=== PATIENT | female | born 1955 | race Caucasian/White ===

== ENCOUNTER 2018-12-06 10:45 | Emergency (ER) | payer SELFPAY ==
[~2018-12-06] VITALS: Ht 162.6 cm; Wt 65.8 kg
--- OUTSIDE RECORDS SUMMARY | 2018-12-06 10:49 | XMS REPORT | Clinical Summary ---
Author Author [facility] Organization [facility] Address Unknown Phone Unavailable Care Team Providers Care Mathematics Academic Chair Name Role Phone Asked, No Pcp PCP Unavailable Allergies Comments Active Allergy Reactions Severity Noted Date Doxycycline Rash Low 05/18/2018 Promethazine Rash Low 05/18/2018 Medications End Date Status Medication Sig Dispensed Refills Start Date Active furosemide (LASIX) 40 mg Take 40 mg by 0 tablet mouth 2 (two) times a day. Active carvedilol (COREG) 25 MG Take 25 mg by 0 tablet mouth 2 (two) times a day with meals. Active omeprazole (PriLOSEC) 20 Take 20 mg by 0 MG capsule mouth daily. Active aspirin (ECOTRIN) 81 MG Take 81 mg by 0 enteric coated tablet mouth daily. Active atorvastatin (LIPITOR) 40 Take 40 mg by 0 MG tablet mouth daily. Active ferrous sulfate 325 (65 Take 325 mg 0 FE) MG tablet by mouth daily with breakfast. Active NIFEdipine XL (PROCARDIA Take 30 mg by 0 XL) 30 MG 24 hr tablet mouth daily. 05/23/2018 Discontinued insulin ASPART (NovoLOG) Inject 8 0 100 unit/mL injection Units under the skin 3 (three) times a day before meals. 05/23/2018 Discontinued insulin detemir (LEVEMIR Inject 30 0 FLEXPEN SUBQ) Units under the skin nightly. 05/23/2018 Discontinued patiromer calcium Take 8.4 g by 0 sorbitex (VELTASSA) 8.4 mouth daily. gram powder in packet 08/05/2018 Discontinued rOPINIRole (REQUIP) 5 MG Take 5 mg by 0 tablet mouth nightly. 07/31/2018 Discontinued buPROPion SR (WELLBUTRIN Take 100 mg 0 SR) 100 MG 12 hr tablet by mouth 2 (two) times a day. 05/23/2018 Discontinued gabapentin (NEURONTIN) Take 100 mg 0 100 mg capsule by mouth 3 (three) times a day. 05/23/2018 Discontinued clopidogrel (PLAVIX) 75 Take 75 mg by 0 mg tablet mouth daily. 06/05/2018 traMADol (ULTRAM) 50 mg Take 1 tablet 30 tablet 0 tablet (50 mg total) 8 by mouth every 6 (six) hours as needed for moderate pain for up to 14 days. 06/22/2018 acetaminophen (TYLENOL) Take 1 tablet 1 Bottle 0 325 MG tablet (325 mg 8 total) by mouth every 4 (four) hours as needed for mild pain for up to 30 days. 06/22/2018 patiromer calcium Take 8.4 g by 15 packet 0 sorbitex (VELTASSA) 8.4 mouth every 8 gram powder in packet other day for 30 days. 06/22/2018 insulin lispro (HumaLOG) Inject 0-7 10 mL 12 100 unit/mL injection Units under 8 the skin 3 (three) times a day with meals for 30 days. 06/22/2018 insulin ASPART (NovoLOG) Inject 4 3.6 mL 0 100 unit/mL injection Units under 8 the skin 3 (three) times a day before meals for 30 days. 06/24/2018 clopidogrel (PLAVIX) 75 Take 1 tablet 30 tablet 0 mg tablet (75 mg total) 8 by mouth daily for 30 days. 08/05/2018 Discontinued vancomycin/0.9 % sod Infuse 750 mg 0 chloride (VANCOMYCIN IN into a venous 0.9 % SODIUM CHL) 750 catheter 3 mg/250 mL solution (three) times a week. MWF after dialysis, last received on Wednesday07/29/18 09/26/2018 Discontinued HYDROcodone-acetaminophen Take 1 tablet 0 (NORCO) 10-325 mg per by mouth tablet every 4 (four) hours as needed for moderate pain. 08/05/2018 Discontinued clopidogrel bisulfate Take by 0 (PLAVIX ORAL) mouth. 09/26/2018 Discontinued cefTRIAXone (ROCEPHIN) 2 Infuse 2 g 0 gram/50 mL IVPB into a venous catheter daily. 09/04/2018 acetaminophen (TYLENOL) Take 1 tablet 0 500 MG tablet (500 mg 9 total) by mouth every 4 (four) hours as needed for mild pain for up to 30 days. 09/04/2018 calcium carbonate (TUMS) Chew 1 tablet 0 200 mg calcium (500 mg) (500 mg 9 chewable tablet total) 3 (three) times a day as needed for indigestion or heartburn for up to 30 days. 09/04/2018 valsartan (DIOVAN) 80 MG Take 1 tablet 60 tablet 0 tablet (80 mg total) 9 by mouth 2 (two) times a day for 30 days. Hold if SBP less than 125 09/04/2018 rOPINIRole (REQUIP) 0.5 Take 1 tablet 30 tablet 0 MG tablet (0.5 mg 9 total) by mouth nightly for 30 days. 09/14/2018 cefTRIAXone (ROCEPHIN) 2 Infuse 2 g 0 g in 50 ML Mini-Bag Plus into a venous 9 catheter daily for 40 days. 09/04/2018 traMADol (ULTRAM) 50 mg Take 1 tablet 0 tablet (50 mg total) 9 by mouth 3 (three) times a day as needed for moderate pain for up to 30 days. 09/06/2018 clopidogrel (PLAVIX) 75 Take 1 tablet 0 201 mg tablet (75 mg total) 9 by mouth daily for 30 days. 09/04/2018 gabapentin (NEURONTIN) Take 1 60 capsule 0 100 mg capsule capsule (100 9 mg total) by mouth 2 (two) times a day for 30 days. 09/04/2018 insulin GLARGINE (LANTUS) Inject 10 3 mL 0 100 unit/mL injection Units under 9 (vial) the skin daily before breakfast for 30 days. 09/04/2018 insulin lispro (HumaLOG) Inject 3 10 mL 12 100 unit/mL injection Units under 9 the skin 3 (three) times a day with meals for 30 days. 09/04/2018 insulin lispro (HumaLOG) Inject 0-7 10 mL 12 100 unit/mL injection Units under 9 the skin 3 (three) times a day with meals for 30 days. 10/26/2018 acetaminophen (TYLENOL) Take 1 tablet 0 500 MG tablet (500 mg 9 total) by mouth every 4 (four) hours as needed for mild pain for up to 30 days. 10/26/2018 sennosides-docusate Take 1 tablet 60 tablet 0 sodium (SENOKOT-S) 8.6-50 by mouth 2 9 mg per tablet (two) times a day for 30 days. 10/11/2018 Discontinued traMADol (ULTRAM) 50 mg Take 0.5 0 tablet tablets (25 9 mg total) by mouth every 4 (four) hours as needed for moderate pain for up to 14 days. Give with Tylenol 500mg 10/11/2018 Discontinued amoxicillin (AMOXIL) 500 Take 1 0 MG capsule capsule (500 9 mg total) by mouth every evening for 8 days. 11/10/2018 calcium carbonate (TUMS) Chew 1 tablet 0 200 mg calcium (500 mg) (500 mg 9 chewable tablet total) 3 (three) times a day as needed for indigestion for up to 30 days. 11/10/2018 gabapentin (NEURONTIN) Take 1 90 capsule 0 100 mg capsule capsule (100 9 mg total) by mouth 3 (three) times a day for 30 days. 11/10/2018 cefTRIAXone (ROCEPHIN) Infuse 2 g 0 IVPB in 50 mL into a venous 9 catheter daily for 30 days. 11/11/2018 epoetin nanette-epbx Infuse 2.08 25 mL 0 (RETACRIT) 3,000 unit/mL mL (6,240 9 solution injection Units total) into a venous catheter 3 (three) times a week for 30 days. 11/10/2018 acetaminophen-codeine Take 1 tablet 0 (TYLENOL WITH CODEINE #3) by mouth 9 300-30 mg per tablet every 6 (six) hours as needed for moderate pain for up to 30 days. 10/25/2018 traMADol (ULTRAM) 50 mg Take 0.5 0 05/14/201 tablet tablets (25 9 mg total) by mouth every 4 (four) hours as needed for moderate pain for up to 14 days. Active Problems Problem Noted Date History of implantation of joint prosthesis of elbow, right 10/05/2018 Pacemaker 09/18/2018 Complication of internal fixation device 09/17/2018 Septic arthritis of elbow, right 07/31/2018 Closed fracture of supracondylar humerus, right, with nonunion, subsequent 05/18/2018 encounter Other intraarticular fracture of lower end of right radius, sequela 05/18/2018 Carpal tunnel syndrome on right 05/18/2018 Lesion of right ulnar nerve 05/18/2018 Right supracondylar humerus fracture, sequela 05/18/2018 End-stage renal disease on hemodialysis 05/18/2018 Type 2 diabetes mellitus 05/18/2018 Encounters Care Team Description Date Type Specialty Keyona Fisher MD 10/05/2018 Anesthesia Orthopedic Surgery Event Lani Thompson MD RIGHT ELBOW ANTIBIOTIC SPACER REMOVAL WITH REIMPLANTATION 10/05/2018 Surgery Orthopedic Surgery Lani Thompson MD Infection of prosthetic shoulder joint, subsequent encounter 10/05/2018 Hospital Orthopedic Surgery - Encounter 10/11/2018 Julio César Barragan MD 09/18/2018 Documentation Orthopedic Surgery Wallace Huddleston MD 09/17/2018 [facility] Cardiology - Encounter 09/26/2018 N/A 09/17/2018 Intake Access Mina Jones RN 08/12/2018 Documentation Orthopedic Surgery Lani Thompson MD INCISION AND DRAINAGE OF RIGHT ELBOW WITH REMOVAL OF PROSTHESIS, ANTIBIOTIC SCAR REMOVAL, SCAR REVISION 08/03/2018 Surgery Orthopedic Surgery Chata Martinez, JANIYA 08/03/2018 Anesthesia Orthopedic Surgery Event Sebastian Key MD Infection of prosthetic knee joint, initial encounter (HCC); Keloid of skin 07/31/2018 Hospital Orthopedic Surgery - Encounter 08/05/2018 N/A 07/30/2018 Intake Access Devon Alberto MD 05/18/2018 Anesthesia Orthopedic Surgery Event Lani Thompson MD RIGHT ELBOW ABBEY ARTHROPLASTY 05/18/2018 Surgery Orthopedic Surgery Lani Thompson MD Closed fracture of supracondylar humerus, right, with nonunion, subsequent encounter (Primary Dx); Other intraarticular fracture of lower end of right radius, sequela; Carpal tunnel syndrome on right; Lesion of right ulnar nerve; Right supracondylar humerus fracture, sequela; End-stage renal disease on hemodialysis (HCC); Type 2 diabetes mellitus with chronic kidney disease on chronic dialysis, with long-term current use of insulin ([facility]) 05/18/2018 [facility] Orthopedic Surgery - Encounter 05/23/2018 after 12/05/2017 Immunizations Name Dates Previously Given Next Due Pneumococcal 08/05/2018 Polysaccharide Social History Date Tobacco Use Types Packs/Day Years Used Never Smoker Smokeless Tobacco: Never Used Alcohol Use Drinks/Week oz/Week Comments No Alcohol Habits Answer Date Recorded How often do you have a drink containing alcohol? Never 05/18/2018 How many drinks containing alcohol do you have on Not asked a typical day when you are drinking? How often do you have six or more drinks on one Not asked occasion? Sex Assigned at Date Recorded Not on file Industry Job Start Date Occupation Not on file Not on file Not on file Travel End Travel History Travel Start No recent travel history available. Last Filed Vital Signs Time Taken Vital Sign Reading 10/11/2018 12:41 PM CDT Blood Pressure 140/68 10/11/2018 12:41 PM CDT Pulse 88 10/11/2018 12:21 PM CDT Temperature 36.1 C (96.9 F) 10/11/2018 12:21 PM CDT Respiratory Rate 17 10/11/2018 12:21 PM CDT Oxygen Saturation 97% - Inhaled Oxygen - Concentration 10/05/2018 8:36 PM CDT Weight 70.3 kg (155 lb) 10/05/2018 8:36 PM CDT Height 165.1 cm (5' 5") 10/05/2018 8:36 PM CDT Body Mass Index 25.79 Plan of Treatment Health Maintenance Due Date Last Done Comments DIABETIC RETINAL EYE EXAM 1956 DIABETIC FOOT EXAM 1966 URINE MICROALBUMIN 1966 BREAST CANCER SCREENING 2006 COLONOSCOPY SCREENING 2006 SHINGLES VACCINES (#1) 2006 INFLUENZA VACCINE 12/29/2018 02/28/2018, 02/10/2017 Implants Device Identifier Shelf Expiration Date Model / Serial / Lot Implanted Type Area Manufactur er 08/11/2022 [id number] / [id number] / 0 Suture Passer Accessorie N/A: N/A Implanted: Qty: 1 on 05/18/2018 by Lani Gomez MD 10/29/2019 [id number] / / [id number] Cement Bone 40gr Smartset Mv Bone Screw Right: N/A DEPUY Endurance - [id number] ORTHO-KNEE Implanted: Qty: 1 on 05/18/2018 by Lani Gomez MD 10/14/2020 [id number] / [id number] / 0 77mm Latitude Elbow Humeral Stem Ortho - N/A: N/A ADAMS Medium Right (Formerly Tornier) Other MEDICAL Implanted: Qty: 1 on 05/18/2018 by [employer] Lani Sexton MD s , INC. 01/20/2023 [id number] / [id number] / 0 Latitude Spool Medium Right Center Ortho - N/A: N/A ADAMS Offset (Formerly Tornier) Other MEDICAL Implanted: Qty: 1 on 05/18/2018 by HopscotchLani Patterson MD s , INC. 08/26/2022 [id number] / / [id number] Aequalis Flex Revive Ortho Right: Elbow Implanted: Qty: 1 on 08/03/2018 by Lani Jimenez MD 09/27/2020 [id number] / / [id number] Cement Bone Full Dose Simplex P Surgical N/A: N/A ESTEBAN Radiopaque - [id number] Bone ORTHOPEDIC Implanted: Qty: 1 on 08/03/2018 by Lani Her MD HIPS-KNEES 11/27/2020 [id number] [id number] / / [id number] Cement Bone Full Dose Simplex P Surgical Right: Elbow ESTEBAN Radiopaque - [id number] Bone ORTHOPEDIC Implanted: 10/05/2018 (Quantity not Cement S on file) HIPS-KNEES 11/27/2020 [id number] 010 / / [id number] Cement Bone Full Dose Simplex P Surgical Right: Elbow ESTEBAN Radiopaque - [id number] Bone ORTHOPEDIC Implanted: 10/05/2018 (Quantity not Cement S on file) HIPS-KNEES [id number] / / Catheter Cv Powerline Dlmn Al 6fr - Surgical N/A: N/A BARD [id number] Implants; ACCESS Implanted: 08/04/2018 (Quantity not Expanders; SYSTEMS on file) Extenders; Surgical Wires [id number] / / Catheter Cv Powerline Dlmn Al 6fr - Surgical N/A: N/A BARD [id number] Implants; ACCESS Implanted: 10/06/2018 (Quantity not Expanders; SYSTEMS on file) Extenders; Surgical Wires Procedures Comments Procedure Name Priority Date/Time Associated Diagnosis POC GLUCOSE Routine 10/11/2018 12:29 PM CDT HEMODIALYSIS Routine 10/11/2018 9:46 AM CDT POC GLUCOSE Routine 10/10/2018 9:21 PM CDT POC GLUCOSE Routine 10/10/2018 6:15 PM CDT POC GLUCOSE Routine 10/10/2018 1:10 PM CDT POC GLUCOSE Routine 10/10/2018 7:36 AM CDT ESTIMATED GFR Routine 10/10/2018 5:15 AM CDT HC COMPLETE BLD COUNT Routine 10/10/2018 W/AUTO DIFF 5:15 AM CDT BASIC METABOLIC PANEL Routine 10/10/2018 5:15 AM CDT POC GLUCOSE Routine 10/09/2018 9:06 PM CDT POC GLUCOSE Routine 10/09/2018 5:14 PM CDT POC GLUCOSE Routine 10/09/2018 12:35 PM CDT POC GLUCOSE Routine 10/09/2018 7:50 AM CDT POC GLUCOSE Routine 10/08/2018 10:06 PM CDT POC GLUCOSE Routine 10/08/2018 5:27 PM CDT POC GLUCOSE Routine 10/08/2018 1:39 PM CDT HEMODIALYSIS Routine 10/08/2018 9:08 AM CDT POC GLUCOSE Routine 10/08/2018 8:15 AM CDT ESTIMATED GFR Routine 10/08/2018 5:00 AM CDT BASIC METABOLIC PANEL Routine 10/08/2018 5:00 AM CDT HC COMPLETE BLD COUNT Routine 10/08/2018 W/AUTO DIFF 5:00 AM CDT POC GLUCOSE Routine 10/07/2018 9:07 PM CDT POC GLUCOSE Routine 10/07/2018 6:21 PM CDT POC GLUCOSE Routine 10/07/2018 12:39 PM CDT XR CHEST 1 VW PORTABLE Routine 10/07/2018 8:45 AM CDT SMEAR REVIEW Routine 10/07/2018 6:09 AM CDT HC COMPLETE BLD COUNT Routine 10/07/2018 W/AUTO DIFF 6:09 AM CDT ESTIMATED GFR Routine 10/07/2018 4:00 AM CDT BASIC METABOLIC PANEL Routine 10/07/2018 4:00 AM CDT POC GLUCOSE Routine 10/07/2018 1:14 AM CDT POC GLUCOSE Routine 10/06/2018 10:24 PM CDT IR TUNNELED CENTRAL LINE Routine 10/06/2018 PLACEMENT 5:16 PM CDT POC GLUCOSE Routine 10/06/2018 3:07 PM CDT POC GLUCOSE Routine 10/06/2018 11:54 AM CDT HEMODIALYSIS Routine 10/06/2018 10:49 AM CDT POC GLUCOSE Routine 10/06/2018 7:14 AM CDT POC GLUCOSE Routine 10/05/2018 6:56 PM CDT POC GLUCOSE Routine 10/05/2018 3:55 PM CDT OR FL > 1 HOUR Routine 10/05/2018 3:20 PM CDT FUNGUS SMEAR Timed 10/05/2018 2:16 PM CDT AFB STAIN Timed 10/05/2018 2:16 PM CDT GRAM STAIN Timed 10/05/2018 2:16 PM CDT AFB CULTURE Timed 10/05/2018 Infection of prosthetic 2:16 PM CDT shoulder joint, subsequent encounter AEROBIC CULTURE Timed 10/05/2018 Infection of prosthetic 2:16 PM CDT shoulder joint, subsequent encounter FUNGUS CULTURE Timed 10/05/2018 Infection of prosthetic 2:16 PM CDT shoulder joint, subsequent encounter ANAEROBIC CULTURE Timed 10/05/2018 Infection of prosthetic 2:16 PM CDT shoulder joint, subsequent encounter AFB STAIN Timed 10/05/2018 2:15 PM CDT GRAM STAIN Timed 10/05/2018 2:15 PM CDT FUNGUS SMEAR Timed 10/05/2018 2:15 PM CDT AFB CULTURE Timed 10/05/2018 Infection of prosthetic 2:15 PM CDT shoulder joint, subsequent encounter AEROBIC CULTURE Timed 10/05/2018 Infection of prosthetic 2:15 PM CDT shoulder joint, subsequent encounter FUNGUS CULTURE Timed 10/05/2018 Infection of prosthetic 2:15 PM CDT shoulder joint, subsequent encounter ANAEROBIC CULTURE Timed 10/05/2018 Infection of prosthetic 2:15 PM CDT shoulder joint, subsequent encounter ARTERIAL LINE Routine 10/05/2018 1:43 PM CDT Procedure Note - Leslye Hilton CRNA - 10/05/2018 1:43 PM CDT Arterial line Performed by: Keyona Fisher MD Authorized by: Keyona Fisher MD Patient Location: OR Start Time: 10/05/2018 1:39 PM End Time: 10/05/2018 1:41 PM Pre-proced ure: patient identified , IV checked, site and side verified, risks and benefits discussed, procedure verified, surgical consent complete, patient position confirmed, monitors and equipment checked and pre-op evaluation complete MSBT: antiseptic used and hand hygiene performed Indicatio ns: Indication s: multiple ABGs and hemodynami c monitoring Anesthesia : Anesthesia : General Procedure Details: Arterial Line placement: Placed post induction Line placement site: Radial Line placement side: Left Arterial line gauge: 20 G Number of attempts: 1 Ultrasound guidance used: Yes Post-proc edure: Post-proce dure: Sterile dressing applied Post procedure circulatio n, sensation, movement: Unchanged Patient tolerance: Patient tolerated the procedure well with no immediate complicati ons ARTHROPLASTY, ELBOW, 10/05/2018 Infection of prosthetic TOTAL 1:00 PM CDT shoulder joint, subsequent encounter Special Needs REQ 1300 START, BRACHIAL PLESUX, EST 60 MINS, BONE CEMENT, VANC POWDER, TOBRA POWDER, BACTISURE PREPARE RBC Routine 10/05/2018 11:10 AM CDT TYPE AND SCREEN Routine 10/05/2018 11:10 AM CDT POC PANEL 4 Routine 10/05/2018 10:37 AM CDT POC GLUCOSE Routine 10/05/2018 9:44 AM CDT HEMODIALYSIS Routine 09/26/2018 1:32 PM CDT ESTIMATED GFR Routine 09/26/2018 1:10 PM CDT BASIC METABOLIC PANEL Routine 09/26/2018 1:10 PM CDT CBC HEMOGRAM Routine 09/26/2018 1:10 PM CDT POC GLUCOSE Routine 09/25/2018 4:54 PM CDT POC GLUCOSE Routine 09/25/2018 11:38 AM CDT POC GLUCOSE Routine 09/25/2018 7:33 AM CDT POC GLUCOSE Routine 09/24/2018 9:20 PM CDT POC GLUCOSE Routine 09/24/2018 6:17 PM CDT POC GLUCOSE Routine 09/24/2018 11:36 AM CDT POC GLUCOSE Routine 09/24/2018 7:31 AM CDT POC GLUCOSE Routine 09/23/2018 8:35 PM CDT POC GLUCOSE Routine 09/23/2018 5:14 PM CDT POC GLUCOSE Routine 09/23/2018 12:27 PM CDT ESTIMATED GFR Routine 09/23/2018 7:52 AM CDT BASIC METABOLIC PANEL Routine 09/23/2018 7:52 AM CDT HC COMPLETE BLD COUNT Routine 09/23/2018 W/AUTO DIFF 7:52 AM CDT HEMODIALYSIS Routine 09/23/2018 7:23 AM CDT POC GLUCOSE Routine 09/22/2018 9:50 PM CDT POC GLUCOSE Routine 09/22/2018 4:28 PM CDT POC GLUCOSE Routine 09/22/2018 11:47 AM CDT POC GLUCOSE Routine 09/22/2018 7:19 AM CDT POC GLUCOSE Routine 09/22/2018 12:10 AM CDT HC COMPLETE BLD COUNT Routine 09/21/2018 W/AUTO DIFF 6:00 PM CDT POC GLUCOSE Routine 09/21/2018 5:39 PM CDT HEMODIALYSIS Routine 09/21/2018 1:28 PM CDT POC GLUCOSE Routine 09/21/2018 12:11 PM CDT POC GLUCOSE Routine 09/21/2018 7:53 AM CDT ESTIMATED GFR Routine 09/21/2018 4:00 AM CDT BASIC METABOLIC PANEL Routine 09/21/2018 4:00 AM CDT POC GLUCOSE Routine 09/20/2018 10:[address] HEAD WO CONTRAST Routine 09/20/2018 7:38 PM CDT POC GLUCOSE Routine 09/20/2018 6:21 PM CDT POC GLUCOSE Routine 09/20/2018 12:45 PM CDT POC GLUCOSE Routine 09/20/2018 8:00 AM CDT POC GLUCOSE Routine 09/19/2018 9:37 PM CDT POC GLUCOSE Routine 09/19/2018 6:30 PM CDT HC COMPLETE BLD COUNT Routine 09/19/2018 W/AUTO DIFF 5:50 PM CDT TRANSFUSE RED BLOOD CELLS Routine 09/19/2018 4:20 PM CDT PREPARE RBC Routine 09/19/2018 1:50 PM CDT HEPATITIS B SURFACE Routine 09/19/2018 ANTIGEN 1:50 PM CDT ESTIMATED GFR Routine 09/19/2018 1:50 PM CDT COMPREHENSIVE METABOLIC Routine 09/19/2018 PANEL 1:50 PM CDT TYPE AND SCREEN Routine 09/19/2018 1:50 PM CDT POC GLUCOSE Routine 09/19/2018 12:50 PM CDT HEMODIALYSIS Routine 09/19/2018 8:34 AM CDT POC GLUCOSE Routine 09/19/2018 7:38 AM CDT POC GLUCOSE Routine 09/18/2018 10:21 PM CDT POC GLUCOSE Routine 09/18/2018 5:04 PM CDT XR CHEST 2 VW Routine 09/18/2018 2:58 PM CDT XR ELBOW 3+ VW RIGHT Routine 09/18/2018 2:58 PM CDT POC GLUCOSE Routine 09/18/2018 11:39 AM CDT POC GLUCOSE Routine 09/18/2018 7:53 AM CDT SMEAR REVIEW Routine 09/18/2018 12:23 AM CDT RETICULOCYTE COUNT Routine 09/18/2018 12:23 AM CDT PARTIAL THROMBOPLASTIN Routine 09/18/2018 TIME (PTT) 12:23 AM CDT PROTHROMBIN TIME WITH INR Routine 09/18/2018 12:23 AM CDT HC COMPLETE BLD COUNT Routine 09/18/2018 W/AUTO DIFF 12:23 AM CDT VITAMIN B12 LEVEL Routine 09/17/2018 11:01 PM CDT FOLATE LEVEL Routine 09/17/2018 11:00 PM CDT TOTAL IRON BINDING Routine 09/17/2018 CAPACITY 10:58 PM CDT ESTIMATED GFR Routine 09/17/2018 10:58 PM CDT THYROID STIMULATING Routine 09/17/2018 HORMONE 10:58 PM CDT PHOSPHORUS LEVEL Routine 09/17/2018 10:58 PM CDT MAGNESIUM LEVEL Routine 09/17/2018 10:58 PM CDT COMPREHENSIVE METABOLIC Routine 09/17/2018 PANEL 10:58 PM CDT POC GLUCOSE Routine 08/05/2018 5:23 PM GANG WORKER POC GLUCOSE Routine 08/05/2018 12:26 PM GANG WORKER HEMODIALYSIS Routine 08/05/2018 11:14 AM GANG WORKER POC GLUCOSE Routine 08/05/2018 9:33 AM GANG WORKER HC COMPLETE BLD COUNT Routine 08/05/2018 W/AUTO DIFF 5:00 AM GANG WORKER ESTIMATED GFR Routine 08/05/2018 4:40 AM GANG WORKER BASIC METABOLIC PANEL Routine 08/05/2018 4:40 AM GANG WORKER POC GLUCOSE Routine 08/05/2018 1:12 AM GANG WORKER POC GLUCOSE Routine 08/04/2018 10:45 PM GANG WORKER POC GLUCOSE Routine 08/04/2018 6:11 PM GANG WORKER POC GLUCOSE Routine 08/04/2018 12:50 PM GANG WORKER IR TUNNELED CENTRAL LINE Routine 08/04/2018 PLACEMENT 9:57 AM GANG WORKER POC GLUCOSE Routine 08/04/2018 8:24 AM GANG WORKER HC COMPLETE BLD COUNT Routine 08/04/2018 W/AUTO DIFF 4:44 AM GANG WORKER ESTIMATED GFR Routine 08/04/2018 4:00 AM GANG WORKER BASIC METABOLIC PANEL Routine 08/04/2018 4:00 AM GANG WORKER POC GLUCOSE Routine 08/03/2018 9:53 PM GANG WORKER POC GLUCOSE Routine 08/03/2018 6:49 PM GANG WORKER HEMODIALYSIS Routine 08/03/2018 2:46 PM GANG WORKER POC GLUCOSE Routine 08/03/2018 12:47 PM GANG WORKER POC GLUCOSE Routine 08/03/2018 11:15 AM GANG WORKER OR FL > 1 HOUR Routine 08/03/2018 10:43 AM GANG WORKER SURGICAL PATHOLOGY Routine 08/03/2018 REQUEST 9:08 AM GANG WORKER GRAM STAIN Timed 08/03/2018 8:56 AM GANG WORKER AFB STAIN Timed 08/03/2018 8:56 AM GANG WORKER FUNGUS SMEAR Timed 08/03/2018 8:56 AM GANG WORKER FUNGUS SMEAR Timed 08/03/2018 8:54 AM GANG WORKER AFB STAIN Timed 08/03/2018 8:54 AM GANG WORKER GRAM STAIN Timed 08/03/2018 8:54 AM GANG WORKER TISSUE CULTURE Timed 08/03/2018 Infection of prosthetic 8:54 AM GANG WORKER knee joint, initial encounter (HCC) Keloid of skin SC AN ELECTIVE Routine 08/03/2018 ENDOTRACHEAL AIRWAY 8:33 AM GANG WORKER Procedure Note - Hope Mcintosh CRNA - 08/03/2018 8:33 AM GANG WORKER Airway Performed by: Hope Mcintosh CRNA Authorized by: Keyona Fisher MD Location: OR Urgency: Elective Difficult Airway: No Preoxygena veronica with 100% O2: Yes C-spine Precaution s Maintained Throughout : Yes Mask Ventilatio n: Not attempted Final Airway Type: Endotrache al airway Final Endotrache al Airway: ETT Technique Used: Video laryngosco py Devices/Me thods Used in Placement: Intubatin g stylet Insertion Site: Oral Blade type: glidescope #3. Laryngosco pe Blade/Vide olaryngosc ope Blade Size: 3 ETT Size (mm): 7.0 Measured from: Lips ETT to Lips (cm): 22 Placement Verified by: CO2 detection, direct visualizat ion and equal breath sounds Laryngosco pic view: Grade I - full view of glottis Rapid Sequence Induction (RSI): Yes Modified RSI: Yes Number of Attempts at Approach: 1 Cricoid applied preinducti on through confirmati on of ETT placement, preoxygena veronica x 3 minutes, ETT placed easily and atraumatic ally, facial and oral structures unchanged post ETT placement ARTERIAL LINE Routine 08/03/2018 8:16 AM GANG WORKER Procedure Note - Hope Mcintosh CRNA - 08/03/2018 8:16 AM GANG WORKER Arterial line Performed by: Keyona Fisher MD Authorized by: Keyona Fisher MD Patient Location: OR Start Time: 08/03/2018 8:13 AM End Time: 08/03/2018 8:15 AM Pre-proced ure: patient identified , IV checked, site and side verified, risks and benefits discussed, procedure verified, surgical consent complete, patient position confirmed, monitors and equipment checked and pre-op evaluation complete MSBT: antiseptic used and hand hygiene performed TIme Out Performed: 08/03/2018 8:04 AM Indication s: Indication s: hemodynami c monitoring Anesthesia : Anesthesia : General Procedure Details: Arterial Line placement: Placed post induction Line placement site: Radial Line placement side: Left Arterial line gauge: 20 G Number of attempts: 2 Ultrasound guidance used: Yes (no image saved) Post-proce dure: Post-proce dure: Sterile dressing applied Post procedure circulatio n, sensation, movement: Unchanged Patient tolerance: Patient tolerated the procedure well with no immediate complicati ons INCISION AND DRAINAGE, 08/03/2018 Infection of prosthetic ELBOW 8:00 AM GANG WORKER knee joint, initial encounter (HCC) Keloid of skin Special Needs SAG SAW, BONE CEMENT, VANC POWDER, LONG CURETTES, PULSE LAVAGE, SUPINE WITH BUMP UNDER SHOULDER ARM ACROSS CHEST JOINT FLUID CULTURE Timed 08/03/2018 7:56 AM GANG WORKER AFB CULTURE Timed 08/03/2018 Infection of prosthetic 7:56 AM GANG WORKER knee joint, initial encounter (HCC) Keloid of skin FUNGUS CULTURE Timed 08/03/2018 Infection of prosthetic 7:56 AM GANG WORKER knee joint, initial encounter (HCC) Keloid of skin ANAEROBIC CULTURE Timed 08/03/2018 Infection of prosthetic 7:56 AM GANG WORKER knee joint, initial encounter (HCC) Keloid of skin FUNGUS CULTURE Timed 08/03/2018 7:54 AM GANG WORKER ANAEROBIC CULTURE Timed 08/03/2018 7:54 AM GANG WORKER AFB CULTURE Timed 08/03/2018 Infection of prosthetic 7:54 AM GANG WORKER knee joint, initial encounter (HCC) Keloid of skin POC GLUCOSE Routine 08/03/2018 7:19 AM GANG WORKER CBC WITH PLATELET AND Routine 08/03/2018 DIFFERENTIAL 4:05 AM GANG WORKER ESTIMATED GFR Routine 08/03/2018 4:00 AM GANG WORKER BASIC METABOLIC PANEL Routine 08/03/2018 4:00 AM GANG WORKER POC GLUCOSE Routine 08/03/2018 12:35 AM GANG WORKER POC GLUCOSE Routine 08/02/2018 11:12 PM GANG WORKER ECG 12-LEAD Routine 08/02/2018 7:19 PM GANG WORKER POC GLUCOSE Routine 08/02/2018 6:55 PM GANG WORKER POC GLUCOSE Routine 08/02/2018 6:53 PM GANG WORKER ECHOCARDIOGRAM 2D Routine 08/02/2018 COMPLETE W MMODE SPECTRAL 4:00 PM GANG WORKER COLOR DOPPLER ([id number]) PREPARE RBC Routine 08/02/2018 2:25 PM GANG WORKER POC GLUCOSE Routine 08/02/2018 2:25 PM GANG WORKER TYPE AND SCREEN Routine 08/02/2018 2:25 PM GANG WORKER POC GLUCOSE Routine 08/02/2018 7:46 AM GANG WORKER ESTIMATED GFR Routine 08/02/2018 4:00 AM GANG WORKER PHOSPHORUS LEVEL Routine 08/02/2018 4:00 AM GANG WORKER BASIC METABOLIC PANEL Routine 08/02/2018 4:00 AM GANG WORKER CBC WITH PLATELET AND Routine 08/02/2018 DIFFERENTIAL 3:50 AM GANG WORKER POC GLUCOSE Routine 08/01/2018 9:23 PM GANG WORKER POC GLUCOSE Routine 08/01/2018 5:18 PM GANG WORKER POC GLUCOSE Routine 08/01/2018 1:54 PM GANG WORKER XR ABDOMEN 1 VW PORTABLE Routine 08/01/2018 12:31 PM GANG WORKER HEPATITIS B SURFACE STAT 08/01/2018 ANTIGEN 12:12 PM GANG WORKER POC GLUCOSE Routine 08/01/2018 12:05 PM GANG WORKER ESTIMATED GFR Routine 08/01/2018 9:55 AM GANG WORKER BASIC METABOLIC PANEL Routine 08/01/2018 9:55 AM GANG WORKER BLOOD CULTURE, AEROBIC & Routine 08/01/2018 ANAEROBIC 9:55 AM GANG WORKER HEMODIALYSIS Routine 08/01/2018 8:57 AM GANG WORKER POC GLUCOSE Routine 08/01/2018 7:31 AM GANG WORKER PROTHROMBIN TIME WITH INR Routine 08/01/2018 4:20 AM GANG WORKER HC COMPLETE BLD COUNT Routine 08/01/2018 W/AUTO DIFF 4:20 AM GANG WORKER ESTIMATED GFR Routine 08/01/2018 4:00 AM GANG WORKER HEPATIC FUNCTION PANEL Routine 08/01/2018 4:00 AM GANG WORKER BASIC METABOLIC PANEL Routine 08/01/2018 4:00 AM GANG WORKER BLOOD CULTURE, AEROBIC & Routine 08/01/2018 ANAEROBIC 4:00 AM GANG WORKER XR ELBOW 2 VW RIGHT Routine 07/31/2018 9:21 PM GANG WORKER POC GLUCOSE Routine 07/31/2018 8:31 PM GANG WORKER POC GLUCOSE Routine 07/31/2018 4:47 PM GANG WORKER POC GLUCOSE Routine 07/31/2018 11:[address] HEAD WO CONTRAST STAT 05/23/2018 3:45 PM GANG WORKER POC GLUCOSE Routine 05/23/2018 2:17 PM GANG WORKER POC GLUCOSE Routine 05/23/2018 10:37 AM GANG WORKER POC GLUCOSE Routine 05/23/2018 8:03 AM GANG WORKER POC GLUCOSE Routine 05/23/2018 6:02 AM GANG WORKER HEMOGLOBIN & HEMATOCRIT Routine 05/23/2018 5:50 AM GANG WORKER POC GLUCOSE Routine 05/23/2018 2:03 AM GANG WORKER POC GLUCOSE Routine 05/22/2018 9:59 PM GANG WORKER POC GLUCOSE Routine 05/22/2018 6:14 PM GANG WORKER POC GLUCOSE Routine 05/22/2018 3:35 PM GANG WORKER HEMODIALYSIS Routine 05/22/2018 3:27 PM GANG WORKER POC GLUCOSE Routine 05/22/2018 12:53 PM GANG WORKER POC GLUCOSE Routine 05/22/2018 10:59 AM GANG WORKER POC GLUCOSE Routine 05/22/2018 7:48 AM GANG WORKER POC GLUCOSE Routine 05/22/2018 6:05 AM GANG WORKER ESTIMATED GFR Routine 05/22/2018 5:50 AM GANG WORKER BASIC METABOLIC PANEL Routine 05/22/2018 5:50 AM GANG WORKER HC COMPLETE BLD COUNT Routine 05/22/2018 W/AUTO DIFF 5:50 AM GANG WORKER POC GLUCOSE Routine 05/22/2018 1:35 AM GANG WORKER POC GLUCOSE Routine 05/21/2018 9:23 PM GANG WORKER POC GLUCOSE Routine 05/21/2018 5:00 PM GANG WORKER POC GLUCOSE Routine 05/21/2018 12:42 PM GANG WORKER TRANSFUSE RED BLOOD CELLS Routine 05/21/2018 11:47 AM GANG WORKER TRANSFUSE RED BLOOD CELLS Routine 05/21/2018 11:13 AM GANG WORKER ULTRAFILTRATION Routine 05/21/2018 10:43 AM GANG WORKER TRANSFUSE RED BLOOD CELLS Routine 05/21/2018 10:23 AM GANG WORKER SMEAR REVIEW Routine 05/21/2018 9:38 AM GANG WORKER HC COMPLETE BLD COUNT Routine 05/21/2018 W/AUTO DIFF 9:38 AM GANG WORKER POC GLUCOSE Routine 05/21/2018 9:17 AM GANG WORKER POC GLUCOSE Routine 05/21/2018 6:16 AM GANG WORKER SMEAR REVIEW Routine 05/21/2018 5:05 AM GANG WORKER ESTIMATED GFR Routine 05/21/2018 5:05 AM GANG WORKER MAGNESIUM LEVEL Routine 05/21/2018 5:05 AM GANG WORKER BASIC METABOLIC PANEL Routine 05/21/2018 5:05 AM GANG WORKER HC COMPLETE BLD COUNT Routine 05/21/2018 W/AUTO DIFF 5:05 AM GANG WORKER POC GLUCOSE Routine 05/21/2018 4:58 AM GANG WORKER POC GLUCOSE Routine 05/21/2018 2:23 AM GANG WORKER POC GLUCOSE Routine 05/20/2018 11:36 PM GANG WORKER POC GLUCOSE Routine 05/20/2018 8:29 PM GANG WORKER POC GLUCOSE Routine 05/20/2018 4:58 PM GANG WORKER SC INSERT NON-TUNNEL CV Routine 05/20/2018 Closed fracture of CATH 4:47 PM GANG WORKER supracondylar humerus, right, with nonunion, subsequent encounter Other intraarticular fracture of lower end of right radius, sequela Carpal tunnel syndrome on right Lesion of right ulnar nerve Right supracondylar humerus fracture, sequela End-stage renal disease on hemodialysis (HCC) POC GLUCOSE Routine 05/20/2018 1:24 PM GANG WORKER POC GLUCOSE Routine 05/20/2018 12:25 PM GANG WORKER PREPARE RBC Timed 05/20/2018 10:58 AM GANG WORKER PREPARE RBC Timed 05/20/2018 10:58 AM GANG WORKER PREPARE RBC Timed 05/20/2018 10:58 AM GANG WORKER TYPE AND SCREEN Timed 05/20/2018 10:58 AM GANG WORKER POC GLUCOSE Routine 05/20/2018 9:12 AM GANG WORKER SMEAR REVIEW Routine 05/20/2018 8:45 AM GANG WORKER HC COMPLETE BLD COUNT Routine 05/20/2018 W/AUTO DIFF 8:45 AM GANG WORKER HEPATITIS B SURFACE STAT 05/20/2018 ANTIGEN 8:17 AM GANG WORKER POC GLUCOSE Routine 05/20/2018 7:36 AM GANG WORKER ESTIMATED GFR Routine 05/20/2018 4:00 AM GANG WORKER BASIC METABOLIC PANEL Routine 05/20/2018 4:00 AM GANG WORKER POC GLUCOSE Routine 05/20/2018 3:17 AM GANG WORKER HEMODIALYSIS Routine 05/20/2018 12:06 AM GANG WORKER POC GLUCOSE Routine 05/19/2018 9:45 PM GANG WORKER POC GLUCOSE Routine 05/19/2018 5:00 PM GANG WORKER POC GLUCOSE Routine 05/19/2018 12:08 PM GANG WORKER POC GLUCOSE Routine 05/19/2018 7:50 AM GANG WORKER POC GLUCOSE Routine 05/18/2018 10:59 PM GANG WORKER POC GLUCOSE Routine 05/18/2018 9:18 PM GANG WORKER OR [place] > 1 HOUR Routine 05/18/2018 9:15 PM GANG WORKER SC AN ELECTIVE Routine 05/18/2018 ENDOTRACHEAL AIRWAY 6:34 PM GANG WORKER Procedure Note - Reece Graham CRNA - 05/18/2018 6:34 PM GANG WORKER Airway Date/Time: 05/18/2018 5:52 PM Performed by: Reece Graham CRNA Authorized by: Keyona Fisher MD Location: OR Urgency: Elective Difficult Airway: No Preoxygena veronica with 100% O2: Yes C-spine Precaution s Maintained Throughout : Yes Final Airway Type: Endotrache al airway Final Endotrache al Airway: ETT Cuffed: Yes Technique Used: Video laryngosco py Insertion Site: Oral ETT Size (mm): 7.0 Cuff at minimum occlusion pressure: Yes Measured from: Lips ETT to Lips (cm): 21 Placement Verified by: CO2 detection, direct visualizat ion and equal breath sounds Laryngosco pic view: Grade I - full view of glottis Rapid Sequence Induction (RSI): No Modified RSI: No Number of Attempts at Approach: 1 Eyes taped closed at LOC and prior to airway manipulati on. Easy mask ventilatio n. Atraumatic intubation att x 1 by [employer] with Glidescope #3. Cuff to seal. +EtCO2, +BBS. Dentition unchanged. No complicati ons. ARTERIAL LINE Routine 05/18/2018 5:56 PM GANG WORKER Procedure Note - Reece Graham CRNA - 05/18/2018 5:56 PM GANG WORKER Arterial line Performed by: Reece Graham CRNA Authorized by: Keyona Fisher MD Patient Location: OR Start Time: 05/18/2018 5:51 PM End Time: 05/18/2018 5:55 PM Staff: Anesthesio logist: Keyona Fisher MD Performed by: Anesthesio logist Pre-proced ure: patient identified , IV checked, site and side verified, risks and benefits discussed, procedure verified, surgical consent complete, patient position confirmed, monitors and equipment checked and pre-op evaluation complete MSBT: antiseptic used and hand hygiene performed TIme Out Performed: 8 3:44 PM Indication s: Indication s: hemodynami c monitoring Anesthesia : Anesthesia : General Procedure Details: Arterial Line placement: Placed post induction Line placement site: Radial Line placement side: Left Arterial line gauge: 20 G Number of attempts: 2 Ultrasound guidance used: Yes Post-proc edure: Post-proce dure: Sterile dressing applied Post procedure circulatio n, sensation, movement: Unchanged Patient tolerance: Patient tolerated the procedure well with no immediate complicati ons ARTHROPLASTY, RADIAL 05/18/2018 Closed displaced simple HEAD, WITH IMPLANT 5:30 PM GANG WORKER supracondylar fracture of right humerus without intercondylar fracture Special Needs Tf, REQ 1200 START EXTENDED STAY LARGE C-ARM TORNIER TOTAL ELBOW SET POC PANEL 4 Routine 05/18/2018 4:40 PM GANG WORKER after 12/05/2017 Results * POC glucose (10/11/2018 12:29 PM CDT) Only the most recent of 115 results within the time period is included. [facility] POC glucose 113 (H) 65 - 99 mg/dL [place] Comment: EPISCOPAL [facility] Notified RN HOSPITAL Meter ID: [id number] Glove Maker: Tobias Paul Specimen Performing Organization Address City/State/Zipcode Phone Number [facility] DEPARTMENT OF [address] [place] [address] PATHOLOGY AND GENOMIC MEDICINE [address] * Estimated GFR (10/10/2018 5:15 AM CDT) Only the most recent of 17 results within the time period is included. [facility] Estimated GFR 9 (A) mL/min/1.73 m2 [place] Comment: [facility] [place], operated by [facility] rpretation G1 >=90 Normal or high G2 60-89Mildly decreased [id number] Mildly to moderately decreased [id number] Moderately to severely decreased G4 15-29Severely decreased G5 <15Kidney failure The eGFR was calculated using the Chronic Kidney Disease Epidemiology Collaboration (CKD-EPI) equation. Interpretation is based on recommendations of the National Kidney Foundation-Kidney Disease Outcomes Quality Initiative (NKF-KDOQI) published in 2014. Specimen Plasma specimen Performing Organization Address City/[facility]/Zipcode Phone Number [facility] [place] [address] PATHOLOGY AND [facility] MEDICINE [address] * CBC with platelet and differential (10/10/2018 5:15 AM CDT) Only the most recent of 16 results within the time period is included. [facility] WBC 9.26 4.50 - 11.00 k/uL [facility] RBC 2.92 (L) 4.20 - 5.50 m/uL [facility] HGB 8.1 (L) 12.0 - 16.0 g/dL [facility] HCT 26.2 (L) 37.0 - 47.0 % [facility] MCV 89.7 82.0 - 100.0 fL [facility] MCH 27.7 27.0 - 34.0 pg [facility] MCHC 30.9 (L) 31.0 - 37.0 g/dL [facility] RDW - SD 56.5 (H) 37.0 - 55.0 fL [facility] MPV 10.1 8.8 - 13.2 fL [facility] Platelet count 247 150 - 400 k/uL [facility] Nucleated RBC 0.00 /100 WBC [facility] Neutrophils 65.3 39.0 - 69.0 % [facility] Lymphocytes 21.1 (L) 25.0 - 45.0 % [facility] Monocytes 10.2 (H) 0.0 - 10.0 % [facility] Eosinophils 2.8 0.0 - 5.0 % [facility] Basophils 0.1 0.0 - 1.0 % [facility] Immature 0.5Comment: "Immature 0.0 - 1.0 % [place] granulocytes granulocytes" (promyelocytes, EPISCOPAL myelocytes, metamyelocytes) [facility] Specimen Blood Performing Organization Address City[facility] Phone Number [facility] [place] [address] PATHOLOGY AND GENOMIC MEDICINE [address] * Basic metabolic panel (10/10/2018 5:15 AM CDT) Only the most recent of 15 results within the time period is included. Sodium 133 (L) 135 - 148 mEq/L [facility] Potassium 3.8 3.5 - 5.0 mEq/L [facility] Chloride 94 (L) 98 - 112 mEq/L [facility] CO2 27 24 - 31 mEq/L [facility] Anion gap 12@ANIO 7 - 15 mEq/L [facility] BUN 30 (H) 8 - 23 mg/dL [facility] Creatinine 4.67 (H) 0.50 - 0.90 mg/dL [facility] Glucose 151 (H) 65 - 99 mg/dL [facility] Calcium 8.4 (L) 8.8 - 10.2 mg/dL [facility] Specimen Plasma specimen Performing Organization Address City/[facility] Phone Number [facility] [place] [address] PATHOLOGY AND GENOMIC MEDICINE [address] * XR Chest 1 Vw Portable (10/07/2018 8:45 AM CDT) Specimen Narrative Performed At EXAMINATION:XR CHEST 1 VW PORTABLE [facility] CLINICAL HISTORY:s p left tunneled central venous catheter placement COMPARISON:09/18/2018 IMPRESSION: Left-sided central line tip is at the proximal right atrium. Right-sided dual-lead pacing device noted. No pneumothorax. Stable heart and mediastinum. Increased perihilar reticular alveolar opacities since prior study. [facility]-[id number] Procedure Note Hm Interface, Radiology Results Incoming - 10/07/2018 8:50 AM CDT EXAMINATION: XR CHEST 1 VW PORTABLE CLINICAL HISTORY: s p left tunneled central venous catheter placement COMPARISON: 09/18/2018 IMPRESSION: Left-sided central line tip is at the proximal right atrium. Right-sided dual- lead pacing device noted. No pneumothorax. Stable heart and mediastinum. Increased perihilar reticular alveolar opacities since prior study. [facility]-[id number] Performing Organization Address City/[facility] [address] * Smear review (10/07/2018 6:09 AM CDT) Only the most recent of 5 results within the time period is included. Platelet slide [facility] adequate [facility] Anisocytosis Moderate [facility] Polychromasia Moderate [facility] Target cells Moderate (A) [facility] Ovalocytes Moderate [facility] Enlarged Moderate (A) [facility] Specimen Performing Organization Address [facility] Phone Number [facility] DEPARTMENT OF [address] [place] [address] PATHOLOGY AND GENOMIC MEDICINE [address] * IR Tunneled Central Line Placement (10/06/2018 5:16 PM CDT) Only the most recent of 2 results within the time period is included. Specimen Narrative Performed At Examination:IR TUNNELED CENTRAL LINE PLACEMENT [facility] Clinical history:"Osteomyelitisknownelbowfollow up" Comparison:08/04/2018 Anesthesia:Lidocaine solution was injected into the involved tissues. Conscious sedation:After the risks and benefits of conscious sedation were discussed, midazolam and fentanyl were administered intravenously.Throughout the conscious sedation duration, the patient was continuously monitored by a registered nurse. The physician intraservice [id number] time with the patient was 33 minutes. Fluoroscopy was used; the reference air kerma for the procedure was 2 mGy. Technique:The patient was prepared using sterile technique after signed, informed consent was obtained. Maximal sterile barrier technique was implemented. The left internal jugular vein was imaged sonographically and was found to be patent and appropriate for percutaneous access.Under real-time sonographic guidance, the vessel was accessed using a 21-gauge needle with real-time visualization of needle entry into the vessel.A sonographic image of the accessed vessel was obtained as permanent documentation.Seldinger technique was used to advance a standard guidewire into the inferior vena cava.A small incision was made caudal and lateral to the venotomy, establishing the catheter exit site.The distal end of the cuffed catheter was tunneled from the catheter exit site to the venotomy.The catheter was severed to an appropriate length.A peel-away sheath was placed over the wire.The distal end of the catheter was fed through the sheath and positioned using real-time fluoroscopic guidance with the catheter tip within the right atrium.The catheter was tested and found to function appropriately.The external portion of the catheter was sutured to the adjacent skin.The small incision overlying the venotomy was closed with absorbable suture.A final fluoroscopic image of the entire chest was obtained but, for technical reasons, could not be archived.A chest radiograph will be obtained subsequently for image documentation. Estimated blood loss:Less than 2 cc. Complications:None. Specimens removed:Not applicable. Assistants:None. IMPRESSION:A power-injectable, 6 Mauritanian, tunneled central venous catheter was placed via the left internal jugular vein as described above.The catheter is ready for routine use. Thank you for allowing us to participate in the care of your patient. [facility]-[id number] Procedure Note Hm Interface, Radiology Results Incoming - 10/06/2018 5:57 PM CDT Examination: IR TUNNELED CENTRAL LINE PLACEMENT Clinical history: "Osteomyelitis known elbow follow up" Comparison: 08/04/2018 Anesthesia: Lidocaine solution was injected into the involved tissues. Conscious sedation: After the risks and benefits of conscious sedation were discussed, midazolam and fentanyl were administered intravenously. Throughout the conscious sedation duration, the patient was continuously monitored by a registered nurse. The physician intraservice [id number] time with the patient was 33 minutes. Fluoroscopy was used; the reference air kerma for the procedure was 2 mGy. Technique: The patient was prepared using sterile technique after signed, informed consent was obtained. Maximal sterile barrier technique was implemented. The left internal jugular vein was imaged sonographically and was found to be patent and appropriate for percutaneous access. Under real-time sonographic guidance, the vessel was accessed using a 21-gauge needle with real-time visualization of needle entry into the vessel. A sonographic image of the accessed vessel was obtained as permanent documentation. Seldinger technique was used to advance a standard guidewire into the inferior vena cava. A small incision was made caudal and lateral to the venotomy, establishing the catheter exit site. The distal end of the cuffed catheter was tunneled from the catheter exit site to the venotomy. The catheter was severed to an appropriate length. A peel-away sheath was placed over the wire. The distal end of the catheter was fed through the sheath and positioned using real-time fluoroscopic guidance with the catheter tip within the right atrium. The catheter was tested and found to function appropriately. The external portion of the catheter was sutured to the adjacent skin. The small incision overlying the venotomy was closed with absorbable suture. A final fluoroscopic image of the entire chest was obtained but, for technical reasons, could not be archived. A chest radiograph will be obtained subsequently for image documentation. Estimated blood loss: Less than 2 cc. Complications: None. Specimens removed: Not applicable. Assistants: None. IMPRESSION: A power-injectable, 6 Mauritanian, tunneled central venous catheter was placed via the left internal jugular vein as described above. The catheter is ready for routine use. Thank you for allowing us to participate in the care of your patient. [facility]-[id number] [facility] Organization Address City/State/Zipcode Phone Number [facility] [address] [place] [address] * [place] > I Hour (10/05/2018 3:20 PM CDT) Only the most recent of 3 results within the time period is included. Specimen Narrative Performed At EXAMINATION:OR [place] >1 HOUR HM [facility] C-arm fluoroscopy was requested in OR. [id number] OR:15 PROCEDURE: RIGHT ELBOW ANTIBIOTIC SPACER REMOVAL WITH REIMPLANTATION START TIME:1320 END TIME:1520 FLUORO TIME:2 SECS DOSE:0.12 mGy TECH(S): AC IMPRESSION: Separate operative report will be issued by the physician performing the procedure. [id number] Procedure Note Hm Interface, Radiology Results Incoming - 10/05/2018 9:55 PM CDT EXAMINATION: OR [place] > 1 HOUR C-arm fluoroscopy was requested in OR. [id number] OR: 15 PROCEDURE: RIGHT ELBOW ANTIBIOTIC SPACER REMOVAL WITH REIMPLANTATION START TIME: 1320 END TIME: 1520 FLUORO TIME: 2 SECS DOSE: 0.12 mGy TECH(S): AC IMPRESSION: Separate operative report will be issued by the physician performing the procedure. [id number] Performing Organization Address City/[facility] Phone Number [facility] [address] [place] [address] * Fungus smear (10/05/2018 2:16 PM CDT) Only the most recent of 4 results within the time period is included. Fungus smear No fungi observed. [place] Comment: EPISCOPAL Specimen Information HOSPITAL Specimen Source: Tissue Specimen Site: Elbow Specimen Tissue - Elbow Performing Organization Address City/[facility] Phone Number [facility] [place] [address] PATHOLOGY AND [place] [address] HOSPITAL * AFB culture (10/05/2018 2:16 PM CDT) Only the most recent of 4 results within the time period is included. AFB culture No growth after 6 weeks of [place] isolate incubation. EPISCOPAL Comment: HOSPITAL Specimen Information Specimen Source: Tissue Specimen Site: Elbow Specimen Tissue - Elbow Performing Organization Address [facility]/Zipcode Phone Number [facility] [place] [address] PATHOLOGY AND [facility] MEDICINE [address] * Aerobic culture (10/05/2018 2:16 PM CDT) Only the most recent of 2 results within the time period is included. Aerobic culture No growth after 3 days. [facility] isolate Comment: EPISCOPAL Specimen Information HOSPITAL Specimen Source: Tissue Specimen Site: Elbow Specimen Tissue - Elbow Performing Organization Address City/[facility] Phone Number [facility] DEPARTMENT OF [address] [place] [address] PATHOLOGY AND [facility] MEDICINE [place] EPISCOPAL [address] [place] [address] HOSPITAL * Gram stain (10/05/2018 2:16 PM CDT) Only the most recent of 4 results within the time period is included. Gram stain Occasional WBC's [place] isolate No organisms seen EPISCOPAL Comment: HOSPITAL Specimen Information Specimen Source: Tissue Specimen Site: Elbow Specimen Tissue - Elbow Performing Organization Address [facility] Phone Number [facility] DEPARTMENT OF [address] [place] [address] PATHOLOGY AND GENOMIC MEDICINE [place] EPISCOPAL [address] [place] [address] HOSPITAL * AFB stain (10/05/2018 2:16 PM CDT) Only the most recent of 4 results within the time period is included. AFB stain No acid fast bacilli (AFB) [place] seen. EPISCOPAL Comment: HOSPITAL Specimen Information Specimen Source: Tissue Specimen Site: Elbow Specimen Tissue - Elbow Performing Organization Address [facility] Phone Number [facility] DEPARTMENT OF [address] [place], [place] [address] PATHOLOGY AND [facility] [place] EPISCOPAL [address] [place] [address] HOSPITAL * Fungus culture (10/05/2018 2:16 PM CDT) Only the most recent of 4 results within the time period is included. Fungus culture No growth after 4 weeks of [place] isolate incubation. EPISCOPAL Comment: HOSPITAL Specimen Information Specimen Source: Tissue Specimen Site: Elbow Specimen Tissue - Elbow Performing Organization Address City/[facility]/Zipcode Phone Number [facility] DEPARTMENT OF [address] [place] [address] PATHOLOGY AND [facility] [place] EPISCOPAL [address] [place] [address] HOSPITAL * Anaerobic culture (10/05/2018 2:16 PM CDT) Only the most recent of 4 results within the time period is included. Anaerobic No anaerobic organisms [place] culture isolate isolated. EPISCOPAL Comment: HOSPITAL Specimen Information Specimen Source: Tissue Specimen Site: Elbow Specimen Tissue - Elbow Performing Organization Address [facility] Phone Number [facility] [place] [place] [address] PATHOLOGY AND GENOMIC MEDICINE [address] * Prepare RBC, 2 Units (10/05/2018 11:10 AM CDT) Only the most recent of 5 results within the time period is included. Product name Red Blood Cells -1, Leukored [facility] Unit number [id number] [facility] Product code [id number] [facility] Dispense status Transfused [facility] Blood [id number] [place] expiration date [facility] Blood type code [address] [place] [address] Blood type A NEGATIVE [facility] Product name Red Blood Cells -1, Leukored [facility] Unit number [id number] [facility] Product code [id number] [facility] Dispense status Transfused [facility] Blood [id number] [place] expiration date [facility] Blood type code 0600 [facility] Blood type A NEGATIVE [facility] Specimen Blood Performing Organization Address [facility] Phone Number [facility] [place] [address] PATHOLOGY AND GENOMIC MEDICINE [address] * Type and screen (10/05/2018 11:10 AM CDT) Only the most recent of 4 results within the time period is included. ABO grouping A [facility] Rh type NEG [facility] Antibody screen NEG [place] (gel) [facility] Specimen Performing Organization Address City/[facility]/Zipcode Phone Number [facility] [place] [address] PATHOLOGY AND GENOMIC MEDICINE [address] * POC panel 4 (10/05/2018 10:37 AM CDT) Only the most recent of 2 results within the time period is included. POC sodium 131 (L) 135 - 148 mmol/L [facility] POC potassium 4.4 3.5 - 5.0 mmol/L [facility] POC hematocrit 36 (L) 37 - 47 % [place] Comment: EPISCOPAL Meter ID: [id number] [facility] Glove Maker: Etta Caballero POC glucose 197 (H) 65 - 99 mg/dL [facility] Specimen Performing Organization Address City/[facility]/Zipcode Phone Number [facility] DEPARTMENT OF [address] [place] [address] PATHOLOGY AND GENOMIC MEDICINE [address] * CBC hemogram (09/26/2018 1:10 PM CDT) WBC 6.02 4.50 - 11.00 k/uL [facility] RBC 2.94 (L) 4.20 - 5.50 m/uL [facility] HGB 8.0 (L) 12.0 - 16.0 g/dL [facility] HCT 25.8 (L) 37.0 - 47.0 % [facility] MCV 87.8 82.0 - 100.0 fL [facility] MCH 27.2 27.0 - 34.0 pg [facility] MCHC 31.0 31.0 - 37.0 g/dL [facility] RDW - SD 53.7 37.0 - 55.0 fL [facility] MPV 9.4 8.8 - 13.2 fL [facility] Platelet count 173 150 - 400 k/uL [facility] Nucleated RBC 0.00 /100 WBC [facility] Specimen Blood Performing Organization Address City/[facility] Phone Number [facility] DEPARTMENT OF [address] [place] [address] PATHOLOGY AND GENOMIC MEDICINE [address] * CT Head Wo Contrast (09/20/2018 7:38 PM CDT) Only the most recent of 2 results within the time period is included. Specimen Narrative Performed At EXAMINATION:CT HEAD WO CONTRAST [facility] CLINICAL HISTORY:Confusion COMPARISON:CT head 05/23/2018. TECHNIQUE: Noncontrast head CT performed using radiation dose reduction techniques.Technical factors are evaluated and adjusted to ensure appropriate moderation of exposure.Automated dose management technology is applied to adjust radiation exposure while achieving a diagnostic quality image. FINDINGS: No significant interval change appearing since the prior CT from 05/23/2018. No acute intra or extra-axial hemorrhage identified. The ryder-white matter differentiation is preserved. Probable prominent perivascular spaces are noted within the tail of the right putamen, unchanged. The thalami, midbrain, ravin and cervicomedullary junction are unremarkable. No mass, mass effect, or midline shift is seen. Ventricles and sulci are normal in appearance for patient's age.Basal cisterns are patent. Punctate vascular calcifications are noted along the supraclinoid internal carotid arteries bilaterally. Calvarium is intact. Prior cataract lens extractions are noted bilaterally. The visualized paranasal sinuses are unremarkable. The mastoid air cells and middle ear cavities are clear. Scalp soft tissues are unremarkable. IMPRESSION: No acute intracranial abnormality identified. [facility]-[id number] Procedure Note Hm Interface, Radiology Results Incoming - 09/20/2018 7:47 PM CDT EXAMINATION: CT HEAD WO CONTRAST CLINICAL HISTORY: Confusion COMPARISON: CT head 05/23/2018. TECHNIQUE: Noncontrast head CT performed using radiation dose reduction techniques. Technical factors are evaluated and adjusted to ensure appropriate moderation of exposure. Automated dose management technology is applied to adjust radiation exposure while achieving a diagnostic quality image. FINDINGS: No significant interval change appearing since the prior CT from 05/23/2018. No acute intra or extra-axial hemorrhage identified. The ryder-white matter differentiation is preserved. Probable prominent perivascular spaces are noted within the tail of the right putamen, unchanged. The thalami, midbrain, ravin and cervicomedullary junction are unremarkable. No mass, mass effect, or midline shift is seen. Ventricles and sulci are normal in appearance for patient's age. Basal cisterns are patent. Punctate vascular calcifications are noted along the supraclinoid internal carotid arteries bilaterally. Calvarium is intact. Prior cataract lens extractions are noted bilaterally. The visualized paranasal sinuses are unremarkable. The mastoid air cells and middle ear cavities are clear. Scalp soft tissues are unremarkable. IMPRESSION: No acute intracranial abnormality identified. [facility]-[id number] Performing Organization Address City/State/[facility] Hospitalcone Phone Number [facility] [address] [place] [address] * Transfuse RBC (09/19/2018 4:20 PM CDT) Only the most recent of 7 results within the time period is included. * Hepatitis B surface antigen (09/19/2018 1:50 PM CDT) Only the most recent of 3 results within the time period is included. Hepatitis B Non-reactive Non-reactive [place] surface Ag [facility] Specimen Blood Performing Organization Address City/State/Zipcode Phone Number [facility] DEPARTMENT OF [address] [place] [address] PATHOLOGY AND GENOMIC MEDICINE [address] * Comprehensive metabolic panel (09/19/2018 1:50 PM CDT) Only the most recent of 2 results within the time period is included. Sodium 135 135 - 148 mEq/L [facility] Potassium 5.3 (H) 3.5 - 5.0 mEq/L [facility] Chloride 94 (L) 98 - 112 mEq/L [facility] CO2 28 24 - 31 mEq/L [facility] Anion gap 13@ANIO 7 - 15 mEq/L [facility] BUN 51 (H) 8 - 23 mg/dL [facility] Creatinine 10.33 (H) 0.50 - 0.90 mg/dL [facility] Glucose 153 (H) 65 - 99 mg/dL [facility] Calcium 8.0 (L) 8.8 - 10.2 mg/dL [facility] Protein 5.5 (L) 6.3 - 8.3 g/dL [place] Comment: [facility] 4.6-7.0 g/dL 1 week 4.4-7.6 g/dL 7 months-1year 5.1-7.3 g/dL 1-2 years5.6-7 .5 g/dL >3 years6.0-8 .0 g/dL 18-150 6.3-8.3 g/dL Albumin 2.4 (L) 3.5 - 5.0 g/dL [facility] A/G ratio 0.8 0.7 - 3.8 [facility] Alkaline 101 35 - 104 U/L [place] phosphatase [facility] AST 23 10 - 35 U/L [facility] ALT 7 5 - 50 U/L [facility] Total bilirubin <0.2 0.0 - 1.2 mg/dL [facility] Specimen Plasma specimen Performing Organization Address City/State/Zipcode Phone Number [facility] DEPARTMENT OF [address] [place] [address] PATHOLOGY AND GENOMIC MEDICINE [address] * XR Chest 2 Vw (09/18/2018 2:58 PM CDT) Specimen Narrative Performed At EXAMINATION:XR CHEST 2 VW [facility] CLINICAL HISTORY:63 years Female preop eval for ortho surgery [facility] COMPARISON:None IMPRESSION: 1.Heart size is mildly enlarged. Slight fullness in the AP window can be seen in pulmonary hypertension. Clinical correlation. 2.Lungs are well-inflated. There is no acute consolidation or effusion. There is a questionable 8 mm nodular opacity over the left apex. alternatively could be a bone island in the left first rib. Follow-up CT is recommended for further evaluation given absence of priors for comparison. 3.Likely moderate hiatal hernia. Can be further characterized at the time of CT. 4.Degenerative changes in the spine. Multiple old left rib fractures. [facility]-[id number] Procedure Note Interface, Radiology Results Incoming - 09/18/2018 3:05 PM CDT EXAMINATION: XR CHEST 2 VW CLINICAL HISTORY:63 years Female preop eval for ortho surgery [facility] COMPARISON: None IMPRESSION: 1. Heart size is mildly enlarged. Slight fullness in the AP window can be seen in pulmonary hypertension. Clinical correlation. 2. Lungs are well-inflated. There is no acute consolidation or effusion. There is a questionable 8 mm nodular opacity over the left apex. alternatively could be a bone island in the left first rib. Follow-up CT is recommended for further evaluation given absence of priors for comparison. 3. Likely moderate hiatal hernia. Can be further characterized at the time of CT. 4. Degenerative changes in the spine. Multiple old left rib fractures. [facility]-[id number] Performing Organization Address City/State/Zipcode Phone Number [facility] [address] [place] [address] * XR Elbow 3+ Vw Right (09/18/2018 2:58 PM CDT) Specimen Narrative Performed At EXAMINATION:XR ELBOW 3VW RIGHT [facility] CLINICAL HISTORY:Dislocationelbow COMPARISON:07/31/2018 IMPRESSION: Interval removal of distal humeral prosthesis with spacer in place. The elbow remains dislocated with marked joint effusion and periarticular swelling. Bones are osteopenic. No acute fracture deformity. There is some heterotopic ossification around the humerus. [facility]-[id number] Procedure Note Interface, Radiology Results Incoming - 09/18/2018 3:08 PM CDT EXAMINATION: XR ELBOW 3 VW RIGHT CLINICAL HISTORY: Dislocation elbow COMPARISON: 07/31/2018 IMPRESSION: Interval removal of distal humeral prosthesis with spacer in place. The elbow remains dislocated with marked joint effusion and periarticular swelling. Bones are osteopenic. No acute fracture deformity. There is some heterotopic ossification around the humerus. [facility]-[id number] Performing Organization Address [facility]/[place] [address] * Partial thromboplastin time, activated (09/18/2018 12:23 AM CDT) Pathologist [facility] PTT 37.1 (H) 23.0 - 36.0 sec [place] Comment: [facility] PTT therapeutic range for HOSPITAL unfractionated heparin is 61.0-112.0 seconds which corresponds to Anti-Xa 0.3-0.7 U/ml. Specimen Blood Performing Organization Address [facility] Phone Number [facility] [place] [address] PATHOLOGY AND [facility] [address] * Prothrombin time with INR (09/18/2018 12:23 AM CDT) Only the most recent of 2 results within the time period is included. Pathologist [facility] Prothrombin 14.9 (H) 11.5 - 14.5 sec [facility] INR 1.2 [place] Comment: EPISCOPAL The International Normalized HOSPITAL Ratio (INR) is a therapeutic monitoring tool for patients who are stable on oral anticoagulant therapy. An INR of 2.0-3.0 is suggested for deep vein thrombosis/pulmonary embolism. Specimen Blood Performing Organization Address [facility] Phone Number [facility] DEPARTMENT OF [address] [place] [address] PATHOLOGY AND [facility]ICINE [address] * Reticulocyte count (09/18/2018 12:23 AM CDT) Pathologist [facility] Retic %, auto 0.7 0.5 - 2.1 % [facility] Retic absolute, 0.0170 (L) 0.0210 - 0.1155 m/uL [facility] Specimen Blood Performing Organization Address [facility]/Zipcode Phone Number [facility] [place] [place] [address] PATHOLOGY AND GENOMIC MEDICINE [address] * Vitamin B12 level (09/17/2018 11:01 PM CDT) Vitamin B12 434 211 - 946 pg/mL [place] Comment: EPISCOPAL Significant overlap exists HOSPITAL between normal and deficiency states. However, most patients with deficiencies will have Serum B12 <200 pg/mL. Specimen Serum Performing Organization Address City/[facility]/Zipcode Phone Number [facility] [place] [address] PATHOLOGY AND [facility] [address] * Folate level (09/17/2018 11:00 PM CDT) Folate 11.9 4.8 - 24.2 ng/mL [facility] Specimen Serum Performing Organization Address [facility] Phone Number [facility] [place] [address] PATHOLOGY AND [facility] [address] * Total iron binding capacity (09/17/2018 10:58 PM CDT) Pathologist [facility] Iron level 44 37 - 145 ug/dL [facility] Iron binding 117 (L) 200 - 400 ug/dL [facility] % Saturation 37.6 15.0 - 38.0 % [facility] Specimen Plasma specimen Performing Organization Address [facility] Phone Number [facility] [place] [address] PATHOLOGY AND [facility]IC[facility] [address] * Thyroid stimulating hormone (09/17/2018 10:58 PM CDT) TSH 11.30 (H) 0.27 - 4.20 uIU/mL [facility] Specimen Plasma specimen Performing Organization Address City/[facility] Phone Number [facility] [place] [address] PATHOLOGY AND [facility] [address] * Phosphorus level (09/17/2018 10:58 PM CDT) Only the most recent of 2 results within the time period is included. Phosphorus 4.9 (H) 2.4 - 4.5 mg/dL [facility] Specimen Plasma specimen Performing Organization Address City/[facility] Phone Number [facility] DEPARTMENT OF [address] [place] [address] PATHOLOGY AND GENOMIC MEDICINE [address] * Magnesium level (09/17/2018 10:58 PM CDT) Only the most recent of 2 results within the time period is included. Magnesium 2.0 1.6 - 2.4 mg/dL [facility] Specimen Plasma specimen Performing Organization Address City/[facility] Phone Number [facility] [place] [address] PATHOLOGY AND GENOMIC MEDICINE [address] * Surgical pathology request (08/03/2018 9:08 AM GANG WORKER) Pathologist [facility] DEPARTMENT OF PATHOLOGY AND GENOMIC MEDICINE Surgical See link below for PDF Lab [facility] DEPARTMENT pathology Report OF PATHOLOGY report AND GENOMIC MEDICINE Result status This is Final Report for [facility] DEPARTMENT [id number] OF PATHOLOGY AND GENOMIC MEDICINE Specimen Performing Organization Address City/[facility] Phone Number [facility] [place] [address] PATHOLOGY AND GENOMIC MEDICINE * Tissue culture (08/03/2018 8:54 AM GANG WORKER) [facility] Tissue culture No growth after 3 days. [place] isolate Comment: EPISCOPAL Specimen Information [facility] Specimen Source: Tissue Specimen Site: Elbow Specimen Tissue - Elbow Performing Organization Address City/[facility] Phone Number [facility] [place] [address] PATHOLOGY AND GENOMIC MEDICINE [address] * Joint fluid culture (08/03/2018 7:56 AM GANG WORKER) Pathologist [facility] Joint fluid No growth after 4 days. [place] culture isolate Comment: EPISCOPAL Specimen Information [facility] Specimen Source: Joint Fluid Specimen Site: Elbow right Specimen Joint fluid Performing Organization Address City/[facility]/Zipcode Phone Number [facility] [place] [address] PATHOLOGY AND GENOMIC MEDICINE [address] * ECG 12 lead (08/02/2018 7:19 PM GANG WORKER) Ventricular 64 H MUSE rate Atrial rate 64 [facility] MUSE SC interval 152 [facility] MUSE QRSD interval 106 [facility] MUSE QT interval 440 [facility] MUSE QTC interval 453 [facility] MUSE P axis 1 59 [facility] MUSE QRS axis 1 -42 [facility] MUSE T wave axis 90 [facility] MUSE EKG impression Normal sinus rhythm-Left axis [facility] MUSE deviation-Anterior infarct , age undetermined-T wave abnormality, consider lateral ischemia-Abnormal ECG-No previous ECGs available- Specimen Narrative Performed At Performing Organization Address City/State/Zipcode Phone Number [facility] MUSE [address] [place] [address] * Echocardiogram complete w contrast and 3D if needed (08/02/2018 4:00 PM GANG WORKER) Specimen Narrative Performed At [facility] Echocardiography Report [address] [place] [address] Pat.Name:PRISCA DAVILA Pat.ID:[id number] St.Date: 08/02/2018Refer.MD:SEBASTIAN KEY MD Exam Time: 3:03:00 PMStudy Type:Routine Echo Height:65inWeight:168lb BSA: 1.84 m2 DOBAge:1955,63Y Sex: FEMALEBP:197/81 HR:67 bpmSonogrphr: IWONA Luque Pat. Stat.:Inpatient Room:[facility] Study Status:Final Echo Event ID:[id number] Order ID:[id number] Reason for Study:Murmur or Click - Initial eval when there is a reasonable suspicion of valvular or structural heart disease Procedures:2D Echo, Colorflow Doppler, 3D Echo Race:C SUMMARY: LV size is normal. LV EF by 3D is 64% Diastolic dysfunction Grade III (Severe): Impaired relaxation with restrictive LV filling pressures. Estimated PA systolic pressure is 51 mmHg, assuming a mean RAP of 10 mmHg. FINDINGS: LV: LV size is normal. There is moderate concentric LV hypertrophy.LV EF is normal. Overall wall motion is normal.LV EF by 3D=64%. RV: RV size is moderately enlarged. RV systolic function is normal. LA: LA volume is severely enlarged. RA: RA volume is severely enlarged. AO: Aortic root diameter is upper limits of normal in size. Calcificationsin ascending aorta. DONAVAN: No pericardial effusion. AV: Focal calcification of AV leaflets. Mild aortic regurgitation. MV: Mild mitral annular calcification. Mild mitral regurgitation. PV: No structural PV abnormalities noted. A trace of pulmonic regurgitation. TV: Dilated tricuspid annulus. Mild to moderate tricuspid regurgitation Marsh: Diastolic dysfunction Grade III (Severe): Impaired relaxationwith restrictive LV filling pressures. Other:Estimated PA systolic pressure is 51 mmHg, assuming a mean RAPof 10 mmHg. MEASUREMENTS: 2D Parasternal Long Abbot LVOT 2 cmLA Ds3.9 cm LVIDd5.1 cmIndex2.8 cm/m Ao An2.2 cm LVIDs3.1 cmAo Rtd 3.4 cm Index1.8 cm/m LV%fs 39.2 % LV Pnsv953.8 g(87-129) IVSd 1 cmLVM Phscl166.1 g/m2 LVPWd1.1 cmRWT0.4 Right Ventricle RVIDd4.5 cm (2.6-4.3) LA Sng Plane LA Area 25.8 cm2(8.8-23.4) LA Vol91.3 ml Index49.6 ml/m LA LngAx 6.4 cm RA Sng Plane RA Area 24.2 cm2(8.3-19.5) RA Vol95.1 ml Index51.7 ml/m RA LngAx 5.4 cm Signed 08/02/2018 04:16 PM Odin Cheney M.D. Procedure Note Interface, Radiology Results In - 08/02/2018 4:17 PM GANG WORKER Echocardiography Report [address] [place] [address] Pat.Name: PRISCA DAVILA.ID: [id number] .Date: 08/02/2018 Refer.MD: SEBASTIAN KEY MD Exam Time: 3:03:00 PM Study Type:Routine Echo Height: 65in Weight: 168lb BSA: 1.84 m2 Age: 11 1955,63Y Sex: FEMALE BP: 197/81 HR: 67 bpm Sonogrphr: IWONA Luque Pat. Stat.:Inpatient Room: 23 Study Status:Final Echo Event ID:[id number] Order ID: [id number] Reason for Study:Murmur or Click - Initial eval when there is a reasonable suspicion of valvular or structural heart disease Procedures:2D Echo, Colorflow Doppler, 3D Echo Race: C SUMMARY: LV size is normal. LV EF by 3D is 64% Diastolic dysfunction Grade III (Severe): Impaired relaxation with restrictive LV filling pressures. Estimated PA systolic pressure is 51 mmHg, assuming a mean RAP of 10 mmHg. FINDINGS: LV: LV size is normal. There is moderate concentric LV hypertrophy. LV EF is normal. Overall wall motion is normal. LV EF by 3D=64%. RV: RV size is moderately enlarged. RV systolic function is normal. LA: LA volume is severely enlarged. RA: RA volume is severely enlarged. AO: Aortic root diameter is upper limits of normal in size. Calcifications in ascending aorta. DONAVAN: No pericardial effusion. AV: Focal calcification of AV leaflets. Mild aortic regurgitation. MV: Mild mitral annular calcification. Mild mitral regurgitation. PV: No structural PV abnormalities noted. A trace of pulmonic regurgitation. TV: Dilated tricuspid annulus. Mild to moderate tricuspid regurgitation Marsh: Diastolic dysfunction Grade III (Severe): Impaired relaxation with restrictive LV filling pressures. Other: Estimated PA systolic pressure is 51 mmHg, assuming a mean RAP of 10 mmHg. MEASUREMENTS: 2D Parasternal Long Abbot LVOT 2 cm LA Ds 3.9 cm LVIDd 5.1 cm Index 2.8 cm/m Ao An 2.2 cm LVIDs 3.1 cm Ao Rtd 3.4 cm Index 1.8 cm/m LV%fs 39.2 % LV Mass 200.8 g (87-129) IVSd 1 cm LVM Index 109.1 g/m2 LVPWd 1.1 cm RWT 0.4 Right Ventricle RVIDd 4.5 cm (2.6-4.3) LA Sng Plane LA Area 25.8 cm2 (8.8-23.4) LA Vol 91.3 ml Index 49.6 ml/m LA LngAx 6.4 cm RA Sng Plane RA Area 24.2 cm2 (8.3-19.5) RA Vol 95.1 ml Index 51.7 ml/m RA LngAx 5.4 cm Signed 08/02/2018 04:16 PM Odin Cheney M.D. Performing Organization Address City/State/Zipcode Phone Number [facility] [address] [place] [address] * XR Abdomen 1 Vw Portable (08/01/2018 12:31 PM GANG WORKER) Specimen Narrative Performed At EXAMINATION:XR ABDOMEN 1 VW PORTABLE [facility] CLINICAL HISTORY:Nauseavomiting COMPARISON:None. IMPRESSION: 1.The bowel gas pattern is nonspecific without evidence of obstruction or free intraperitoneal air. 2.Tiny radiopacity in the right abdomen likely related to represent some retained barium. Calcifications are noted in the pelvis consistent with phleboliths. 3.Postoperative changes related to ORIF of a right hip fracture with three Steinmann pins are noted. 4.A right ventricular pacemaker is partially visualized. 5.There is a healed right posterolateral ninth rib fracture. [facility]-[id number] Procedure Note Interface, Radiology Results Incoming - 08/01/2018 2:22 PM GANG WORKER EXAMINATION: XR ABDOMEN 1 VW PORTABLE CLINICAL HISTORY: Nausea vomiting COMPARISON: None. IMPRESSION: 1. The bowel gas pattern is nonspecific without evidence of obstruction or free intraperitoneal air. 2. Tiny radiopacity in the right abdomen likely related to represent some retained barium. Calcifications are noted in the pelvis consistent with phleboliths. 3. Postoperative changes related to ORIF of a right hip fracture with three Steinmann pins are noted. 4. A right ventricular pacemaker is partially visualized. 5. There is a healed right posterolateral ninth rib fracture. [facility]-[id number] Performing Organization Address City/[facility]/[place] [address] * Blood culture, aerobic & anaerobic (08/01/2018 9:55 AM GANG WORKER) Only the most recent of 2 results within the time period is included. [facility] Blood culture No growth after 5 days of [place] isolate incubation. EPISCOPAL Comment: HOSPITAL Specimen Information Specimen Source: Blood Specimen Site: Unspecified Specimen Blood Performing Organization Address City/[facility]/Zipcode Phone Number [facility] DEPARTMENT OF [address] [place] [address] PATHOLOGY AND GENOMIC MEDICINE [address] * Hepatic function panel (08/01/2018 4:00 AM GANG WORKER) [facility] Albumin 2.0 (L) 3.5 - 5.0 g/dL [facility] Total bilirubin 0.4 0.0 - 1.2 mg/dL [facility] Bilirubin SEE COMMENTComment: 0.0 - 0.3 mg/dL [place] direct Footnote--------- [facility] Alkaline 100 35 - 104 U/L [place] phosphatase [facility] Protein 5.7 (L) 6.3 - 8.3 g/dL [place] Comment: [facility] 4.6-7.0 g/dL 1 week 4.4-7.6 g/dL 7 months-1year 5.1-7.3 g/dL 1-2 years5.6-7 .5 g/dL >3 years6.0-8 .0 g/dL 18-150 6.3-8.3 g/dL ALT SEE COMMENTComment: 5 - 50 U/L [place] Footnote--------- [facility] AST SEE COMMENTComment: 10 - 35 U/L [place] Footnote--------- [facility] Specimen Plasma specimen Performing Organization Address City/[facility] Phone Number [facility] DEPARTMENT OF [address] [place] [address] PATHOLOGY AND GENOMIC MEDICINE [address] * XR Elbow 2 Vw Right (07/31/2018 9:21 PM GANG WORKER) Specimen Narrative Performed At Procedure:XR ELBOW 2 VW RIGHT [facility] REFERRING PHYSICIAN: LANI THOMPSON HISTORY:Dislocationelbow, Elbow paininitial exam COMPARISON: None FINDINGS: 2 views of the right elbow shows an underlying splint causing obscuration of the osseous detail. Postsurgical change of humeral prosthesis is seen. There appears to be dislocation of the olecranon and humeral head relative to the humeral prosthesis. Findings compatible with history of right elbow. No evidence of acute fracture. XR ELBOW 2 VW RIGHTacquired. IMPRESSION: Findings compatible with dislocation of the right elbow. [id number] Procedure Note Interface, Radiology Results Incoming - 07/31/2018 9:54 PM GANG WORKER Procedure:XR ELBOW 2 VW RIGHT REFERRING PHYSICIAN: LANI THOMPSON HISTORY: Dislocation elbow, Elbow pain initial exam COMPARISON: None FINDINGS: 2 views of the right elbow shows an underlying splint causing obscuration of the osseous detail. Postsurgical change of humeral prosthesis is seen. There appears to be dislocation of the olecranon and humeral head relative to the humeral prosthesis. Findings compatible with history of right elbow. No evidence of acute fracture. XR ELBOW 2 VW RIGHT acquired. IMPRESSION: Findings compatible with dislocation of the right elbow. [id number] Performing Organization Address City/[facility]/Zipcode Phone Number [facility] [address] [place] [address] * Hemoglobin & hematocrit (05/23/2018 5:50 AM GANG WORKER) HGB 9.4 (L) 12.0 - 16.0 g/dL [facility] HCT 29.0 (L) 37.0 - 47.0 % [facility] Specimen Blood Performing Organization Address City/State/Zipcode Phone Number [facility] DEPARTMENT OF [address] [place] [address] PATHOLOGY AND GENOMIC MEDICINE [facility] [address] [place], [place] [id number] [place] [address] * Central Line Insertion (05/20/2018 4:47 PM GANG WORKER) Narrative Performed At Yazan Gay MD 05/20/20184:51 PM Central Line Insertion Performed by: Yazan Gay MD Authorized by: Lani Thompson MD Consent: Consent obtained:Written Consent given by:Spouse Risks discussed:Arterial puncture, incorrect placement, infection, nerve damage and bleeding Alternatives discussed:No treatment Pearson protocol: Procedure explained and questions answered to patient or proxy's satisfaction: yes Relevant documents present and verified: yes Test results available and properly labeled: yes Imaging studies available: yes Required blood products, implants, devices, and special equipment available: no Site/side marked: yes Immediately prior to procedure, a time out was called: yes Patient identity confirmed:Arm band, provided demographic data and hospital-assigned identification number Pre-procedure details: Hand hygiene: Hand hygiene performed prior to insertion Sterile barrier technique: All elements of maximal sterile technique followed Skin preparation:ChloraPrep Skin preparation agent: Skin preparation agent completely dried prior to procedure Anesthesia (see MAR for exact dosages): Anesthesia method:Local infiltration Local anesthetic:Lidocaine 1% WITH epi Procedure details: Catheter type:Triple lumen Catheter size:7 Fr Catheter length (cm):20 Catheter site: femoral vein Catheter Site Laterality:Left Patient position:Flat Landmarks identified: yes Ultrasound guidance: yes Sterile ultrasound techniques: Sterile gel and sterile probe covers were used Number of attempts:2 Successful placement: no Comments: Procedure suspended because deemed unsafe after 12/05/2017 Insurance Type Payer Benefit Subscriber ID Effective Phone Address Plan / Dates Group Medicare MEDICARE MEDICARE xxxxxxxxxxx 2016- [place] A AND Present [place] [employer] xxxxxxxxxx 2017-P [place] [employer] [place] [id number] Advance Directives Patient has advance care planning documents, and code status on file. For more i nformation, please contact: Francois Bartholomew [address] [place] [address] Date Inactivated Comments Code Status Date Activated 09/26/2018 11:58 PM Full Code 09/17/2018 11:03 PM Code Status decision reached by: Patient
--- OUTSIDE RECORDS SUMMARY | 2018-12-06 10:53 | XMS REPORT | Continuity of Care Document ---
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 S/P coronary artery stent placement Active 07/26/2017 09/15/2018 [facility] Coronary artery disease involving [place] coronary artery of [place] heart without angina pectoris Active 07/26/2017 09/15/2018 [facility] Status cardiac pacemaker Active 07/26/2017 09/15/2018 [facility] Dysphonia Active 01/20/2017 09/15/2018 [facility] Hoarseness Active 01/11/2017 09/15/2018 [facility] LPRD Active 01/11/2017 09/15/2018 [facility] Paralysis of left vocal fold Active 01/11/2017 09/15/2018 [facility] Fracture of distal end of right radius Active 09/17/2016 09/15/2018 [facility] Closed nondisplaced fracture of shaft of fifth metacarpal bone of left hand Active 09/17/2016 09/15/2018 [facility] Hand pain, left Active 09/17/2016 09/15/2018 [facility] Impaired activities of daily living Active 09/17/2016 09/15/2018 [facility] Impaired instrumental activities of daily living Active 09/17/2016 09/15/2018 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 Inadequately controlled diabetes mellitus Active 12/10/2015 09/15/2018 [facility] Type 2 diabetes mellitus, controlled Active 10/15/2015 09/15/2018 [facility] Dialysis patient, 3 times a week Active 10/15/2015 09/15/2018 [facility] Neuropathy Active 10/15/2015 09/15/2018 [facility] Gastroesophageal reflux disease without esophagitis Active 10/15/2015 09/15/2018 [facility] Depression Active 10/15/2015 09/15/2018 [facility] Moderate episode of recurrent major depressive disorder Active 09/15/2018 [facility] Dialysis patient Active 09/15/2018 [facility] Controlled type 2 diabetes mellitus with chronic kidney disease, unspecified CKD stage, unspecified whether senior care insulin use Active 09/15/2018 [facility] Post-nasal drip Active 09/15/2018 [facility] Allergic rhinitis with postnasal drip Active 09/15/2018 [facility] Cough Active 09/15/2018 [facility] Uncontrolled type 2 diabetes mellitus with chronic kidney disease on chronic dialysis, with long-term current use of insulin Active 09/15/2018 [facility] Hyponatremia Active 09/15/2018 [facility] Vocal cord paralysis Active 09/15/2018 [facility] Screen for colon cancer Active 09/15/2018 [facility] Controlled type 2 diabetes mellitus without complication, with long-term current use of insulin Active 09/15/2018 [facility] Dietary counseling Active 09/15/2018 [facility] Exercise counseling Active 09/15/2018 [facility] Essential hypertension Active 09/15/2018 [facility] Enlarged lymph node in neck Active 09/15/2018 [facility] Feels depressed Active 09/15/2018 [facility] Allergic conjunctivitis and rhinitis, unspecified laterality Active 09/15/2018 [facility] Screening for breast cancer Active 09/15/2018 [facility] Medications Medication Details Route Status Patient Instructions Ordering Provider Order Date Source mirtazapine (REMERON) 15 mg tablet TAKE ONE TABLET BY MOUTH EVERY NIGHT AT BEDTIME Active 08/16/2018 [facility] cetirizine (ZYRTEC) 10 mg tablet TAKE ONE TABLET BY MOUTH EVERY NIGHT AT BEDTIME Active 07/12/2018 [facility] cetirizine (ZYRTEC) 10 mg tablet TAKE ONE TABLET BY MOUTH EVERY NIGHT AT BEDTIME No Longer Active 07/06/2018 [facility] cetirizine (ZYRTEC) 10 mg tablet TAKE ONE TABLET BY MOUTH EVERY NIGHT AT BEDTIME No Longer Active 05/17/2018 [facility] ofloxacin (FLOXIN) 0.3 % otic solution Instill 5 Drops in left ear 2 times daily for [address]. [address] 2018 [facility] prednisoLONE acetate (PRED FORTE) 1 % ophthalmic suspension Instill 5 drops into left ear twice a day.. Inactive 2018 [facility] insulin detemir U-100 (LEVEMIR FLEXTOUCH U-100 INSULN) 100 unit/mL (3 mL) Pen Inject 40 Units under the skin every evening. Subcutaneous Active 04/15/2018 [facility] insulin aspart U-100 (NOVOLOG FLEXPEN) 100 unit/mL pen Inject 12 Units under the skin 3 times daily with meals. Subcutaneous Active 04/15/2018 [facility] mirtazapine (REMERON) 15 mg tablet Take 1 tablet by mouth at bedtime nightly. Oral No Longer Active 04/07/2018 [facility] benzonatate (TESSALON PERLES) 100 mg capsule Take 2 capsules by mouth 3 times daily as needed for up to 7 days for Cough. Oral No Longer Active 04/07/2018 [facility] polyethylene glycol (GOLYTELY) 236-22.74-6.74 -5.86 gram oral solution Add lukewarm drinking water to the fill kennedy (4 liters) and shake. Drink as directed by your doctor.. Inactive 04/01/2018 [facility] benzonatate (TESSALON PERLES) 100 mg capsule Take 2 capsules by mouth 3 times daily as needed for up to 7 days for Cough. Oral Inactive 04/01/2018 [facility] cetirizine (ZYRTEC) 10 mg tablet Take 1 tablet by mouth at bedtime nightly. Oral Inactive 04/01/2018 [facility] insulin detemir U-100 (LEVEMIR FLEXTOUCH U-100 INSULN) 100 unit/mL (3 mL) Pen Inject 35 Units under the skin every evening. Subcutaneous Inactive 04/01/2018 [facility] insulin aspart U-100 (NOVOLOG FLEXPEN) 100 unit/mL pen Inject 10 Units under the skin 3 times daily with meals. Subcutaneous Inactive 04/01/2018 [facility] NIFEdipine (NIFEDICAL XL) 30 mg extended release tablet Take 30 mg by mouth daily. Oral No Longer Active 01/14/2018 [facility] insulin detemir U-100 (LEVEMIR FLEXTOUCH U-100 INSULN) 100 unit/mL (3 mL) Pen Inject 30 Units under the skin every evening. Subcutaneous No Longer Active 01/14/2018 [facility] carvedilol (COREG) 25 mg tablet Take 1 tablet by mouth 2 times daily (with meals). Oral Active 01/14/2018 [facility] sevelamer carbonate (RENVELA) 800 mg tablet Take 2 tablets by mouth 3 times daily with meals. Oral Active 01/14/2018 [facility] patiromer calcium sorbitex (VELTASSA) 8.4 gram PwPk Take by mouth daily. Oral Active 01/14/2018 [facility] sodium bicarbonate 650 mg tablet Take 1 tablet by mouth daily. Oral Active 01/14/2018 [facility] azelastine (OPTIVAR) 0.05 % ophthalmic solution Instill 1 Drop in each eye 2 times daily. Active 01/14/2018 [facility] LEVEMIR FLEXTOUCH U-100 INSULN 100 unit/mL (3 mL) Pen INJECT 22 UNITS UNDER THE SKIN EVERY EVENING No Longer Active 09/27/2017 [facility] carvedilol (COREG) 6.25 mg tablet Take 6.25 mg by mouth 2 times daily. Oral No Longer Active 07/13/2017 [facility] rOPINIRole (REQUIP) 0.5 mg tablet Take 0.5 mg by mouth at bedtime nightly. Oral Active 07/13/2017 [facility] atorvastatin (LIPITOR) 40 mg tablet Take 40 mg by mouth at bedtime nightly. Oral Active 06/28/2017 [facility] clopidogrel (PLAVIX) 75 mg tablet Take 75 mg by mouth daily. Oral Active 06/28/2017 [facility] NOVOFINE 30 30 gauge x 1/3" needles USE TO INJECT INSULIN 3 TIMES DAILY . DISCARD PEN NEEDLE AFTER EACH USE Active 06/04/2017 [facility] DIALYVITE 800-ULTRA D 0.8-2,000 mg-unit Tab Active 05/21/2017 [facility] LEVEMIR FLEXTOUCH 100 unit/mL (3 mL) Pen INJECT 22 UNITS UNDER THE SKIN EVERY EVENING No Longer Active 02/12/2017 [facility] traMADol (ULTRAM) 50 mg tablet Take 1 tablet by mouth every 6 hours as needed for Pain. Oral No Longer Active 02/04/2017 [facility] LINZESS 145 mcg cap TAKE 1 BY MOUTH DAILY Active 12/16/2016 [facility] ciclesonide (ZETONNA) 37 mcg/actuation nasal HFA inhaler Use 1 [place] in each nostril daily. Active 12/14/2016 [facility] traMADol (ULTRAM) 50 mg tablet Take 1 tablet by mouth every 6 hours as needed for Pain. Oral No Longer Active 09/17/2016 [facility] traMADol (ULTRAM) 50 mg tablet Take 1 tablet by mouth every 6 hours as needed for Pain. Oral No Longer Active 09/07/2016 [facility] cetirizine (ZYRTEC) 10 mg tablet Take 1 tablet by mouth daily. Oral No Longer Active 09/04/2016 [facility] omeprazole (PRILOSEC) 20 mg delayed release capsule Take 2 capsules by mouth daily. Oral Active 07/01/2016 [facility] insulin aspart (NOVOLOG FLEXPEN) 100 unit/mL pen Inject 8 Units under the skin 3 times daily with meals. Subcutaneous No Longer Active 06/23/2016 [facility] pen needle, diabetic (NOVOFINE) 30 gauge x 1/3" needles Use to inject insulin 3 times daily, use new needle each time.. Active 06/23/2016 [facility] pen needle, diabetic (NOVOFINE) 30 gauge x 1/3" needles Inject under the skin daily Use as directed. Subcutaneous No Longer Active 10/15/2015 [facility] pen needle, diabetic (NOVOFINE 30) 30 gauge x 1/3" needles Inject under skin daily 4 times a day.. No Longer Active 10/15/2015 [facility] buPROPion (WELLBUTRIN SR) 100 mg sustained release tablet Take 100 mg by mouth. Oral Active [facility] gabapentin (NEURONTIN) 300 mg capsule Take 300 mg by mouth 3 times daily. Oral Active [facility] furosemide (LASIX) 40 mg tablet Take 40 mg by mouth [address] [facility] ASPIRIN EC 81 mg delayed release tablet Take 81 mg by mouth daily. Oral Active [facility] calcium acetate (PHOSLO) 667 mg cap Take 667 mcg by mouth 3 times daily with meals. Oral Active [facility] Allergies, Adverse Reactions, Alerts Substance Category Reaction Severity Reaction type Status Date Reported Comments Source Doxycycline Rash Propensity to adverse reactions to drug Active 10/15/2015 [facility] Promethazine Other Propensity to adverse reactions to drug Active 10/15/2015 [facility] Immunizations Immunization Date Given Site Status Last Updated Comments Source Influenza <Unspecified> 02/28/[address] [facility] Influenza Vaccine, Seasonal, Injectable 07/26/2017 Not Given Deferred: Vaccine Unavailable [facility] Tdap (Tetanus Toxoid, Reduced Diphtheria Toxoid And Acellular Pertussis, Absorbed) 12/14/2016 [facility] PPV 23 Pneumococcal Polysaccaride 12/14/2016 [facility] Results Order Name Results Value Reference Range Date Interpretation Comments Source VIT D, 25-HYDROXY Vit D, 25-Hydroxy 35.5 30 - 100 06/20/2018 Vitamin D deficiency has been defined by the [place] [employer] and
Endocrine Society guideline as a level of serum 25-OH Vitamin D less than 20
ng/mL. The Endocrine Society further defines Vitamin D insufficiency as a
level between 21 and 29 ng/mL and sufficiency as a level between 30 and 100
ng/mL.

[facility] HEP B COR AB TOT Hep B Cor Ab Tot Negative NEG 06/19/2018 [facility] HEPATITIS B SURFACE AB HBsAb Positive NEG 06/19/2018 [facility] HEPATITIS B SURFACE AB HBsAb Concentration 282.50 Negative: or=8.00 mIU/mL to or=12.00 mIU/mL 06/19/2018 [facility] HEPATITIS B SURFACE AB Lab Interpretation Abnormal 06/19/2018 [facility] HEPATITIS PANEL HCV IgG Negative NEG 06/19/2018 [facility] HEPATITIS PANEL HBsAg Negative NEG 06/19/2018 [facility] HEPATITIS PANEL HAV, IgM Negative NEG 06/19/2018 [facility] HEPATITIS PANEL HBcAb, IgM Negative NEG 06/19/2018 [facility] INTACT PTH Intact PTH 357.00 8.7 - 77.1 06/18/2018 [facility] INTACT PTH Lab Interpretation Abnormal 06/18/2018 [facility] BASIC METABOLIC PANEL CO2 26 21 - 31 06/18/2018 [facility] BASIC METABOLIC PANEL Chloride 98 98 - 107 06/18/2018 [facility] BASIC METABOLIC PANEL Potassium 4.4 3.5 - 5.1 06/18/2018 [facility] BASIC METABOLIC PANEL Sodium 138 136 - 145 06/18/2018 [facility] BASIC METABOLIC PANEL Glucose 226 70 - 110 06/18/2018 [facility] BASIC METABOLIC PANEL Urea Nitrogen 40 7 - 25 06/18/2018 [facility] BASIC METABOLIC PANEL Creatinine 6.40 0.6 - 1.2 06/18/2018 [facility] BASIC METABOLIC PANEL Anion Gap 14 06/18/2018 [facility] BASIC METABOLIC PANEL Calcium 8.1 8.6 - 10.3 06/18/2018 [facility] BASIC METABOLIC PANEL GFR, Estimated 7 mL/min/1.73 m2 06/18/2018 [facility] BASIC METABOLIC PANEL GFR, Estim, Afr-Am 8 mL/min/1.73 m2 06/18/2018 [facility] BASIC METABOLIC PANEL Lab Interpretation Abnormal 06/18/2018 [facility] PHOSPHORUS Phosphorus 5.1 2.5 - 5 06/18/2018 [facility] PHOSPHORUS Lab Interpretation Abnormal 06/18/2018 [facility] GLUCOSE POC Glucose POC 139 74 - 106 06/18/2018 [facility] GLUCOSE POC Lab Interpretation Abnormal 06/18/2018 [facility] POC CO2 POC 28 21 - 32 06/17/2018 [facility] POC Chloride POC 96 98 - 107 06/17/2018 [facility] POC Potassium POC 3.5 3.5 - 5.1 06/17/2018 [facility] POC Sodium POC 138 136 - 145 06/17/2018 [facility] POC Glucose POC 171 74 - 106 06/17/2018 [facility] POC Urea Nitrogen POC 29 7 - 18 06/17/2018 [facility] POC Creatinine POC 5.7 0.6 - 1.3 06/17/2018 [facility] POC Calcium Ionized POC 1.09 1.15 - 1.29 06/17/2018 [facility] POC Hemoglobin POC 8.5 12 - 16 06/17/2018 [facility] POC Hematocrit POC 25.0 37 - 47 06/17/2018 [facility] POC GFR, Estimated 8 mL/min/1.73 m2 06/17/2018 [facility] POC GFR, Estim, Afr-Am 9 mL/min/1.73 m2 06/17/2018 [facility] POC Lab Interpretation Abnormal 06/17/2018 [facility] 12 LEAD EKG 12 LEAD EKG FOR [facility] Test Date:2018-06-09 Pat Name: PRISCA TURNER Department: 6213 : Gender:Operation Specialist: MCKENZIE :1955 Requested By: TALYA SHEN Order Number: [id number] MD: Robert Carey Measurements IntervalsAxis Rate: 79 P:55 CA: 155QRS:-24 QRSD: 113T:87 QT: 414 QTc:475 Interpretive Statements SINUS RHYTHM MODERATE INTRAVENTRICULAR CONDUCTION DELAY QTC PROLONGATION NONSPECIFIC ST/T CHANGE POOR R WAVE PROGRESSION [facility] Electronically Signed On 06-10-2018 12:02:37 DOWEL INSERTING MACHINE OPERATOR by Robert Carey 06/10/2018 [facility] LIVER PROFILE T Protein 6.7 6 - 8.3 06/09/2018 [facility] LIVER PROFILE Albumin 3.5 3.7 - 5.3 06/09/2018 [facility] LIVER [facility] T Bilirubin 0.8 0.2 - 1.2 06/09/2018 [facility] LIVER PROFILE Alk Phos 157 34 - 104 06/09/2018 [facility] LIVER PROFILE AST 15 13 - 39 06/09/2018 [facility] LIVER PROFILE ALT 8 7 - 52 06/09/2018 [facility] LIVER PROFILE D Bilirubin 0.3 0 - 0.2 06/09/2018 [facility] LIVER PROFILE Lab Interpretation Abnormal 06/09/2018 [facility] PT/INR PT 14.3 11.8 - 15.0 06/09/2018 [facility] PT/INR INR 1.1 SUGGESTED THERAPEUTIC RANGES: INR 2.0-3.0 for MODERATE INTENSITY ANTICOAGULATION INR 2.5-3.5 for HIGH INTENSITY ANTICOAGULATION 06/09/2018 [facility] CBC/DIFF WBC 7.4 4.5 - 11 06/09/2018 [facility] CBC/DIFF RBC 3.07 4.20 - 5.40 06/09/2018 [facility] CBC/DIFF Hemoglobin 8.5 12 - 16 06/09/2018 [facility] CBC/DIFF Hematocrit 26.5 37 - 47 06/09/2018 [facility] CBC/DIFF MCV 86 82 - 92 06/09/2018 [facility] CBC/DIFF MCH 27.7 27 - 32 06/09/2018 [facility] CBC/DIFF MCHC 32.1 32 - 36 06/09/2018 [facility] CBC/DIFF RDW 47.1 36.4 - 46.3 06/09/2018 [facility] CBC/DIFF Platelet 210 150 - 400 06/09/2018 [facility] CBC/DIFF Mean Platelet Volume 9.9 9.4 - 12.4 06/09/2018 [facility] CBC/DIFF Percent NRBC 0.0 06/09/2018 [facility] CBC/DIFF Absolute NRBC 0.00 06/09/2018 [facility] CBC/DIFF Neutrophil 62.4 34 - 70 06/09/2018 [facility] CBC/DIFF Lymphocyte 25.4 20 - 50 06/09/2018 [facility] CBC/DIFF Monocyte 8.4 5 - 12 06/09/2018 [facility] CBC/DIFF Eosinophil 2.2 0.7 - 5 06/09/2018 [facility] CBC/DIFF Basophil 1.1 0.1 - 1.2 06/09/2018 [facility] CBC/DIFF Pct Immat Gran 0.5 0.0 - 0.5 06/09/2018 [facility] CBC/DIFF Neutrophil, Abs 4.62 1.56 - 6.13 06/09/2018 [facility] CBC/DIFF Lymphocyte, Abs 1.88 1.18 - 3.74 06/09/2018 [facility] CBC/DIFF Monocyte, Abs 0.62 0.24 - 0.36 06/09/2018 [facility] CBC/DIFF Eosinophil, Abs 0.16 0.04 - 0.36 06/09/2018 [facility] CBC/DIFF Basophil, Abs 0.08 0.01 - 0.08 06/09/2018 [facility] CBC/DIFF Absol Immat Gran 0.04 0 - 0.03 06/09/2018 [facility] CBC/DIFF Lab Interpretation Abnormal 06/09/2018 [facility] LIPID PROFILE Cholesterol 127 <200 04/10/2018 REFERENCE RANGE:
Desirable: <200 mg/dL
Borderline: 200-240 mg/dL
High Risk: >240 mg/dL

[facility] LIPID PROFILE Triglyceride 87 <150 04/10/2018 REFERENCE RANGE:
Normal: <150 mg/dL
Borderline High: 150-199 mg/dL
High: 200-499 mg/dL
Very High: >nr=152 mg/dL

[facility] LIPID PROFILE HDL 51 40 - 60 04/10/2018 Increased CHD risk: <40 mg/dL
Decreased CHD risk: >60 mg/dL

[facility] LIPID PROFILE LDL 59 04/10/2018 REFERENCE RANGE:
Optimal: <100 mg/dL
Near Optimal: 100-129 mg/dL
Borderline High: 130-159 mg/dL
High: 160-189 mg/dL
Very High: >vv=825 mg/dL

[facility] HEMOGLOBIN A1C Hemoglobin A1c 12.1 4.3 - 6.1 04/08/2018 [facility] HEMOGLOBIN A1C Est Average Gluc 300.6 04/08/2018 [facility] HEMOGLOBIN A1C Lab Interpretation Abnormal 04/08/2018 [facility] TSH TSH 2.13 0.57 - 3.74 04/08/2018 [facility] CYTOLOGY HX FINAL DIAGNOSIS Vaginal (Liquid-based preparation): Satisfactory for evaluation No presence of endocervical/transformation zone Negative for intraepithelial lesion or malignancy 04/05/2018 [facility] CYTOLOGY <p>Name PRISCA TURNER</p><p>Date of 1955</p><p>Hospital Number [id number]</p><p>Location [facility] ([facility]p><p> </p><p>CYTOPATHOLOGY</p><p> </p><p> Collected:04/01/2018 00:00 Received: </p><p>04/04/2018 11:42</p><p> </p><p> </p><p> </p><p> </p><p>FINAL DIAGNOSIS</p><p> Vaginal (Liquid-based preparation):</p><p> Satisfactory for evaluation</p><p>No presence of endocervical/transformation zone</p><p>Negative for intraepithelial lesion or malignancy</p><p> </p><p> </p><p> </p><p>Electronically Signed Out By Mindi Galvez</p><p> </p><p>Clinical History</p><p>Date of Last Menstrual Period: Not given</p><p>Menstrual History:</p><p>Pregnancies: A0</p><p>Post-menopausal: 2001</p><p>Contraceptive History:</p><p>Contraceptive& lt;/p><p>Specimen Received:</p><p>One ThinPrep Vial</p><p> </p><p>Educational Note:</p><p>The pap smear/test is a screening test for cervical cancer.As with</p><p>screening procedures, both false negative and false positive results may</p><p>occur.Hence, the results should be interpreted in the context of patient's</p><p>history and current clinical information. </p><p> </p><p>The slide has been analyzed by the automated ThinPrep Imaging System,</p><p>[employer], [place], [place].</p><p> </p><p></p><p> </p><p> </p><p> </p> Name PRISCA TURNER of 1955Hospital Number [id number] ([facility] CYTOPATHOLOGY Collected:04/01/2018 00:00 Received: 04/04/2018 11:42 FINAL DIAGNOSIS Vaginal (Liquid-based preparation): Satisfactory for evaluationNo presence of endocervical/transformation zoneNegative for intraepithelial lesion or malignancy Electronically Signed Out By Mindi Galvez Clinical HistoryDate of Last Menstrual Period: Not givenMenstrual History:Pregnancies: [id number]: 2002Contraceptive History:ContraceptiveSpecimen Received:One ThinPrep Vial Educational Note:The pap smear/test is a screening test for cervical cancer.As withscreening procedures, both false negative and false positive results mayoccur.Hence, the results should be interpreted in the context of patient'shistory and current clinical information. The slide has been analyzed by the automated ThinPrep Imaging System,[employer], [place], [place]. 04/05/2018 [facility] DIABETIC FOOT EXAM <p>Melissa Hardy NP 04/01/20185:15 PM</p><p>Diabetic Foot Exam was performed at 04/01/2018 5:12 PM.Right foot </p><p>sensation is reduced, right foot pulses are normal, right foot appearance </p><p>is normal.Left foot sensation is reduced,left foot pulses are normal,</p><p>left foot appearance is normal. </p><p> </p><p> </p> Melissa Hardy NP 04/01/20185:15 PMDiabetic Foot Exam was performed at 04/01/2018 5:12 PM.Right foot sensation is reduced, right foot pulses are normal, right foot appearance is normal.Left foot sensation is reduced,left foot pulses are normal,left foot appearance is normal. 04/01/2018 [facility] OCCULT BLOOD ICT Occult Blood ICT Negative NEG 02/02/2018 [facility] OPHTHALMOLOGY RETINAL SCAN RETINAL SCAN-FINAL RESULT ALERT 09/21/2017 [facility] OPHTHALMOLOGY RETINAL SCAN Right Diabetic Retinopathy Mild 09/21/2017 [facility] OPHTHALMOLOGY RETINAL SCAN Right Macular Edema None 09/21/2017 [facility] OPHTHALMOLOGY RETINAL SCAN Right Other Suspected Conditions None 09/21/2017 [facility] OPHTHALMOLOGY RETINAL SCAN Right Image Quality Gradeable Image 09/21/2017 [facility] OPHTHALMOLOGY RETINAL SCAN Left Diabetic Retinopathy Mild 09/21/2017 [facility] OPHTHALMOLOGY RETINAL SCAN Left Macular Edema None 09/21/2017 [facility] OPHTHALMOLOGY RETINAL SCAN Left Other Suspected Conditions None 09/21/2017 [facility] OPHTHALMOLOGY RETINAL SCAN Left Image Quality Gradeable Image 09/21/2017 [facility] OPHTHALMOLOGY RETINAL SCAN <p>Retinal Study Result for PRISCA TURNER</p><p> </p><p>JOHNNY PRISCAnayla 62 y/o, F (: 1955, )</p><p>presented to [facility] [place] on 09-21-2017 for a retinal imaging study of the left and right eyes.</p><p> </p><p>Based on the findings of the study, the following is recommended for PRISCA TURNER</p><p>Mild Pathology Found: Please advise the patient to return for another scan in 1 year.</p><p> </p><p>Interpreting Provider's Comments:No comments provided</p><p> </p><p>Right Eye Findings:</p><p>Diabetic Retinopathy: Mild</p><p> </p><p>Left Eye Findings:</p><p>Diabetic Retinopathy: Mild</p><p> </p><p> </p><p>This result was electronically signed by Shanika Galvan MD, , Taxonomy: [id number] on 09-21-2017 05:12:29 [facility] time.</p><p> </p><p>NOTE:Any pathology noted on this diabetic retinal evaluation should be confirmed by an appropriate ophthalmic examination.</p> Retinal Study Result for PRISCA TURNER ANNETTA, a 62 y/o, F (: 1955, )presented to [facility] [place] on 09-21-2017 for a retinal imaging study of the left and right eyes. Based on the findings of the study, the following is recommended for Bill TURNER Pathology Found: Please advise the patient to return for another scan in 1 year. Interpreting Provider's Comments:No comments provided Right Eye Findings:Diabetic Retinopathy: Mild Left Eye Findings:Diabetic Retinopathy: Mild This result was electronically signed by Shanika Galvan MD, , Taxonomy: [id number] on 09-21-2017 05:12:29 [facility] time. NOTE:Any pathology noted on this diabetic retinal evaluation should be confirmed by an appropriate ophthalmic examination. 09/21/2017 [facility] OPHTHALMOLOGY RETINAL SCAN Lab Interpretation Abnormal 09/21/2017 [facility] MAMMOGRAM BILAT SCREEN DIGITAL <p>IMPRESSION: BENIGN</p><p>There is no mammographic evidence of malignancy. A 1 year </p><p>screening mammogram is recommended.</p><p>This document has been electronically signed.</p><p> </p><p>Gris Fraga M.D.</p><p>to/:09/21/2017 11:44:03</p><p> </p><p>Line Painting Machine Operator: Andre Davenport Sr. Claim Rep, </p><p>[facility]</p><p>letter sent: Benign Exam</p><p>Mammogram BI-RADS: 2 Benign G0202 Z12.31</p> IMPRESSION: BENIGNThere is no mammographic evidence of malignancy. A 1 year screening mammogram is recommended.This document has been electronically signed. Gris Fraga M.D.to/:09/21/2017 11:44:03 Line Painting Machine Operator: Andre Davenport Sr. Claim Rep, [facility] Benign ExamMammogram BI-RADS: 2 Benign G0202 Z12.31 09/21/2017 [facility] MAMMOGRAM BILAT SCREEN DIGITAL <p> </p><p>#[id number] - MAMMOGRAM BILAT SCREEN DIGITAL</p><p>BILATERAL DIGITAL SCREENING MAMMOGRAM WITH CAD: 09/21/2017</p><p>CLINICAL: Screening for malignancy.</p><p> </p><p>Comparison is made to exam dated:09/24/2016 [facility] </p><p>Center.</p><p>The tissue of both breasts is extremely dense, which lowers the </p><p>sensitivity of mammography.</p><p>Current study was also evaluated with a Computer Aided Detection </p><p>(CAD) system.</p><p>No new significant masses, calcif ications, or other findings are </p><p>seen in either breast.There are benign calcifications in both </p><p>breasts.A cardiac pacing device now projects over the right </p><p>pectoralis muscle. </p><p> </p> #[id number] - MAMMOGRAM BILAT SCREEN DIGITALBILATERAL DIGITAL SCREENING MAMMOGRAM WITH CAD: 09/21/2017CLINICAL: Screening for malignancy. Comparison is made to exam dated:09/24/2016 [facility].The tissue of both breasts is extremely dense, which lowers the sensitivity of mammography.Current study was also evaluated with a Computer Aided Detection (CAD) system.No new significant masses, calcifications, or other findings are seen in either breast.There are benign calcifications in both breasts.A cardiac pacing device now projects over the right pectoralis muscle. 09/21/2017 [facility] MAMMOGRAM BILAT SCREEN DIGITAL <p styleCode="header">Interface, Rad/Mammog In - 09/21/2017 12:58 PM CDT</p><p>
<span>#[id number] - MAMMOGRAM BILAT SCREEN DIGITAL</span>
<span>BILATERAL DIGITAL SCREENING MAMMOGRAM WITH CAD: 09/21/2017</span>
<span>CLINICAL: Screening for malignancy. </span>

<span>Comparison is made to exam dated: 09/24/2016 [facility] </span>
<span>Center. </span>
<span>The tissue of both breasts is extremely dense, which lowers the </span>
<span>sensitivity of mammography. </span>
<span>Current study was also evaluated with a Computer Aided Detection </span>
<span>(CAD) system. </span>
<span>No new significant masses, calcifications, or other findings are </span>
<span>seen in either breast. There are benign calcifications in both </span>
<span>breasts. A cardiac pacing device now projects over the right </span>
<span>pectoralis muscle. </span>

<span>IMPRESSION</span>
<span>IMPRESSION: BENIGN</span>
<span>There is no mammographic evidence of malignancy. A 1 year </span>
<span>screening mammogram is recommended. </span>
<span>This document has been electronically signed.</span>&a mp;lt;br/>
<span>Gris Fraga M.D. </span>
<span>to/:09/21/2017 11:44:03 </span>

<span>Line Painting Machine Operator: Andre Davenport Sr. Claim Rep, </span>
<span>[facility]</sp an>
<span>letter sent: Benign Exam </span>
<span>Mammogram BI-RADS: 2 Benign G0202 Z12.31</span></p> Interface, Rad/Mammog In - 09/21/2017 12:58 PM CDT #[id number] - MAMMOGRAM BILAT SCREEN DIGITAL BILATERAL DIGITAL SCREENING MAMMOGRAM WITH CAD: 09/21/2017 CLINICAL: Screening for malignancy. Comparison is made to exam dated: 09/24/2016 [facility]. The tissue of both breasts is extremely dense, which lowers the sensitivity of mammography. Current study was also evaluated with a Computer Aided Detection (CAD) system. No new significant masses, calcifications, or other findings are seen in either breast. There are benign calcifications in both breasts. A cardiac pacing device now projects over the right pectoralis muscle. IMPRESSION IMPRESSION: BENIGN There is no mammographic evidence of malignancy. A 1 year screening mammogram is recommended. This document has been electronically signed. Gris Fraga M.D. to/:09/21/2017 11:44:03 Line Painting Machine Operator: Andre Davenport Sr. Claim Rep, [facility] letter sent: Benign Exam Mammogram BI-RADS: 2 Benign G0202 Z12.31 09/21/2017 [facility] Pathology Reports No Data Provided for This Section Diagnostic Reports Report Value Date Source U/S THYROID/NECK IMPRESSION:1.Thyroid nodules do not meet criteria for follow-up or fine-needleaspiration. REFERENCE:Tawny FN, Parth WD, Davy EG, et al. ACR Thyroid Imaging,Reporting and Data System (TI-RADS): White Paper of the ACR TI-RADSCommittee. J Am Kevin Radiol. 2017; 14(5): 587?595. Signed By: Walt Carlisle MD, 02/15/2018 5:56 PM EXAM: US THYROID DATE: 02/15/2018 at 1629 hours INDICATION: enlarged lymph node to left side of neck. Enlarged lymphnode in neck ADDITIONAL INFORMATION: None. COMPARISON: None. TECHNIQUE: Multiplanar grayscale and color Doppler ultrasound of theneck were obtained in the area of the thyroid. FINDINGS: Thyroid parenchyma: Normal. Size:Right thyroid: 5.2 x 1.7 x 1.3 cmLeft thyroid: 4.6 x 1.4 x 0.9 cmIsthmus thickness: 0.2 cm Thyroid nodules: Nodule 1:Location: Right superiorSize: 0.6 x 0.6 x 0.4 cmComposition: Solid or almost completely solid (2 points).Echogenicity: Hypoechoic (2 points).Shape: Wider than tall (0 points).Margins: Smooth (0 points).Echogenic foci: Absent (0 points).Other: None.ACR TI-RADS Score: TR4 - Moderately suspicious (total 4-6 points).-- ACR recommendation:=1.5 cm FNA;=1 cm f/u in 1, 2, 3, and 5 years;<1 cm no f/u or FNA.Recommendations: None. Nodule 2:Location: Left superiorSize: 0.4 x 0.3 x 0.2 cmComposition: Solid or almost completely solid (2 points).Echogenicity: Hypoechoic (2 points).Shape: Wider than tall (0 points).Margins: Smooth (0 points).Echogenic foci: Absent (0 points).Other: None.ACR TI-RADS Score: TR4 - Moderately suspicious (total 4-6 points).-- ACR recommendation:=1.5 cm FNA;=1 cm f/u in 1, 2, 3, and 5 years;<1 cm no f/u or FNA.Recommendations: None. Other smaller, or less suspicious nodules also present. Cervical lymph nodes: Normal. Other: None. Interface, Rad/Mammog In - 02/15/2018 6:01 PM CDTEXAM: US THYROID DATE: 02/15/2018 at 1629 hours INDICATION: enlarged lymph node to left side of neck. Enlarged lymph node in neck ADDITIONAL INFORMATION: None. COMPARISON: None. TECHNIQUE: Multiplanar grayscale and color Doppler ultrasound of the neck were obtained in the area of the thyroid. FINDINGS: Thyroid parenchyma: Normal. Size: Right thyroid: 5.2 x 1.7 x 1.3 cm Left thyroid: 4.6 x 1.4 x 0.9 cm Isthmus thickness: 0.2 cm Thyroid nodules: Nodule 1: Location: Right superior Size: 0.6 x 0.6 x 0.4 cm Composition: Solid or almost completely solid (2 points). Echogenicity: Hypoechoic (2 points). Shape: Wider than tall (0 points). Margins: Smooth (0 points). Echogenic foci: Absent (0 points). Other: None. ACR TI-RADS Score: TR4 - Moderately suspicious (total 4-6 points). -- ACR recommendation:=1.5 cm FNA;=1 cm f/u in 1, 2, 3, and 5 years; <1 cm no f/u or FNA. Recommendations: None. Nodule 2: Location: Left superior Size: 0.4 x 0.3 x 0.2 cm Composition: Solid or almost completely solid (2 points). Echogenicity: Hypoechoic (2 points). Shape: Wider than tall (0 points). Margins: Smooth (0 points). Echogenic foci: Absent (0 points). Other: None. ACR TI-RADS Score: TR4 - Moderately suspicious (total 4-6 points). -- ACR recommendation:=1.5 cm FNA;=1 cm f/u in 1, 2, 3, and 5 years; <1 cm no f/u or FNA. Recommendations: None. Other smaller, or less suspicious nodules also present. Cervical lymph nodes: Normal. Other: None. IMPRESSION IMPRESSION: 1. Thyroid nodules do not meet criteria for follow-up or fine-needle aspiration. REFERENCE: Tawny FN, Parth WD, Davy EG, et al. ACR Thyroid Imaging, Reporting and Data System (TI-RADS): White Paper of the ACR TI-RADS Committee. J Am Kevin Radiol. 2017; 14(5): 587?595. Signed By: Walt Carlisle MD, 02/15/2018 5:56 PM 02/15/2018 [facility] Consultation Notes No Data Provided for This Section Discharge Summaries No Data Provided for This Section History and Physicals No Data Provided for This Section Vital Signs Vital Sign Value Date Comments Source Systolic (mm Hg) 143 07/13/2018 [facility] Diastolic (mm Hg) 56 07/13/2018 [facility] Heart Rate 75 07/13/2018 [facility] Temperature Oral (F) 36.67 Teresita 07/13/2018 [facility] Respitory Rate 16 07/13/2018 [facility] Height 165.1 cm 07/13/2018 [facility] Weight 79.742 07/13/2018 [facility] Encounters Location Location Details Encounter Type Encounter Number Reason For Visit Attending Provider ADM Date DC Date Status Source [facility] [place] Refill [id number] Brant Hagan MD 09/21/2017 [facility] Nursing [place] Nurse Only [id number] Ondina Winn RN 09/21/2017 [facility] Ophthalmology/Optometry [place] Ancillary Procedure [id number] Juan Nowak MD 09/21/2017 09/21/2017 [facility] Mammography [place] Ancillary Procedure [id number] Juan Nowak MD 09/21/2017 09/21/2017 [facility] Office Visit [id number] Ozzie Wen MD 12/02/2017 12/02/2017 [facility] [place] Office Visit [id number] Melissa Hardy MANUFACTURING SUPERVISOR 01/14/2018 01/14/2018 [facility] Ultrasound [facility] Encounter [id number] Melissa Hardy MANUFACTURING SUPERVISOR 02/15/2018 02/16/2018 [facility] [place] Office Visit [id number] Melissa Hardy MANUFACTURING SUPERVISOR 04/01/2018 04/01/2018 [facility] [place] Orders Only [id number] Melissa Hardy MANUFACTURING SUPERVISOR 04/07/2018 [facility] Psychiatry [place] Office Visit [id number] Stan Ty ResidentMD 04/07/2018 04/07/2018 [facility] [place] Telephone [id number] Melissa Hardy MANUFACTURING SUPERVISOR 04/15/2018 [facility] Office Visit [id number] Ruth Wolfe MD 2018 2018 [facility] [place] Refill [id number] Brant Hagan MD 05/10/2018 [facility] Travel [id number] 06/09/2018 [facility] Anesthesia PreOP (6210) [facility] Encounter [id number] Yani Salas MANUFACTURING SUPERVISOR 06/09/2018 06/10/2018 [facility] Travel [id number] 06/17/2018 [facility] Encounter [id number] Ruth Wolef MD 06/17/2018 06/18/2018 [facility] Post Anesthesia Care (PACU) [facility] Surgery [id number] Ruth Wolfe MD 06/17/2018 [facility] Post Anesthesia Care (PACU) [facility] Anesthesia Event [id number] Talya Shen MANUFACTURING SUPERVISOR 06/17/2018 06/17/2018 [facility] Cooker Meal [place] Clinical Case Mgt [id number] Kristen Alexis 06/21/2018 [facility] [place] Refill [id number] Brant Hagan MD 07/02/2018 [facility] GI Lab Services BT Telephone [id number] Pebbles Gomez 07/02/2018 [facility] [place] Refill [id number] Brant Hagan MD 07/09/2018 [facility] Travel [id number] 07/13/2018 [facility] Office Visit [id number] Ruth Wolfe MD 07/13/2018 07/13/2018 [facility] Psychiatry [place] Refill [id number] Buddy Johnson MD 07/14/2018 [facility] Procedures Procedure Code Date Perfomer Comments Source BASIC METABOLIC PANEL 90122 06/18/2018 [facility] HEP B COR AB TOT 78873 06/18/2018 [facility] [place] [address] 06/18/2018 [facility] HEPATITIS PANEL 06756 06/18/2018 [facility] INTACT PTH 21469 06/18/2018 [facility] PHOSPHORUS 79981 06/18/2018 [facility] VIT D, 25-HYDROXY 38604 06/18/2018 [facility] GLUCOSE POC 06141 06/18/2018 [facility] GLUCOSE POC 86280 06/18/2018 [facility] INTUBATION [id number] 06/18/2018 [facility] BMP POC 12322 06/18/2018 [facility] GLUCOSE POC 22850 06/17/2018 [facility] GLUCOSE POC 54678 06/17/2018 [facility] ENT - THYROPLASTY 06/17/2018 [facility] BMP POC 36805 06/10/2018 [facility] LIVER PROFILE 01913 06/10/2018 [facility] CBC/DIFF 74913 06/10/2018 [facility] PT/INR 78501 06/10/2018 [facility] 12 LEAD EKG 76842 06/10/2018 [facility] BASIC METABOLIC PANEL 32219 04/07/2018 [facility] CBC/DIFF 63298 04/07/2018 [facility] HEMOGLOBIN A1C 34460 04/07/2018 [facility] LIVER PROFILE 90847 04/07/2018 [facility] LIPID PROFILE 78874 04/07/2018 [facility] TSH 17890 04/07/2018 [facility] DIABETIC FOOT EXAM 04/02/2018 [facility] CYTOLOGY 92727 04/01/2018 [facility] U/S THYROID/NECK 94570 02/16/2018 [facility] OCCULT BLOOD ICT 93479 02/02/2018 [facility] DIABETIC FOOT EXAM 01/14/2018 [facility] OPHTHALMOLOGY RETINAL SCAN [id number] 09/21/2017 [facility] MAMMOGRAM BILAT SCREEN DIGITAL G0202 09/21/2017 [facility] Assessment and Plan No Data Provided for This Section Plan of Care Plan of Care Date Source DM Microalbumin Urine Scrn (Yearly) 07/13/2019 [facility] CORONARY ARTERY DISEASE AGE 18 AND UP 04/07/2019 [facility] DM Foot Exam (Yearly) 04/01/2019 [facility] Colorectal Cancer Scrn Annual (FIT/FOBT) Age 50 to 75 02/02/2019 [facility] Breast Cancer Scrn (Yearly) 09/21/2018 [facility] Upcoming EncountersDateTypeSpecialtyCare TeamDescription 10/19/2018 Office Visit Ent-Otolaryngology Health MaintenanceDue DateLast DoneComments Cervical Cancer Scrn (3 Yrs) 06/03/2018 06/03/2015 (Previously completed - External) Breast Cancer Scrn (Yearly) 09/21/2018 09/21/2017, 09/24/2016, 07/04/2015 (Previously completed - External) DM Retinal Exam (Yearly) 09/21/2018 09/21/2017, 01/27/2016 (Previously completed - External) Colorectal Cancer Scrn Annual (FIT/FOBT) Age 50 to 75 02/02/2019 02/02/2018, 09/18/2016, 10/21/2015 DM Foot Exam (Yearly) 04/01/2019 04/01/2018, 01/14/2018, 07/26/2017 CORONARY ARTERY DISEASE AGE 18 AND UP 04/07/2019 04/07/2018, 01/14/2018 (Previously completed - External), 10/16/2015 DM HGBA1C (Yearly) 04/07/2019 04/07/2018, 01/14/2018 (Previously completed - External), 10/16/2015 DM Microalbumin Urine Scrn (Yearly) 07/13/2019 07/13/2018, 07/13/2018, 2018, Additional history exists 09/15/2018 [facility] Cervical Cancer Scrn (3 Yrs) 06/03/2018 [facility] Social History Social History Date Source Tobacco UseTypesPacks/DayYears UsedDate Never Smoker Smokeless Tobacco: Never Used Tobacco Cessation: Counseling Given: No Alcohol UseDrinks/Weekoz/WeekComments No 0 Standard drinks or equivalent 0.0 Sex Assigned at BirthDate Recorded Not on file Job Start DateOccupationIndustry Not on file Not on file Not on file Travel HistoryTravel StartTravel End No recent travel history available. 07/13/2018 [facility] Family History Value Date Source Medical HistoryRelationNameComments Hypertension Brother Hypertension Brother Hypertension Father Cancer Paternal Aunt colon cancer Cancer Paternal Grandmother Colon cancer Heart Sister Psychiatry Sister Bipolar Stroke Sister RelationNameStatusComments Brother Alive Brother Alive Brother Brother Father Maternal Grandfather Maternal Grandmother Mother Paternal Aunt Paternal Grandfather Paternal Grandmother Sister Alive Sister Sister Sister Son Alive 09/15/2018 [facility] Advance Directives Order Name Results Value Date Source Advance Directives Advance Directives For more information, please contact:[place] [address] [address] [facility], [place] [address]Clcakr Code Status on FileCode StatusDate ActivatedDate InactivatedComments Full Code 06/17/2018 3:12 PM 06/18/2018 4:22 PM 09/15/2018 [facility] Functional Status No Data Provided for This Section
--- OUTSIDE RECORDS SUMMARY | 2018-12-06 10:54 | XMS REPORT | Clinical Summary ---
Author Author [facility] Organization [facility] Address Unknown Phone Unavailable Care Team Providers Care Night Time Nanny Name Role Phone Melissa Hardy CHIEF PASSENGER [employer] STEWARD/STEWARDESS PCP Allergies Comments Active Allergy Reactions Severity Noted Date Doxycycline Rash 10/15/2015 Restlessness Promethazine Other 10/15/2015 Medications End Date Status Medication Sig Dispensed Refills Start Date Active buPROPion (WELLBUTRIN SR) Take 100 mg 0 100 mg sustained release by mouth. tablet Active gabapentin (NEURONTIN) Take 300 mg 0 300 mg capsule by mouth 3 times daily. Active furosemide (LASIX) 40 mg Take 40 mg by 0 tablet mouth 2 times daily. Active ASPIRIN EC 81 mg delayed Take 81 mg by 0 release tablet mouth daily. Active calcium acetate (PHOSLO) Take 667 mcg 0 667 mg cap by mouth 3 times daily with meals. Active pen needle, diabetic Use to inject 1 Box 5 (NOVOFINE) 30 gauge x insulin 3 7 1/3" needlesIndications: times daily, Type 2 diabetes, diet use new controlled needle each time.. Active omeprazole (PRILOSEC) 20 Take 2 180 capsule 0 mg delayed release capsules by 7 capsuleIndications: mouth daily. Gastroesophageal reflux disease without esophagitis Active ciclesonide (ZETONNA) 37 Use 1 Braggs 6.1 g 3 mcg/actuation nasal HFA in each 7 inhalerIndications: Acute nostril sinusitis, unspecified daily. Active LINZESS 145 mcg TAKE 1 BY 30 Each 1 capIndications: Irritable MOUTH DAILY 7 bowel syndrome with constipation Active NOVOFINE 30 30 gauge x USE TO INJECT 100 Each 4 1/3" needlesIndications: INSULIN 3 8 Uncontrolled type 2 TIMES DAILY . diabetes mellitus without DISCARD PEN complication, with NEEDLE AFTER long-term current use of EACH USE insulin Active atorvastatin (LIPITOR) 40 Take 40 mg by 0 mg tablet mouth at 8 bedtime nightly. Active clopidogrel (PLAVIX) 75 Take 75 mg by 0 mg tablet mouth daily. 8 Active DIALYVITE 800-ULTRA D 0 0.8-2,000 mg-unit Tab 7 Active rOPINIRole (REQUIP) 0.5 Take 0.5 mg 0 mg tablet by mouth at 8 bedtime nightly. Active carvedilol (COREG) 25 mg Take 1 tablet 60 tablet 3 tabletIndications: by mouth 2 8 Essential hypertension times daily (with meals). Active sevelamer carbonate Take 2 60 tablet 3 (RENVELA) 800 mg tablets by 8 tabletIndications: mouth 3 times Dialysis patient daily with meals. Active patiromer calcium Take by mouth 0 sorbitex (VELTASSA) 8.4 daily. 8 gram PwPkIndications: Dialysis patient Active sodium bicarbonate 650 mg Take 1 tablet 0 tabletIndications: by mouth 8 Dialysis patient daily. Active azelastine (OPTIVAR) 0.05 Instill 1 6 mL 1 % ophthalmic Drop in each 8 solutionIndications: eye 2 times Allergic conjunctivitis daily. and rhinitis, unspecified laterality Active polyethylene glycol Add lukewarm 4000 mL 0 (GOLYTELY) 236-22.74-6.74 drinking 8 -5.86 gram oral water to the solutionIndications: fill kennedy (4 Screen for colon cancer liters) and shake. Drink as directed by your doctor.. Active insulin detemir U-100 Inject 40 15 Pen 1 (LEVEMIR FLEXTOUCH U-100 Units under 8 INSULN) 100 unit/mL (3 the skin mL) PenIndications: every Uncontrolled type 2 evening. diabetes mellitus with chronic kidney disease on chronic dialysis, with long-term current use of insulin Active insulin aspart U-100 Inject 12 5 Pen 1 (NOVOLOG FLEXPEN) 100 Units under 8 unit/mL penIndications: the skin 3 Uncontrolled type 2 times daily diabetes mellitus with with meals. chronic kidney disease on chronic dialysis, with long-term current use of insulin Active cetirizine (ZYRTEC) 10 mg TAKE ONE 30 tablet 0 tabletIndications: TABLET BY 9 Allergic rhinitis with MOUTH EVERY postnasal drip, Cough NIGHT AT BEDTIME Active mirtazapine (REMERON) 15 TAKE ONE 30 tablet 1 mg tabletIndications: TABLET BY 9 Moderate episode of MOUTH EVERY recurrent major NIGHT AT depressive disorder BEDTIME 01/14/2018 Discontinued pen needle, diabetic Inject under 1 Box 2 (NOVOFINE) 30 gauge x the skin 6 1/3" needlesIndications: daily Use as Type 2 diabetes mellitus, directed. controlled 01/14/2018 Discontinued pen needle, diabetic Use as 1 Box 2 (NOVOFINE) 30 gauge x directed. 6 1/3" needlesIndications: Type 2 diabetes mellitus, controlled 01/14/2018 Discontinued pen needle, diabetic Inject under 1 Box 2 (NOVOFINE 30) 30 gauge x skin daily 4 6 1/3" needlesIndications: times a day.. Type 2 diabetes mellitus, controlled 01/14/2018 Discontinued NIFEdipine (NIFEDICAL XL) Take 30 mg by 0 30 mg extended release mouth daily. tablet 04/01/2018 Discontinued insulin aspart (NOVOLOG Inject 8 5 Pen 0 FLEXPEN) 100 unit/mL Units under 7 penIndications: Type 2 the skin 3 diabetes, diet controlled times daily with meals. 04/01/2018 Discontinued cetirizine (ZYRTEC) 10 mg Take 1 tablet 0 tabletIndications: by mouth 7 Persistent dry cough, daily. Seasonal allergic rhinitis due to pollen, Postnasal drip 01/14/2018 Discontinued traMADol (ULTRAM) 50 mg Take 1 tablet 30 tablet 0 tabletIndications: Right by mouth 7 wrist pain every 6 hours as needed for Pain. 01/14/2018 Discontinued traMADol (ULTRAM) 50 mg Take 1 tablet 30 tablet 0 tabletIndications: by mouth 7 Fracture of distal end of every 6 hours right radius, unspecified as needed for fracture morphology, Pain. initial encounter, Closed nondisplaced fracture of shaft of fifth metacarpal bone of left hand, initial encounter 01/14/2018 Discontinued traMADol (ULTRAM) 50 mg Take 1 tablet 50 tablet 0 tablet by mouth 7 every 6 hours as needed for Pain. 09/21/2017 Discontinued LEVEMIR FLEXTOUCH 100 INJECT 22 5 Pen 2 unit/mL (3 mL) UNITS UNDER 7 PenIndications: THE SKIN Controlled type 2 EVERY EVENING diabetes mellitus without complication, with long-term current use of insulin 01/14/2018 Discontinued carvedilol (COREG) 6.25 Take 6.25 mg 0 mg tablet by mouth 2 8 times daily. 01/14/2018 Discontinued LEVEMIR FLEXTOUCH U-100 INJECT 22 15 Pen 1 INSULN 100 unit/mL (3 mL) UNITS UNDER 8 PenIndications: THE SKIN Controlled type 2 EVERY EVENING diabetes mellitus without complication, with long-term current use of insulin 04/01/2018 Discontinued insulin detemir U-100 Inject 30 15 Pen 1 (LEVEMIR FLEXTOUCH U-100 Units under 8 INSULN) 100 unit/mL (3 the skin mL) PenIndications: every Controlled type 2 evening. diabetes mellitus without complication, with long-term current use of insulin 04/01/2018 Discontinued polyethylene glycol Add lukewarm 4000 mL 0 (GOLYTELY) 236-22.74-6.74 drinking 8 -5.86 gram oral water to the solutionIndications: fill kennedy (4 Screen for colon cancer liters) and shake. Drink as directed by your doctor.. 04/01/2018 Discontinued benzonatate (TESSALON Take 2 20 capsule 0 PERLES) 100 mg capsules by 8 capsuleIndications: mouth 3 times Allergic rhinitis with daily as postnasal drip, Cough needed for up to 7 days for Cough. 04/01/2018 Discontinued cetirizine (ZYRTEC) 10 mg Take 1 tablet 30 tablet 0 tabletIndications: by mouth at 8 Allergic rhinitis with bedtime postnasal drip, Cough nightly. 04/01/2018 Discontinued insulin detemir U-100 Inject 35 15 Pen 1 (LEVEMIR FLEXTOUCH U-100 Units under 8 INSULN) 100 unit/mL (3 the skin mL) PenIndications: every Uncontrolled type 2 evening. diabetes mellitus with chronic kidney disease on chronic dialysis, with long-term current use of insulin 04/01/2018 Discontinued insulin aspart U-100 Inject 10 5 Pen 0 (NOVOLOG FLEXPEN) 100 Units under 8 unit/mL penIndications: the skin 3 Uncontrolled type 2 times daily diabetes mellitus with with meals. chronic kidney disease on chronic dialysis, with long-term current use of insulin 04/07/2018 Discontinued benzonatate (TESSALON Take 2 20 capsule 0 PERLES) 100 mg capsules by 8 capsuleIndications: mouth 3 times Allergic rhinitis with daily as postnasal drip, Cough needed for up to 7 days for Cough. 05/10/2018 Discontinued cetirizine (ZYRTEC) 10 mg Take 1 tablet 30 tablet 0 tabletIndications: by mouth at 8 Allergic rhinitis with bedtime postnasal drip, Cough nightly. 04/15/2018 Discontinued insulin detemir U-100 Inject 35 15 Pen 1 (LEVEMIR FLEXTOUCH U-100 Units under 8 INSULN) 100 unit/mL (3 the skin mL) PenIndications: every Uncontrolled type 2 evening. diabetes mellitus with chronic kidney disease on chronic dialysis, with long-term current use of insulin 04/15/2018 Discontinued insulin aspart U-100 Inject 10 5 Pen 1 (NOVOLOG FLEXPEN) 100 Units under 8 unit/mL penIndications: the skin 3 Uncontrolled type 2 times daily diabetes mellitus with with meals. chronic kidney disease on chronic dialysis, with long-term current use of insulin 07/14/2018 Discontinued mirtazapine (REMERON) 15 Take 1 tablet 30 tablet 2 mg tabletIndications: by mouth at 8 Moderate episode of bedtime recurrent major nightly. depressive disorder 04/14/2018 benzonatate (TESSALON Take 2 40 capsule 0 PERLES) 100 mg capsules by 8 capsuleIndications: mouth 3 times Allergic rhinitis with daily as postnasal drip, Cough needed for up to 7 days for Cough. 2018 Discontinued ofloxacin (FLOXIN) 0.3 % Instill 5 5 mL 0 otic solution Drops in left 8 ear 2 times daily for 10 days. 2018 Discontinued prednisoLONE acetate Instill 5 5 mL 0 (PRED FORTE) 1 % drops into 8 ophthalmic suspension left ear twice a day.. 07/02/2018 Discontinued cetirizine (ZYRTEC) 10 mg TAKE ONE 30 tablet 0 tabletIndications: TABLET BY 8 Allergic rhinitis with MOUTH EVERY postnasal drip, Cough NIGHT AT BEDTIME 07/09/2018 Discontinued cetirizine (ZYRTEC) 10 mg TAKE ONE 30 tablet 0 tabletIndications: TABLET BY 9 Allergic rhinitis with MOUTH EVERY postnasal drip, Cough NIGHT AT BEDTIME Active Problems Problem Noted Date Elbow pain, chronic, right 11/23/2017 S/P coronary artery stent placement 07/26/2017 Coronary artery disease involving [place] coronary artery of [place] heart 07/26/2017 without angina pectoris Status cardiac pacemaker 07/26/2017 Dysphonia 01/20/2017 Overview: Added automatically from request for surgery [id number] Hoarseness 01/11/2017 LPRD (laryngopharyngeal reflux disease) 01/11/2017 Paralysis of left vocal fold 01/11/2017 Fracture of distal end of right radius 09/17/2016 Closed nondisplaced fracture of shaft of fifth metacarpal bone of left hand 09/17/2016 Hand pain, left 09/17/2016 Impaired activities of daily living 09/17/2016 Impaired instrumental activities of daily living (IADL) 09/17/2016 Controlled type 1 diabetes mellitus with chronic kidney disease on chronic 01/14/2016 dialysis, with long-term current use of insulin Inadequately controlled diabetes mellitus 12/10/2015 Type 2 diabetes mellitus, controlled 10/15/2015 Dialysis patient, 3 times a week 10/15/2015 Neuropathy 10/15/2015 Gastroesophageal reflux disease without esophagitis 10/15/2015 Depression 10/15/2015 Encounters Care Team Description Date Type Specialty Buddy Johnson MD Moderate episode of recurrent major depressive disorder 07/14/2018 Refill Psychiatry Ruth Wolfe MD Paralysis of left vocal fold (Primary Dx); Dysphonia; S/P coronary artery stent placement; Dialysis patient, 3 times a week; Controlled type 2 diabetes mellitus with chronic kidney disease, unspecified CKD stage, unspecified whether ring facer insulin use; Gastroesophageal reflux disease without esophagitis; Coronary artery disease involving [place] coronary artery of [place] heart without angina pectoris; Post-nasal drip 07/13/2018 Office Visit Ent-Otolaryngology 07/13/2018 Brant Welch III, MD Allergic rhinitis with postnasal drip; Cough 07/09/2018 Refill [facility] Brant Hagan III, MD Allergic rhinitis with postnasal drip; Cough 07/02/2018 Refill [facility] Pebbles Gomez Consult (outside GI provider); Abnormal Cancer Screening (fmhx Colon CA) 07/02/2018 Telephone Gastroenterology Kristen Espinoza 06/21/2018 Clinical Case Social Work Mgt Talya Shen NP 06/17/2018 Anesthesia Event Ruth Wolfe MD MicroLaryngoscopy with Vocal fold Injection 06/17/2018 Surgery Ruth Wolfe MD Controlled type 2 diabetes mellitus with chronic kidney disease, unspecified CKD stage, unspecified whether ring facer insulin use (Primary Dx); Dialysis patient, 3 times a week 06/17/2018 Hospital - Encounter 06/18/2018 06/17/2018 Yani Fritz NP Rivera, Tammy, NP 06/09/2018 Hospital Anesthesiology Encounter 06/09/2018 Brant Welch III, MD Allergic rhinitis with postnasal drip; Cough 05/10/2018 Refill [facility] Ruth Wolfe MD Paralysis of left vocal fold (Primary Dx); Dysphonia; Coronary artery disease involving [place] coronary artery of [place] heart without angina pectoris; LPRD (laryngopharyngeal reflux disease); Dialysis patient, 3 times a week; S/P coronary artery stent placement; Status cardiac pacemaker 2018 Office Visit Ent-Otolaryngology Melissa Hardy NP Abnormal Labs 04/15/2018 Telephone [facility] Stan Ty ResidentIA Moderate episode of recurrent major depressive disorder (Primary Dx) 04/07/2018 Office Visit Psychiatry Melissa Hardy NP Allergic rhinitis with postnasal drip; Cough 04/07/2018 Orders Only Family Practice Melissa Hardy NP Well woman exam with routine gynecological exam (Primary Dx); Coronary artery disease involving [place] coronary artery of [place] heart without angina pectoris; Vocal cord paralysis; LPRD (laryngopharyngeal reflux disease); Screen for colon cancer; Allergic rhinitis with postnasal drip; Cough; Uncontrolled type 2 diabetes mellitus with chronic kidney disease on chronic dialysis, with long-term current use of insulin 04/01/2018 Office Visit Family Practice Melissa Hardy NP 02/15/2018 Hospital Radiology Encounter Melissa Hardy NP Controlled type 2 diabetes mellitus without complication, with long-term current use of insulin (Primary Dx); Dietary counseling for Above / Below Normal BMI; Exercise counseling for Above Normal BMI Only!; S/P coronary artery stent placement; Status cardiac pacemaker; Elbow pain, chronic, right; Dialysis patient, 3 times a week; Essential hypertension; Enlarged lymph node in neck; Feels depressed; Screen for colon cancer; Allergic conjunctivitis and rhinitis, unspecified laterality 01/14/2018 Office Visit [facility] Ozzie Wen MD Alexander, Ronda E, MD Dysphonia (Primary Dx); Vocal cord paralysis; LPRD (laryngopharyngeal reflux disease) 12/02/2017 Office Visit Ent-Otolaryngology Juan Nowak MD Screening for breast cancer 09/21/2017 Ancillary Radiology Procedure Juan Nowak MD 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, with long-term current use of insulin 09/21/2017 Ancillary Ophthalmology Procedure Brant Hagan III, MD Controlled type 2 diabetes mellitus without complication, with long-term current use of insulin 09/21/2017 Refill [facility] Ondina Winn RN 09/21/2017 Nurse Only after 09/14/2017 Immunizations Name Dates Previously Given Next Due Influenza <Unspecified> 02/28/2018 Influenza Vaccine, 07/26/2017 (Deferred: Vaccine Unavailable) Seasonal, Injectable PPV 23 Pneumococcal 12/14/2016 Polysaccaride Tdap (Tetanus Toxoid, 12/14/2016 Reduced Diphtheria Toxoid And Acellular Pertussis, Absorbed) Family History Medical History Relation Name Comments Hypertension Brother Hypertension Brother Hypertension Father Cancer Paternal Aunt colon cancer Cancer Paternal Colon cancer Grandmother Heart Sister Psychiatry Sister Bipolar Stroke Sister Relation Name Status Comments Brother Alive Brother Alive Brother Brother Father Maternal Grandfather Maternal Grandmother Mother Paternal Aunt Paternal Grandfather Paternal Grandmother Sister Alive Sister Sister Sister Son Alive Social History Date Tobacco Use Types Packs/Day Years Used Never Smoker Smokeless Tobacco: Never Used Tobacco Cessation: Counseling Given: No Alcohol Use Drinks/Week oz/Week Comments No 0 Standard 0.0 drinks or equivalent Sex Assigned at Date Recorded Not on file Industry Job Start Date Occupation Not on file Not on file Not on file Travel End Travel History Travel Start No recent travel history available. Last Filed Vital Signs Time Taken Vital Sign Reading 07/13/2018 8:05 AM SALES REPRESENTATIVE Blood Pressure 143/56 07/13/2018 8:05 AM SALES REPRESENTATIVE Pulse 75 07/13/2018 8:05 AM SALES REPRESENTATIVE Temperature 36.7 C (98 F) 07/13/2018 8:05 AM SALES REPRESENTATIVE Respiratory Rate 16 06/18/2018 2:11 PM SALES REPRESENTATIVE Oxygen Saturation 100% - Inhaled Oxygen - Concentration 07/13/2018 8:05 AM SALES REPRESENTATIVE Weight 79.7 kg (175 lb 12.8 oz) 07/13/2018 8:05 AM SALES REPRESENTATIVE Height 165.1 cm (5' 5") 07/13/2018 8:05 AM SALES REPRESENTATIVE Body Mass Index 29.25 Plan of Treatment Care Team Description Date Type Specialty 10/19/2018 Office Visit Ent-Otolaryngology Health Maintenance Due Date Last Done Comments Cervical Cancer Scrn (3 06/03/2018 06/03/2015 (Previously completed - Yrs) External) Breast Cancer Scrn 09/21/2018 09/21/2017, 09/24/2016, 07/04/2015 (Yearly) (Previously completed - External) DM Retinal Exam (Yearly) 09/21/2018 09/21/2017, 01/27/2016 (Previously completed - External) Colorectal Cancer Scrn 02/02/2019 02/02/2018, 09/18/2016, 10/21/2015 Annual (FIT/FOBT) Age 50 to 75 DM Foot Exam (Yearly) 04/01/2019 04/01/2018, 01/14/2018, 07/26/2017 CORONARY ARTERY DISEASE 04/07/2019 04/07/2018, 01/14/2018 (Previously AGE 18 AND UP completed - External), 10/16/2015 DM HGBA1C (Yearly) 04/07/2019 04/07/2018, 01/14/2018 (Previously completed - External), 10/16/2015 DM Microalbumin Urine 07/13/2019 07/13/2018, 07/13/2018, 2018, Scrn (Yearly) Additional history exists Implants Device Identifier Shelf Expiration Date Model / Serial / Lot Implanted Type Area Manufactur er 12/21/2019 [id number] / / [id number] Plus Left: Vocal Fabi Implanted: Qty: 1 on 06/17/2018 by [employer] Ruth Wolfe MD Procedures Comments Procedure Name Priority Date/Time Associated Diagnosis VIT D, 25-HYDROXY Routine 06/18/2018 4:00 AM SALES REPRESENTATIVE PHOSPHORUS Routine 06/18/2018 4:00 AM SALES REPRESENTATIVE INTACT PTH Routine 06/18/2018 4:00 AM SALES REPRESENTATIVE HEPATITIS PANEL Routine 06/18/2018 4:00 AM SALES REPRESENTATIVE HEPATITIS B SURFACE AB Routine 06/18/2018 4:00 AM SALES REPRESENTATIVE HEP B COR AB TOT Routine 06/18/2018 4:00 AM SALES REPRESENTATIVE BASIC METABOLIC PANEL Routine 06/18/2018 4:00 AM SALES REPRESENTATIVE GLUCOSE POC Routine 06/17/2018 8:29 PM SALES REPRESENTATIVE GLUCOSE POC Routine 06/17/2018 2:07 PM SALES REPRESENTATIVE INTUBATION Routine 06/17/2018 1:01 PM SALES REPRESENTATIVE Procedure Note - Nova Muniz CRNA - 06/17/2018 1:01 PM SALES REPRESENTATIVE Intubation Date/Time: 06/17/2018 12:27 PM Urgency: elective Airway not difficult General Informatio n and Staff Patient location during procedure: OR Anesthesio logist: Israel Mcallister IV, MD Resident/C RNA: Nova Muniz CRNA Performed: anesthesio logist Indicatio ns and Patient Condition Indication s for airway management : anesthesia Spontaneou s Ventilatio n: absent Preoxygena veronica: yes Patient position: sniffing Mask difficulty assessment : 2 - vent by mask + OA or adjuvant +/- NMBA Final Airway Details Final airway type: supraglott ic airway Successful airway: air-Q Size 4.5 Number of attempts at approach: 2 Ventilatio n between attempts: BVM BMP POC Routine 06/17/2018 12:02 PM SALES REPRESENTATIVE GLUCOSE POC Routine 06/17/2018 11:16 AM SALES REPRESENTATIVE GLUCOSE POC Routine 06/17/2018 10:22 AM SALES REPRESENTATIVE ENT - THYROPLASTY 06/17/2018 Paralysis of left vocal 9:30 AM SALES REPRESENTATIVE fold BMP POC Routine 06/09/2018 2:14 PM SALES REPRESENTATIVE PT/INR STAT 06/09/2018 2:06 PM SALES REPRESENTATIVE CBC/DIFF STAT 06/09/2018 2:06 PM SALES REPRESENTATIVE LIVER PROFILE STAT 06/09/2018 2:06 PM SALES REPRESENTATIVE 12 LEAD EKG STAT 06/09/2018 2:00 PM SALES REPRESENTATIVE TSH Routine 04/07/2018 Uncontrolled type 2 10:43 AM SALES REPRESENTATIVE diabetes mellitus with chronic kidney disease on chronic dialysis, with long-term current use of insulin LIPID PROFILE Routine 04/07/2018 Uncontrolled type 2 10:43 AM SALES REPRESENTATIVE diabetes mellitus with chronic kidney disease on chronic dialysis, with long-term current use of insulin LIVER PROFILE Routine 04/07/2018 Uncontrolled type 2 10:43 AM SALES REPRESENTATIVE diabetes mellitus with chronic kidney disease on chronic dialysis, with long-term current use of insulin HEMOGLOBIN A1C Routine 04/07/2018 Uncontrolled type 2 10:43 AM SALES REPRESENTATIVE diabetes mellitus with chronic kidney disease on chronic dialysis, with long-term current use of insulin CBC/DIFF Routine 04/07/2018 Uncontrolled type 2 10:43 AM SALES REPRESENTATIVE diabetes mellitus with chronic kidney disease on chronic dialysis, with long-term current use of insulin BASIC METABOLIC PANEL Routine 04/07/2018 10:43 AM SALES REPRESENTATIVE DIABETIC FOOT EXAM Routine 04/01/2018 Uncontrolled type 2 2:16 PM CDT diabetes mellitus with chronic kidney disease on chronic dialysis, with long-term current use of insulin BTGH CYTOLOGY Routine 04/01/2018 12:00 AM CDT U/S THYROID/NECK Routine 02/15/2018 Enlarged lymph node in 5:07 PM CDT neck OCCULT BLOOD ICT Routine 02/02/2018 Screen for colon cancer 9:29 AM CDT DIABETIC FOOT EXAM Routine 01/14/2018 Controlled type 2 8:25 AM CDT diabetes mellitus without complication, with long-term current use of insulin OPHTHALMOLOGY RETINAL Routine 09/21/2017 Controlled type 1 SCAN 12:12 PM CDT diabetes mellitus with chronic kidney disease on chronic dialysis, with long-term current use of insulin MAMMOGRAM BILAT SCREEN Routine 09/21/2017 Screening for breast DIGITAL 11:37 AM CDT cancer after 09/14/2017 Results * HEPATITIS B SURFACE AB (06/18/2018 4:00 AM SALES REPRESENTATIVE) HBsAb Positive (A) NEG BT MAIN-STATION 4 HBsAb 282.50 BT MAIN-STATION Concentration Negative: <8.00 mIU/mL 4 Grayzone: > or=8.00 mIU/mL to <12.00 mIU/mL Positive: > or=12.00 mIU/mL Performing Organization Address [facility] Phone Number [employer] BT MAIN-STATION 4 * VIT D, 25-HYDROXY (06/18/2018 4:00 AM SALES REPRESENTATIVE) Vit D, 35.5 30 - 100 ng/mL BT DIAGNOSTIC 25-Hydroxy Comment: IMMUNOLOGY Vitamin D deficiency has been defined by the [place] [employer] and Endocrine Society guideline as a level of serum 25-OH Vitamin D less than 20 ng/mL. The Endocrine Society further defines Vitamin D insufficiency as a level between 21 and 29 ng/mL and sufficiency as a level between 30 and 100 ng/mL. Performing Organization Address [facility] Phone Number [employer] BT DIAGNOSTIC IMMUNOLOGY * HEP B COR AB TOT (06/18/2018 4:00 AM SALES REPRESENTATIVE) Hep B Cor Ab Negative NEG BT MAIN-STATION Tot 4 Performing Organization Address [facility] Phone Number [employer] BT MAIN-STATION 4 * INTACT PTH (06/18/2018 4:00 AM SALES REPRESENTATIVE) Intact PTH 357.00 (H) 8.7 - 77.1 pg/mL [facility] Performing Organization Address [facility] Phone Number [facility] * PHOSPHORUS (06/18/2018 4:00 AM SALES REPRESENTATIVE) Phosphorus 5.1 (H) 2.5 - 5.0 mg/dL [facility] MAIN-STATION 1 Performing Organization Address [facility] Phone Number [employer] MAIN-STATION 1 * HEPATITIS PANEL (06/18/2018 4:00 AM SALES REPRESENTATIVE) HCV IgG Negative NEG BT MAIN-STATION 4 HBsAg Negative NEG BT MAIN-STATION 4 HAV, IgM Negative NEG BT MAIN-STATION 4 HBcAb, IgM Negative NEG BT MAIN-STATION 4 Performing Organization Address [facility] Phone Number [employer] MAIN-STATION 4 * BASIC METABOLIC PANEL (06/18/2018 4:00 AM SALES REPRESENTATIVE) Only the most recent of 2 results within the time period is included. CO2 26 21 - 31 mmol/L [facility] MAIN-STATION 1 Chloride 98 98 - 107 mmol/L [facility] [facility] 1 Potassium 4.4 3.5 - 5.1 mmol/L [facility] MAIN-ST[facility] 1 Sodium 138 136 - 145 mmol/L [facility] 1 Glucose 226 (H) 70 - 110 mg/dL [facility] MAIN-[facility] 1 Urea Nitrogen 40 (H) 7 - 25 mg/dL [facility] MAIN-[facility] 1 Creatinine 6.40 (H) 0.6 - 1.2 mg/dL [facility] MAIN-[facility] 1 Anion Gap 14 [facility]IN[facility] 1 Calcium 8.1 (L) 8.6 - 10.3 mg/dL [facility] MA[facility] 1 GFR, Estimated 7 mL/min/1.73 m2 [facility] MAIN-ST[facility] 1 GFR, Estim, 8 mL/min/1.73 m2 [facility] Afr-Am MAIN-STATION 1 Specimen Blood Performing Organization Address [facility] Phone Number KRISTY [facility] MAIN-STATION 1 * GLUCOSE POC (06/17/2018 8:29 PM SALES REPRESENTATIVE) Only the most recent of 4 results within the time period is included. Glucose POC 139 (H) 74 - 106 mg/dL [facility] MAIN-STATION 1 Performing Organization Address [facility] Phone Number KRISTY [facility] MAIN-ST[facility] 1 * BMP POC (06/17/2018 12:02 PM SALES REPRESENTATIVE) Only the most recent of 2 results within the time period is included. Pathologist [facility] CO2 POC 28 21 - 32 mmol/L [facility] MAIN-STATION 1 Chloride POC 96 (L) 98 - 107 mmol/L [facility] MA[facility] 1 Potassium POC 3.5 3.50 - 5.10 mmol/L [facility] MA[facility] 1 Sodium POC 138 136 - 145 mmol/L [facility] 1 Glucose POC 171 (H) 74 - 106 mg/dL [facility] MAIN[facility] 1 Urea Nitrogen 29 (H) 7 - 18 mg/dL [facility] MAIN-STATION 1 Creatinine POC 5.7 (H) 0.6 - 1.3 mg/dL [facility] MA[facility] 1 Calcium Ionized 1.09 (L) 1.15 - 1.29 mmol/L [facility] MAIN-STATION 1 Hemoglobin POC 8.5 (L) 12.0 - 16.0 g/dL [facility] 1 Hematocrit POC 25.0 (L) 37.0 - 47.0 % [facility] 1 GFR, Estimated 8 mL/min/1.73 m2 [facility] 1 GFR, Estim, 9 mL/min/1.73 m2 [facility] Afr-Am MAIN[facility]ATION 1 Performing Organization Address [facility] Phone Number MISYS [facility] MAIN[facility] 1 * PT/INR (06/09/2018 2:06 PM SALES REPRESENTATIVE) [facility] PT 14.3 11.8 - 15.0 Seconds [facility] MAIN-STATION 1 INR 1.1 [facility] SUGGESTED THERAPEUTIC RANGES: MAIN-STATION 1 INR 2.0-3.0 for MODERATE INTENSITY ANTICOAGULATION INR 2.5-3.5 for HIGH INTENSITY ANTICOAGULATION Specimen Blood Performing Organization Address [facility] Phone Number MISYS [facility] MAIN-STATION 1 * LIVER PROFILE (06/09/2018 2:06 PM SALES REPRESENTATIVE) Only the most recent of 2 results within the time period is included. Pathologist [facility] T Protein 6.7 6.0 - 8.3 g/dL [facility] MAIN-STATION 1 Albumin 3.5 (L) 3.7 - 5.3 g/dL [facility] MAIN-STATION 1 T Bilirubin 0.8 0.2 - 1.2 mg/dL [facility] MAIN-STATION 1 Alk Phos 157 (H) 34 - 104 U/L [facility]STATION 1 AST 15 13 - 39 U/L [facility] 1 ALT 8 7 - 52 U/L [facility] 1 D Bilirubin 0.3 (H) 0.0 - 0.2 mg/dL [facility]IN-STATION 1 Specimen Blood Performing Organization Address City/State/Zipcode Phone Number MISYS [facility] MAIN-STATION 1 * CBC/DIFF (06/09/2018 2:06 PM SALES REPRESENTATIVE) Only the most recent of 2 results within the time period is included. WBC 7.4 4.5 - 11.0 K/uL [facility] 2 RBC 3.07 (L) 4.20 - 5.40 M/uL [facility] 2 Hemoglobin 8.5 (L) 12.0 - 16.0 g/dL [facility] 2 Hematocrit 26.5 (L) 37.0 - 47.0 % [facility] 2 MCV 86 82 - 92 fL [facility] 2 MCH 27.7 27.0 - 32.0 pg [facility]IN-STATION 2 MCHC 32.1 32.0 - 36.0 g/dL [facility] 2 RDW 47.1 (H) 36.4 - 46.3 fL [facility] 2 Platelet 210 150 - 400 K/uL [facility] 2 Mean Platelet 9.9 9.4 - 12.4 fL [facility] Volume MAIN-STATION 2 Percent NRBC 0.0 [facility] 2 Absolute NRBC 0.00 [facility] 2 Neutrophil 62.4 34.0 - 70.0 % [facility] 2 Lymphocyte 25.4 20.0 - 50.0 % [facility] 2 Monocyte 8.4 5.0 - 12.0 % [facility] 2 Eosinophil 2.2 0.7 - 5.0 % [facility] 2 Basophil 1.1 0.1 - 1.2 % [facility] 2 Pct Immat Gran 0.5 0.0 - 0.5 [facility] 2 Neutrophil, Abs 4.62 1.56 - 6.13 K/uL [facility] 2 Lymphocyte, Abs 1.88 1.18 - 3.74 K/uL [facility] 2 Monocyte, Abs 0.62 (H) 0.24 - 0.36 K/uL [facility] 2 Eosinophil, Abs 0.16 0.04 - 0.36 K/uL [facility] 2 Basophil, Abs 0.08 0.01 - 0.08 K/uL [facility] 2 Absol Immat 0.04 (H) 0.00 - 0.03 K/uL [facility] Gran MAIN-STATION 2 Specimen Blood Performing Organization Address [facility] Phone Number MISYS [facility] MAIN-STATION 2 * 12 LEAD EKG (06/09/2018 2:00 PM SALES REPRESENTATIVE) [facility] Test Date:2018-06-09 Pat Name: PRISCA DAVILA Department: [id number] Room: Gender: Biomedical Scientist: MCKENZIE :1955-1 06-29 Requested By: TALYA SHEN Order Number: [id number] Reading MD: Robert Carey Measurements Intervals [place] Rate: 79 P:55 MO: 155 QRS: -24 QRSD: 113 T: 87 QT: 414 QTc:475 Interpretive Statements SINUS RHYTHM MODERATE INTRAVENTRICULAR CONDUCTION DELAY QTC PROLONGATION NONSPECIFIC ST/T CHANGE POOR R WAVE PROGRESSION RV Electronically Signed On 06-10-2018 12:02:37 SALES REPRESENTATIVE by Robert Carey Performing Organization Address [facility] Phone Number [facility] * HEMOGLOBIN A1C (04/07/2018 10:43 AM SALES REPRESENTATIVE) Hemoglobin A1c 12.1 (H) 4.3 - 6.1 % [facility] IMMUNOLOGY Est Average 300.6 mg/dL [facility] Gluc IMMUNOLOGY Specimen Blood Performing Organization Address [facility] Phone Number MISYS [facility] DIAGNOSTIC IMMUNOLOGY * TSH (04/07/2018 10:43 AM SALES REPRESENTATIVE) TSH 2.13 0.57 - 3.74 uIU/mL [facility] MAIN-STATION 1 Specimen Blood Performing Organization Address [facility] Phone Number MISYS [facility] MAIN-STATION 1 * LIPID PROFILE (04/07/2018 10:43 AM SALES REPRESENTATIVE) Cholesterol 127 <200 mg/dL [facility]IN-STATION Comment: 3 REFERENCE RANGE: Desirable: <200 mg/dL Borderline: 200-240 mg/dL High Risk: >240 mg/dL Triglyceride 87 <150 mg/dL [facility]IN-STATION Comment: 3 REFERENCE RANGE: Normal: <150 mg/dL Borderline High: 150-199 mg/dL High: 200-499 mg/dL Very High: >ms=289 mg/dL HDL 51 40 - 60 mg/dL [facility]IN[facility]STATION Comment: 3 Increased CHD risk: <40 mg/dL Decreased CHD risk: >60 mg/dL LDL 59 mg/dL [facility] MAIN-STATION Comment: 3 REFERENCE RANGE: Optimal: <100 mg/dL Near Optimal: 100-129 mg/dL Borderline High: 130-159 mg/dL High: 160-189 mg/dL Very High: >qy=499 mg/dL Specimen Blood Performing Organization Address City/State/Zipcode Phone Number MISYS MAIN-STATION 3 * DIABETIC FOOT EXAM (04/01/2018 2:16 PM CDT) Only the most recent of 2 results within the time period is included. Narrative Performed At Melissa Hardy NP 04/01/20185:15 PM Diabetic Foot Exam was performed at 04/01/2018 5:12 PM.Right foot sensation is reduced, right foot pulses are normal, right foot appearance is normal.Left foot sensation is reduced,left foot pulses are normal, left foot appearance is normal. * [facility] CYTOLOGY (04/01/2018 12:00 AM CDT) HX FINAL Vaginal (Liquid-based COPATH DIAGNOSIS preparation): Satisfactory for evaluation No presence of endocervical/transformation zone Negative for intraepithelial lesion or malignancy Narrative Performed At [facility] PRISCA DAVILA [facility] Date of 1955 Hospital Number [id number] [facility] ([facility]) CYTOPATHOLOGY Collected:04/01/2018 00:00 Received: 04/04/2018 11:42 FINAL DIAGNOSIS Vaginal (Liquid-based preparation): Satisfactory for evaluation No presence of endocervical/transformation zone Negative for intraepithelial lesion or malignancy Electronically Signed Out By Mindi Galvez Clinical History Date of Last Menstrual Period: Not given Menstrual History: Pregnancies: A0 Post-menopausal: 2001 Contraceptive History: Contraceptive Specimen Received: One ThinPrep Vial Educational Note: The pap smear/test is a screening test for cervical cancer.As with screening procedures, both false negative and false positive results may occur.Hence, the results should be interpreted in the context of patient's history and current clinical information. The slide has been analyzed by the automated ThinPrep Imaging System, [employer], [place], [place]. Performing Organization Address City/State/Zipcode Phone Number [facility] [place], [place] * U/S THYROID/NECK (02/15/2018 5:07 PM CDT) Impressions Performed At IMPRESSION: SMS 1.Thyroid nodules do not meet criteria for follow-up or fine-needle aspiration. REFERENCE: Tawny FN, Parth WD, Davy EG, et al. ACR Thyroid Imaging, Reporting and Data System (TI-RADS): White Paper of the ACR TI-RADS Committee. J Am Kevin Radiol. 2017; 14(5): 587?595. Signed By: Walt Carlisle MD, 02/15/2018 5:56 PM Narrative Performed At EXAM: US THYROID SMS DATE: 02/15/2018 at 1629 hours INDICATION: enlarged [...] present. Cervical lymph nodes: Normal. Other: None. Procedure Note Interface, Rad/Mammog In - 02/15/2018 6:01 PM CDT EXAM: US THYROID DATE: 02/15/2018 at 1629 [...] By: Walt Carlisle MD, 02/15/2018 5:56 PM Performing Organization Address City/State/Zipcode Phone Number SMS * OCCULT BLOOD ICT (02/02/2018 9:29 AM CDT) Occult Blood Negative [facility]G [facility] ICT Specimen Stool Performing Organization Address City/State/[facility] Phone Number MISYS [facility] * OPHTHALMOLOGY RETINAL SCAN (09/21/2017 12:12 PM CDT) RETINAL ALERT (A) [facility] SCAN-FINAL RESULT Right Diabetic Mild (A) [facility] Retinopathy Right Macular None [facility] Edema Right Other None [facility] Suspected Conditions Right Image Gradeable Image [facility] Quality Left Diabetic Mild (A) [facility] Retinopathy Left Macular None [facility] Edema Left Other None [facility] Suspected Conditions Left Image Gradeable Image IRIS Quality Narrative Performed At Retinal Study Result for PRISCA DAVILA ANNETTA, a 62 y/o, F (: 1955, ) presented to [facility] on 09-21-2017 for a retinal imaging study of the left and right eyes. Based on the findings of the study, the following is recommended for PRISCA DAVILA Mild Pathology Found: Please advise the patient to return for another scan in 1 year. Interpreting Provider's Comments:No comments provided Right Eye Findings: Diabetic Retinopathy: Mild Left Eye Findings: Diabetic Retinopathy: Mild This result was electronically signed by Shanika Galvan MD, , Taxonomy: [id number] on 09-21-2017 05:12:29 [facility] time. NOTE:Any pathology noted on this diabetic retinal evaluation should be confirmed by an appropriate ophthalmic examination. Performing Organization Address City/State/Zipcode Phone Number IRIS * MAMMOGRAM BILAT SCREEN DIGITAL (09/21/2017 11:37 AM CDT) Impressions Performed At IMPRESSION: BENIGN SMS There is no mammographic evidence of malignancy. A 1 year screening mammogram is recommended. This document has been electronically signed. Gris Fraga M.D. to/:09/21/2017 11:44:03 Skid Worker: Andre Davenport Sr. Dispensing OpticianB[facility] letter sent: Benign Exam Mammogram BI-RADS: 2 Benign G0202 Z12.31 Narrative Performed At #[id number] - MAMMOGRAM BILAT SCREEN DIGITAL SMS BILATERAL DIGITAL SCREENING MAMMOGRAM WITH CAD: 09/21/2017 CLINICAL: Screening for malignancy. Comparison is made to exam dated:09/24/2016 [facility]. The tissue of both breasts is extremely dense, which lowers the sensitivity of mammography. Current study was also evaluated with a Computer Aided Detection (CAD) system. No new significant masses, calcifications, or other findings are seen in either breast.There are benign calcifications in both breasts.A cardiac pacing device now projects over the right pectoralis muscle. Procedure Note Interface, Rad/Mammog In - 09/21/2017 12:58 PM CDT #[id number] - MAMMOGRAM BILAT SCREEN DIGITAL BILATERAL DIGITAL SCREENING MAMMOGRAM WITH CAD: 09/21/2017 CLINICAL: Screening for malignancy. Comparison is made to exam dated: 09/24/2016 [facility]. The tissue of both breasts [...] electronically signed. Gris Fraga M.D. to/:09/21/2017 11:44:03 Skid Worker: Andre Davenport Sr. Dispensing Optician, [facility] letter sent: Benign Exam Mammogram BI-RADS: 2 Benign G0202 Z12.31 Performing Organization Address City/State/Zipcode Phone Number SMS after 09/14/2017 Insurance Type Payer Benefit Subscriber ID Effective Phone Address Plan / Dates Group MEDICARE MEDICARE xxxxxxxxxxx 2017- [phone] Present [id number] [place] [address] COMMERCIAL GENERIC COMMERCIAL xxxxxxxxxx 2017-P GENERIC resbrandon ESPINOZA Advance Directives For more information, please contact: [address] [address] Date Inactivated Comments Code Status Date Activated 06/18/2018 4:22 PM Full Code 06/17/2018 3:12 PM
--- OUTSIDE RECORDS SUMMARY | 2018-12-06 10:58 | XMS REPORT ---
Author Author [facility] Address Unknown Phone Unavailable Care Team Providers Care Spare Fixer Name Role Phone UNKNOWN, REFFERING PP Unavailable NAVNEET CARDOZO M.D. Unavailable Unavailable Payers Payer Name Policy Type Policy Number Effective Date Expiration Date Problems This patient has no known problems. Allergies, Adverse Reactions, Alerts Allergy Name Allergy Type Status Severity Reaction(s) Onset Date Inactive Date Treating Clinician Comments doxycycline DA Active MO 2018-11-29 00:00:00 promethazine DA Active MO 2018-11-29 00:00:00 doxycycline DA Active MO 2018-10-22 00:00:00 promethazine DA Active MO 2018-10-22 00:00:00 doxycycline DA Active MO 2018-07-26 00:00:00 promethazine DA Active MO 2018-07-26 00:00:00 adhesive tape DA Active GA 2016-11-27 00:00:00 doxycycline DA Active MO 2015-07-02 00:00:00 amlodipine DA Active U 2015-07-02 00:00:00 promethazine DA Active MO 2015-07-02 00:00:00 pregabalin DA Active U 2015-07-02 00:00:00 Medications This patient has no known medications. Encounters Start Date/Time End Date/Time Encounter Type Admission Type Attending [facility] Care Department Encounter ID 2018-10-19 00:00:00 2018-10-19 00:00:00 Outpatient [facility] [id number] 2018-08-24 00:00:00 2018-08-24 00:00:00 Outpatient [facility] [id number] 2018-08-24 00:00:00 2018-08-24 00:00:00 Outpatient [facility] [id number] 2018-07-13 08:02:51 2018-07-13 08:02:51 Outpatient [facility] [id number] 2018-07-07 00:00:00 2018-07-07 00:00:00 Outpatient [facility] [id number] 2018-06-23 00:00:00 2018-06-23 00:00:00 Outpatient [facility] [id number] 2018-06-17 07:10:00 2018-06-17 07:10:00 Outpatient [facility] [id number] 2018-06-17 00:00:00 2018-06-17 00:00:00 Outpatient [facility] [id number] 2018-06-16 00:00:00 2018-06-16 00:00:00 Outpatient [facility] [id number] 2018-06-09 13:35:21 2018-06-09 13:35:21 Outpatient [facility] [id number] 2018-06-09 00:00:00 2018-06-09 00:00:00 Outpatient [facility] [id number] 2018-06-09 00:00:00 2018-06-09 00:00:00 Outpatient [facility] [id number] 2018-06-06 00:00:00 2018-06-06 00:00:00 Outpatient [facility] [id number] 2018-06-06 00:00:00 2018-06-06 00:00:00 Outpatient [facility] [id number] 2018-06-01 00:00:00 2018-06-01 00:00:00 Outpatient [facility] [id number] 2018 10:46:23 2018 10:46:23 Outpatient [facility] [id number] 2018-04-19 00:00:00 2018-04-19 00:00:00 Outpatient [facility] [id number] 2018-04-19 00:00:00 2018-04-19 00:00:00 Outpatient [facility] [id number] 2018-04-13 00:00:00 2018-04-13 00:00:00 Outpatient [facility] [id number] 2018-04-07 11:37:44 2018-04-07 11:37:44 Outpatient [facility] [id number] 2018-04-07 10:42:53 2018-04-07 10:42:53 Outpatient [facility] [id number] 2018-04-07 00:00:00 2018-04-07 00:00:00 Outpatient [facility] [id number] 2018-04-01 14:00:59 2018-04-01 14:00:59 Outpatient [facility] [id number] 2018-03-23 00:00:00 2018-03-23 00:00:00 Outpatient [facility] [id number] 2018-02-15 15:38:02 2018-02-15 15:38:02 Outpatient [facility] [id number] 2018-02-02 09:31:15 2018-02-02 09:31:15 Outpatient [facility] [id number] 2018-01-14 08:05:03 2018-01-14 08:05:03 Outpatient [facility] [id number] 2018-01-14 00:00:00 2018-01-14 00:00:00 Outpatient [facility] [id number] 2017-12-02 12:38:26 2017-12-02 12:38:26 Outpatient [facility] [id number] 2017-11-29 00:00:00 2017-11-29 00:00:00 Outpatient [facility] [id number] 2017-11-29 00:00:00 2017-11-29 00:00:00 Outpatient [facility] [id number] 2017-11-26 00:00:00 2017-11-26 00:00:00 Outpatient [facility] [id number] 2017-11-19 00:00:00 2017-11-19 00:00:00 Outpatient [facility] [id number] 2017-09-21 10:02:04 2017-09-21 10:02:04 Outpatient [facility] [id number] 2017-09-21 09:16:39 2017-09-21 09:16:39 Outpatient [facility] [id number] 2017-09-16 00:00:00 2017-09-16 00:00:00 Outpatient [facility] [id number] 2017-09-16 00:00:00 2017-09-16 00:00:00 Outpatient [facility] [id number] 2017-08-03 00:00:00 2017-08-03 00:00:00 Outpatient [facility] [id number] 2017-07-26 14:11:33 2017-07-26 14:11:33 Outpatient [facility] [id number] 2017-07-02 15:10:52 2017-07-02 15:10:52 Outpatient [facility] [id number] 2017-05-28 00:00:00 2017-05-28 00:00:00 Outpatient [facility] [id number] 2017-05-27 00:00:00 2017-05-27 00:00:00 Outpatient [facility] [id number] 2017-05-26 00:00:00 2017-05-26 00:00:00 Outpatient [facility] [id number] 2017-04-07 00:00:00 2017-04-07 00:00:00 Outpatient [facility] [id number] 2017-04-07 00:00:00 2017-04-07 00:00:00 Outpatient [facility] [id number] 2017-03-26 00:00:00 2017-03-26 00:00:00 Outpatient [facility] [id number] 2017-03-24 00:00:00 2017-03-24 00:00:00 Outpatient [facility] [id number] 2017-02-26 00:00:00 2017-02-26 00:00:00 Outpatient [facility] [id number] 2017-02-17 09:15:53 2017-02-17 09:15:53 Outpatient [facility] [id number] 2017-02-10 00:00:00 2017-02-10 00:00:[address] [facility] [facility] [id number] 2017-02-09 09:31:09 2017-02-09 09:31:[address] [facility] [id number] 2017-02-04 11:43:13 2017-02-04 11:43:[address] [facility] [id number] 2017-02-04 11:34:04 2017-02-04 11:34:04 Outpatient [facility] [id number] 2017-01-28 00:00:00 2017-01-28 00:00:[address] [facility] [id number] 2017-01-20 12:09:03 2017-01-20 12:09:03 Outpatient [facility] [id number] 2017-01-20 00:00:00 2017-01-20 00:00:00 Outpatient [facility] [id number] 2017-01-11 12:24:23 2017-01-11 12:24:23 Outpatient [facility] [id number] 2016-12-14 11:33:04 2016-12-14 11:33:04 Outpatient [facility] [id number] 2016-10-30 00:00:00 2016-10-30 00:00:00 Outpatient [facility] [id number] 2016-10-08 13:37:53 2016-10-08 13:37:53 Outpatient [facility] [id number] Results Test Description Test Time Test Comments Text Results Atomic Results Result Comments GLUBED 2018-12-03 20:55:00 GLUBED (test code=GLUBED) 148 mg/dL 74-106 Performed by certified kst operator at [facility] [id number] 17:42:00* Test Item Value Reference Range Comments GLUBED (test code=GLUBED) 112 mg/dL 74-106 Performed by certified kst operator at [facility] [id number] 12:38:00* Test Item Value Reference Range Comments GLUBED (test code=GLUBED) 120 mg/dL 74-106 Performed by certified kst operator at [facility] [id number] 04:56:00* Test Item Value Reference Range Comments GLUBED (test code=GLUBED) 135 mg/dL 74-106 Performed by certified kst operator at [facility] [id number] 20:59:00* Test Item Value Reference Range Comments GLUBED (test code=GLUBED) 172 mg/dL 74-106 Performed by certified kst operator at [facility] [id number] 16:58:00* Test Item Value Reference Range Comments GLUBED (test code=GLUBED) 145 mg/dL 74-106 Performed by certified kst operator at [facility] BASIC METABOLIC [id number] 09:47:00* Test Item Value Reference Range Comments SODIUM (test code=NA) 137 mmol/L 136-145 POTASSIUM (test code=K) 4.1 mmol/L 3.5-5.1 CHLORIDE (test code=CL) 102.0 mmol/L 98-107 CARBON DIOXIDE (test code=CO2) 30.0 mmol/L 21-32 ANION GAP (test code=GAP) 9.1 10-20 GLUCOSE (test code=GLU) 100 mg/dL 74-106 BLOOD UREA NITROGEN (test code=BUN) 27 mg/dL 7-18 RESULT VERIFIED BY REPEAT ANALYSIS GLOMERULAR FILTRATION RATE (test code=GFR) 8 mL/min >=60 Estimated GFR by using Modified MDRD formula.Chronic kidney disease is defined as either kidney damageor GFR <60 mL/min/1.73 m2 for >3 months. CREATININE (test code=CREAT) 5.20 mg/dL 0.55-1.02 Note change in reference range due to change in reagent. BUN/CREATININE RATIO (test code=BUN/CREA) 5.2 10-20 CALCIUM (test code=CA) 7.9 mg/dL 8.5-10.1 BASIC METABOLIC [id number] 09:32:00* Test Item Value Reference Range Comments SODIUM (test code=NA) 137 mmol/L 136-145 POTASSIUM (test code=K) 4.1 mmol/L 3.5-5.1 CHLORIDE (test code=CL) 102.0 mmol/L 98-107 CARBON DIOXIDE (test code=CO2) mmol/L 21-32 ANION GAP (test code=GAP) 10-20 GLUCOSE (test code=GLU) mg/dL 74-106 BLOOD UREA NITROGEN (test code=BUN) mg/dL 7-18 GLOMERULAR FILTRATION RATE (test code=GFR) mL/min >=60 CREATININE (test code=CREAT) mg/dL 0.55-1.02 BUN/CREATININE RATIO (test code=BUN/CREA) 10-20 CALCIUM (test code=CA) mg/dL 8.5-10.1 CBC W/O [id number] 09:18:00* Test Item Value Reference Range Comments WHITE BLOOD CELL (test code=WBC) 7.4 K/mm3 4.5-12.5 RED BLOOD CELL (test code=RBC) 2.79 mill/mm3 3.7-5.2 HEMOGLOBIN (test code=HGB) 8.0 gram/dL 11.5-15.5 HEMATOCRIT (test code=HCT) 25.3 % 36.0-46.0 MEAN CELL VOLUME (test code=MCV) 90.7 fL 80-98 MEAN CELL HGB (test code=MCH) 28.7 picogram 27.0-33.0 MEAN CELL HGB CONCETRATION (test code=MCHC) 31.6 gram/dL 33.0-36.0 RED CELL DISTRIBUTION WIDTH (test code=RDW) 15.5 % 11.6-16.2 PLATELET COUNT (test code=PLT) 193 K/mm3 150-450 MEAN PLATELET VOLUME (test code=MPV) 10.2 fL 6.7-11.0 [id number] 07:33:00* Test Item Value Reference Range Comments GLUBED (test code=GLUBED) 98 mg/dL 74-106 Performed by certified kst operator at [facility] [id number] 21:19:00* Test Item Value Reference Range Comments GLUBED (test code=GLUBED) 105 mg/dL 74-106 Performed by certified kst operator at [facility] [id number] 17:12:00* Test Item Value Reference Range Comments GLUBED (test code=GLUBED) 115 mg/dL 74-106 Performed by certified kst operator at [facility] BASIC METABOLIC [id number] 15:16:00* Test Item Value Reference Range Comments SODIUM (test code=NA) 137 mmol/L 136-145 POTASSIUM (test code=K) 3.9 mmol/L 3.5-5.1 CHLORIDE (test code=CL) 101.0 mmol/L 98-107 CARBON DIOXIDE (test code=CO2) 32.0 mmol/L 21-32 ANION GAP (test code=GAP) 7.9 10-20 GLUCOSE (test code=GLU) 119 mg/dL 74-106 BLOOD UREA NITROGEN (test code=BUN) 22 mg/dL 7-18 GLOMERULAR FILTRATION RATE (test code=GFR) 10 mL/min >=60 Estimated GFR by using Modified MDRD formula.Chronic kidney disease is defined as either kidney damageor GFR <60 mL/min/1.73 m2 for >3 months. CREATININE (test code=CREAT) 4.30 mg/dL 0.55-1.02 Note change in reference range due to change in reagent. BUN/CREATININE RATIO (test code=BUN/CREA) 5.1 10-20 CALCIUM (test code=CA) 8.3 mg/dL 8.5-10.1 BASIC METABOLIC [id number] 15:15:00* Test Item Value Reference Range Comments SODIUM (test code=NA) 137 mmol/L 136-145 POTASSIUM (test code=K) 3.9 mmol/L 3.5-5.1 CHLORIDE (test code=CL) 101.0 mmol/L 98-107 CARBON DIOXIDE (test code=CO2) mmol/L 21-32 ANION GAP (test code=GAP) 10-20 GLUCOSE (test code=GLU) mg/dL 74-106 BLOOD UREA NITROGEN (test code=BUN) mg/dL 7-18 GLOMERULAR FILTRATION RATE (test code=GFR) mL/min >=60 CREATININE (test code=CREAT) mg/dL 0.55-1.02 BUN/CREATININE RATIO (test code=BUN/CREA) 10-20 CALCIUM (test code=CA) mg/dL 8.5-10.1 CBC W/AUTO [id number] 15:02:00* Test Item Value Reference Range Comments WHITE BLOOD CELL (test code=WBC) 9.9 K/mm3 4.5-12.5 RED BLOOD CELL (test code=RBC) 3.41 mill/mm3 3.7-5.2 HEMOGLOBIN (test code=HGB) 9.6 gram/dL 11.5-15.5 HEMATOCRIT (test code=HCT) 31.2 % 36.0-46.0 MEAN CELL VOLUME (test code=MCV) 91.5 fL 80-98 MEAN CELL HGB (test code=MCH) 28.2 picogram 27.0-33.0 MEAN CELL HGB CONCETRATION (test code=MCHC) 30.8 gram/dL 33.0-36.0 RED CELL DISTRIBUTION WIDTH (test code=RDW) 15.8 % 11.6-16.2 RED CELL DISTRIBUTION WIDTH SD (test code=RDW-SD) 52.6 fL 37.0-51.0 PLATELET COUNT (test code=PLT) 188 K/mm3 150-450 MEAN PLATELET VOLUME (test code=MPV) 9.9 fL 6.7-11.0 NEUTROPHIL % (test code=NT%) 61.5 % 39.0-69.0 IMMATURE GRANULOCYTE % (test code=IG%) 0.3 % 0.0-5.0 LYMPHOCYTE % (test code=LY%) 26.3 % 25.0-55.0 MONOCYTE % (test code=MO%) 9.0 % 0.0-10.0 EOSINOPHIL % (test code=EO%) 2.1 % 0.0-5.0 BASOPHIL % (test code=BA%) 0.8 % 0.0-1.0 NUCLEATED RBC % (test code=NRBC%) 0.0 % 0-0 NEUTROPHIL # (test code=NT#) 6.10 K/mm3 1.8-7.7 IMMATURE GRANULOCYTE # (test code=IG#) 0.03 x10 3/uL 0-0.03 LYMPHOCYTE # (test code=LY#) 2.61 K/mm3 1.0-5.0 MONOCYTE # (test code=MO#) 0.89 K/mm3 0-0.8 EOSINOPHIL # (test code=EO#) 0.21 K/mm3 0.0-0.5 BASOPHIL # (test code=BA#) 0.08 K/mm3 0.0-0.2 NUCLEATED RBC # (test code=NRBC#) 0.00 K/mm3 0.0-0.1 MANUAL DIFF REQUIRED (test code=MDIFF) NO [id number] 12:38:00* Test Item Value Reference Range Comments GLUBED (test code=GLUBED) 106 mg/dL 74-106 Performed by certified kst operator at [facility] [id number] 05:52:00* Test Item Value Reference Range Comments GLUBED (test code=GLUBED) 109 mg/dL 74-106 Performed by certified kst operator at [facility] [id number] 21:18:00* Test Item Value Reference Range Comments GLUBED (test code=GLUBED) 170 mg/dL 74-106 Performed by certified kst operator at [facility] [id number] 17:45:00* Test Item Value Reference Range Comments GLUBED (test code=GLUBED) 169 mg/dL 74-106 Performed by certified kst operator at [facility] CBC W/O [id number] 14:18:00* Test Item Value Reference Range Comments WHITE BLOOD CELL (test code=WBC) 7.1 K/mm3 4.5-12.5 RED BLOOD CELL (test code=RBC) 3.25 mill/mm3 3.7-5.2 HEMOGLOBIN (test code=HGB) 9.2 gram/dL 11.5-15.5 HEMATOCRIT (test code=HCT) 28.9 % 36.0-46.0 MEAN CELL VOLUME (test code=MCV) 88.9 fL 80-98 MEAN CELL HGB (test code=MCH) 28.3 picogram 27.0-33.0 MEAN CELL HGB CONCETRATION (test code=MCHC) 31.8 gram/dL 33.0-36.0 RED CELL DISTRIBUTION WIDTH (test code=RDW) 15.8 % 11.6-16.2 PLATELET COUNT (test code=PLT) 197 K/mm3 150-450 MEAN PLATELET VOLUME (test code=MPV) 10.0 fL 6.7-11.0 PT VERY COMBATIVE GET ONLY GRREN TOP. CIARA TRY TWICENOTIFIED LOU WRIGHT@[email or web address] 0 11/30/18 [id number] 12:10:00* Test Item Value Reference Range Comments GLUBED (test code=GLUBED) 86 mg/dL 74-106 Performed by certified kst operator at [facility] [id number] 06:20:00* Test Item Value Reference Range Comments GLUBED (test code=GLUBED) 129 mg/dL 74-106 Performed by certified kst operator at [facility] [id number] 06:20:00* Test Item Value Reference Range Comments GLUBED (test code=GLUBED) 50 mg/dL 74-106 Performed by certified kst operator at [facility] BASIC METABOLIC [id number] 05:56:00* Test Item Value Reference Range Comments SODIUM (test code=NA) 132 mmol/L 136-145 RESULT VERIFIED BY REPEAT ANALYSIS POTASSIUM (test code=K) 4.6 mmol/L 3.5-5.1 CHLORIDE (test code=CL) 98.0 mmol/L 98-107 CARBON DIOXIDE (test code=CO2) 29.0 mmol/L 21-32 ANION GAP (test code=GAP) 9.6 10-20 GLUCOSE (test code=GLU) 59 mg/dL 74-106 BLOOD UREA NITROGEN (test code=BUN) 31 mg/dL 7-18 RESULT VERIFIED BY REPEAT ANALYSIS GLOMERULAR FILTRATION RATE (test code=GFR) 6 mL/min >=60 Estimated GFR by using Modified MDRD formula.Chronic kidney disease is defined as either kidney damageor GFR <60 mL/min/1.73 m2 for >3 months. CREATININE (test code=CREAT) 6.60 mg/dL 0.55-1.02 Note change in reference range due to change in reagent. BUN/CREATININE RATIO (test code=BUN/CREA) 4.7 10-20 CALCIUM (test code=CA) 8.2 mg/dL 8.5-10.1 [id number] 05:56:00* Test Item Value Reference Range Comments PHOSPHORUS (test code=PHOS) 4.0 mg/dL 2.5-4.9 [id number] 05:56:00* Test Item Value Reference Range Comments MAGNESIUM (test code=MAG) 2.2 mg/dL 1.8-2.4 [id number] 04:52:00* Test Item Value Reference Range Comments GLUBED (test code=GLUBED) 62 mg/dL 74-106 Performed by certified kst operator at [facility] [id number] 23:50:00* Test Item Value Reference Range Comments GLUBED (test code=GLUBED) 115 mg/dL 74-106 Performed by certified kst operator at [facility] [id number] 21:42:00* Test Item Value Reference Range Comments GLUBED (test code=GLUBED) 178 mg/dL 74-106 Performed by certified kst operator at [facility] [id number] 20:55:00* Test Item Value Reference Range Comments GLUBED (test code=GLUBED) 356 mg/dL 74-106 Performed by certified kst operator at [facility] [id number] 20:18:00* Test Item Value Reference Range Comments GLUBED (test code=GLUBED) 36 mg/dL 74-106 Performed by certified kst operator at [facility] AG HEPAT B [id number] 16:54:00* Test Item Value Reference Range Comments AG HEPAT B SURF (test code=HBSAG) Nonreactive Index Nonreactive BASIC METABOLIC [id number] 14:58:00* Test Item Value Reference Range Comments SODIUM (test code=NA) 138 mmol/L 136-145 POTASSIUM (test code=K) 3.6 mmol/L 3.5-5.1 CHLORIDE (test code=CL) 103.0 mmol/L 98-107 CARBON DIOXIDE (test code=CO2) 30.0 mmol/L 21-32 ANION GAP (test code=GAP) 8.6 10-20 GLUCOSE (test code=GLU) 71 mg/dL 74-106 BLOOD UREA NITROGEN (test code=BUN) 24 mg/dL 7-18 GLOMERULAR FILTRATION RATE (test code=GFR) 9 mL/min >=60 Estimated GFR by using Modified MDRD formula.Chronic kidney disease is defined as either kidney damageor GFR <60 mL/min/1.73 m2 for >3 months. CREATININE (test code=CREAT) 5.00 mg/dL 0.55-1.02 Note change in reference range due to change in reagent. BUN/CREATININE RATIO (test code=BUN/CREA) 4.8 10-20 CALCIUM (test code=CA) 6.8 mg/dL 8.5-10.1 CREATINE KINASE (CK)2018-11-29 14:58:00* Test Item Value Reference Range Comments CREATINE KINASE (CK) (test code=CK) 30 IUnit/L 26-208 [id number] 14:58:00* Test Item Value Reference Range Comments TROPONIN-I (test code=TROPI) <0.015 ng/mL 0-0.045 CBC W/O [id number] 14:44:00* Test Item Value Reference Range Comments WHITE BLOOD CELL (test code=WBC) 15.9 K/mm3 4.5-12.5 RED BLOOD CELL (test code=RBC) 3.25 mill/mm3 3.7-5.2 HEMOGLOBIN (test code=HGB) 9.2 gram/dL 11.5-15.5 HEMATOCRIT (test code=HCT) 30.0 % 36.0-46.0 MEAN CELL VOLUME (test code=MCV) 92.3 fL 80-98 MEAN CELL HGB (test code=MCH) 28.3 picogram 27.0-33.0 MEAN CELL HGB CONCETRATION (test code=MCHC) 30.7 gram/dL 33.0-36.0 RED CELL DISTRIBUTION WIDTH (test code=RDW) 15.8 % 11.6-16.2 PLATELET COUNT (test code=PLT) 211 K/mm3 150-450 MEAN PLATELET VOLUME (test code=MPV) 9.7 fL 6.7-11.0 BASIC METABOLIC [id number] 14:44:00* Test Item Value Reference Range Comments SODIUM (test code=NA) 138 mmol/L 136-145 POTASSIUM (test code=K) 3.6 mmol/L 3.5-5.1 CHLORIDE (test code=CL) 103.0 mmol/L 98-107 CARBON DIOXIDE (test code=CO2) mmol/L 21-32 ANION GAP (test code=GAP) 10-20 GLUCOSE (test code=GLU) mg/dL 74-106 BLOOD UREA NITROGEN (test code=BUN) mg/dL 7-18 GLOMERULAR FILTRATION RATE (test code=GFR) mL/min >=60 CREATININE (test code=CREAT) mg/dL 0.55-1.02 BUN/CREATININE RATIO (test code=BUN/CREA) 10-20 CALCIUM (test code=CA) mg/dL 8.5-10.1 CREATINE KINASE (CK)2018-11-29 14:44:00* Test Item Value Reference Range Comments CREATINE KINASE (CK) (test code=CK) IUnit/L 26-208 [id number] 14:44:00* Test Item Value Reference Range Comments TROPONIN-I (test code=TROPI) ng/mL 0-0.045 - XR CHEST 1 [id number] 13:18:00 FAX: Rocky Mcpherson [phone] [place]: [address] St: PRE Name: Harley GILMOREJEREMYPRISCACLAUDINE SAN [facility] : [birth year] Age/S: 63/F [address] [facility] Unit #: [id number] Loc: JOO Allen [address] Phys: Rocky Parada MD Acct: [id number] Dis Date: Status: PRE ER PHONE #: [phone] Exam Date: 11/29/2018 1308 FAX #: [phone] Reason: Seizure EXAMS: CPT CODE: [id number] XR CHEST 1 V 03562 HISTORY: Seizure. CO MPARISON: November 14, 2018. Right ICD and the left central line are u nchanged in position. Bibasal dependent changes. Mild cardiomegaly. The cardiac and mediastinal silhouette are within normal limits. IMPRESSION: No acute infiltrates, effusion or conge stion. at 1 318 Reported and signed by: Garcia Vasquez M.D. CC: Rocky Parada MD chnologist: Jil Cary(R) Trnscrd Date/ Time/By: 11/29/2018 (1318) : By: [email or web address] Orig Print D/T: S: 11/30/19 (8818) PAGE 1 Signed Report - CT HEAD/BRAIN W/O [id number] 13:17:00 Name: PRISCA TURNER [facility] : 1955 Age/S: 63 / F [address] [facility] Unit #: [id number] Loc: JOO Garcia [address] Phys: Rocky Parada MD Acct: [id number] Di s Date: Status: PRE ER PHONE #: [phone] Exam Date: 11/29/2018 1253 FAX #: [phone] Reason: Seizure EXAMS: CPT CODE: [id number] CT HEAD/BRAIN W/O CONT 83701 HISTORY: Seizure. COMPARISON: November 04, 2018. CT brain without contrast: Automa veronica exposure control. No acute intracranial bleeds or extra-axial collections are noted. No acute territorial vascular infarction is noted. The sulci, gyri, ventricles and subarachnoid spaces and the basilar cisterns are normal for patient's age. No herniation or hydrocephalus or midline shift is noted. Mild periventricular ischemic gliosis is noted. Age-appropriate atrophy is noted as well. Portions of the visualized paranasal sinuses are normal. No obvious bony calvarial defect is noted. IMPRESSION: No ac abbi intracranial bleeds or extra-axial collections. No acute t erritorial vascular infarction. No herniation or hydrocephalus or midline shift. Chronic white matter ischemic disease and atrophy . at 1317 Reported and signed by: Garcia Vasquez M.D. CC: Rocky Parada MD Technologist:Nayely De,RT(R),CT CTDI: DLP: Trnscb Da te/Time: 11/29/2018 (1317) t.SDR.TH4 Orig Print D/T: S: 0 11/29/2018 (9602) PAGE 1 Signed Report [id number] 16:41:00* Test Item Value Reference Range Comments GLUBED (test code=GLUBED) 163 mg/dL 74-106 [facility]~ [id number] 12:54:00* Test Item Value Reference Range Comments GLUBED (test code=GLUBED) 42 mg/dL 74-106 Performed by certified kst operator at [facility] [id number] 12:48:00* Test Item Value Reference Range Comments GLUBED (test code=GLUBED) 73 mg/dL 74-106 Performed by certified kst operator at [facility] [id number] 08:34:00* Test Item Value Reference Range Comments GLUBED (test code=GLUBED) 164 mg/dL 74-106 Performed by certified kst operator at [facility] BASIC METABOLIC [id number] 07:02:00* Test Item Value Reference Range Comments SODIUM (test code=NA) 142 mmol/L 136-145 POTASSIUM (test code=K) 3.8 mmol/L 3.5-5.1 CHLORIDE (test code=CL) 106.0 mmol/L 98-107 CARBON DIOXIDE (test code=CO2) 30.0 mmol/L 21-32 ANION GAP (test code=GAP) 9.8 10-20 GLUCOSE (test code=GLU) 212 mg/dL 74-106 BLOOD UREA NITROGEN (test code=BUN) 11 mg/dL 7-18 GLOMERULAR FILTRATION RATE (test code=GFR) 14 mL/min >=60 Estimated GFR by using Modified MDRD formula.Chronic kidney disease is defined as either kidney damageor GFR <60 mL/min/1.73 m2 for >3 months. CREATININE (test code=CREAT) 3.30 mg/dL 0.55-1.02 Note change in reference range due to change in reagent. BUN/CREATININE RATIO (test code=BUN/CREA) 3.3 10-20 CALCIUM (test code=CA) 7.6 mg/dL 8.5-10.1 BASIC METABOLIC [id number] 06:55:00* Test Item Value Reference Range Comments SODIUM (test code=NA) 142 mmol/L 136-145 POTASSIUM (test code=K) 3.8 mmol/L 3.5-5.1 CHLORIDE (test code=CL) 106.0 mmol/L 98-107 CARBON DIOXIDE (test code=CO2) mmol/L 21-32 ANION GAP (test code=GAP) 10-20 GLUCOSE (test code=GLU) mg/dL 74-106 BLOOD UREA NITROGEN (test code=BUN) mg/dL 7-18 GLOMERULAR FILTRATION RATE (test code=GFR) mL/min >=60 CREATININE (test code=CREAT) mg/dL 0.55-1.02 BUN/CREATININE RATIO (test code=BUN/CREA) 10-20 CALCIUM (test code=CA) mg/dL 8.5-10.1 [id number] 20:19:00* Test Item Value Reference Range Comments GLUBED (test code=GLUBED) 192 mg/dL 74-106 Performed by certified kst operator at [facility] [id number] 17:55:00* Test Item Value Reference Range Comments GLUBED (test code=GLUBED) 143 mg/dL 74-106 Performed by certified kst operator at [facility] [id number] 08:35:00* Test Item Value Reference Range Comments GLUBED (test code=GLUBED) 58 mg/dL 74-106 Performed by certified kst operator at [facility] [id number] 08:21:00* Test Item Value Reference Range Comments GLUBED (test code=GLUBED) 71 mg/dL 74-106 Performed by certified kst operator at [facility] COMPREHENSIVE METABOLIC [id number] 06:50:00* Test Item Value Reference Range Comments SODIUM (test code=NA) 137 mmol/L 136-145 POTASSIUM (test code=K) 4.6 mmol/L 3.5-5.1 CHLORIDE (test code=CL) 102.0 mmol/L 98-107 CARBON DIOXIDE (test code=CO2) 29.0 mmol/L 21-32 ANION GAP (test code=GAP) 10.6 10-20 GLUCOSE (test code=GLU) 82 mg/dL 74-106 BLOOD UREA NITROGEN (test code=BUN) 24 mg/dL 7-18 RESULT VERIFIED BY REPEAT ANALYSIS GLOMERULAR FILTRATION RATE (test code=GFR) 9 mL/min >=60 Estimated GFR by using Modified MDRD formula.Chronic kidney disease is defined as either kidney damageor GFR <60 mL/min/1.73 m2 for >3 months. CREATININE (test code=CREAT) 4.70 mg/dL 0.55-1.02 Note change in reference range due to change in reagent. BUN/CREATININE RATIO (test code=BUN/CREA) 5.1 10-20 TOTAL PROTEIN (test code=PROT) 5.0 gram/dL 6.4-8.2 ALBUMIN (test code=ALB) 1.1 g/dL 3.4-5.0 GLOBULIN (test code=GLOB) 3.9 gram/dL 2.7-4.2 ALBUMIN/GLOBULIN RATIO (test code=A/G) 0.3 0.75-1.50 CALCIUM (test code=CA) 7.7 mg/dL 8.5-10.1 BILIRUBIN TOTAL (test code=BILT) 0.40 mg/dL 0.0-1.0 SGOT/AST (test code=AST) 24 IUnit/L 15-37 SGPT/ALT (test code=ALT) 10 IUnit/L 12-78 ALKALINE PHOSPHATASE TOTAL (test code=ALKP) 353 IUnit/L 45-117 Note change in reference range due to change in reagent. [id number] 06:50:00* Test Item Value Reference Range Comments PHOSPHORUS (test code=PHOS) 1.0 mg/dL 2.5-4.9 [id number] 06:50:00* Test Item Value Reference Range Comments MAGNESIUM (test code=MAG) 1.3 mg/dL 1.8-2.4 COMPREHENSIVE METABOLIC [id number] 06:34:00* Test Item Value Reference Range Comments SODIUM (test code=NA) 137 mmol/L 136-145 POTASSIUM (test code=K) 4.6 mmol/L 3.5-5.1 CHLORIDE (test code=CL) 102.0 mmol/L 98-107 CARBON DIOXIDE (test code=CO2) mmol/L 21-32 ANION GAP (test code=GAP) 10-20 GLUCOSE (test code=GLU) mg/dL 74-106 BLOOD UREA NITROGEN (test code=BUN) mg/dL 7-18 GLOMERULAR FILTRATION RATE (test code=GFR) mL/min >=60 CREATININE (test code=CREAT) mg/dL 0.55-1.02 BUN/CREATININE RATIO (test code=BUN/CREA) 10-20 TOTAL PROTEIN (test code=PROT) gram/dL 6.4-8.2 ALBUMIN (test code=ALB) g/dL 3.4-5.0 GLOBULIN (test code=GLOB) gram/dL 2.7-4.2 ALBUMIN/GLOBULIN RATIO (test code=A/G) 0.75-1.50 CALCIUM (test code=CA) mg/dL 8.5-10.1 BILIRUBIN TOTAL (test code=BILT) mg/dL 0.0-1.0 SGOT/AST (test code=AST) IUnit/L 15-37 SGPT/ALT (test code=ALT) IUnit/L 12-78 ALKALINE PHOSPHATASE TOTAL (test code=ALKP) IUnit/L 45-117 [id number] 06:34:00* Test Item Value Reference Range Comments PHOSPHORUS (test code=PHOS) mg/dL 2.5-4.9 [id number] 06:34:00* Test Item Value Reference Range Comments MAGNESIUM (test code=MAG) mg/dL 1.8-2.4 CBC W/AUTO [id number] 05:55:00* Test Item Value Reference Range Comments WHITE BLOOD CELL (test code=WBC) 6.4 K/mm3 4.5-12.5 RED BLOOD CELL (test code=RBC) 2.84 mill/mm3 3.7-5.2 HEMOGLOBIN (test code=HGB) 8.1 gram/dL 11.5-15.5 HEMATOCRIT (test code=HCT) 25.7 % 36.0-46.0 MEAN CELL VOLUME (test code=MCV) 90.5 fL 80-98 MEAN CELL HGB (test code=MCH) 28.5 picogram 27.0-33.0 MEAN CELL HGB CONCETRATION (test code=MCHC) 31.5 gram/dL 33.0-36.0 RED CELL DISTRIBUTION WIDTH (test code=RDW) 17.2 % 11.6-16.2 RED CELL DISTRIBUTION WIDTH SD (test code=RDW-SD) 56.7 fL 37.0-51.0 PLATELET COUNT (test code=PLT) 136 K/mm3 150-450 MEAN PLATELET VOLUME (test code=MPV) 10.3 fL 6.7-11.0 NEUTROPHIL % (test code=NT%) 69.4 % 39.0-69.0 IMMATURE GRANULOCYTE % (test code=IG%) 0.8 % 0.0-5.0 LYMPHOCYTE % (test code=LY%) 17.0 % 25.0-55.0 MONOCYTE % (test code=MO%) 7.5 % 0.0-10.0 EOSINOPHIL % (test code=EO%) 4.5 % 0.0-5.0 BASOPHIL % (test code=BA%) 0.8 % 0.0-1.0 NUCLEATED RBC % (test code=NRBC%) 0.0 % 0-0 NEUTROPHIL # (test code=NT#) 4.46 K/mm3 1.8-7.7 IMMATURE GRANULOCYTE # (test code=IG#) 0.05 x10 3/uL 0-0.03 LYMPHOCYTE # (test code=LY#) 1.09 K/mm3 1.0-5.0 MONOCYTE # (test code=MO#) 0.48 K/mm3 0-0.8 EOSINOPHIL # (test code=EO#) 0.29 K/mm3 0.0-0.5 BASOPHIL # (test code=BA#) 0.05 K/mm3 0.0-0.2 NUCLEATED RBC # (test code=NRBC#) 0.00 K/mm3 0.0-0.1 MANUAL DIFF REQUIRED (test code=MDIFF) NO [id number] 21:09:00* Test Item Value Reference Range Comments GLUBED (test code=GLUBED) 174 mg/dL 74-106 [facility] [id number] 17:06:00* Test Item Value Reference Range Comments GLUBED (test code=GLUBED) 146 mg/dL 74-106 Performed by certified kst operator at [facility] COMPREHENSIVE METABOLIC [id number] 15:41:00* Test Item Value Reference Range Comments SODIUM (test code=NA) 138 mmol/L 136-145 POTASSIUM (test code=K) 4.7 mmol/L 3.5-5.1 CHLORIDE (test code=CL) 103.0 mmol/L 98-107 CARBON DIOXIDE (test code=CO2) 29.0 mmol/L 21-32 ANION GAP (test code=GAP) 10.7 10-20 GLUCOSE (test code=GLU) 180 mg/dL 74-106 BLOOD UREA NITROGEN (test code=BUN) 19 mg/dL 7-18 GLOMERULAR FILTRATION RATE (test code=GFR) 10 mL/min >=60 Estimated GFR by using Modified MDRD formula.Chronic kidney disease is defined as either kidney damageor GFR <60 mL/min/1.73 m2 for >3 months. CREATININE (test code=CREAT) 4.40 mg/dL 0.55-1.02 Note change in reference range due to change in reagent. BUN/CREATININE RATIO (test code=BUN/CREA) 4.3 10-20 TOTAL PROTEIN (test code=PROT) 4.8 gram/dL 6.4-8.2 ALBUMIN (test code=ALB) 1.1 g/dL 3.4-5.0 GLOBULIN (test code=GLOB) 3.7 gram/dL 2.7-4.2 ALBUMIN/GLOBULIN RATIO (test code=A/G) 0.3 0.75-1.50 CALCIUM (test code=CA) 7.7 mg/dL 8.5-10.1 BILIRUBIN TOTAL (test code=BILT) 0.30 mg/dL 0.0-1.0 SGOT/AST (test code=AST) 27 IUnit/L 15-37 SGPT/ALT (test code=ALT) 10 IUnit/L 12-78 ALKALINE PHOSPHATASE TOTAL (test code=ALKP) 378 IUnit/L 45-117 Note change in reference range due to change in reagent. LOU GREEN WILL DRAW FROM LINE CS 1104 V.LAB.CS1 11/15/[id number] METABOLIC [id number] 15:32:00* Test Item Value Reference Range Comments SODIUM (test code=NA) 138 mmol/L 136-145 POTASSIUM (test code=K) 4.7 mmol/L 3.5-5.1 CHLORIDE (test code=CL) 103.0 mmol/L 98-107 CARBON DIOXIDE (test code=CO2) mmol/L 21-32 ANION GAP (test code=GAP) 10-20 GLUCOSE (test code=GLU) mg/dL 74-106 BLOOD UREA NITROGEN (test code=BUN) mg/dL 7-18 GLOMERULAR FILTRATION RATE (test code=GFR) mL/min >=60 CREATININE (test code=CREAT) mg/dL 0.55-1.02 BUN/CREATININE RATIO (test code=BUN/CREA) 10-20 TOTAL PROTEIN (test code=PROT) gram/dL 6.4-8.2 ALBUMIN (test code=ALB) g/dL 3.4-5.0 GLOBULIN (test code=GLOB) gram/dL 2.7-4.2 ALBUMIN/GLOBULIN RATIO (test code=A/G) 0.75-1.50 CALCIUM (test code=CA) mg/dL 8.5-10.1 BILIRUBIN TOTAL (test code=BILT) mg/dL 0.0-1.0 SGOT/AST (test code=AST) IUnit/L 15-37 SGPT/ALT (test code=ALT) IUnit/L 12-78 ALKALINE PHOSPHATASE TOTAL (test code=ALKP) IUnit/L 45-117 LOU GREEN WILL DRAW FROM LINE CS 1104 V.LAB.1 11/15/[id number] W/AUTO DIFF 2018-11-15 15:19:00* Test Item Value Reference Range Comments WHITE BLOOD CELL (test code=WBC) 6.8 K/mm3 4.5-12.5 RED BLOOD CELL (test code=RBC) 2.77 mill/mm3 3.7-5.2 HEMOGLOBIN (test code=HGB) 7.8 gram/dL 11.5-15.5 HEMATOCRIT (test code=HCT) 25.3 % 36.0-46.0 MEAN CELL VOLUME (test code=MCV) 91.3 fL 80-98 MEAN CELL HGB (test code=MCH) 28.2 picogram 27.0-33.0 MEAN CELL HGB CONCETRATION (test code=MCHC) 30.8 gram/dL 33.0-36.0 RED CELL DISTRIBUTION WIDTH (test code=RDW) 17.3 % 11.6-16.2 RED CELL DISTRIBUTION WIDTH SD (test code=RDW-SD) 58.3 fL 37.0-51.0 PLATELET COUNT (test code=PLT) 130 K/mm3 150-450 MEAN PLATELET VOLUME (test code=MPV) 10.4 fL 6.7-11.0 NEUTROPHIL % (test code=NT%) 70.6 % 39.0-69.0 IMMATURE GRANULOCYTE % (test code=IG%) 0.6 % 0.0-5.0 LYMPHOCYTE % (test code=LY%) 17.2 % 25.0-55.0 MONOCYTE % (test code=MO%) 7.3 % 0.0-10.0 EOSINOPHIL % (test code=EO%) 3.6 % 0.0-5.0 BASOPHIL % (test code=BA%) 0.7 % 0.0-1.0 NUCLEATED RBC % (test code=NRBC%) 0.0 % 0-0 NEUTROPHIL # (test code=NT#) 4.77 K/mm3 1.8-7.7 IMMATURE GRANULOCYTE # (test code=IG#) 0.04 x10 3/uL 0-0.03 LYMPHOCYTE # (test code=LY#) 1.16 K/mm3 1.0-5.0 MONOCYTE # (test code=MO#) 0.49 K/mm3 0-0.8 EOSINOPHIL # (test code=EO#) 0.24 K/mm3 0.0-0.5 BASOPHIL # (test code=BA#) 0.05 K/mm3 0.0-0.2 NUCLEATED RBC # (test code=NRBC#) 0.00 K/mm3 0.0-0.1 LOU GREEN WILL DRAW FROM LINE CS 1104 V.LAB.CS1 11/15/[id number] 15:04:00 RUN DATE: 11/15/18 [facility] PAGE 1 RUN TIME: 1504 Specimen Inqui ry RUN USER: INTERFACE PATIENT: PRISCA TURNER ACCT #: [id number] LOC: JorgeVAU U #: [id number] AGE/SX: 63/F ROOM: [facility] RE11/05/18REG DR: Raza Gonsalez MD : 57 BED: A DIS: STATUS: ADM IN TLOC: SPEC #: [id number] RECD: 11/14/18 STATUS: ROMEL REQ #: [id number] DENISE: 11/11/18- SUBM DR: Beba Castro MD ENTERED: 11/14/18 SP TYPE: STOMACH OTHR DR: Edy Dietz MD, Salah Uddin MDORDERED: GROSS COPIES TO: Edy Dietz MD [address] [place] [address] Eugenio Fernandez MD [address] [place] [address] Ra morenita Castro MD [address] [place] [address] PROCEDURES: GROSS (0 11/14/18-912) TISSUES: 1. ANTRAL BIOPSY - H-PYLORI 2. ILEUM, N OS - BX 3. COLON, NOS - RIGHT COLON BX 4. CECUM, NOS - POLYP 5. COLON, NOS - LEFT BX 6. RECTUM, NOS - BX CLINICAL HISTORY COLLECTION DATE: 11/11/18 ANEMIA COMMENT Sections of rig ht, cecum and left colon biopsies show exploding glands containing inspissated mucin, debris and neutrophils, sloughing of the mucosa, inter-crypt neitrophils and necrosis as well as exudate overling the mucosa. The inflammation is pathcy with normal appearing colonic mucosa between these lesions. No crypt abscess, basal plasmocytosis, microorganisms, granuloma, dysplasia or malignancy are se en. Sections of rectal biopsy shows focal mucosal erosion with mild acute and chronic CONTINUED ON NEXT PAGE -------- ----RUN DATE: 11/15/18 [facility] PAGE 2 RUN TIME: 1504 Specimen Inquiry RUN USER: INTERFACE SPEC #: [id number] PATIENT: PRISCA TURNER Fabiana #[id number] (Continued) COMMENT (Continued) inflammatory infiltrates, reactive epithelial changes, and latasha cent reactive hyperplastic changes. No microorganisms, granuloma, dysplasia or malignancy is identified. The differential diagnosis includes infectious e tiology such as C. difficile, Shiigella, Salmonela, Enterohemorrhagic E. coli, etc., inflammatory bowel disease or ischemic colitis. Recommend clinical/endos copic correlation of follow up as clinically indicated. FINAL DIAGNOS IS Stomach, antrum and body, biopsies: ANTRUM - REACTIVE GASTROPATHY - CHRONIC INACTIVE GASTRITIS MILD TO FOCALLY MODERATE OXYNTIC MUCOSA - MILD FOCAL CHRONIC INACTIVE GASTRITIS NO DIAGNOSTIC HELICOBACTER IDENTIFIED NEGATIVE FOR INTESTINAL METAPLASIA, DYSPLASIA OR MALIGNANCY Ileum, biopsy: ILEAL MUCOSA WITH MINIMAL CHRONIC INFLAMMATION AND MINUTE LYMPHOID AGGREGATES NO GRANULOMA, ACUTE INFLAMMATION, MITCHELL ROORGANISMS, DYSPLASIA OR MALIGNANCY IDENTIFIED Colon, right, biopsy: PSEUDOMEMBRANOUS COLITIS, (see comment) NO MICROORGANISMS, GRANULOMA, DYSPLASIA OR MALIGNANCY IDENTIFIED Cecal pseudo polyp, biopsy: PSEUDOMEMBRANOUS COLITIS, (see comment) NO MICROORGANISMS, GRANU HAYDEN, DYSPLASIA OR MALIGNANCY IDENTIFIED Left colon, biopsy: PSEUDO MEMBRANOUS COLITIS, (see comment) NO MICROORGANISMS, GRANULOMA, DYSPLASIA OR MALIGNANCY IDENTIFIED Rectum, biopsy: ULCERATED CHRONIC ACTIVE PROCTITIS, FOCAL DYSPLASIA OR MALIGNANCY IDENTIFIED FA/ D (1) [id number], [id number] CONTIN UED ON NEXT PAGE RUN DATE: 11/15/18 [facility] PAGE 3 RUN TIME: 1504 Specimen Inquiry RUN USER: INTERFACE SPEC #: [id number] LAURA HANSON: JOHNNYPRISCA #[id number] (Continued) MACROSCOPIC The first specimen is received in formalin, labeled with the patient's name, identified as "antrum and body bx". It consists of three t an biopsy tissue ranging from 0.3 to 0.5 cm, submitted as (1) for H E and Giem sa stains. The second specimen is received in formalin, labeled with the p atient's name, identified as "ileum bx rule out ileitis rule out crohn's. It c onsists of two portions of goel biopsy tissue measuring less than 0.1 and 0.1 c m, submitted as (2). The third specimen is received in formalin, labeled with the patient's name, identified as "right colon bx". It consists of mult iple pieces of goel biopsy tissue measuring 1.5 X 0.5 X 0.2 cm in aggregate, cifuentes bmitted as (3). The fourth specimen is received in formalin, labeled with the patient's name, identified as "cecum pseudo polyp rule out infection". It consists of two portions of goel biopsy tissue measuring 0.3 and 0.5 cm, submit veronica as (4). The fifth specimen is received in formalin, labeled with the p atient's name, identified as "bx left colon colitis". It consists of multiple goel biopsy tissue ranging from less than 0.1 to 0.4 cm, submitted as (5). The sixth specimen is received in formalin, labeled with the patient's name, identified as "rectum bx". It consists of two pieces goel biopsy tissue dinah uring less than 0.1 and 0.4 cm, submitted as (6). GROSS PERFORMED AT [facility] [address] [place] [address] [phone] Diagno sis performed at: [facility] [address] [place] [place], [place] [address] Signed SIGNATURE ON FILE Alina Duque MD 11/15/18 1504 * * END OF REPORT [id number] 12:18:00* Test Item Value Reference Range Comments GLUBED (test code=GLUBED) 136 mg/dL 74-106 [facility] [id number] 10:35:00* Test Item Value Reference Range Comments GLUBED (test code=GLUBED) 141 mg/dL 74-106 Performed by certified kst operator at [facility] [id number] 20:39:00* Test Item Value Reference Range Comments GLUBED (test code=GLUBED) 180 mg/dL 74-106 [facility] [id number] 16:06:00* Test Item Value Reference Range Comments GLUBED (test code=GLUBED) 122 mg/dL 74-106 Performed by certified kst operator at [facility] [id number] 14:57:00* Test Item Value Reference Range Comments GLUBED (test code=GLUBED) 96 mg/dL 74-106 Performed by certified kst operator at [facility] [id number] 07:50:00* Test Item Value Reference Range Comments GLUBED (test code=GLUBED) 249 mg/dL 74-106 Performed by certified kst operator at [facility] COMPREHENSIVE METABOLIC [id number] 05:53:00* Test Item Value Reference Range Comments SODIUM (test code=NA) 136 mmol/L 136-145 POTASSIUM (test code=K) 4.3 mmol/L 3.5-5.1 CHLORIDE (test code=CL) 104.0 mmol/L 98-107 CARBON DIOXIDE (test code=CO2) 26.0 mmol/L 21-32 ANION GAP (test code=GAP) 10.3 10-20 GLUCOSE (test code=GLU) 260 mg/dL 74-106 BLOOD UREA NITROGEN (test code=BUN) 22 mg/dL 7-18 RESULT VERIFIED BY REPEAT ANALYSIS GLOMERULAR FILTRATION RATE (test code=GFR) 9 mL/min >=60 Estimated GFR by using Modified MDRD formula.Chronic kidney disease is defined as either kidney damageor GFR <60 mL/min/1.73 m2 for >3 months. CREATININE (test code=CREAT) 4.90 mg/dL 0.55-1.02 Note change in reference range due to change in reagent. BUN/CREATININE RATIO (test code=BUN/CREA) 4.5 10-20 TOTAL PROTEIN (test code=PROT) 4.5 gram/dL 6.4-8.2 ALBUMIN (test code=ALB) 1.0 g/dL 3.4-5.0 GLOBULIN (test code=GLOB) 3.5 gram/dL 2.7-4.2 ALBUMIN/GLOBULIN RATIO (test code=A/G) 0.3 0.75-1.50 CALCIUM (test code=CA) 7.3 mg/dL 8.5-10.1 BILIRUBIN TOTAL (test code=BILT) 0.20 mg/dL 0.0-1.0 SGOT/AST (test code=AST) 14 IUnit/L 15-37 SGPT/ALT (test code=ALT) 6 IUnit/L 12-78 RESULT VERIFIED BY REPEAT ANALYSIS ALKALINE PHOSPHATASE TOTAL (test code=ALKP) 196 IUnit/L 45-117 Note change in reference range due to change in reagent. COMPREHENSIVE METABOLIC [id number] 05:25:00* Test Item Value Reference Range Comments SODIUM (test code=NA) 136 mmol/L 136-145 POTASSIUM (test code=K) 4.3 mmol/L 3.5-5.1 CHLORIDE (test code=CL) 104.0 mmol/L 98-107 CARBON DIOXIDE (test code=CO2) mmol/L 21-32 ANION GAP (test code=GAP) 10-20 GLUCOSE (test code=GLU) mg/dL 74-106 BLOOD UREA NITROGEN (test code=BUN) mg/dL 7-18 GLOMERULAR FILTRATION RATE (test code=GFR) mL/min >=60 CREATININE (test code=CREAT) mg/dL 0.55-1.02 BUN/CREATININE RATIO (test code=BUN/CREA) 10-20 TOTAL PROTEIN (test code=PROT) gram/dL 6.4-8.2 ALBUMIN (test code=ALB) g/dL 3.4-5.0 GLOBULIN (test code=GLOB) gram/dL 2.7-4.2 ALBUMIN/GLOBULIN RATIO (test code=A/G) 0.75-1.50 CALCIUM (test code=CA) mg/dL 8.5-10.1 BILIRUBIN TOTAL (test code=BILT) mg/dL 0.0-1.0 SGOT/AST (test code=AST) IUnit/L 15-37 SGPT/ALT (test code=ALT) IUnit/L 12-78 ALKALINE PHOSPHATASE TOTAL (test code=ALKP) IUnit/L 45-117 CBC W/AUTO [id number] 05:03:00* Test Item Value Reference Range Comments WHITE BLOOD CELL (test code=WBC) 7.3 K/mm3 4.5-12.5 RED BLOOD CELL (test code=RBC) 2.69 mill/mm3 3.7-5.2 HEMOGLOBIN (test code=HGB) 7.5 gram/dL 11.5-15.5 HEMATOCRIT (test code=HCT) 24.2 % 36.0-46.0 MEAN CELL VOLUME (test code=MCV) 90.0 fL 80-98 MEAN CELL HGB (test code=MCH) 27.9 picogram 27.0-33.0 MEAN CELL HGB CONCETRATION (test code=MCHC) 31.0 gram/dL 33.0-36.0 RED CELL DISTRIBUTION WIDTH (test code=RDW) 17.4 % 11.6-16.2 RED CELL DISTRIBUTION WIDTH SD (test code=RDW-SD) 57.1 fL 37.0-51.0 PLATELET COUNT (test code=PLT) 131 K/mm3 150-450 MEAN PLATELET VOLUME (test code=MPV) 10.4 fL 6.7-11.0 NEUTROPHIL % (test code=NT%) 65.7 % 39.0-69.0 IMMATURE GRANULOCYTE % (test code=IG%) 0.4 % 0.0-5.0 LYMPHOCYTE % (test code=LY%) 20.6 % 25.0-55.0 MONOCYTE % (test code=MO%) 8.3 % 0.0-10.0 EOSINOPHIL % (test code=EO%) 4.2 % 0.0-5.0 BASOPHIL % (test code=BA%) 0.8 % 0.0-1.0 NUCLEATED RBC % (test code=NRBC%) 0.0 % 0-0 NEUTROPHIL # (test code=NT#) 4.81 K/mm3 1.8-7.7 IMMATURE GRANULOCYTE # (test code=IG#) 0.03 x10 3/uL 0-0.03 LYMPHOCYTE # (test code=LY#) 1.51 K/mm3 1.0-5.0 MONOCYTE # (test code=MO#) 0.61 K/mm3 0-0.8 EOSINOPHIL # (test code=EO#) 0.31 K/mm3 0.0-0.5 BASOPHIL # (test code=BA#) 0.06 K/mm3 0.0-0.2 NUCLEATED RBC # (test code=NRBC#) 0.00 K/mm3 0.0-0.1 [id number] 20:47:00* Test Item Value Reference Range Comments GLUBED (test code=GLUBED) 204 mg/dL 74-106 Performed by certified kst operator at [facility] [id number] 16:28:00* Test Item Value Reference Range Comments GLUBED (test code=GLUBED) 223 mg/dL 74-106 Performed by certified kst operator at [facility] [id number] 08:22:00* Test Item Value Reference Range Comments GLUBED (test code=GLUBED) 270 mg/dL 74-106 Performed by certified kst operator at [facility] COMPREHENSIVE METABOLIC [id number] 05:55:00* Test Item Value Reference Range Comments SODIUM (test code=NA) 135 mmol/L 136-145 POTASSIUM (test code=K) 4.3 mmol/L 3.5-5.1 CHLORIDE (test code=CL) 104.0 mmol/L 98-107 CARBON DIOXIDE (test code=CO2) 25.0 mmol/L 21-32 ANION GAP (test code=GAP) 10.3 10-20 GLUCOSE (test code=GLU) 289 mg/dL 74-106 BLOOD UREA NITROGEN (test code=BUN) 14 mg/dL 7-18 GLOMERULAR FILTRATION RATE (test code=GFR) 12 mL/min >=60 Estimated GFR by using Modified MDRD formula.Chronic kidney disease is defined as either kidney damageor GFR <60 mL/min/1.73 m2 for >3 months. CREATININE (test code=CREAT) 3.90 mg/dL 0.55-1.02 Note change in reference range due to change in reagent. BUN/CREATININE RATIO (test code=BUN/CREA) 3.6 10-20 TOTAL PROTEIN (test code=PROT) 4.4 gram/dL 6.4-8.2 ALBUMIN (test code=ALB) 1.1 g/dL 3.4-5.0 GLOBULIN (test code=GLOB) 3.3 gram/dL 2.7-4.2 ALBUMIN/GLOBULIN RATIO (test code=A/G) 0.3 0.75-1.50 CALCIUM (test code=CA) 7.1 mg/dL 8.5-10.1 BILIRUBIN TOTAL (test code=BILT) 0.20 mg/dL 0.0-1.0 SGOT/AST (test code=AST) 18 IUnit/L 15-37 SGPT/ALT (test code=ALT) 8 IUnit/L 12-78 ALKALINE PHOSPHATASE TOTAL (test code=ALKP) 205 IUnit/L 45-117 Note change in reference range due to change in reagent. COMPREHENSIVE METABOLIC [id number] 05:46:00* Test Item Value Reference Range Comments SODIUM (test code=NA) 135 mmol/L 136-145 POTASSIUM (test code=K) 4.3 mmol/L 3.5-5.1 CHLORIDE (test code=CL) 104.0 mmol/L 98-107 CARBON DIOXIDE (test code=CO2) mmol/L 21-32 ANION GAP (test code=GAP) 10-20 GLUCOSE (test code=GLU) mg/dL 74-106 BLOOD UREA NITROGEN (test code=BUN) mg/dL 7-18 GLOMERULAR FILTRATION RATE (test code=GFR) mL/min >=60 CREATININE (test code=CREAT) mg/dL 0.55-1.02 BUN/CREATININE RATIO (test code=BUN/CREA) 10-20 TOTAL PROTEIN (test code=PROT) gram/dL 6.4-8.2 ALBUMIN (test code=ALB) g/dL 3.4-5.0 GLOBULIN (test code=GLOB) gram/dL 2.7-4.2 ALBUMIN/GLOBULIN RATIO (test code=A/G) 0.75-1.50 CALCIUM (test code=CA) mg/dL 8.5-10.1 BILIRUBIN TOTAL (test code=BILT) mg/dL 0.0-1.0 SGOT/AST (test code=AST) IUnit/L 15-37 SGPT/ALT (test code=ALT) IUnit/L 12-78 ALKALINE PHOSPHATASE TOTAL (test code=ALKP) IUnit/L 45-117 [id number] 20:59:00* Test Item Value Reference Range Comments GLUBED (test code=GLUBED) 271 mg/dL 74-106 Performed by certified kst operator at [facility] COMPREHENSIVE METABOLIC [id number] 06:04:00* Test Item Value Reference Range Comments SODIUM (test code=NA) 138 mmol/L 136-145 POTASSIUM (test code=K) 3.8 mmol/L 3.5-5.1 CHLORIDE (test code=CL) 104.0 mmol/L 98-107 CARBON DIOXIDE (test code=CO2) 29.0 mmol/L 21-32 ANION GAP (test code=GAP) 8.8 10-20 GLUCOSE (test code=GLU) 211 mg/dL 74-106 BLOOD UREA NITROGEN (test code=BUN) 7 mg/dL 7-18 GLOMERULAR FILTRATION RATE (test code=GFR) 17 mL/min >=60 Estimated GFR by using Modified MDRD formula.Chronic kidney disease is defined as either kidney damageor GFR <60 mL/min/1.73 m2 for >3 months. CREATININE (test code=CREAT) 2.80 mg/dL 0.55-1.02 Note change in reference range due to change in reagent. BUN/CREATININE RATIO (test code=BUN/CREA) 2.5 10-20 TOTAL PROTEIN (test code=PROT) 4.3 gram/dL 6.4-8.2 ALBUMIN (test code=ALB) 1.1 g/dL 3.4-5.0 GLOBULIN (test code=GLOB) 3.2 gram/dL 2.7-4.2 ALBUMIN/GLOBULIN RATIO (test code=A/G) 0.3 0.75-1.50 CALCIUM (test code=CA) 7.3 mg/dL 8.5-10.1 BILIRUBIN TOTAL (test code=BILT) 0.30 mg/dL 0.0-1.0 SGOT/AST (test code=AST) 20 IUnit/L 15-37 SGPT/ALT (test code=ALT) 8 IUnit/L 12-78 ALKALINE PHOSPHATASE TOTAL (test code=ALKP) 174 IUnit/L 45-117 Note change in reference range due to change in reagent. COMPREHENSIVE METABOLIC [id number] 06:03:00* Test Item Value Reference Range Comments SODIUM (test code=NA) 138 mmol/L 136-145 POTASSIUM (test code=K) 3.8 mmol/L 3.5-5.1 CHLORIDE (test code=CL) 104.0 mmol/L 98-107 CARBON DIOXIDE (test code=CO2) mmol/L 21-32 ANION GAP (test code=GAP) 10-20 GLUCOSE (test code=GLU) mg/dL 74-106 BLOOD UREA NITROGEN (test code=BUN) mg/dL 7-18 GLOMERULAR FILTRATION RATE (test code=GFR) mL/min >=60 CREATININE (test code=CREAT) mg/dL 0.55-1.02 BUN/CREATININE RATIO (test code=BUN/CREA) 10-20 TOTAL PROTEIN (test code=PROT) gram/dL 6.4-8.2 ALBUMIN (test code=ALB) g/dL 3.4-5.0 GLOBULIN (test code=GLOB) gram/dL 2.7-4.2 ALBUMIN/GLOBULIN RATIO (test code=A/G) 0.75-1.50 CALCIUM (test code=CA) mg/dL 8.5-10.1 BILIRUBIN TOTAL (test code=BILT) mg/dL 0.0-1.0 SGOT/AST (test code=AST) IUnit/L 15-37 SGPT/ALT (test code=ALT) IUnit/L 12-78 ALKALINE PHOSPHATASE TOTAL (test code=ALKP) IUnit/L 45-117 BASIC METABOLIC [id number] 15:43:00* Test Item Value Reference Range Comments SODIUM (test code=NA) 135 mmol/L 136-145 RESULT VERIFIED BY REPEAT ANALYSIS POTASSIUM (test code=K) 3.6 mmol/L 3.5-5.1 RESULT VERIFIED BY REPEAT ANALYSIS CHLORIDE (test code=CL) 103.0 mmol/L 98-107 CARBON DIOXIDE (test code=CO2) 29.0 mmol/L 21-32 ANION GAP (test code=GAP) 6.6 10-20 GLUCOSE (test code=GLU) 103 mg/dL 74-106 BLOOD UREA NITROGEN (test code=BUN) 4 mg/dL 7-18 GLOMERULAR FILTRATION RATE (test code=GFR) 29 mL/min >=60 Estimated GFR by using Modified MDRD formula.Chronic kidney disease is defined as either kidney damageor GFR <60 mL/min/1.73 m2 for >3 months. CREATININE (test code=CREAT) 1.80 mg/dL 0.55-1.02 Note change in reference range due to change in reagent. BUN/CREATININE RATIO (test code=BUN/CREA) 2.2 10-20 CALCIUM (test code=CA) 7.4 mg/dL 8.5-10.1 COMPREHENSIVE METABOLIC [id number] 09:10:00* Test Item Value Reference Range Comments SODIUM (test code=NA) 130 mmol/L 136-145 RESULT VERIFIED BY REPEAT ANALYSIS POTASSIUM (test code=K) 4.8 mmol/L 3.5-5.1 CHLORIDE (test code=CL) 99.0 mmol/L 98-107 CARBON DIOXIDE (test code=CO2) 25.0 mmol/L 21-32 ANION GAP (test code=GAP) 10.8 10-20 GLUCOSE (test code=GLU) 128 mg/dL 74-106 BLOOD UREA NITROGEN (test code=BUN) 12 mg/dL 7-18 GLOMERULAR FILTRATION RATE (test code=GFR) 12 mL/min >=60 Estimated GFR by using Modified MDRD formula.Chronic kidney disease is defined as either kidney damageor GFR <60 mL/min/1.73 m2 for >3 months. CREATININE (test code=CREAT) 3.70 mg/dL 0.55-1.02 Note change in reference range due to change in reagent. BUN/CREATININE RATIO (test code=BUN/CREA) 3.2 10-20 TOTAL PROTEIN (test code=PROT) 4.0 gram/dL 6.4-8.2 ALBUMIN (test code=ALB) 1.1 g/dL 3.4-5.0 GLOBULIN (test code=GLOB) 2.9 gram/dL 2.7-4.2 ALBUMIN/GLOBULIN RATIO (test code=A/G) 0.4 0.75-1.50 CALCIUM (test code=CA) 7.4 mg/dL 8.5-10.1 BILIRUBIN TOTAL (test code=BILT) 0.40 mg/dL 0.0-1.0 SGOT/AST (test code=AST) 18 IUnit/L 15-37 SGPT/ALT (test code=ALT) 8 IUnit/L 12-78 ALKALINE PHOSPHATASE TOTAL (test code=ALKP) 166 IUnit/L 45-117 Note change in reference range due to change in reagent. LIMB ALERT ON LEFT, BROKEN ARM ON RIGHT, VEIN IN RIGHT HANDHAD NO FLOW. V.LAB.RP 1 11/11/18 [facility] [id number] 05:14:00* Test Item Value Reference Range Comments IMMUNOGLOBULIN A (test code=IGA) 646 mg/dL 87-352 Performed At: [facility] [address] [id number] Sanjai MD Ph:[phone] At: [facility] [address] [id number] Diaz MD Ph:[phone] TISSUE TRANSGLUTAMINASE IGA (test code=TTGIGAAB) <2 U/mL 0-3 Negative 0 - 3 Weak Positive 4 - 10 Positive >10 Tissue Transglutaminase (tTG) has been identified as the endomysial antigen. Studies have demonstr- ated that endomysial IgA antibodies have over 99% specificity for gluten sensitive enteropathy. AB ENDOMYSIAL IGA (test code=ENDOMAAB) Negative Negative TISSUE TRANSGLUTAMINASE IGG (test code=TTGIGGAB) 6 U/mL 0-5 Negative 0 - 5 Weak Positive 6 - 9 Positive >9 GLIADIN ANTIBODY, IGG (test code=GLIAB) 7 units 0-19 Negative 0 - 19 Weak Positive 20 - 30 Moderate to Strong Positive >30 GLIADIN ANTIBODY, IGA (test code=GLIAABA) 177 units 0-19 Negative 0 - 19 Weak Positive 20 - 30 Moderate to Strong Positive >30 [id number] 21:43:00* Test Item Value Reference Range Comments GLUBED (test code=GLUBED) 196 mg/dL 74-106 Performed by certified kst operator at [facility] [id number] 17:30:00* Test Item Value Reference Range Comments GLUBED (test code=GLUBED) 144 mg/dL 74-106 Performed by certified kst operator at [facility] [id number] 17:30:00* Test Item Value Reference Range Comments GLUBED (test code=GLUBED) 146 mg/dL 74-106 Performed by certified kst operator at [facility] [id number] 12:24:00* Test Item Value Reference Range Comments GLUBED (test code=GLUBED) 158 mg/dL 74-106 Performed by certified kst operator at [facility] BASIC METABOLIC [id number] 10:57:00* Test Item Value Reference Range Comments SODIUM (test code=NA) 136 mmol/L 136-145 POTASSIUM (test code=K) 4.7 mmol/L 3.5-5.1 CHLORIDE (test code=CL) 104.0 mmol/L 98-107 CARBON DIOXIDE (test code=CO2) 25.0 mmol/L 21-32 ANION GAP (test code=GAP) 11.7 10-20 GLUCOSE (test code=GLU) 165 mg/dL 74-106 BLOOD UREA NITROGEN (test code=BUN) 7 mg/dL 7-18 GLOMERULAR FILTRATION RATE (test code=GFR) 16 mL/min >=60 Estimated GFR by using Modified MDRD formula.Chronic kidney disease is defined as either kidney damageor GFR <60 mL/min/1.73 m2 for >3 months. CREATININE (test code=CREAT) 2.90 mg/dL 0.55-1.02 Note change in reference range due to change in reagent. BUN/CREATININE RATIO (test code=BUN/CREA) 2.4 10-20 CALCIUM (test code=CA) 7.7 mg/dL 8.5-10.1 BASIC METABOLIC [id number] 10:47:00* Test Item Value Reference Range Comments SODIUM (test code=NA) 136 mmol/L 136-145 POTASSIUM (test code=K) 4.7 mmol/L 3.5-5.1 CHLORIDE (test code=CL) 104.0 mmol/L 98-107 CARBON DIOXIDE (test code=CO2) mmol/L 21-32 ANION GAP (test code=GAP) 10-20 GLUCOSE (test code=GLU) mg/dL 74-106 BLOOD UREA NITROGEN (test code=BUN) mg/dL 7-18 GLOMERULAR FILTRATION RATE (test code=GFR) mL/min >=60 CREATININE (test code=CREAT) mg/dL 0.55-1.02 BUN/CREATININE RATIO (test code=BUN/CREA) 10-20 CALCIUM (test code=CA) mg/dL 8.5-10.1 [id number] 22:41:00* Test Item Value Reference Range Comments GLUBED (test code=GLUBED) 292 mg/dL 74-106 Performed by certified kst operator at [facility] [id number] 21:21:00* Test Item Value Reference Range Comments GLUBED (test code=GLUBED) 280 mg/dL 74-106 Performed by certified kst operator at [facility] [id number] 08:00:00* Test Item Value Reference Range Comments GLUBED (test code=GLUBED) 98 mg/dL 74-106 Performed by certified kst operator at [facility] BASIC METABOLIC [id number] 05:28:00* Test Item Value Reference Range Comments SODIUM (test code=NA) 139 mmol/L 136-145 POTASSIUM (test code=K) 4.1 mmol/L 3.5-5.1 CHLORIDE (test code=CL) 105.0 mmol/L 98-107 CARBON DIOXIDE (test code=CO2) 28.0 mmol/L 21-32 ANION GAP (test code=GAP) 10.1 10-20 GLUCOSE (test code=GLU) 83 mg/dL 74-106 BLOOD UREA NITROGEN (test code=BUN) 9 mg/dL 7-18 GLOMERULAR FILTRATION RATE (test code=GFR) 10 mL/min >=60 Estimated GFR by using Modified MDRD formula.Chronic kidney disease is defined as either kidney damageor GFR <60 mL/min/1.73 m2 for >3 months. CREATININE (test code=CREAT) 4.30 mg/dL 0.55-1.02 Note change in reference range due to change in reagent. BUN/CREATININE RATIO (test code=BUN/CREA) 2.1 10-20 CALCIUM (test code=CA) 7.4 mg/dL 8.5-10.1 [id number] 05:28:00* Test Item Value Reference Range Comments PHOSPHORUS (test code=PHOS) 2.7 mg/dL 2.5-4.9 [id number] 05:28:00* Test Item Value Reference Range Comments MAGNESIUM (test code=MAG) 1.5 mg/dL 1.8-2.4 BASIC METABOLIC [id number] 05:25:00* Test Item Value Reference Range Comments SODIUM (test code=NA) 139 mmol/L 136-145 POTASSIUM (test code=K) 4.1 mmol/L 3.5-5.1 CHLORIDE (test code=CL) 105.0 mmol/L 98-107 CARBON DIOXIDE (test code=CO2) mmol/L 21-32 ANION GAP (test code=GAP) 10-20 GLUCOSE (test code=GLU) mg/dL 74-106 BLOOD UREA NITROGEN (test code=BUN) mg/dL 7-18 GLOMERULAR FILTRATION RATE (test code=GFR) mL/min >=60 CREATININE (test code=CREAT) mg/dL 0.55-1.02 BUN/CREATININE RATIO (test code=BUN/CREA) 10-20 CALCIUM (test code=CA) mg/dL 8.5-10.1 [id number] 05:25:00* Test Item Value Reference Range Comments PHOSPHORUS (test code=PHOS) mg/dL 2.5-4.9 [id number] 05:25:00* Test Item Value Reference Range Comments MAGNESIUM (test code=MAG) mg/dL 1.8-2.4 CBC W/O [id number] 05:22:00* Test Item Value Reference Range Comments WHITE BLOOD CELL (test code=WBC) 8.2 K/mm3 4.5-12.5 RED BLOOD CELL (test code=RBC) 3.55 mill/mm3 3.7-5.2 HEMOGLOBIN (test code=HGB) 9.8 gram/dL 11.5-15.5 HEMATOCRIT (test code=HCT) 32.7 % 36.0-46.0 MEAN CELL VOLUME (test code=MCV) 92.1 fL 80-98 MEAN CELL HGB (test code=MCH) 27.6 picogram 27.0-33.0 MEAN CELL HGB CONCETRATION (test code=MCHC) 30.0 gram/dL 33.0-36.0 RED CELL DISTRIBUTION WIDTH (test code=RDW) 19.1 % 11.6-16.2 PLATELET COUNT (test code=PLT) 162 K/mm3 150-450 MEAN PLATELET VOLUME (test code=MPV) 10.4 fL 6.7-11.0 [id number] 20:45:00* Test Item Value Reference Range Comments GLUBED (test code=GLUBED) 109 mg/dL 74-106 Performed by certified kst operator at [facility] [id number] 16:18:00* Test Item Value Reference Range Comments GLUBED (test code=GLUBED) 140 mg/dL 74-106 Performed by certified kst operator at [facility] [id number] 12:08:00* Test Item Value Reference Range Comments GLUBED (test code=GLUBED) 139 mg/dL 74-106 Performed by certified kst operator at [facility] BASIC METABOLIC [id number] 11:01:00* Test Item Value Reference Range Comments SODIUM (test code=NA) 140 mmol/L 136-145 POTASSIUM (test code=K) 3.5 mmol/L 3.5-5.1 CHLORIDE (test code=CL) 104.0 mmol/L 98-107 CARBON DIOXIDE (test code=CO2) 30.0 mmol/L 21-32 ANION GAP (test code=GAP) 9.5 10-20 GLUCOSE (test code=GLU) 149 mg/dL 74-106 BLOOD UREA NITROGEN (test code=BUN) 6 mg/dL 7-18 GLOMERULAR FILTRATION RATE (test code=GFR) 14 mL/min >=60 Estimated GFR by using Modified MDRD formula.Chronic kidney disease is defined as either kidney damageor GFR <60 mL/min/1.73 m2 for >3 months. CREATININE (test code=CREAT) 3.40 mg/dL 0.55-1.02 Note change in reference range due to change in reagent. BUN/CREATININE RATIO (test code=BUN/CREA) 1.8 10-20 CALCIUM (test code=CA) 7.3 mg/dL 8.5-10.1 BASIC METABOLIC [id number] 10:57:00* Test Item Value Reference Range Comments SODIUM (test code=NA) 140 mmol/L 136-145 POTASSIUM (test code=K) 3.5 mmol/L 3.5-5.1 CHLORIDE (test code=CL) 104.0 mmol/L 98-107 CARBON DIOXIDE (test code=CO2) mmol/L 21-32 ANION GAP (test code=GAP) 10-20 GLUCOSE (test code=GLU) mg/dL 74-106 BLOOD UREA NITROGEN (test code=BUN) mg/dL 7-18 GLOMERULAR FILTRATION RATE (test code=GFR) mL/min >=60 CREATININE (test code=CREAT) mg/dL 0.55-1.02 BUN/CREATININE RATIO (test code=BUN/CREA) 10-20 CALCIUM (test code=CA) mg/dL 8.5-10.1 [id number] 08:37:00* Test Item Value Reference Range Comments GLUBED (test code=GLUBED) 125 mg/dL 74-106 Performed by certified kst operator at [facility] [id number] 07:02:00* Test Item Value Reference Range Comments GLUBED (test code=GLUBED) 187 mg/dL 74-106 Performed by certified kst operator at [facility] [id number] 07:02:00* Test Item Value Reference Range Comments GLUBED (test code=GLUBED) 84 mg/dL 74-106 Performed by certified kst operator at [facility] HGB [id number] 19:03:00* Test Item Value Reference Range Comments HEMOGLOBIN (test code=HGB) 9.8 gram/dL 11.5-15.5 HEMATOCRIT (test code=HCT) 30.7 % 36.0-46.0 [id number] 06:04:00* Test Item Value Reference Range Comments GLUBED (test code=GLUBED) 65 mg/dL 74-106 Performed by certified kst operator at [facility] [id number] 06:04:00* Test Item Value Reference Range Comments GLUBED (test code=GLUBED) 67 mg/dL 74-106 Performed by certified kst operator at [facility] CBC W/AUTO [id number] 05:15:00* Test Item Value Reference Range Comments WHITE BLOOD CELL (test code=WBC) 5.5 K/mm3 4.5-12.5 RED BLOOD CELL (test code=RBC) 3.21 mill/mm3 3.7-5.2 HEMOGLOBIN (test code=HGB) 9.0 gram/dL 11.5-15.5 HEMATOCRIT (test code=HCT) 27.6 % 36.0-46.0 MEAN CELL VOLUME (test code=MCV) 86.0 fL 80-98 MEAN CELL HGB (test code=MCH) 28.0 picogram 27.0-33.0 MEAN CELL HGB CONCETRATION (test code=MCHC) 32.6 gram/dL 33.0-36.0 RED CELL DISTRIBUTION WIDTH (test code=RDW) 19.1 % 11.6-16.2 RED CELL DISTRIBUTION WIDTH SD (test code=RDW-SD) 60.2 fL 37.0-51.0 PLATELET COUNT (test code=PLT) 195 K/mm3 150-450 MEAN PLATELET VOLUME (test code=MPV) 10.3 fL 6.7-11.0 NEUTROPHIL % (test code=NT%) 56.5 % 39.0-69.0 IMMATURE GRANULOCYTE % (test code=IG%) 0.5 % 0.0-5.0 LYMPHOCYTE % (test code=LY%) 23.7 % 25.0-55.0 MONOCYTE % (test code=MO%) 13.1 % 0.0-10.0 EOSINOPHIL % (test code=EO%) 5.5 % 0.0-5.0 BASOPHIL % (test code=BA%) 0.7 % 0.0-1.0 NUCLEATED RBC % (test code=NRBC%) 0.0 % 0-0 NEUTROPHIL # (test code=NT#) 3.10 K/mm3 1.8-7.7 IMMATURE GRANULOCYTE # (test code=IG#) 0.03 x10 3/uL 0-0.03 LYMPHOCYTE # (test code=LY#) 1.30 K/mm3 1.0-5.0 MONOCYTE # (test code=MO#) 0.72 K/mm3 0-0.8 EOSINOPHIL # (test code=EO#) 0.30 K/mm3 0.0-0.5 BASOPHIL # (test code=BA#) 0.04 K/mm3 0.0-0.2 NUCLEATED RBC # (test code=NRBC#) 0.00 K/mm3 0.0-0.1 MANUAL DIFF REQUIRED (test code=MDIFF) NO BASIC METABOLIC [id number] 05:10:00* Test Item Value Reference Range Comments SODIUM (test code=NA) 139 mmol/L 136-145 POTASSIUM (test code=K) 3.7 mmol/L 3.5-5.1 CHLORIDE (test code=CL) 105.0 mmol/L 98-107 CARBON DIOXIDE (test code=CO2) 28.0 mmol/L 21-32 ANION GAP (test code=GAP) 9.7 10-20 GLUCOSE (test code=GLU) 88 mg/dL 74-106 BLOOD UREA NITROGEN (test code=BUN) 13 mg/dL 7-18 GLOMERULAR FILTRATION RATE (test code=GFR) 9 mL/min >=60 Estimated GFR by using Modified MDRD formula.Chronic kidney disease is defined as either kidney damageor GFR <60 mL/min/1.73 m2 for >3 months. CREATININE (test code=CREAT) 4.80 mg/dL 0.55-1.02 Note change in reference range due to change in reagent. BUN/CREATININE RATIO (test code=BUN/CREA) 2.7 10-20 CALCIUM (test code=CA) 7.6 mg/dL 8.5-10.1 BASIC METABOLIC [id number] 05:01:00* Test Item Value Reference Range Comments SODIUM (test code=NA) 139 mmol/L 136-145 POTASSIUM (test code=K) 3.7 mmol/L 3.5-5.1 CHLORIDE (test code=CL) 105.0 mmol/L 98-107 CARBON DIOXIDE (test code=CO2) mmol/L 21-32 ANION GAP (test code=GAP) 10-20 GLUCOSE (test code=GLU) mg/dL 74-106 BLOOD UREA NITROGEN (test code=BUN) mg/dL 7-18 GLOMERULAR FILTRATION RATE (test code=GFR) mL/min >=60 CREATININE (test code=CREAT) mg/dL 0.55-1.02 BUN/CREATININE RATIO (test code=BUN/CREA) 10-20 CALCIUM (test code=CA) mg/dL 8.5-10.1 BASIC METABOLIC [id number] 22:24:00* Test Item Value Reference Range Comments SODIUM (test code=NA) 139 mmol/L 136-145 POTASSIUM (test code=K) 3.9 mmol/L 3.5-5.1 CHLORIDE (test code=CL) 104.0 mmol/L 98-107 CARBON DIOXIDE (test code=CO2) 29.0 mmol/L 21-32 ANION GAP (test code=GAP) 9.9 10-20 GLUCOSE (test code=GLU) 73 mg/dL 74-106 BLOOD UREA NITROGEN (test code=BUN) 13 mg/dL 7-18 GLOMERULAR FILTRATION RATE (test code=GFR) 10 mL/min >=60 Estimated GFR by using Modified MDRD formula.Chronic kidney disease is defined as either kidney damageor GFR <60 mL/min/1.73 m2 for >3 months. CREATININE (test code=CREAT) 4.60 mg/dL 0.55-1.02 Note change in reference range due to change in reagent. BUN/CREATININE RATIO (test code=BUN/CREA) 2.8 10-20 CALCIUM (test code=CA) 7.5 mg/dL 8.5-10.1 [id number] 22:24:00* Test Item Value Reference Range Comments PHOSPHORUS (test code=PHOS) 3.9 mg/dL 2.5-4.9 [id number] 22:24:00* Test Item Value Reference Range Comments MAGNESIUM (test code=MAG) 1.6 mg/dL 1.8-2.4 PROTHROMBIN [id number] 22:22:00* Test Item Value Reference Range Comments PROTHROMBIN TIME PATIENT (test code=PTP) 13.8 seconds 9.0-14.0 INTERNATIONAL NORMAL RATIO (test code=INR) 1.2 0.8-1.2 The therapeutic range for oral anticoagulant therapy formost indications is an international normalized ratio (INR)of between 2.0 and 3.0. The recommended therapeutic INRrange for various clinical situations is listed below: Clinical Situation INR range Pulmonary e mbolism treatment (2.0-3.0)Venous thrombosis treatmentVenous thrombosis prophylaxis (high risk surgery)Prevention of systemic embolism from: Acute myocardial infarction Valvular heart disease Atrial fibrillation Mechanical prosthetic heart valves (2.5-3.5) IS PATIENT ON ANTICOAGULANTS? NTHROMBOPLASTIN TIME [id number] 22:22:00* Test Item Value Reference Range Comments THROMBOPLASTIN TIME PARTIAL (test code=PTT) 32.6 seconds 25.0-36.5 IS PATIENT ON ANTICOAGULANTS? NBASIC METABOLIC [id number] 22:18:00* Test Item Value Reference Range Comments SODIUM (test code=NA) 139 mmol/L 136-145 POTASSIUM (test code=K) 3.9 mmol/L 3.5-5.1 CHLORIDE (test code=CL) 104.0 mmol/L 98-107 CARBON DIOXIDE (test code=CO2) mmol/L 21-32 ANION GAP (test code=GAP) 10-20 GLUCOSE (test code=GLU) mg/dL 74-106 BLOOD UREA NITROGEN (test code=BUN) mg/dL 7-18 GLOMERULAR FILTRATION RATE (test code=GFR) mL/min >=60 CREATININE (test code=CREAT) mg/dL 0.55-1.02 BUN/CREATININE RATIO (test code=BUN/CREA) 10-20 CALCIUM (test code=CA) mg/dL 8.5-10.1 [id number] 22:18:00* Test Item Value Reference Range Comments PHOSPHORUS (test code=PHOS) mg/dL 2.5-4.9 [id number] 22:18:00* Test Item Value Reference Range Comments MAGNESIUM (test code=MAG) mg/dL 1.8-2.4 CBC W/AUTO [id number] 21:42:00* Test Item Value Reference Range Comments WHITE BLOOD CELL (test code=WBC) 6.2 K/mm3 4.5-12.5 RED BLOOD CELL (test code=RBC) 3.16 mill/mm3 3.7-5.2 HEMOGLOBIN (test code=HGB) 8.9 gram/dL 11.5-15.5 HEMATOCRIT (test code=HCT) 27.4 % 36.0-46.0 MEAN CELL VOLUME (test code=MCV) 86.7 fL 80-98 MEAN CELL HGB (test code=MCH) 28.2 picogram 27.0-33.0 MEAN CELL HGB CONCETRATION (test code=MCHC) 32.5 gram/dL 33.0-36.0 RED CELL DISTRIBUTION WIDTH (test code=RDW) 18.8 % 11.6-16.2 RED CELL DISTRIBUTION WIDTH SD (test code=RDW-SD) 60.4 fL 37.0-51.0 PLATELET COUNT (test code=PLT) 205 K/mm3 150-450 MEAN PLATELET VOLUME (test code=MPV) 9.9 fL 6.7-11.0 NEUTROPHIL % (test code=NT%) 51.7 % 39.0-69.0 IMMATURE GRANULOCYTE % (test code=IG%) 0.5 % 0.0-5.0 LYMPHOCYTE % (test code=LY%) 25.5 % 25.0-55.0 MONOCYTE % (test code=MO%) 17.4 % 0.0-10.0 EOSINOPHIL % (test code=EO%) 4.2 % 0.0-5.0 BASOPHIL % (test code=BA%) 0.7 % 0.0-1.0 NUCLEATED RBC % (test code=NRBC%) 0.0 % 0-0 NEUTROPHIL # (test code=NT#) 3.18 K/mm3 1.8-7.7 IMMATURE GRANULOCYTE # (test code=IG#) 0.03 x10 3/uL 0-0.03 LYMPHOCYTE # (test code=LY#) 1.57 K/mm3 1.0-5.0 MONOCYTE # (test code=MO#) 1.07 K/mm3 0-0.8 EOSINOPHIL # (test code=EO#) 0.26 K/mm3 0.0-0.5 BASOPHIL # (test code=BA#) 0.04 K/mm3 0.0-0.2 NUCLEATED RBC # (test code=NRBC#) 0.00 K/mm3 0.0-0.1 [id number] 12:30:00* Test Item Value Reference Range Comments GLUBED (test code=GLUBED) 80 mg/dL 74-106 Performed by certified kst operator at [facility] [id number] 05:32:00* Test Item Value Reference Range Comments GLUBED (test code=GLUBED) 58 mg/dL 74-106 Performed by certified kst operator at [facility] [id number] 20:00:00* Test Item Value Reference Range Comments GLUBED (test code=GLUBED) 98 mg/dL 74-106 Performed by certified kst operator at [facility] [id number] 15:54:00* Test Item Value Reference Range Comments GLUBED (test code=GLUBED) 88 mg/dL 74-106 Performed by certified kst operator at [facility] [id number] 11:39:00* Test Item Value Reference Range Comments GLUBED (test code=GLUBED) 87 mg/dL 74-106 Performed by certified kst operator at [facility] [id number] 08:47:00* Test Item Value Reference Range Comments GLUBED (test code=GLUBED) 80 mg/dL 74-106 Performed by certified kst operator at [facility] [id number] 21:44:00* Test Item Value Reference Range Comments GLUBED (test code=GLUBED) 138 mg/dL 74-106 Performed by certified kst operator at [facility] LIPID PROFILE (CORONARY RISK)2018-11-04 14:47:00* Test Item Value Reference Range Comments TRIGLYCERIDES (test code=TRIG) 101 mg/dL 20-150 CHOLESTEROL (test code=CHOL) 70 mg/dL 0-200 CHOLESTEROL/HDL RATIO (test code=CHOLHDL) 3.0 RATIO 0-4.9 RISK ASSOCIATED WITH CHOL/HDL RATIOS: Risk Male Female1/2 AVERAGE 3.43 3.27AVERAGE 4.97 4.442X AVERAGE 9.55 7.053X AVERAGE 23.39 11.04 REFERENCE VALUE IS RELATED TO RISK LEVELS ASRECOMMENDED BY THE [facility]. HEART, LUNG, AND BLOOD INST. HDL CHOLESTEROL (test code=HDL) 22 mg/dL 40-60 LIPOPROTEIN LDL (test code=LDL) 31 mg/dL 100-129 Reference Interval: mg/dL mmol/L Optimal <100 <2.6Near/above optimal 100-129 2.6- 3.3Borderline High 130-159 3.4-4.1High 160-189 4.1-4.9Very High >=190 >=4.9=========This LDL result is a direct measurement.========= FE W/TOTAL IRON BINDING CAP.2018-11-04 14:47:00* Test Item Value Reference Range Comments SERUM IRON (test code=IRON) 23 ug/dL 50-175 TOTAL IRON BINDING CAPACITY (test code=TIBC) 60 mcg/dL 250-450 IRON SATURATION (test code=FESAT) 38.33 % 13-45 VITAMIN [id number] 14:47:00* Test Item Value Reference Range Comments VITAMIN B12 (test code=VITB12) 990 pg/mL 193-986 FOLIC [id number] 14:47:00* Test Item Value Reference Range Comments FOLIC ACID (test code=FOL) 6.7 ng/mL 3.10-17.50 [id number] 14:47:00* Test Item Value Reference Range Comments FERRITIN (test code=PATRICIA) 1488 ng/mL 8-388 [id number] 14:46:00* Test Item Value Reference Range Comments GLYCOSYLATED HEMOGLOBIN (HA1C) (test code=GLYHGB) 6.3 % HbA1 4.8-6.0 ESTIMATED AVERAGE GLUCOSE (test code=EAG) 134 MG/DL T4 [id number] 09:02:00* Test Item Value Reference Range Comments T4 FREE (test code=T4F) 1.25 ng/dL 0.76-1.46 URINALYSIS [id number] 08:25:00* Test Item Value Reference Range Comments UA COLOR (test code=COLU) DELVIN YELLOW UA APPEARANCE (test code=APPU) Cloudy CLEAR UA GLUCOSE DIPSTICK (test code=DGLUU) 70 (1+) mg/dL NEGATIVE UA BILIRUBIN DIPSTICK (test code=BILU) NEGATIVE mg/dL NEGATIVE UA KETONE DIPSTICK (test code=KETU) NEGATIVE mg/dL NEGATIVE UA SPECIFIC GRAVITY (test code=SGU) 1.027 1.001-1.035 UA BLOOD DIPSTICK (test code=DAVI) 0.03 mg/dL (Trace) mg/dL NEGATIVE UA PH DIPSTICK (test code=JUMANA) 6.0 5.0-8.0 UA PROTEIN DIPSTICK (test code=PROU) 200 (2+) mg/dL NEGATIVE UA UROBILINIOGEN DIPSTICK (test code=URO) Normal mg/dL NEGATIVE UA NITRITE DIPSTICK (test code=CECI) NEGATIVE NEGATIVE UA LEUKOCYTE ESTERASE W REFLEX (test code=LEUUR) 25 Missael/uL (Trace) Missael/uL NEGATIVE UA WBC (test code=WBCU) 11-20 per HPF 0-5 UA RBC (test code=RBCU) 0-2 #/HPF 0-5 UA EPITHELIAL CELLS (test code=EPIU) MANY per HPF FEW UA BACTERIA (test code=BACU) FEW #/HPF NONE UA RENAL CELLS (test code=ARNALDO) 3-5 #/HPF 0-5 UA CALCIUM OXALATE CRYSTALS (test code=CAOXU) FEW #/HPF NONE UA HYALINE CAST (test code=HYALU) 6-10 #/LPF 0-5 UA AMORPHOUS SEDIMENT (test code=AMORU) MODERATE #/LPF NONE Urine Source? Clean CatchURINALYSIS [id number] 08:14:00* Test Item Value Reference Range Comments UA COLOR (test code=COLU) DELVIN YELLOW UA APPEARANCE (test code=APPU) Cloudy CLEAR UA GLUCOSE DIPSTICK (test code=DGLUU) 70 (1+) mg/dL NEGATIVE UA BILIRUBIN DIPSTICK (test code=BILU) NEGATIVE mg/dL NEGATIVE UA KETONE DIPSTICK (test code=KETU) NEGATIVE mg/dL NEGATIVE UA SPECIFIC GRAVITY (test code=SGU) 1.027 1.001-1.035 UA BLOOD DIPSTICK (test code=DAVI) 0.03 mg/dL (Trace) mg/dL NEGATIVE UA PH DIPSTICK (test code=JUMANA) 6.0 5.0-8.0 UA PROTEIN DIPSTICK (test code=PROU) 200 (2+) mg/dL NEGATIVE UA UROBILINIOGEN DIPSTICK (test code=URO) Normal mg/dL NEGATIVE UA NITRITE DIPSTICK (test code=CECI) NEGATIVE NEGATIVE UA LEUKOCYTE ESTERASE W REFLEX (test code=LEUUR) 25 Missael/uL (Trace) Missael/uL NEGATIVE UA WBC (test code=WBCU) per HPF 0-5 UA RBC (test code=RBCU) per HPF 0-5 UA EPITHELIAL CELLS (test code=EPIU) per HPF Few UA BACTERIA (test code=BACU) per HPF NONE Urine Source? Clean [id number] 06:39:00* Test Item Value Reference Range Comments GLUBED (test code=GLUBED) 177 mg/dL 74-106 Performed by certified kst [facility] Notified~ BASIC METABOLIC [id number] 06:13:00* Test Item Value Reference Range Comments SODIUM (test code=NA) 139 mmol/L 136-145 POTASSIUM (test code=K) 3.5 mmol/L 3.5-5.1 CHLORIDE (test code=CL) 102.0 mmol/L 98-107 CARBON DIOXIDE (test code=CO2) 29.0 mmol/L 21-32 ANION GAP (test code=GAP) 11.5 10-20 GLUCOSE (test code=GLU) 83 mg/dL 74-106 BLOOD UREA NITROGEN (test code=BUN) 13 mg/dL 7-18 GLOMERULAR FILTRATION RATE (test code=GFR) 10 mL/min >=60 Estimated GFR by using Modified MDRD formula.Chronic kidney disease is defined as either kidney damageor GFR <60 mL/min/1.73 m2 for >3 months. CREATININE (test code=CREAT) 4.40 mg/dL 0.55-1.02 Note change in reference range due to change in reagent. BUN/CREATININE RATIO (test code=BUN/CREA) 3.0 10-20 CALCIUM (test code=CA) 7.1 mg/dL 8.5-10.1 HEPATIC FUNCTION [id number] 06:13:00* Test Item Value Reference Range Comments TOTAL PROTEIN (test code=PROT) 4.4 gram/dL 6.4-8.2 ALBUMIN (test code=ALB) 1.4 g/dL 3.4-5.0 GLOBULIN (test code=GLOB) 3.0 gram/dL 2.7-4.2 ALBUMIN/GLOBULIN RATIO (test code=A/G) 0.5 0.75-1.50 BILIRUBIN TOTAL (test code=BILT) 0.60 mg/dL 0.0-1.0 BILIRUBIN DIRECT (test code=BILD) 0.23 mg/dL 0.0-0.20 SGOT/AST (test code=AST) 19 IUnit/L 15-37 SGPT/ALT (test code=ALT) 8 IUnit/L 12-78 ALKALINE PHOSPHATASE TOTAL (test code=ALKP) 177 IUnit/L 45-117 Note change in reference range due to change in reagent. THYROID STIMULATING [id number] 06:13:00* Test Item Value Reference Range Comments THYROID STIMULATING HORMONE (test code=TSH) 11.500 uIU/mL 0.36-3.74 TSH REFERENCE RANGES: EUTHYROID: 0.35 - 4.3 mIU/mL HYPO : > 5.5 mIU/mL HYPER : < 0.35 mIU/mL [id number] 06:13:00* Test Item Value Reference Range Comments TROPONIN-I (test code=TROPI) <0.015 ng/mL 0-0.045 [id number] 06:13:00* Test Item Value Reference Range Comments ACETAMINOPHEN (test code=ACET) < 10 mcg/mL 10-30 A RANGE OF 10-30 mcg/mL IS A THERAPEUTIC RANGE. TOXIC CONCENTRATIONS: >150 mcg/mL AT 4 HOURS AFTER INGESTION >=50 mcg/mL AT 12 HOURS AFTER INGESTION [id number] 06:13:00* Test Item Value Reference Range Comments SALICYLATE (test code=JONO) < 1.7 mg/dL 2.8-20.0 [id number] 05:59:00* Test Item Value Reference Range Comments AMMONIA (test code=AMM) < 10 umol/L 11-32 [id number] 05:59:00* Test Item Value Reference Range Comments MAGNESIUM (test code=MAG) 1.9 mg/dL 1.8-2.4 BASIC METABOLIC [id number] 05:49:00* Test Item Value Reference Range Comments SODIUM (test code=NA) 139 mmol/L 136-145 POTASSIUM (test code=K) 3.5 mmol/L 3.5-5.1 CHLORIDE (test code=CL) 102.0 mmol/L 98-107 CARBON DIOXIDE (test code=CO2) mmol/L 21-32 ANION GAP (test code=GAP) 10-20 GLUCOSE (test code=GLU) mg/dL 74-106 BLOOD UREA NITROGEN (test code=BUN) mg/dL 7-18 GLOMERULAR FILTRATION RATE (test code=GFR) mL/min >=60 CREATININE (test code=CREAT) mg/dL 0.55-1.02 BUN/CREATININE RATIO (test code=BUN/CREA) 10-20 CALCIUM (test code=CA) mg/dL 8.5-10.1 HEPATIC FUNCTION [id number] 05:49:00* Test Item Value Reference Range Comments TOTAL PROTEIN (test code=PROT) gram/dL 6.4-8.2 ALBUMIN (test code=ALB) g/dL 3.4-5.0 GLOBULIN (test code=GLOB) gram/dL 2.7-4.2 ALBUMIN/GLOBULIN RATIO (test code=A/G) 0.75-1.50 BILIRUBIN TOTAL (test code=BILT) mg/dL 0.0-1.0 BILIRUBIN DIRECT (test code=BILD) mg/dL 0.0-0.20 SGOT/AST (test code=AST) IUnit/L 15-37 SGPT/ALT (test code=ALT) IUnit/L 12-78 ALKALINE PHOSPHATASE TOTAL (test code=ALKP) IUnit/L 45-117 THYROID STIMULATING [id number] 05:49:00* Test Item Value Reference Range Comments THYROID STIMULATING HORMONE (test code=TSH) uIU/mL 0.36-3.74 [id number] 05:49:00* Test Item Value Reference Range Comments TROPONIN-I (test code=TROPI) ng/mL 0-0.045 [id number] 05:49:00* Test Item Value Reference Range Comments ACETAMINOPHEN (test code=ACET) mcg/mL 10-30 [id number] 05:49:00* Test Item Value Reference Range Comments SALICYLATE (test code=JONO) mg/dL 2.8-20.0 CBC W/AUTO [id number] 05:38:00* Test Item Value Reference Range Comments WHITE BLOOD CELL (test code=WBC) 9.1 K/mm3 4.5-12.5 RED BLOOD CELL (test code=RBC) 3.23 mill/mm3 3.7-5.2 HEMOGLOBIN (test code=HGB) 9.0 gram/dL 11.5-15.5 HEMATOCRIT (test code=HCT) 28.5 % 36.0-46.0 MEAN CELL VOLUME (test code=MCV) 88.2 fL 80-98 MEAN CELL HGB (test code=MCH) 27.9 picogram 27.0-33.0 MEAN CELL HGB CONCETRATION (test code=MCHC) 31.6 gram/dL 33.0-36.0 RED CELL DISTRIBUTION WIDTH (test code=RDW) 19.3 % 11.6-16.2 RED CELL DISTRIBUTION WIDTH SD (test code=RDW-SD) 63.1 fL 37.0-51.0 PLATELET COUNT (test code=PLT) 228 K/mm3 150-450 MEAN PLATELET VOLUME (test code=MPV) 9.8 fL 6.7-11.0 NEUTROPHIL % (test code=NT%) 56.9 % 39.0-69.0 IMMATURE GRANULOCYTE % (test code=IG%) 0.9 % 0.0-5.0 LYMPHOCYTE % (test code=LY%) 21.9 % 25.0-55.0 MONOCYTE % (test code=MO%) 15.7 % 0.0-10.0 EOSINOPHIL % (test code=EO%) 4.2 % 0.0-5.0 BASOPHIL % (test code=BA%) 0.4 % 0.0-1.0 NUCLEATED RBC % (test code=NRBC%) 0.0 % 0-0 NEUTROPHIL # (test code=NT#) 5.20 K/mm3 1.8-7.7 IMMATURE GRANULOCYTE # (test code=IG#) 0.08 x10 3/uL 0-0.03 LYMPHOCYTE # (test code=LY#) 2.00 K/mm3 1.0-5.0 MONOCYTE # (test code=MO#) 1.43 K/mm3 0-0.8 EOSINOPHIL # (test code=EO#) 0.38 K/mm3 0.0-0.5 BASOPHIL # (test code=BA#) 0.04 K/mm3 0.0-0.2 NUCLEATED RBC # (test code=NRBC#) 0.00 K/mm3 0.0-0.1 [id number] 05:21:00* Test Item Value Reference Range Comments GLUBED (test code=GLUBED) 69 mg/dL 74-106 Performed by certified kst operator at [facility] - CT HEAD/BRAIN W/O [id number] 05:08:00 Name: PRISCA TURNER [facility] : 1955 Age/S: 63 / F [address] [facility] Unit #: [id number] Loc: [place] [address] Phys: MANNY BILLY MD Acct: [id number] Dis Date: Status: REG ER PHONE #: [phone] Exam Date: 11/04/2018 0453 FAX #: [phone] Reason: Altered Mental Status EXAMS: CPT CODE: [id number] CT HEAD/BRAIN W/O CONT 71319 DICTATION LOCATION: 8 HISTORY: Female, 63 years of age with Altered Mental Status EXAM: CT BRAIN WITHOUT IV CONTRAST COMPARISON: Previous CT brain without contrast 10/22/2018 TECHNIQUE: Transaxial images were obtained through the brain without IV contrast. One or more of the following dose reduction techniques were used: Automated exposure control; adjustment of the mA and/or kV according to the patient size; and/or use of iterative reconstruction technique. FINDINGS: There is no acute intra- axial or extra-axial hemorrhage, mass, mass effect or midline shift. No acute loss of the cortical rebolledo/white junctions is seen. There is diffuse parenchymal atrophy consistent with patient age. Mild periventricular hypodensities are consistent with chronic small vessel ischemic disease. No calvarial fracture is seen. Small air-fluid level seen in the right maxillary sinus. Other sinuses and mastoids are clear. IMPRESSION: 1. No acute intracranial hemorrhage, infarct, or mass. 2. Age-related atrophy and chronic small vessel ischemic injuries. 3. Right maxillary sinus effusion. at 0508 Reported and signed by: Elva Soto MD CC: MANNY BILLY MD Technologist:CHAY RENEE CTDI: DLP: Trn scb Date/Time: 11/04/2018 (507) t.[email or web address].CLW Orig Print D/T : S: 11/04/2018 (0561) PAGE 1 Signed Report - XR CHEST 1 [id number] 05:07:00 FAX: MANNY BILLY MD [place]: St: REG Name: PRISCA CHANEY [facility] : [birth year] Age/S: 63/F [address] [facility] Unit #: [id number] Loc: [place] [address] Phys: MANNY BILLY MD Acct: [id number] Dis Date: Status: REG ER PHONE #: [phone] Exam Date: 11/04/2018 0433 FAX #: [phone] Reason: Altered Mental Status EXAMS: CPT CODE: [id number] XR CHEST 1 V 16518 Exam: Chest portable erect Location: H 12 History: Altered Mental Status Comparison: 07/26/2018 Findings: The lungs are clear. No in filtrate or effusion is seen. The pulmonary vasculature is normal. The hea rt size is normal. A pacemaker is in place. The mediastinal silhouette is unremarkable. The bony thorax is intact. A left IJ line is in place. Impression: No acute disease. Electronical ly Signed by Kiko Gaming on 11/04/2018 at 0507 Reported and signed by: Bulmaro Gaming M.D. CC: MANNY BILLY MD Technologist: MODE OWEN, RT Trnscrd Date/Time/By: 11/04/2018 (0507) : By: GriseldaFC Orig Print D/T: S: 11/04/2018 (0510) PAGE 1 Signed Report [id number] 15:55:00* Test Item Value Reference Range Comments GLUBED (test code=GLUBED) 58 mg/dL 74-106 Performed by certified kst operator at [facility] [id number] 15:54:00* Test Item Value Reference Range Comments GLUBED (test code=GLUBED) 101 mg/dL 74-106 [facility]ified [facility]~ [id number] 15:54:00* Test Item Value Reference Range Comments GLUBED (test code=GLUBED) 120 mg/dL 74-106 Performed by certified kst operator at [facility] [id number] 15:53:00* Test Item Value Reference Range Comments GLUBED (test code=GLUBED) 87 mg/dL 74-106 Performed by certified kst operator at [facility] [id number] 15:52:00* Test Item Value Reference Range Comments GLUBED (test code=GLUBED) 109 mg/dL 74-106 Performed by certified kst operator at [facility] [id number] 00:02:00* Test Item Value Reference Range Comments GLUBED (test code=GLUBED) 134 mg/dL 74-106 Performed by certified kst operator at [facility] [id number] 20:37:00* Test Item Value Reference Range Comments GLUBED (test code=GLUBED) 155 mg/dL 74-106 Performed by certified kst operator at [facility] [id number] 14:08:00* Test Item Value Reference Range Comments GLUBED (test code=GLUBED) 105 mg/dL 74-106 Performed by certified kst operator at [facility] BASIC METABOLIC [id number] 08:23:00* Test Item Value Reference Range Comments SODIUM (test code=NA) 138 mmol/L 136-145 POTASSIUM (test code=K) 3.4 mmol/L 3.5-5.1 CHLORIDE (test code=CL) 101.0 mmol/L 98-107 CARBON DIOXIDE (test code=CO2) 25.0 mmol/L 21-32 ANION GAP (test code=GAP) 15.4 10-20 GLUCOSE (test code=GLU) 48 mg/dL 74-106 Results called to [id number] by V.LAB.CF2 10/28/18 0752Critical results verified and read back by Nurse? Y BLOOD UREA NITROGEN (test code=BUN) 22 mg/dL 7-18 RESULT VERIFIED BY REPEAT ANALYSIS GLOMERULAR FILTRATION RATE (test code=GFR) 10 mL/min >=60 Estimated GFR by using Modified MDRD formula.Chronic kidney disease is defined as either kidney damageor GFR <60 mL/min/1.73 m2 for >3 months. CREATININE (test code=CREAT) 4.60 mg/dL 0.55-1.02 Note change in reference range due to change in reagent. BUN/CREATININE RATIO (test code=BUN/CREA) 4.8 10-20 CALCIUM (test code=CA) 8.2 mg/dL 8.5-10.1 [id number] 08:23:00* Test Item Value Reference Range Comments PHOSPHORUS (test code=PHOS) 2.5 mg/dL 2.5-4.9 [id number] 08:23:00* Test Item Value Reference Range Comments MAGNESIUM (test code=MAG) 2.1 mg/dL 1.8-2.4 BASIC METABOLIC [id number] 07:52:00* Test Item Value Reference Range Comments SODIUM (test code=NA) 138 mmol/L 136-145 POTASSIUM (test code=K) 3.4 mmol/L 3.5-5.1 CHLORIDE (test code=CL) 101.0 mmol/L 98-107 CARBON DIOXIDE (test code=CO2) 25.0 mmol/L 21-32 ANION GAP (test code=GAP) 15.4 10-20 GLUCOSE (test code=GLU) 48 mg/dL 74-106 Results called to [id number] by V.LAB.CF2 10/28/18 0752Critical results verified and read back by Nurse? Y BLOOD UREA NITROGEN (test code=BUN) 22 mg/dL 7-18 GLOMERULAR FILTRATION RATE (test code=GFR) 10 mL/min >=60 Estimated GFR by using Modified MDRD formula.Chronic kidney disease is defined as either kidney damageor GFR <60 mL/min/1.73 m2 for >3 months. CREATININE (test code=CREAT) 4.60 mg/dL 0.55-1.02 Note change in reference range due to change in reagent. BUN/CREATININE RATIO (test code=BUN/CREA) 4.8 10-20 CALCIUM (test code=CA) 8.2 mg/dL 8.5-10.1 [id number] 07:52:00* Test Item Value Reference Range Comments PHOSPHORUS (test code=PHOS) 2.5 mg/dL 2.5-4.9 [id number] 07:52:00* Test Item Value Reference Range Comments MAGNESIUM (test code=MAG) 2.1 mg/dL 1.8-2.4 BASIC METABOLIC [id number] 07:20:00* Test Item Value Reference Range Comments SODIUM (test code=NA) 138 mmol/L 136-145 POTASSIUM (test code=K) 3.4 mmol/L 3.5-5.1 CHLORIDE (test code=CL) 101.0 mmol/L 98-107 CARBON DIOXIDE (test code=CO2) mmol/L 21-32 ANION GAP (test code=GAP) 10-20 GLUCOSE (test code=GLU) mg/dL 74-106 BLOOD UREA NITROGEN (test code=BUN) mg/dL 7-18 GLOMERULAR FILTRATION RATE (test code=GFR) mL/min >=60 CREATININE (test code=CREAT) mg/dL 0.55-1.02 BUN/CREATININE RATIO (test code=BUN/CREA) 10-20 CALCIUM (test code=CA) mg/dL 8.5-10.1 [id number] 07:20:00* Test Item Value Reference Range Comments PHOSPHORUS (test code=PHOS) mg/dL 2.5-4.9 [id number] 07:20:00* Test Item Value Reference Range Comments MAGNESIUM (test code=MAG) mg/dL 1.8-2.4 CBC W/O [id number] 07:06:00* Test Item Value Reference Range Comments WHITE BLOOD CELL (test code=WBC) 26.8 K/mm3 4.5-12.5 RED BLOOD CELL (test code=RBC) 3.61 mill/mm3 3.7-5.2 HEMOGLOBIN (test code=HGB) 10.1 gram/dL 11.5-15.5 HEMATOCRIT (test code=HCT) 32.7 % 36.0-46.0 MEAN CELL VOLUME (test code=MCV) 90.6 fL 80-98 MEAN CELL HGB (test code=MCH) 28.0 picogram 27.0-33.0 MEAN CELL HGB CONCETRATION (test code=MCHC) 30.9 gram/dL 33.0-36.0 RED CELL DISTRIBUTION WIDTH (test code=RDW) 18.7 % 11.6-16.2 PLATELET COUNT (test code=PLT) 311 K/mm3 150-450 MEAN PLATELET VOLUME (test code=MPV) 10.5 fL 6.7-11.0 [id number] 20:54:00* Test Item Value Reference Range Comments GLUBED (test code=GLUBED) 132 mg/dL 74-106 Performed by certified kst operator at [facility] CBC W/MANUAL [id number] 17:25:00* Test Item Value Reference Range Comments WHITE BLOOD CELL (test code=WBC) 31.3 K/mm3 4.5-12.5 RESULT VERIFIED BY REPEAT ANALYSIS RED BLOOD CELL (test code=RBC) 3.85 mill/mm3 3.7-5.2 HEMOGLOBIN (test code=HGB) 10.7 gram/dL 11.5-15.5 HEMATOCRIT (test code=HCT) 34.1 % 36.0-46.0 MEAN CELL VOLUME (test code=MCV) 88.6 fL 80-98 MEAN CELL HGB (test code=MCH) 27.8 picogram 27.0-33.0 MEAN CELL HGB CONCETRATION (test code=MCHC) 31.4 gram/dL 33.0-36.0 RED CELL DISTRIBUTION WIDTH (test code=RDW) 18.6 % 11.6-16.2 RED CELL DISTRIBUTION WIDTH SD (test code=RDW-SD) 59.9 fL 37.0-51.0 PLATELET COUNT (test code=PLT) 296 K/mm3 150-450 MEAN PLATELET VOLUME (test code=MPV) 9.6 fL 6.7-11.0 IMMATURE GRANULOCYTE % (test code=IG%) 4.8 % 0.0-5.0 NUCLEATED RBC % (test code=NRBC%) 0.0 % 0-0 NEUTROPHIL # (test code=NT#) 25.09 K/mm3 1.8-7.7 IMMATURE GRANULOCYTE # (test code=IG#) 1.50 x10 3/uL 0-0.03 LYMPHOCYTE # (test code=LY#) 2.56 K/mm3 1.0-5.0 MONOCYTE # (test code=MO#) 1.99 K/mm3 0-0.8 EOSINOPHIL # (test code=EO#) 0.03 K/mm3 0.0-0.5 BASOPHIL # (test code=BA#) 0.17 K/mm3 0.0-0.2 NUCLEATED RBC # (test code=NRBC#) 0.00 K/mm3 0.0-0.1 MANUAL DIFF REQUIRED (test code=MDIFF) YES STAIN ACCEPTABILITY (test code=STN ACCEPTABLE) STAIN ACCEPTABLE TOTAL CELLS COUNTED (test code=TCC) 116 #CELLS SEGMENTED NEUTROPHILS (test code=SEG) 84.5 % 39-69 BAND NEUTROPHIL (test code=BAND) 0 % 0-10 LYMPHOCYTE (test code=LYMPH) 8.6 % 25-55 REACTIVE LYMPH (test code=RELYMPH) 0.8 % MONOCYTE (test code=MON) 5.2 % 0-10 EOSINOPHIL (test code=EOS) 0 % 0.0-5.0 BASOPHIL (test code=BASO) 0 % 0-1.0 METAMYELOCYTE (test code=META) 0.9 % 0-0 MYELOCYTE (test code=MYELO) 0 % 0.0-0.0 PROMYELOCYTE (test code=PROM) 0 % 0-0 POIKILOCYTOSIS (test code=POIK) 1+ ANISOCYTOSIS (test code=ANISO) 1+ PLATELET ESTIMATE (test code=PLTEST) ADEQUATE PLATELET MORPHOLOGY (test code=PLTMORPH) NORMAL IMMATURE FORMS (test code=IMMAT) 0 % 0-0 [id number] 16:34:00* Test Item Value Reference Range Comments GLUBED (test code=GLUBED) 105 mg/dL 74-106 Performed by certified kst operator at [facility] CBC W/MANUAL [id number] 15:28:00* Test Item Value Reference Range Comments WHITE BLOOD CELL (test code=WBC) 31.3 K/mm3 4.5-12.5 RESULT VERIFIED BY REPEAT ANALYSIS RED BLOOD CELL (test code=RBC) 3.85 mill/mm3 3.7-5.2 HEMOGLOBIN (test code=HGB) 10.7 gram/dL 11.5-15.5 HEMATOCRIT (test code=HCT) 34.1 % 36.0-46.0 MEAN CELL VOLUME (test code=MCV) 88.6 fL 80-98 MEAN CELL HGB (test code=MCH) 27.8 picogram 27.0-33.0 MEAN CELL HGB CONCETRATION (test code=MCHC) 31.4 gram/dL 33.0-36.0 RED CELL DISTRIBUTION WIDTH (test code=RDW) 18.6 % 11.6-16.2 RED CELL DISTRIBUTION WIDTH SD (test code=RDW-SD) 59.9 fL 37.0-51.0 PLATELET COUNT (test code=PLT) 296 K/mm3 150-450 MEAN PLATELET VOLUME (test code=MPV) 9.6 fL 6.7-11.0 IMMATURE GRANULOCYTE % (test code=IG%) 4.8 % 0.0-5.0 NUCLEATED RBC % (test code=NRBC%) 0.0 % 0-0 NEUTROPHIL # (test code=NT#) 25.09 K/mm3 1.8-7.7 IMMATURE GRANULOCYTE # (test code=IG#) 1.50 x10 3/uL 0-0.03 LYMPHOCYTE # (test code=LY#) 2.56 K/mm3 1.0-5.0 MONOCYTE # (test code=MO#) 1.99 K/mm3 0-0.8 EOSINOPHIL # (test code=EO#) 0.03 K/mm3 0.0-0.5 BASOPHIL # (test code=BA#) 0.17 K/mm3 0.0-0.2 NUCLEATED RBC # (test code=NRBC#) 0.00 K/mm3 0.0-0.1 MANUAL DIFF REQUIRED (test code=MDIFF) YES STAIN ACCEPTABILITY (test code=STN ACCEPTABLE) TOTAL CELLS COUNTED (test code=TCC) #CELLS SEGMENTED NEUTROPHILS (test code=SEG) % 39-69 LYMPHOCYTE (test code=LYMPH) % 25-55 MONOCYTE (test code=MON) % 0-10 MORPHOLOGY COMMENT (test code=MOC) PLATELET ESTIMATE (test code=PLTEST) PLATELET MORPHOLOGY (test code=PLTMORPH) 1243CBC W/MANUAL [id number] 15:27:00* Test Item Value Reference Range Comments WHITE BLOOD CELL (test code=WBC) 31.3 K/mm3 4.5-12.5 RESULT VERIFIED BY REPEAT ANALYSIS RED BLOOD CELL (test code=RBC) 3.85 mill/mm3 3.7-5.2 HEMOGLOBIN (test code=HGB) 10.7 gram/dL 11.5-15.5 HEMATOCRIT (test code=HCT) 34.1 % 36.0-46.0 MEAN CELL VOLUME (test code=MCV) 88.6 fL 80-98 MEAN CELL HGB (test code=MCH) 27.8 picogram 27.0-33.0 MEAN CELL HGB CONCETRATION (test code=MCHC) 31.4 gram/dL 33.0-36.0 RED CELL DISTRIBUTION WIDTH (test code=RDW) 18.6 % 11.6-16.2 RED CELL DISTRIBUTION WIDTH SD (test code=RDW-SD) 59.9 fL 37.0-51.0 PLATELET COUNT (test code=PLT) 296 K/mm3 150-450 MEAN PLATELET VOLUME (test code=MPV) 9.6 fL 6.7-11.0 IMMATURE GRANULOCYTE % (test code=IG%) 4.8 % 0.0-5.0 NUCLEATED RBC % (test code=NRBC%) 0.0 % 0-0 NEUTROPHIL # (test code=NT#) 25.09 K/mm3 1.8-7.7 IMMATURE GRANULOCYTE # (test code=IG#) 1.50 x10 3/uL 0-0.03 LYMPHOCYTE # (test code=LY#) 2.56 K/mm3 1.0-5.0 MONOCYTE # (test code=MO#) 1.99 K/mm3 0-0.8 EOSINOPHIL # (test code=EO#) 0.03 K/mm3 0.0-0.5 BASOPHIL # (test code=BA#) 0.17 K/mm3 0.0-0.2 NUCLEATED RBC # (test code=NRBC#) 0.00 K/mm3 0.0-0.1 MANUAL DIFF REQUIRED (test code=MDIFF) YES STAIN ACCEPTABILITY (test code=STN ACCEPTABLE) TOTAL CELLS COUNTED (test code=TCC) #CELLS SEGMENTED NEUTROPHILS (test code=SEG) % 39-69 LYMPHOCYTE (test code=LYMPH) % 25-55 MONOCYTE (test code=MON) % 0-10 EOSINOPHIL (test code=EOS) % 0.0-5.0 CABOT RINGS (test code=CAB) MORPHOLOGY COMMENT (test code=MOC) PLATELET ESTIMATE (test code=PLTEST) PLATELET MORPHOLOGY (test code=PLTMORPH) 1243CBC W/MANUAL [id number] 15:27:00* Test Item Value Reference Range Comments WHITE BLOOD CELL (test code=WBC) 31.3 K/mm3 4.5-12.5 RESULT VERIFIED BY REPEAT ANALYSIS RED BLOOD CELL (test code=RBC) 3.85 mill/mm3 3.7-5.2 HEMOGLOBIN (test code=HGB) 10.7 gram/dL 11.5-15.5 HEMATOCRIT (test code=HCT) 34.1 % 36.0-46.0 MEAN CELL VOLUME (test code=MCV) 88.6 fL 80-98 MEAN CELL HGB (test code=MCH) 27.8 picogram 27.0-33.0 MEAN CELL HGB CONCETRATION (test code=MCHC) 31.4 gram/dL 33.0-36.0 RED CELL DISTRIBUTION WIDTH (test code=RDW) 18.6 % 11.6-16.2 RED CELL DISTRIBUTION WIDTH SD (test code=RDW-SD) 59.9 fL 37.0-51.0 PLATELET COUNT (test code=PLT) 296 K/mm3 150-450 MEAN PLATELET VOLUME (test code=MPV) 9.6 fL 6.7-11.0 IMMATURE GRANULOCYTE % (test code=IG%) 4.8 % 0.0-5.0 NUCLEATED RBC % (test code=NRBC%) 0.0 % 0-0 NEUTROPHIL # (test code=NT#) 25.09 K/mm3 1.8-7.7 IMMATURE GRANULOCYTE # (test code=IG#) 1.50 x10 3/uL 0-0.03 LYMPHOCYTE # (test code=LY#) 2.56 K/mm3 1.0-5.0 MONOCYTE # (test code=MO#) 1.99 K/mm3 0-0.8 EOSINOPHIL # (test code=EO#) 0.03 K/mm3 0.0-0.5 BASOPHIL # (test code=BA#) 0.17 K/mm3 0.0-0.2 NUCLEATED RBC # (test code=NRBC#) 0.00 K/mm3 0.0-0.1 MANUAL DIFF REQUIRED (test code=MDIFF) YES STAIN ACCEPTABILITY (test code=STN ACCEPTABLE) TOTAL CELLS COUNTED (test code=TCC) #CELLS SEGMENTED NEUTROPHILS (test code=SEG) % 39-69 LYMPHOCYTE (test code=LYMPH) % 25-55 MONOCYTE (test code=MON) % 0-10 EOSINOPHIL (test code=EOS) % 0.0-5.0 CABOT RINGS (test code=CAB) MORPHOLOGY COMMENT (test code=MOC) PLATELET ESTIMATE (test code=PLTEST) PLATELET MORPHOLOGY (test code=PLTMORPH) 1243CBC W/MANUAL [id number] 15:27:00* Test Item Value Reference Range Comments WHITE BLOOD CELL (test code=WBC) 31.3 K/mm3 4.5-12.5 RESULT VERIFIED BY REPEAT ANALYSIS RED BLOOD CELL (test code=RBC) 3.85 mill/mm3 3.7-5.2 HEMOGLOBIN (test code=HGB) 10.7 gram/dL 11.5-15.5 HEMATOCRIT (test code=HCT) 34.1 % 36.0-46.0 MEAN CELL VOLUME (test code=MCV) 88.6 fL 80-98 MEAN CELL HGB (test code=MCH) 27.8 picogram 27.0-33.0 MEAN CELL HGB CONCETRATION (test code=MCHC) 31.4 gram/dL 33.0-36.0 RED CELL DISTRIBUTION WIDTH (test code=RDW) 18.6 % 11.6-16.2 RED CELL DISTRIBUTION WIDTH SD (test code=RDW-SD) 59.9 fL 37.0-51.0 PLATELET COUNT (test code=PLT) 296 K/mm3 150-450 MEAN PLATELET VOLUME (test code=MPV) 9.6 fL 6.7-11.0 IMMATURE GRANULOCYTE % (test code=IG%) 4.8 % 0.0-5.0 NUCLEATED RBC % (test code=NRBC%) 0.0 % 0-0 NEUTROPHIL # (test code=NT#) 25.09 K/mm3 1.8-7.7 IMMATURE GRANULOCYTE # (test code=IG#) 1.50 x10 3/uL 0-0.03 LYMPHOCYTE # (test code=LY#) 2.56 K/mm3 1.0-5.0 MONOCYTE # (test code=MO#) 1.99 K/mm3 0-0.8 EOSINOPHIL # (test code=EO#) 0.03 K/mm3 0.0-0.5 BASOPHIL # (test code=BA#) 0.17 K/mm3 0.0-0.2 NUCLEATED RBC # (test code=NRBC#) 0.00 K/mm3 0.0-0.1 MANUAL DIFF REQUIRED (test code=MDIFF) YES STAIN ACCEPTABILITY (test code=STN ACCEPTABLE) TOTAL CELLS COUNTED (test code=TCC) #CELLS SEGMENTED NEUTROPHILS (test code=SEG) % 39-69 LYMPHOCYTE (test code=LYMPH) % 25-55 MONOCYTE (test code=MON) % 0-10 EOSINOPHIL (test code=EOS) % 0.0-5.0 MORPHOLOGY COMMENT (test code=MOC) PLATELET ESTIMATE (test code=PLTEST) PLATELET MORPHOLOGY (test code=PLTMORPH) 1243CBC W/MANUAL [id number] 15:27:00* Test Item Value Reference Range Comments WHITE BLOOD CELL (test code=WBC) 31.3 K/mm3 4.5-12.5 RESULT VERIFIED BY REPEAT ANALYSIS RED BLOOD CELL (test code=RBC) 3.85 mill/mm3 3.7-5.2 HEMOGLOBIN (test code=HGB) 10.7 gram/dL 11.5-15.5 HEMATOCRIT (test code=HCT) 34.1 % 36.0-46.0 MEAN CELL VOLUME (test code=MCV) 88.6 fL 80-98 MEAN CELL HGB (test code=MCH) 27.8 picogram 27.0-33.0 MEAN CELL HGB CONCETRATION (test code=MCHC) 31.4 gram/dL 33.0-36.0 RED CELL DISTRIBUTION WIDTH (test code=RDW) 18.6 % 11.6-16.2 RED CELL DISTRIBUTION WIDTH SD (test code=RDW-SD) 59.9 fL 37.0-51.0 PLATELET COUNT (test code=PLT) 296 K/mm3 150-450 MEAN PLATELET VOLUME (test code=MPV) 9.6 fL 6.7-11.0 IMMATURE GRANULOCYTE % (test code=IG%) 4.8 % 0.0-5.0 NUCLEATED RBC % (test code=NRBC%) 0.0 % 0-0 NEUTROPHIL # (test code=NT#) 25.09 K/mm3 1.8-7.7 IMMATURE GRANULOCYTE # (test code=IG#) 1.50 x10 3/uL 0-0.03 LYMPHOCYTE # (test code=LY#) 2.56 K/mm3 1.0-5.0 MONOCYTE # (test code=MO#) 1.99 K/mm3 0-0.8 EOSINOPHIL # (test code=EO#) 0.03 K/mm3 0.0-0.5 BASOPHIL # (test code=BA#) 0.17 K/mm3 0.0-0.2 NUCLEATED RBC # (test code=NRBC#) 0.00 K/mm3 0.0-0.1 MANUAL DIFF REQUIRED (test code=MDIFF) YES STAIN ACCEPTABILITY (test code=STN ACCEPTABLE) TOTAL CELLS COUNTED (test code=TCC) #CELLS SEGMENTED NEUTROPHILS (test code=SEG) % 39-69 LYMPHOCYTE (test code=LYMPH) % 25-55 MONOCYTE (test code=MON) % 0-10 EOSINOPHIL (test code=EOS) % 0.0-5.0 CABOT RINGS (test code=CAB) MORPHOLOGY COMMENT (test code=MOC) PLATELET ESTIMATE (test code=PLTEST) PLATELET MORPHOLOGY (test code=PLTMORPH) [id number] 11:47:00* Test Item Value Reference Range Comments GLUBED (test code=GLUBED) 115 mg/dL 74-106 Per[facility]~ BASIC METABOLIC [id number] 06:37:00* Test Item Value Reference Range Comments SODIUM (test code=NA) 139 mmol/L 136-145 POTASSIUM (test code=K) 3.6 mmol/L 3.5-5.1 CHLORIDE (test code=CL) 105.0 mmol/L 98-107 CARBON DIOXIDE (test code=CO2) 23.0 mmol/L 21-32 ANION GAP (test code=GAP) 14.6 10-20 GLUCOSE (test code=GLU) 95 mg/dL 74-106 BLOOD UREA NITROGEN (test code=BUN) 14 mg/dL 7-18 RESULT VERIFIED BY REPEAT ANALYSIS GLOMERULAR FILTRATION RATE (test code=GFR) 13 mL/min >=60 Estimated GFR by using Modified MDRD formula.Chronic kidney disease is defined as either kidney damageor GFR <60 mL/min/1.73 m2 for >3 months. CREATININE (test code=CREAT) 3.50 mg/dL 0.55-1.02 Note change in reference range due to change in reagent. BUN/CREATININE RATIO (test code=BUN/CREA) 4.0 10-20 CALCIUM (test code=CA) 8.2 mg/dL 8.5-10.1 [id number] 06:37:00* Test Item Value Reference Range Comments MAGNESIUM (test code=MAG) 2.1 mg/dL 1.8-2.4 BASIC METABOLIC [id number] 06:19:00* Test Item Value Reference Range Comments SODIUM (test code=NA) 139 mmol/L 136-145 POTASSIUM (test code=K) 3.6 mmol/L 3.5-5.1 CHLORIDE (test code=CL) 105.0 mmol/L 98-107 CARBON DIOXIDE (test code=CO2) mmol/L 21-32 ANION GAP (test code=GAP) 10-20 GLUCOSE (test code=GLU) mg/dL 74-106 BLOOD UREA NITROGEN (test code=BUN) mg/dL 7-18 GLOMERULAR FILTRATION RATE (test code=GFR) mL/min >=60 CREATININE (test code=CREAT) mg/dL 0.55-1.02 BUN/CREATININE RATIO (test code=BUN/CREA) 10-20 CALCIUM (test code=CA) mg/dL 8.5-10.1 [id number] 06:19:00* Test Item Value Reference Range Comments MAGNESIUM (test code=MAG) mg/dL 1.8-2.4 [id number] 17:32:00* Test Item Value Reference Range Comments GLUBED (test code=GLUBED) 114 mg/dL 74-106 [facility] [id number] 13:44:00* Test Item Value Reference Range Comments GLUBED (test code=GLUBED) 104 mg/dL 74-106 [facility] BASIC METABOLIC [id number] 13:38:00* Test Item Value Reference Range Comments SODIUM (test code=NA) 141 mmol/L 136-145 POTASSIUM (test code=K) 3.4 mmol/L 3.5-5.1 CHLORIDE (test code=CL) 104.0 mmol/L 98-107 CARBON DIOXIDE (test code=CO2) 27.0 mmol/L 21-32 ANION GAP (test code=GAP) 13.4 10-20 GLUCOSE (test code=GLU) 111 mg/dL 74-106 BLOOD UREA NITROGEN (test code=BUN) 31 mg/dL 7-18 GLOMERULAR FILTRATION RATE (test code=GFR) 7 mL/min >=60 Estimated GFR by using Modified MDRD formula.Chronic kidney disease is defined as either kidney damageor GFR <60 mL/min/1.73 m2 for >3 months. CREATININE (test code=CREAT) 5.90 mg/dL 0.55-1.02 Note change in reference range due to change in reagent. BUN/CREATININE RATIO (test code=BUN/CREA) 5.3 10-20 CALCIUM (test code=CA) 8.1 mg/dL 8.5-10.1 PT HARD STICK (YUMIKO)@V.LAB.SP3 10/26/18 [id number] 13:38:00* Test Item Value Reference Range Comments PHOSPHORUS (test code=PHOS) 4.4 mg/dL 2.5-4.9 PT HARD STICK (YUMIKO)@V.LAB.SP3 10/26/18 [id number] 13:38:00* Test Item Value Reference Range Comments MAGNESIUM (test code=MAG) 1.7 mg/dL 1.8-2.4 PT HARD STICK (YUMIKO)@V.LAB.SP3 10/26/18 0638BASIC METABOLIC [id number] 13:32:00* Test Item Value Reference Range Comments SODIUM (test code=NA) 141 mmol/L 136-145 POTASSIUM (test code=K) 3.4 mmol/L 3.5-5.1 CHLORIDE (test code=CL) 104.0 mmol/L 98-107 CARBON DIOXIDE (test code=CO2) mmol/L 21-32 ANION GAP (test code=GAP) 10-20 GLUCOSE (test code=GLU) mg/dL 74-106 BLOOD UREA NITROGEN (test code=BUN) mg/dL 7-18 GLOMERULAR FILTRATION RATE (test code=GFR) mL/min >=60 CREATININE (test code=CREAT) mg/dL 0.55-1.02 BUN/CREATININE RATIO (test code=BUN/CREA) 10-20 CALCIUM (test code=CA) mg/dL 8.5-10.1 PT HARD STICK (YUMIKO)@[employer].3 10/26/18 [id number] 13:32:00* Test Item Value Reference Range Comments PHOSPHORUS (test code=PHOS) mg/dL 2.5-4.9 PT HARD STICK (YUMIKO)@[employer].3 10/26/18 [id number] 13:32:00* Test Item Value Reference Range Comments MAGNESIUM (test code=MAG) mg/dL 1.8-2.4 PT HARD STICK (YUMIKO)@[employer].3 10/26/18 0638CBC W/O [id number] 13:10:00* Test Item Value Reference Range Comments WHITE BLOOD CELL (test code=WBC) 31.3 K/mm3 4.5-12.5 RESULT VERIFIED BY REPEAT ANALYSIS RED BLOOD CELL (test code=RBC) 3.42 mill/mm3 3.7-5.2 HEMOGLOBIN (test code=HGB) 9.5 gram/dL 11.5-15.5 HEMATOCRIT (test code=HCT) 29.7 % 36.0-46.0 MEAN CELL VOLUME (test code=MCV) 86.8 fL 80-98 MEAN CELL HGB (test code=MCH) 27.8 picogram 27.0-33.0 MEAN CELL HGB CONCETRATION (test code=MCHC) 32.0 gram/dL 33.0-36.0 RED CELL DISTRIBUTION WIDTH (test code=RDW) 18.4 % 11.6-16.2 PLATELET COUNT (test code=PLT) 328 K/mm3 150-450 MEAN PLATELET VOLUME (test code=MPV) 10.5 fL 6.7-11.0 PT HARD STICK PER (YUMIKO)@[employer].LAB.SP3 10/26/18 [id number] 08:21:00* Test Item Value Reference Range Comments GLUBED (test code=GLUBED) 110 mg/dL 74-106 [facility] CBC W/MANUAL [id number] 23:14:00* Test Item Value Reference Range Comments WHITE BLOOD CELL (test code=WBC) 31.8 K/mm3 4.5-12.5 RESULT VERIFIED BY REPEAT ANALYSIS RED BLOOD CELL (test code=RBC) 3.57 mill/mm3 3.7-5.2 HEMOGLOBIN (test code=HGB) 10.0 gram/dL 11.5-15.5 HEMATOCRIT (test code=HCT) 31.4 % 36.0-46.0 MEAN CELL VOLUME (test code=MCV) 88.0 fL 80-98 MEAN CELL HGB (test code=MCH) 28.0 picogram 27.0-33.0 MEAN CELL HGB CONCETRATION (test code=MCHC) 31.8 gram/dL 33.0-36.0 RED CELL DISTRIBUTION WIDTH (test code=RDW) 18.2 % 11.6-16.2 RED CELL DISTRIBUTION WIDTH SD (test code=RDW-SD) 59.2 fL 37.0-51.0 PLATELET COUNT (test code=PLT) 303 K/mm3 150-450 MEAN PLATELET VOLUME (test code=MPV) 10.2 fL 6.7-11.0 IMMATURE GRANULOCYTE % (test code=IG%) 2.8 % 0.0-5.0 NUCLEATED RBC % (test code=NRBC%) 0.0 % 0-0 NEUTROPHIL # (test code=NT#) 26.79 K/mm3 1.8-7.7 IMMATURE GRANULOCYTE # (test code=IG#) 0.88 x10 3/uL 0-0.03 LYMPHOCYTE # (test code=LY#) 1.69 K/mm3 1.0-5.0 MONOCYTE # (test code=MO#) 2.22 K/mm3 0-0.8 EOSINOPHIL # (test code=EO#) 0.07 K/mm3 0.0-0.5 BASOPHIL # (test code=BA#) 0.15 K/mm3 0.0-0.2 NUCLEATED RBC # (test code=NRBC#) 0.00 K/mm3 0.0-0.1 MANUAL DIFF REQUIRED (test code=MDIFF) YES STAIN ACCEPTABILITY (test code=STN ACCEPTABLE) STAIN ACCEPTABLE TOTAL CELLS COUNTED (test code=TCC) 114 #CELLS SEGMENTED NEUTROPHILS (test code=SEG) 91.2 % 39-69 BAND NEUTROPHIL (test code=BAND) 2.6 % 0-10 LYMPHOCYTE (test code=LYMPH) 3.5 % 25-55 REACTIVE LYMPH (test code=RELYMPH) 0 % MONOCYTE (test code=MON) 1.8 % 0-10 EOSINOPHIL (test code=EOS) 0.9 % 0.0-5.0 BASOPHIL (test code=BASO) 0 % 0-1.0 METAMYELOCYTE (test code=META) 0 % 0-0 MYELOCYTE (test code=MYELO) 0 % 0.0-0.0 PROMYELOCYTE (test code=PROM) 0 % 0-0 POIKILOCYTOSIS (test code=POIK) 1+ MARLENE CELLS (test code=MARLENE) 1+ NONE PLATELET ESTIMATE (test code=PLTEST) ADEQUATE PLATELET MORPHOLOGY (test code=PLTMORPH) NORMAL IMMATURE FORMS (test code=IMMAT) 0 % 0-0 ANSWERV.LAB. 10/25/18 1742CBC W/MANUAL [id number] 22:46:00* Test Item Value Reference Range Comments WHITE BLOOD CELL (test code=WBC) 31.8 K/mm3 4.5-12.5 RESULT VERIFIED BY REPEAT ANALYSIS RED BLOOD CELL (test code=RBC) 3.57 mill/mm3 3.7-5.2 HEMOGLOBIN (test code=HGB) 10.0 gram/dL 11.5-15.5 HEMATOCRIT (test code=HCT) 31.4 % 36.0-46.0 MEAN CELL VOLUME (test code=MCV) 88.0 fL 80-98 MEAN CELL HGB (test code=MCH) 28.0 picogram 27.0-33.0 MEAN CELL HGB CONCETRATION (test code=MCHC) 31.8 gram/dL 33.0-36.0 RED CELL DISTRIBUTION WIDTH (test code=RDW) 18.2 % 11.6-16.2 RED CELL DISTRIBUTION WIDTH SD (test code=RDW-SD) 59.2 fL 37.0-51.0 PLATELET COUNT (test code=PLT) 303 K/mm3 150-450 MEAN PLATELET VOLUME (test code=MPV) 10.2 fL 6.7-11.0 IMMATURE GRANULOCYTE % (test code=IG%) 2.8 % 0.0-5.0 NUCLEATED RBC % (test code=NRBC%) 0.0 % 0-0 NEUTROPHIL # (test code=NT#) 26.79 K/mm3 1.8-7.7 IMMATURE GRANULOCYTE # (test code=IG#) 0.88 x10 3/uL 0-0.03 LYMPHOCYTE # (test code=LY#) 1.69 K/mm3 1.0-5.0 MONOCYTE # (test code=MO#) 2.22 K/mm3 0-0.8 EOSINOPHIL # (test code=EO#) 0.07 K/mm3 0.0-0.5 BASOPHIL # (test code=BA#) 0.15 K/mm3 0.0-0.2 NUCLEATED RBC # (test code=NRBC#) 0.00 K/mm3 0.0-0.1 MANUAL DIFF REQUIRED (test code=MDIFF) YES STAIN ACCEPTABILITY (test code=STN ACCEPTABLE) TOTAL CELLS COUNTED (test code=TCC) #CELLS SEGMENTED NEUTROPHILS (test code=SEG) % 39-69 LYMPHOCYTE (test code=LYMPH) % 25-55 MONOCYTE (test code=MON) % 0-10 EOSINOPHIL (test code=EOS) % 0.0-5.0 CABOT RINGS (test code=CAB) MORPHOLOGY COMMENT (test code=MOC) PLATELET ESTIMATE (test code=PLTEST) PLATELET MORPHOLOGY (test code=PLTMORPH) ANSWERV.LAB. 10/25/18 1742CBC W/MANUAL [id number] 22:46:00* Test Item Value Reference Range Comments WHITE BLOOD CELL (test code=WBC) 31.8 K/mm3 4.5-12.5 RESULT VERIFIED BY REPEAT ANALYSIS RED BLOOD CELL (test code=RBC) 3.57 mill/mm3 3.7-5.2 HEMOGLOBIN (test code=HGB) 10.0 gram/dL 11.5-15.5 HEMATOCRIT (test code=HCT) 31.4 % 36.0-46.0 MEAN CELL VOLUME (test code=MCV) 88.0 fL 80-98 MEAN CELL HGB (test code=MCH) 28.0 picogram 27.0-33.0 MEAN CELL HGB CONCETRATION (test code=MCHC) 31.8 gram/dL 33.0-36.0 RED CELL DISTRIBUTION WIDTH (test code=RDW) 18.2 % 11.6-16.2 RED CELL DISTRIBUTION WIDTH SD (test code=RDW-SD) 59.2 fL 37.0-51.0 PLATELET COUNT (test code=PLT) 303 K/mm3 150-450 MEAN PLATELET VOLUME (test code=MPV) 10.2 fL 6.7-11.0 IMMATURE GRANULOCYTE % (test code=IG%) 2.8 % 0.0-5.0 NUCLEATED RBC % (test code=NRBC%) 0.0 % 0-0 NEUTROPHIL # (test code=NT#) 26.79 K/mm3 1.8-7.7 IMMATURE GRANULOCYTE # (test code=IG#) 0.88 x10 3/uL 0-0.03 LYMPHOCYTE # (test code=LY#) 1.69 K/mm3 1.0-5.0 MONOCYTE # (test code=MO#) 2.22 K/mm3 0-0.8 EOSINOPHIL # (test code=EO#) 0.07 K/mm3 0.0-0.5 BASOPHIL # (test code=BA#) 0.15 K/mm3 0.0-0.2 NUCLEATED RBC # (test code=NRBC#) 0.00 K/mm3 0.0-0.1 MANUAL DIFF REQUIRED (test code=MDIFF) YES STAIN ACCEPTABILITY (test code=STN ACCEPTABLE) TOTAL CELLS COUNTED (test code=TCC) #CELLS SEGMENTED NEUTROPHILS (test code=SEG) % 39-69 LYMPHOCYTE (test code=LYMPH) % 25-55 MONOCYTE (test code=MON) % 0-10 EOSINOPHIL (test code=EOS) % 0.0-5.0 CABOT RINGS (test code=CAB) MORPHOLOGY COMMENT (test code=MOC) PLATELET ESTIMATE (test code=PLTEST) PLATELET MORPHOLOGY (test code=PLTMORPH) ANSWERV.LAB. 10/25/18 1742CBC W/MANUAL [id number] 22:46:00* Test Item Value Reference Range Comments WHITE BLOOD CELL (test code=WBC) 31.8 K/mm3 4.5-12.5 RESULT VERIFIED BY REPEAT ANALYSIS RED BLOOD CELL (test code=RBC) 3.57 mill/mm3 3.7-5.2 HEMOGLOBIN (test code=HGB) 10.0 gram/dL 11.5-15.5 HEMATOCRIT (test code=HCT) 31.4 % 36.0-46.0 MEAN CELL VOLUME (test code=MCV) 88.0 fL 80-98 MEAN CELL HGB (test code=MCH) 28.0 picogram 27.0-33.0 MEAN CELL HGB CONCETRATION (test code=MCHC) 31.8 gram/dL 33.0-36.0 RED CELL DISTRIBUTION WIDTH (test code=RDW) 18.2 % 11.6-16.2 RED CELL DISTRIBUTION WIDTH SD (test code=RDW-SD) 59.2 fL 37.0-51.0 PLATELET COUNT (test code=PLT) 303 K/mm3 150-450 MEAN PLATELET VOLUME (test code=MPV) 10.2 fL 6.7-11.0 IMMATURE GRANULOCYTE % (test code=IG%) 2.8 % 0.0-5.0 NUCLEATED RBC % (test code=NRBC%) 0.0 % 0-0 NEUTROPHIL # (test code=NT#) 26.79 K/mm3 1.8-7.7 IMMATURE GRANULOCYTE # (test code=IG#) 0.88 x10 3/uL 0-0.03 LYMPHOCYTE # (test code=LY#) 1.69 K/mm3 1.0-5.0 MONOCYTE # (test code=MO#) 2.22 K/mm3 0-0.8 EOSINOPHIL # (test code=EO#) 0.07 K/mm3 0.0-0.5 BASOPHIL # (test code=BA#) 0.15 K/mm3 0.0-0.2 NUCLEATED RBC # (test code=NRBC#) 0.00 K/mm3 0.0-0.1 MANUAL DIFF REQUIRED (test code=MDIFF) YES STAIN ACCEPTABILITY (test code=STN ACCEPTABLE) TOTAL CELLS COUNTED (test code=TCC) #CELLS SEGMENTED NEUTROPHILS (test code=SEG) % 39-69 LYMPHOCYTE (test code=LYMPH) % 25-55 MONOCYTE (test code=MON) % 0-10 EOSINOPHIL (test code=EOS) % 0.0-5.0 MORPHOLOGY COMMENT (test code=MOC) PLATELET ESTIMATE (test code=PLTEST) PLATELET MORPHOLOGY (test code=PLTMORPH) ANSWERV. 10/25/18 1742CBC W/MANUAL [id number] 22:46:00* Test Item Value Reference Range Comments WHITE BLOOD CELL (test code=WBC) 31.8 K/mm3 4.5-12.5 RESULT VERIFIED BY REPEAT ANALYSIS RED BLOOD CELL (test code=RBC) 3.57 mill/mm3 3.7-5.2 HEMOGLOBIN (test code=HGB) 10.0 gram/dL 11.5-15.5 HEMATOCRIT (test code=HCT) 31.4 % 36.0-46.0 MEAN CELL VOLUME (test code=MCV) 88.0 fL 80-98 MEAN CELL HGB (test code=MCH) 28.0 picogram 27.0-33.0 MEAN CELL HGB CONCETRATION (test code=MCHC) 31.8 gram/dL 33.0-36.0 RED CELL DISTRIBUTION WIDTH (test code=RDW) 18.2 % 11.6-16.2 RED CELL DISTRIBUTION WIDTH SD (test code=RDW-SD) 59.2 fL 37.0-51.0 PLATELET COUNT (test code=PLT) 303 K/mm3 150-450 MEAN PLATELET VOLUME (test code=MPV) 10.2 fL 6.7-11.0 IMMATURE GRANULOCYTE % (test code=IG%) 2.8 % 0.0-5.0 NUCLEATED RBC % (test code=NRBC%) 0.0 % 0-0 NEUTROPHIL # (test code=NT#) 26.79 K/mm3 1.8-7.7 IMMATURE GRANULOCYTE # (test code=IG#) 0.88 x10 3/uL 0-0.03 LYMPHOCYTE # (test code=LY#) 1.69 K/mm3 1.0-5.0 MONOCYTE # (test code=MO#) 2.22 K/mm3 0-0.8 EOSINOPHIL # (test code=EO#) 0.07 K/mm3 0.0-0.5 BASOPHIL # (test code=BA#) 0.15 K/mm3 0.0-0.2 NUCLEATED RBC # (test code=NRBC#) 0.00 K/mm3 0.0-0.1 MANUAL DIFF REQUIRED (test code=MDIFF) YES STAIN ACCEPTABILITY (test code=STN ACCEPTABLE) TOTAL CELLS COUNTED (test code=TCC) #CELLS SEGMENTED NEUTROPHILS (test code=SEG) % 39-69 LYMPHOCYTE (test code=LYMPH) % 25-55 MONOCYTE (test code=MON) % 0-10 MORPHOLOGY COMMENT (test code=MOC) PLATELET ESTIMATE (test code=PLTEST) PLATELET MORPHOLOGY (test code=PLTMORPH) ANSWERV.LAB. 10/25/18 1742CBC W/MANUAL [id number] 22:46:00* Test Item Value Reference Range Comments WHITE BLOOD CELL (test code=WBC) 31.8 K/mm3 4.5-12.5 RESULT VERIFIED BY REPEAT ANALYSIS RED BLOOD CELL (test code=RBC) 3.57 mill/mm3 3.7-5.2 HEMOGLOBIN (test code=HGB) 10.0 gram/dL 11.5-15.5 HEMATOCRIT (test code=HCT) 31.4 % 36.0-46.0 MEAN CELL VOLUME (test code=MCV) 88.0 fL 80-98 MEAN CELL HGB (test code=MCH) 28.0 picogram 27.0-33.0 MEAN CELL HGB CONCETRATION (test code=MCHC) 31.8 gram/dL 33.0-36.0 RED CELL DISTRIBUTION WIDTH (test code=RDW) 18.2 % 11.6-16.2 RED CELL DISTRIBUTION WIDTH SD (test code=RDW-SD) 59.2 fL 37.0-51.0 PLATELET COUNT (test code=PLT) 303 K/mm3 150-450 MEAN PLATELET VOLUME (test code=MPV) 10.2 fL 6.7-11.0 IMMATURE GRANULOCYTE % (test code=IG%) 2.8 % 0.0-5.0 NUCLEATED RBC % (test code=NRBC%) 0.0 % 0-0 NEUTROPHIL # (test code=NT#) 26.79 K/mm3 1.8-7.7 IMMATURE GRANULOCYTE # (test code=IG#) 0.88 x10 3/uL 0-0.03 LYMPHOCYTE # (test code=LY#) 1.69 K/mm3 1.0-5.0 MONOCYTE # (test code=MO#) 2.22 K/mm3 0-0.8 EOSINOPHIL # (test code=EO#) 0.07 K/mm3 0.0-0.5 BASOPHIL # (test code=BA#) 0.15 K/mm3 0.0-0.2 NUCLEATED RBC # (test code=NRBC#) 0.00 K/mm3 0.0-0.1 MANUAL DIFF REQUIRED (test code=MDIFF) YES STAIN ACCEPTABILITY (test code=STN ACCEPTABLE) TOTAL CELLS COUNTED (test code=TCC) #CELLS SEGMENTED NEUTROPHILS (test code=SEG) % 39-69 LYMPHOCYTE (test code=LYMPH) % 25-55 MONOCYTE (test code=MON) % 0-10 EOSINOPHIL (test code=EOS) % 0.0-5.0 CABOT RINGS (test code=CAB) MORPHOLOGY COMMENT (test code=MOC) PLATELET ESTIMATE (test code=PLTEST) PLATELET MORPHOLOGY (test code=PLTMORPH) ANSWERV.LAB 10/25/18 [id number] 20:38:00* Test Item Value Reference Range Comments GLUBED (test code=GLUBED) 164 mg/dL 74-106 Performed by certified kst operator at [facility] [id number] 16:52:00* Test Item Value Reference Range Comments GLUBED (test code=GLUBED) 109 mg/dL 74-106 [facility] [id number] 12:27:00* Test Item Value Reference Range Comments GLUBED (test code=GLUBED) 118 mg/dL 74-106 [facility] [id number] 08:31:00* Test Item Value Reference Range Comments GLUBED (test code=GLUBED) 128 mg/dL 74-106 [facility] BASIC METABOLIC [id number] 08:14:00* Test Item Value Reference Range Comments SODIUM (test code=NA) 140 mmol/L 136-145 POTASSIUM (test code=K) 3.4 mmol/L 3.5-5.1 CHLORIDE (test code=CL) 103.0 mmol/L 98-107 CARBON DIOXIDE (test code=CO2) 27.0 mmol/L 21-32 ANION GAP (test code=GAP) 13.4 10-20 GLUCOSE (test code=GLU) 132 mg/dL 74-106 BLOOD UREA NITROGEN (test code=BUN) 20 mg/dL 7-18 RESULT VERIFIED BY REPEAT ANALYSIS GLOMERULAR FILTRATION RATE (test code=GFR) 11 mL/min >=60 Estimated GFR by using Modified MDRD formula.Chronic kidney disease is defined as either kidney damageor GFR <60 mL/min/1.73 m2 for >3 months. CREATININE (test code=CREAT) 4.10 mg/dL 0.55-1.02 Note change in reference range due to change in reagent. BUN/CREATININE RATIO (test code=BUN/CREA) 4.9 10-20 CALCIUM (test code=CA) 8.0 mg/dL 8.5-10.1 PT MIKHAIL HUANG NOTIFIED LOU INGRAM @[employer].SP3 10/25/[id number] METABOLIC PANEL 2018-10-25 07:57:00* Test Item Value Reference Range Comments SODIUM (test code=NA) 140 mmol/L 136-145 POTASSIUM (test code=K) 3.4 mmol/L 3.5-5.1 CHLORIDE (test code=CL) 103.0 mmol/L 98-107 CARBON DIOXIDE (test code=CO2) mmol/L 21-32 ANION GAP (test code=GAP) 10-20 GLUCOSE (test code=GLU) mg/dL 74-106 BLOOD UREA NITROGEN (test code=BUN) mg/dL 7-18 GLOMERULAR FILTRATION RATE (test code=GFR) mL/min >=60 CREATININE (test code=CREAT) mg/dL 0.55-1.02 BUN/CREATININE RATIO (test code=BUN/CREA) 10-20 CALCIUM (test code=CA) mg/dL 8.5-10.1 PT Sandlot SolutionsJAYLAN HUANG NOTIFIED LOU INGRAM @[employer].SP3 10/25/[id number] 22:07:00* Test Item Value Reference Range Comments GLUBED (test code=GLUBED) 129 mg/dL 74-106 Performed by certified kst operator at [facility] AG HEPAT B [id number] 18:28:00* Test Item Value Reference Range Comments AG HEPAT B SURF (test code=HBSAG) Nonreactive Index Nonreactive BASIC METABOLIC [id number] 17:36:00* Test Item Value Reference Range Comments SODIUM (test code=NA) 139 mmol/L 136-145 POTASSIUM (test code=K) 3.6 mmol/L 3.5-5.1 CHLORIDE (test code=CL) 102.0 mmol/L 98-107 CARBON DIOXIDE (test code=CO2) 24.0 mmol/L 21-32 ANION GAP (test code=GAP) 16.6 10-20 GLUCOSE (test code=GLU) 107 mg/dL 74-106 BLOOD UREA NITROGEN (test code=BUN) 43 mg/dL 7-18 GLOMERULAR FILTRATION RATE (test code=GFR) 6 mL/min >=60 Estimated GFR by using Modified MDRD formula.Chronic kidney disease is defined as either kidney damageor GFR <60 mL/min/1.73 m2 for >3 months. CREATININE (test code=CREAT) 6.70 mg/dL 0.55-1.02 Note change in reference range due to change in reagent. BUN/CREATININE RATIO (test code=BUN/CREA) 6.4 10-20 CALCIUM (test code=CA) 7.7 mg/dL 8.5-10.1 LOU YORK WILL ASK DR IF SHE CAN DRAW FROM LINE AT 0600. PTHAS ARM CAST AND THE OTHER ARM IS LIMB ALERT V.LAB. [id number] 17:36:00* Test Item Value Reference Range Comments PHOSPHORUS (test code=PHOS) 5.5 mg/dL 2.5-4.9 LOU YORK WILL ASK DR IF SHE CAN DRAW FROM LINE AT 0600. PTHAS ARM CAST AND THE OTHER ARM IS LIMB ALERT V.LAB. [id number] 17:36:00* Test Item Value Reference Range Comments MAGNESIUM (test code=MAG) 1.9 mg/dL 1.8-2.4 LOU YORK WILL ASK DR IF SHE CAN DRAW FROM LINE AT 0600. PTHAS ARM CAST AND THE OTHER ARM IS LIMB ALERT V.LAB. 0714CBC W/O [id number] 17:24:00* Test Item Value Reference Range Comments WHITE BLOOD CELL (test code=WBC) 26.3 K/mm3 4.5-12.5 RED BLOOD CELL (test code=RBC) 3.48 mill/mm3 3.7-5.2 HEMOGLOBIN (test code=HGB) 9.6 gram/dL 11.5-15.5 HEMATOCRIT (test code=HCT) 31.0 % 36.0-46.0 MEAN CELL VOLUME (test code=MCV) 89.1 fL 80-98 MEAN CELL HGB (test code=MCH) 27.6 picogram 27.0-33.0 MEAN CELL HGB CONCETRATION (test code=MCHC) 31.0 gram/dL 33.0-36.0 RED CELL DISTRIBUTION WIDTH (test code=RDW) 17.6 % 11.6-16.2 PLATELET COUNT (test code=PLT) 280 K/mm3 150-450 MEAN PLATELET VOLUME (test code=MPV) 10.0 fL 6.7-11.0 RN CHELA WILL TRY TO DRAW FROM LINE, PT HAS A CAST ANDOTHER ARM IS A LIMB ALER T V.LAB.[facility] 10/24/18 [id number] 13:49:00* Test Item Value Reference Range Comments GLUBED (test code=GLUBED) 83 mg/dL 74-106 Performed by certified kst operator at [facility] [id number] 20:46:00* Test Item Value Reference Range Comments GLUBED (test code=GLUBED) 114 mg/dL 74-106 Performed by certified kst operator at [facility] [id number] 20:30:00* Test Item Value Reference Range Comments GLUBED (test code=GLUBED) 130 mg/dL 74-106 Performed by certified kst operator at [facility] SED RATE [id number] 17:06:00* Test Item Value Reference Range Comments SED RATE WESTERGREN (test code=SEDW) 31 mm/hr 0-20 HARD STICKV.LAB.[facility] 10/23/18 1414SED [id number] 17:06:00* Test Item Value Reference Range Comments SED RATE (test code=SEDW) 31 mm/hr 0-20 WINTROBE METHOD: NORMAL RANGE FOR MEN: 0-9 MM/HR WOMAN: 0-20 MM/HR HARD STICKV.LAB.[facility] 10/23/18 1414C REACTIVE [id number] 14:42:00* Test Item Value Reference Range Comments C REACTIVE PROTEIN (test code=CRP) 8.40 mg/dL 0-0.3 HARD STICKV.LAB.[facility] 10/23/18 [id number] 12:40:00* Test Item Value Reference Range Comments GLYCOSYLATED HEMOGLOBIN (HA1C) (test code=GLYHGB) 6.7 % HbA1 4.8-6.0 ESTIMATED AVERAGE GLUCOSE (test code=EAG) 146 MG/DL [id number] 12:29:00* Test Item Value Reference Range Comments GLUBED (test code=GLUBED) 121 mg/dL 74-106 Performed by certified kst operator at [facility] LIPID PROFILE (CORONARY RISK)2018-10-23 12:06:00* Test Item Value Reference Range Comments TRIGLYCERIDES (test code=TRIG) 105 mg/dL 20-150 CHOLESTEROL (test code=CHOL) 82 mg/dL 0-200 CHOLESTEROL/HDL RATIO (test code=CHOLHDL) 2.0 RATIO 0-4.9 RISK ASSOCIATED WITH CHOL/HDL RATIOS: Risk Male Female1/2 AVERAGE 3.43 3.27AVERAGE 4.97 4.442X AVERAGE 9.55 7.053X AVERAGE 23.39 11.04 REFERENCE VALUE IS RELATED TO RISK LEVELS ASRECOMMENDED BY THE [facility]. HEART, LUNG, AND BLOOD INST. HDL CHOLESTEROL (test code=HDL) 29 mg/dL 40-60 LIPOPROTEIN LDL (test code=LDL) 39 mg/dL 100-129 Reference Interval: mg/dL mmol/L Optimal <100 <2.6Near/above optimal 100-129 2.6- 3.3Borderline High 130-159 3.4-4.1High 160-189 4.1-4.9Very High >=190 >=4.9=========This LDL result is a direct measurement.========= [id number] 01:25:00* Test Item Value Reference Range Comments GLUBED (test code=GLUBED) 167 mg/dL 74-106 Performed by certified kst operator at [facility] PROTHROMBIN [id number] 22:33:00* Test Item Value Reference Range Comments PROTHROMBIN TIME PATIENT (test code=PTP) 13.0 seconds 9.0-14.0 INTERNATIONAL NORMAL RATIO (test code=INR) 1.1 0.8-1.2 The therapeutic range for oral anticoagulant therapy formost indications is an international normalized ratio (INR)of between 2.0 and 3.0. The recommended therapeutic INRrange for various clinical situations is listed below: Clinical Situation INR range Pulmonary e mbolism treatment (2.0-3.0)Venous thrombosis treatmentVenous thrombosis prophylaxis (high risk surgery)Prevention of systemic embolism from: Acute myocardial infarction Valvular heart disease Atrial fibrillation Mechanical prosthetic heart valves (2.5-3.5) IS PATIENT ON ANTICOAGULANTS? NTHROMBOPLASTIN TIME [id number] 22:33:00* Test Item Value Reference Range Comments THROMBOPLASTIN TIME PARTIAL (test code=PTT) 20.7 seconds 25.0-36.5 IS PATIENT ON ANTICOAGULANTS? NBASIC METABOLIC [id number] 22:04:00* Test Item Value Reference Range Comments SODIUM (test code=NA) 134 mmol/L 136-145 POTASSIUM (test code=K) 3.5 mmol/L 3.5-5.1 CHLORIDE (test code=CL) 100.0 mmol/L 98-107 CARBON DIOXIDE (test code=CO2) 26.0 mmol/L 21-32 ANION GAP (test code=GAP) 11.5 10-20 GLUCOSE (test code=GLU) 182 mg/dL 74-106 BLOOD UREA NITROGEN (test code=BUN) 27 mg/dL 7-18 GLOMERULAR FILTRATION RATE (test code=GFR) 11 mL/min >=60 Estimated GFR by using Modified MDRD formula.Chronic kidney disease is defined as either kidney damageor GFR <60 mL/min/1.73 m2 for >3 months. CREATININE (test code=CREAT) 4.20 mg/dL 0.55-1.02 Note change in reference range due to change in reagent. BUN/CREATININE RATIO (test code=BUN/CREA) 6.4 10-20 CALCIUM (test code=CA) 7.8 mg/dL 8.5-10.1 BASIC METABOLIC [id number] 21:59:00* Test Item Value Reference Range Comments SODIUM (test code=NA) 134 mmol/L 136-145 POTASSIUM (test code=K) 3.5 mmol/L 3.5-5.1 CHLORIDE (test code=CL) 100.0 mmol/L 98-107 CARBON DIOXIDE (test code=CO2) mmol/L 21-32 ANION GAP (test code=GAP) 10-20 GLUCOSE (test code=GLU) mg/dL 74-106 BLOOD UREA NITROGEN (test code=BUN) mg/dL 7-18 GLOMERULAR FILTRATION RATE (test code=GFR) mL/min >=60 CREATININE (test code=CREAT) mg/dL 0.55-1.02 BUN/CREATININE RATIO (test code=BUN/CREA) 10-20 CALCIUM (test code=CA) mg/dL 8.5-10.1 CBC W/O [id number] 21:34:00* Test Item Value Reference Range Comments WHITE BLOOD CELL (test code=WBC) 20.9 K/mm3 4.5-12.5 RED BLOOD CELL (test code=RBC) 3.45 mill/mm3 3.7-5.2 HEMOGLOBIN (test code=HGB) 9.6 gram/dL 11.5-15.5 HEMATOCRIT (test code=HCT) 31.6 % 36.0-46.0 MEAN CELL VOLUME (test code=MCV) 91.6 fL 80-98 MEAN CELL HGB (test code=MCH) 27.8 picogram 27.0-33.0 MEAN CELL HGB CONCETRATION (test code=MCHC) 30.4 gram/dL 33.0-36.0 RED CELL DISTRIBUTION WIDTH (test code=RDW) 17.1 % 11.6-16.2 PLATELET COUNT (test code=PLT) 245 K/mm3 150-450 MEAN PLATELET VOLUME (test code=MPV) 9.8 fL 6.7-11.0 - CT ABD PELVIS [id number] 20:54:00 Name: PRISCA TURNER [facility] : 1955 Age/S: 63 / F [address] [facility] Unit #: [id number] Loc: [place] [address] Phys: Josr Khalil MD Acct: [id number] Dis Date: Status: REG ER PHONE #: [phone] Exam Date: 10/22/20182029 FAX #: [phone] Reason: abd pain upper trauma EXAMS: CPT CODE: [id number] CT ABD PELVIS W/CONT 22893 HISTORY: Upper abdominal pain, trauma TECHNIQUE: Immediate and delayed [address] images were obtained through the abdomen and pelvis after IV administration of 100 mL of Isovue-370 contrast. Sagittal and coronal reformatted images were generated. Automated exposure control for dose reduction. COMPARISON: 04/22/15 FINDINGS: Mild left basilar subsegmental atelectasis. Cardiomegaly. Cardiac pacemaker. Distended gallbladder with small stones and sludge. No gallbladder wall thickening or pericholecystic fluid. No biliary dilation. Hepatomegaly. Pancreas, spleen, and adrenal glands are unremarkable. Atrophic bilateral kidneys. Limited evaluation the GI tract without oral contrast. Large hiatal hernia. Stomach and small bowel, and appendix are unremarkab le. Circumferential colon wall thickening, most notably affecting the ascending colon. Mild sigmoid diverticulosis. No free air. Stable mildly enlarged nodes near the left renal vessels. Aortoiliac atheroscle rotic vascular calcification without aneurysm. Urinary bladder is unremarkable. Hysterectomy. Trace pelvic free fluid. Degener ative changes of the spine, sacroiliac joints, and hips. Right hip pinning . IMPRESSION: Circumferential colon w all thickening, most notably affecting the ascending colon. Correlate wi th clinical evidence of infectious or inflammatory colitis. Mild sigmoid diverticulosis. Large hiatal hernia. Disten ded gallbladder with small stones and sludge. No CT evidence of acute ch olecystitis. No biliary dilation. PAGE 1 Signed Repor t (CONTINUED) Name: PRISCA TURNER [facility] : 1955 Age/S: 63 / F [address] Unit #: [id number] Loc: JOO Garcia 77 [address] Phys: Josr Khalil MD Acct: [id number] Dis Date: Status: REG ER PHONE #: [phone] Exam Date: 10/22/20182029 FAX #: [phone] Reason: abd pain upper trauma EXAMS: CPT CODE: [id number] CT ABD PELVIS W/CONT 55743 < Continued> at 2053 Reported and signed by: Ayaka Gu D.O. CC: Josr Khalil MD Technologist:Jean De RT(R)(CT) CTDI: DLP: Trnscb Date/Time: 10/22/2018 (2053) [email or web address] Orig Print D/T: S: 10/22/2018 (2056) PAGE 2 Signed Report - CT C-SPINE W/O CONTRAST 2018-10-22 20:48:00 Name: PRISCA TURNER [facility] : 1955 Age/S: 63 / F [address] Unit #: [id number] Loc: JOO Garcia [address] Phys: Josr Khalil MD Acct: [id number] Dis Date: Status: REG ER PHONE #: [phone] Exam Date: 10/22/20182029 FAX #: [phone] Reason: Neck Pain EXAMS: CPT CODE: [id number] CT C-SPINE W/O CONTRAST 05244 HISTORY: Neck Pain, trauma TECHNIQUE: 2.[address] of the cervical spine. Sagittal and coronal reformatted images were generated. Automated exposure control for dose reduction. COMPARISON: None FINDINGS: No acute fracture or subluxation. Craniocervical and cervicothoracic articulations are appropriate. Degenerative changes of the anterior atlantoaxial joint. Cervical levoscoliosis. Vertebral body alignment is satisfactory. Vertebral body heights are preserved. Moderate C5-C6 disc space loss with disc bulge, marginal osteophytes, and uncovertebral arthrosis. Mild disc space loss with disc bulge and marginal osteophytes at other cervical levels. No central canal stenosis. Mild left C5-C6 foraminal stenosis. No prevertebral or paraspinal soft tissue abnormality. Atherosclerotic vascular calcification of the carotid bifurcations. Lung apices are clear. IMPRESSION: No acute fracture or subluxation of the cervical spine. Electronicall y Signed by Ayaka Gu D.O. on 10/22/2018 at 2047 Reporte d and signed by: Ayaka Gu D.O. CC: Josr Khalil MD Technologist:Jean De RT(R)(CT) CTDI: DLP: Trnscb Date/Time: 10/22/2018 (2047) [email or web address] Orig Print D/T: S: 10/22/2018 (2051) PAGE 1 Signed Report - CT HEAD/BRAIN W/O [id number] 20:45:00 Name: PRISCA TURNER [facility] : 1955 Age/S: 63 / F [address] [facility] Unit #: [id number] Loc: [place] [address] Phys: Darnell Khalil MD Acct: [id number] Di s Date: Status: REG ER PHONE #: [phone] Exam Date: 10/22/20182029 FAX #: Reason: HEADACHE EXAMS: CPT CODE: [id number] CT HEAD/BRAIN W/O CONT 52347 HISTORY: HEADACHE, trauma TECHNIQUE: Noncontrast 2.[address] of the head. Examination acquired within 24 hours of arrival. Automated exposure control for dose reduction; DLP: 1537 mGy-cm. COMPARISON: None FINDINGS: No acute hemorrhage. No CT evidence of acute infarct. Mi ld periventricular chronic microvascular ischemic changes. No intrac ranial mass or mass effect. Mild global parenchymal atrophy with ex vacuo dilation of the ventricular system. No hydrocephalus. No extra-axial flui d collection. Atherosclerotic vascular calcification of the carotid siphon s. Visualized paranasal sinuses are clear. Mastoid air cells and m iddle ear cavities are clear. Bilateral lens implants. Calvarium and skull base are intact. IMPRESSION: No acute intracranial process. at 2044 Reported and signed by: Ayaka Gu D.O. CC: Josr Khalil MD Technologist:Jean De RT(R)(CT) CTDI: DLP: Tr nscb Date/Time: 10/22/2018 (2044) [email or web address] Orig Print D/ T: S: 10/22/2018 (2048) PAGE 1 Signed Report - XR CHEST 1 [id number] 20:29:00 FAX: Josr Khalil MD [phone] [place]: St: REG Name: PRISCA CHANEY [facility] : [birth year] Age/S: 63/F [address] [facility] Unit #: [id number] Loc: [place] [address] Phys: Josr Khalil MD Acct: [id number] Dis Date: Status: REG ER PHONE #: [phone] Exam Date: 10/22/20181944 FAX #: [phone] Reason: CHEST PAIN EXAMS: CPT CODE: [id number] XR CHEST 1 V 77522 HISTORY: CHEST PAIN, trauma TECHNIQUE: AP chest x-ray COMPARISON: 07/26/18 FINDINGS: No airspace consolidation or pleural effusion. Mild ca rdiomegaly. Cardiac pacemaker. Mediastinal silhouette is unremarkable. Nasir neled left IJ central venous catheter. Thoracic spondylosis. IMPRESSION: No radiographic evidence of acute cardiopulmona ry process. at 2028 Reported and signed by: Ayaka Gu D.O. CC: Josr Khalil MD Technol ogist: DANIELLE ANN RT(R) Trnscrd Date/Time/ By: 10/22/2018 (2028) : By: [email or web address] Orig Print D/T: S: 10/22/2018 (2 195) PAGE 1 Signed Report - XR WRIST 3 + V [id number] 20:29:00 FAX: Josr Khalil MD [phone] [place]: St: REG Name: PRISCA CHANEY [facility] : [birth year] Age/S: 63/F [address] [facility] Unit #: [id number] Loc: [place] [address] Phys: Josr Khalil MD Acct: [id number] Dis Date: Status: REG ER PHONE #: [phone] Exam Date: 10/22/20182004 FAX #: [phone] Reason: WRIST PAIN EXAMS: CPT CODE: [id number] XR WRIST 3 + V RT [id number] CLINICAL HISTORY: WRIST PAIN status post fall TECHNIQUE: AP, oblique, and lateral views of the right wrist COMPARISON: None FINDINGS: No a cute fracture or dislocation. Chronic posttraumatic deformity of the dista l radius and ulna. No cortical destruction or periosteal reaction. Osteope heraclio. Moderate-severe degenerative changes of the radiocarpal and intercarp al joints. Moderate degenerative changes of the 1st carpometacarpal and me tacarpophalangeal joints. Atherosclerotic vascular calcification. Regional soft tissues are unremarkable. IMPRESSION: No acute fracture or dislocation of the right breast. El ectronically Signed by Ayaka Gu D.O. on 10/22/2018 at 2028 Reported and signed by: Ayaka Gu D.O. CC: Josr Khalil MD Technologist: RT ROBBY(R) Trnscrd Date/Time/By: 10/22/2018 (2028) : By: Marlee [email or web address] Orig Print D/T: S: 10/22/2018 (2031) LAURA CASTANO 1 Signed Report - XR HUMERUS 2 + V [id number] 20:27:00 FAX: Josr Khalil MD [phone] [place]: St: REG Name: PRISCA CHANEY [facility] : [birth year] Age/S: 63/F [address] [facility] Unit #: [id number] Loc: JOO Allen [address] Phys: Josr Khalil MD Acct: [id number] Dis Date: Status: REG ER PHONE #: [phone] Exam Date: 10/22/2018 1950 FAX #: [phone] Reason: ARM PAIN EXAMS: CPT CODE: [id number] XR HUMERUS 2 + V RT 31072 CLINICAL HISTORY: ARM PAIN STATUS post fall TECHNIQUE: AP and lateral views of the right humerus COMPARISON: Elbow x-ray 09/17/18 FINDINGS: Mildly comminuted nondisplaced distal humeral diaphysis fracture which ap pears subacute, but new compared to 09/17/18. Bone cement is again observed at the distal end of the humerus at site of previous removed arthroplasty. Disarticulation of the radiohumeral joint is again observed. Heterotopic ossification about the joint and possible joint effusion. Elbow soft tiss ue swelling. Shoulder joint is unremarkable. Mild acromioclavicular arthro sis. IMPRESSION: Mildly comminuted non displaced distal humeral diaphysis fracture which appears subacute, but new compared to 09/17/18. at 2026 Reported and signed by: Ayaka Sol CC: Josr Khalil MD Technologist: DANIELLE ANN RT(R) Trnscrd Da te/Time/By: 10/22/2018 (2026) : By: [email or web address] Orig Print D/T: S: 10/22 (2029) PAGE 1 Signed Report - XR ELBOW 3 + V [id number] 20:25:00 FAX: Josr Khalil MD [phone] [place]: St: REG Name: PRISCA CHANEY [facility] : [birth year] Age/S: 63/F [address] [facility] Unit #: [id number] Loc: J[place] [address] Phys: Josr Khalil MD Acct: [id number] Dis Date: Status: REG ER PHONE #: [phone] Exam Date: 10/22/20181954 FAX #: [phone] Reason: ELBOW PAIN EXAMS: CPT CODE: [id number] XR ELBOW 3 + V RT [id number] CLINICAL HISTORY: ELBOW PAIN STATUS post fall TECHNIQUE: AP, oblique, and lateral views of the right elbow. COMPARISON: 09/17/18 FINDINGS: Mildly comminuted nondisplaced distal humeral diaphysis fracture which sandra ears subacute, but new compared to 09/17/18. Bone cement is again observed at the distal end of the humerus at site of previous removed arthroplasty. Disarticulation of the radiohumeral joint is again observed. Heterotopic ossification about the joint and possible joint effusion. Elbow soft tissu e swelling. IMPRESSION: Mildly comminu veronica nondisplaced distal humeral diaphysis fracture which appears subacut e, but new compared to 09/17/18. at 2024 Reported and signed by: Ayaka Gu D.O. CC: Josr Khalil MD Technologist: DANIELLE ANN RT(R); Sophia Mayberry nscrd Date/Time/By: 10/22/2018 (2024) : By: [email or web address] Orig Print D/T: S: 10/22/2018 (2028) PAGE 1 Shanna d Report - XR FOREARM 2 VIEWS [id number] 20:21:00 FAX: Josr Khalil MD [phone] [place]: St: REG Name: PRISCA CHANEY [facility] : [birth year] Age/S: 63/F [address] [facility] Unit #: [id number] Loc: [place] [address] Phys: Josr Khalil MD Acct: [id number] Dis Date: Status: REG ER PHONE #: [phone] Exam Date: 10/22/20181999 FAX #: [phone] Reason: FOREARM PAIN EXAMS: CPT CODE: [id number] XR [place] [address] [place] [address] CLINICAL HISTORY: FOREARM PAIN STATUS post fall TECHNIQUE: AP and lateral views of the right forearm COMPARISON: 07/26/18 FINDINGS: No acute fracture. Healed posttraumatic deformity of the distal radius and ulna. No cortical destruction or periosteal reaction. Osteopenia. Severe degener ative changes of the radiocarpal and intercarpal joints. Postsurgical lau ges of the distal humerus with disarticulation of the radius. Atherosclero tic vascular calcification. Regional soft tissues are unremarkable. IMPRESSION: No acute fracture or dislocation of the right forearm. Electronically Signed by Ayaka Gu D.O. on 0 10/22/2018 at 2020 Reported and signed by: Ayaka Gu D.O. CC: Josr Khalil MD Technologist: RT ROBBY(R) Trnzoya Da te/Time/By: 10/22/2018 (2020) : By: [email or web address] Orig Print D/T: S: 10/22 (2023) PAGE 1 Signed Report - XR HAND 3 + V [id number] 20:19:00 FAX: Josr Khalil MD [phone] [place]: St: REG Name: PRISCA CHANEY [facility] : [birth year] Age/S: 63/F [address] [facility] Unit #: [id number] Loc: [place] [address] Phys: Josr Khalil MD Acct: [id number] Dis Date: Status: REG ER PHONE #: [phone] Exam Date: 10/22/20182009 FAX #: [phone] Reason: HAND PAIN EXAMS: CPT CODE: [id number] XR HAND 3 + V RT [id number] CLINICAL HISTORY: HAND PAIN status post fall TECHNIQUE: AP, oblique, and lateral views of the right hand COMPARISON: None FINDINGS: No acu te fracture or dislocation. Chronic posttraumatic deformity of the distal radius and ulna. No cortical destruction or periosteal reaction. Osteopeni a. Moderate-severe degenerative changes of the radiocarpal and intercarpal joints. Moderate degenerative changes of the 1st carpometacarpal and meta carpophalangeal joints. Mild polyarticular degenerative interphalangeal de generative arthrosis. Atherosclerotic vascular calcification. Regional sof t tissues are unremarkable. IMPRESSION: No acute fracture or dislocation of the right hand. Electron ically Signed by Ayaka Gu D.O. on 10/22/2018 at 2019 Re ported and signed by: Ayaka Gu D.O. CC: Josr Khalil MD Technologist: RT ROBBY(R) Trnzoya Date/Time/By: 10/22/2018 (2019) : By: [email or web address] Orig Print D/T: S: 10/22/2018 (2022) PAGE 1 Signed Report PROCALCITONIN (PCT) 2018-09-17 14:46:00* Test Item Value Reference Range Comments PROCALCITONIN (PCT) (test code=PROCAL) 0.29 ng/ml Concentration Interpretation (ng/mL) <0.51 Sepsis is not likely. Local bacterial infection is possible. (LOW RISK for progression to Sepsis) 0.51 - 2.00 Sepsis is possible, but other conditions are known to elevate PCT as well. (MODERATE RISK for progression to Sepsis) > 2.00 Sepsis is likely, unless other causes are known. (HIGH RISK for progression to Severe Sepsis or Septic Shock) 10.00 High likelihood of Severe Sepsis or Septic or higher Shock. *Increased PCT levels may not always be related to systemic bacterial infection.*Low PCT levels do not automatically exclude the presence of bacterial infection.*All results should be interpreted taking into account the patients history. LACTIC [id number] 14:35:00* Test Item Value Reference Range Comments LACTIC ACID (test code=LACT) 0.9 mmol/L 0.4-1.9 BASIC METABOLIC [id number] 14:33:00* Test Item Value Reference Range Comments SODIUM (test code=NA) 137 mmol/L 136-145 POTASSIUM (test code=K) 4.4 mmol/L 3.5-5.1 CHLORIDE (test code=CL) 96.0 mmol/L 98-107 CARBON DIOXIDE (test code=CO2) 31.0 mmol/L 21-32 ANION GAP (test code=GAP) 14.4 10-20 GLUCOSE (test code=GLU) 51 mg/dL 74-106 BLOOD UREA NITROGEN (test code=BUN) 44 mg/dL 7-18 GLOMERULAR FILTRATION RATE (test code=GFR) 5 mL/min >=60 Estimated GFR by using Modified MDRD formula.Chronic kidney disease is defined as either kidney damageor GFR <60 mL/min/1.73 m2 for >3 months. CREATININE (test code=CREAT) 8.70 mg/dL 0.55-1.02 Note change in reference range due to change in reagent. BUN/CREATININE RATIO (test code=BUN/CREA) 5.1 10-20 CALCIUM (test code=CA) 8.1 mg/dL 8.5-10.1 - XR ELBOW 2 VIEWS [id number] 14:30:00 FAX: Felicia Kelly DO [place]: St: REG Name: PRISCA CHANEY [facility] : [birth year] Age/S: 63/F [address] [facility] Unit #: [id number] Loc: [place] [address] Phys: Felicia Kelly DO Acct: [id number] Dis Date: Status: REG ER PHONE #: [phone] Exam Date: 09/17/2018 1418 FAX #: [phone] Reason: elbow pain EXAMS: CPT CODE: [id number] XR [place] [address] [place] [address] EXAM: Right elbow, 2 views; INFORMATION: Right elbow pain; IMPRESSION: 1. Co mpared with a recent study from July 29, 2018 previously seen orthopedic hardware in the distal right humerus has been removed and replaced with bone cement. There is persistent dislocation of the right elbow joint w ith ossifications with a nearby soft tissues and there is significant so ft tissue swelling about the elbow joint. 2. No evidence of acute fractu re. at 1430 Rep orted and signed by: Asaf Alvarado M.D. CC: Felicia Adam DO Technologist: Mayra Delatorre RT (R) Trnscrd Date/Time/By: 09/17/2018 (1430) : By: Debo Orig Print D/T: S: 09/17/2018 (5123) PAGE 1 Signed Report BASIC METABOLIC [id number] 14:29:00* Test Item Value Reference Range Comments SODIUM (test code=NA) 137 mmol/L 136-145 POTASSIUM (test code=K) 4.4 mmol/L 3.5-5.1 CHLORIDE (test code=CL) 96.0 mmol/L 98-107 CARBON DIOXIDE (test code=CO2) mmol/L 21-32 ANION GAP (test code=GAP) 10-20 GLUCOSE (test code=GLU) mg/dL 74-106 BLOOD UREA NITROGEN (test code=BUN) mg/dL 7-18 GLOMERULAR FILTRATION RATE (test code=GFR) mL/min >=60 CREATININE (test code=CREAT) mg/dL 0.55-1.02 BUN/CREATININE RATIO (test code=BUN/CREA) 10-20 CALCIUM (test code=CA) mg/dL 8.5-10.1 CBC W/AUTO [id number] 14:23:00* Test Item Value Reference Range Comments WHITE BLOOD CELL (test code=WBC) 5.6 K/mm3 4.5-12.5 RED BLOOD CELL (test code=RBC) 2.64 mill/mm3 3.7-5.2 HEMOGLOBIN (test code=HGB) 7.1 gram/dL 11.5-15.5 HEMATOCRIT (test code=HCT) 22.3 % 36.0-46.0 MEAN CELL VOLUME (test code=MCV) 84.5 fL 80-98 MEAN CELL HGB (test code=MCH) 26.9 picogram 27.0-33.0 MEAN CELL HGB CONCETRATION (test code=MCHC) 31.8 gram/dL 33.0-36.0 RED CELL DISTRIBUTION WIDTH (test code=RDW) 17.2 % 11.6-16.2 RED CELL DISTRIBUTION WIDTH SD (test code=RDW-SD) 53.1 fL 37.0-51.0 PLATELET COUNT (test code=PLT) 158 K/mm3 150-450 MEAN PLATELET VOLUME (test code=MPV) 9.5 fL 6.7-11.0 NEUTROPHIL % (test code=NT%) 54.9 % 39.0-69.0 IMMATURE GRANULOCYTE % (test code=IG%) 0.5 % 0.0-5.0 LYMPHOCYTE % (test code=LY%) 29.1 % 25.0-55.0 MONOCYTE % (test code=MO%) 11.8 % 0.0-10.0 EOSINOPHIL % (test code=EO%) 3.2 % 0.0-5.0 BASOPHIL % (test code=BA%) 0.5 % 0.0-1.0 NUCLEATED RBC % (test code=NRBC%) 0.0 % 0-0 NEUTROPHIL # (test code=NT#) 3.07 K/mm3 1.8-7.7 IMMATURE GRANULOCYTE # (test code=IG#) 0.03 x10 3/uL 0-0.03 LYMPHOCYTE # (test code=LY#) 1.63 K/mm3 1.0-5.0 MONOCYTE # (test code=MO#) 0.66 K/mm3 0-0.8 EOSINOPHIL # (test code=EO#) 0.18 K/mm3 0.0-0.5 BASOPHIL # (test code=BA#) 0.03 K/mm3 0.0-0.2 NUCLEATED RBC # (test code=NRBC#) 0.00 K/mm3 0.0-0.1 MANUAL DIFF REQUIRED (test code=MDIFF) NO [id number] 08:53:00* Test Item Value Reference Range Comments GLUBED (test code=GLUBED) 148 mg/dL 74-106 Performed by certified kst operator at [facility] [id number] 05:21:00* Test Item Value Reference Range Comments GLUBED (test code=GLUBED) 190 mg/dL 74-106 Performed by certified kst operator at [facility] [id number] 23:59:00* Test Item Value Reference Range Comments GLUBED (test code=GLUBED) 296 mg/dL 74-106 Performed by certified kst operator at [facility] [id number] 16:08:00* Test Item Value Reference Range Comments GLUBED (test code=GLUBED) 237 mg/dL 74-106 Performed by certified kst operator at [facility] [id number] 16:08:00* Test Item Value Reference Range Comments GLUBED (test code=GLUBED) 141 mg/dL 74-106 Performed by certified kst operator at [facility] [id number] 16:08:00* Test Item Value Reference Range Comments GLUBED (test code=GLUBED) 149 mg/dL 74-106 Performed by certified kst operator at [facility] BASIC METABOLIC [id number] 11:12:00* Test Item Value Reference Range Comments SODIUM (test code=NA) 136 mmol/L 136-145 POTASSIUM (test code=K) 3.9 mmol/L 3.5-5.1 CHLORIDE (test code=CL) 99.0 mmol/L 98-107 CARBON DIOXIDE (test code=CO2) 26.0 mmol/L 21-32 ANION GAP (test code=GAP) 14.9 10-20 GLUCOSE (test code=GLU) 149 mg/dL 74-106 BLOOD UREA NITROGEN (test code=BUN) 61 mg/dL 7-18 GLOMERULAR FILTRATION RATE (test code=GFR) 7 mL/min >=60 Estimated GFR by using Modified MDRD formula.Chronic kidney disease is defined as either kidney damageor GFR <60 mL/min/1.73 m2 for >3 months. CREATININE (test code=CREAT) 6.00 mg/dL 0.55-1.02 Note change in reference range due to change in reagent. BUN/CREATININE RATIO (test code=BUN/CREA) 10.1 10-20 CALCIUM (test code=CA) 8.0 mg/dL 8.5-10.1 PT REFUSE NOTIFIED LOU THOMAS @V.LAB.SP3 07/30/18 [id number] 05:29:00* Test Item Value Reference Range Comments GLUBED (test code=GLUBED) 137 mg/dL 74-106 Performed by certified kst operator at [facility] [id number] 23:57:00* Test Item Value Reference Range Comments GLUBED (test code=GLUBED) 166 mg/dL 74-106 Performed by certified kst operator at [facility] [id number] 20:07:00* Test Item Value Reference Range Comments GLUBED (test code=GLUBED) 212 mg/dL 74-106 Performed by certified kst operator at [facility] [id number] 18:04:00* Test Item Value Reference Range Comments GLUBED (test code=GLUBED) 256 mg/dL 74-106 Performed by certified kst operator at [facility] [id number] 13:43:00* Test Item Value Reference Range Comments GLUBED (test code=GLUBED) 287 mg/dL 74-106 Performed by certified kst operator at [facility] CBC W/AUTO [id number] 10:54:00* Test Item Value Reference Range Comments WHITE BLOOD CELL (test code=WBC) 10.6 K/mm3 4.5-12.5 RED BLOOD CELL (test code=RBC) 3.08 mill/mm3 3.7-5.2 HEMOGLOBIN (test code=HGB) 8.5 gram/dL 11.5-15.5 HEMATOCRIT (test code=HCT) 27.0 % 36.0-46.0 MEAN CELL VOLUME (test code=MCV) 87.7 fL 80-98 MEAN CELL HGB (test code=MCH) 27.6 picogram 27.0-33.0 MEAN CELL HGB CONCETRATION (test code=MCHC) 31.5 gram/dL 33.0-36.0 RED CELL DISTRIBUTION WIDTH (test code=RDW) 17.5 % 11.6-16.2 RED CELL DISTRIBUTION WIDTH SD (test code=RDW-SD) 55.8 fL 37.0-51.0 PLATELET COUNT (test code=PLT) 182 K/mm3 150-450 MEAN PLATELET VOLUME (test code=MPV) 10.9 fL 6.7-11.0 NEUTROPHIL % (test code=NT%) 81.1 % 39.0-69.0 IMMATURE GRANULOCYTE % (test code=IG%) 0.7 % 0.0-5.0 LYMPHOCYTE % (test code=LY%) 10.3 % 25.0-55.0 MONOCYTE % (test code=MO%) 7.9 % 0.0-10.0 EOSINOPHIL % (test code=EO%) 0.0 % 0.0-5.0 BASOPHIL % (test code=BA%) 0.0 % 0.0-1.0 NUCLEATED RBC % (test code=NRBC%) 0.0 % 0-0 NEUTROPHIL # (test code=NT#) 8.58 K/mm3 1.8-7.7 IMMATURE GRANULOCYTE # (test code=IG#) 0.07 x10 3/uL 0-0.03 LYMPHOCYTE # (test code=LY#) 1.09 K/mm3 1.0-5.0 MONOCYTE # (test code=MO#) 0.84 K/mm3 0-0.8 EOSINOPHIL # (test code=EO#) 0.00 K/mm3 0.0-0.5 BASOPHIL # (test code=BA#) 0.00 K/mm3 0.0-0.2 NUCLEATED RBC # (test code=NRBC#) 0.00 K/mm3 0.0-0.1 1022- XR ELBOW 2 VIEWS [id number] 09:12:00 FAX: Jeremiah Paul MD [place]: St: [facility] FAX: Felix Jacobson MD [phone] Name: PRISCA TURNER [facility] : 1955 Age/S: 63/F [address] [facility] Unit #: [id number] Loc: V.[address] [place] [address] Phys: Felix Lee MD Acct: [id number] Dis Date: Status: ADM IN PHONE #: [phone] Exam Date: 07/29/2018 0845 FAX #: [phone] Reason: reduction EXAMS: CPT CODE: [id number] XR ELBOW [address] [place] [id number] EXAM: Right elbow, 2 views; INFORMATION: Dislocation; status post reduction; IMPRESSION: There is persistent dislocation of the elbow joint. Status post right elbow arthroplasty. at 0912 Reported and signed by: Asaf Alvarado M.D. CC: Jeremiah Aguilar MD; Felix Lee MD Technologist: Susie Dover) Trnscrd Date/Time/By: 07/29/2018 (0912) : By: GriseldaGRW Orig Print D/T: S: 07/29/2018 (2020) PAGE 1 Signed Report [id number] 08:50:00* Test Item Value Reference Range Comments GLUBED (test code=GLUBED) 321 mg/dL 74-106 Performed by certified kst operator at [facility] CBC W/AUTO [id number] 06:03:00* Test Item Value Reference Range Comments WHITE BLOOD CELL (test code=WBC) 10.3 K/mm3 4.5-12.5 RED BLOOD CELL (test code=RBC) 3.02 mill/mm3 3.7-5.2 HEMOGLOBIN (test code=HGB) 8.3 gram/dL 11.5-15.5 HEMATOCRIT (test code=HCT) 26.2 % 36.0-46.0 MEAN CELL VOLUME (test code=MCV) 86.8 fL 80-98 MEAN CELL HGB (test code=MCH) 27.5 picogram 27.0-33.0 MEAN CELL HGB CONCETRATION (test code=MCHC) 31.7 gram/dL 33.0-36.0 RED CELL DISTRIBUTION WIDTH (test code=RDW) 17.5 % 11.6-16.2 RED CELL DISTRIBUTION WIDTH SD (test code=RDW-SD) 55.8 fL 37.0-51.0 PLATELET COUNT (test code=PLT) 182 K/mm3 150-450 RESULT VERIFIED BY REPEAT ANALYSIS MEAN PLATELET VOLUME (test code=MPV) 11.1 fL 6.7-11.0 NEUTROPHIL % (test code=NT%) 84.0 % 39.0-69.0 IMMATURE GRANULOCYTE % (test code=IG%) 0.8 % 0.0-5.0 LYMPHOCYTE % (test code=LY%) 8.7 % 25.0-55.0 MONOCYTE % (test code=MO%) 6.4 % 0.0-10.0 EOSINOPHIL % (test code=EO%) 0.0 % 0.0-5.0 BASOPHIL % (test code=BA%) 0.1 % 0.0-1.0 NUCLEATED RBC % (test code=NRBC%) 0.0 % 0-0 NEUTROPHIL # (test code=NT#) 8.67 K/mm3 1.8-7.7 IMMATURE GRANULOCYTE # (test code=IG#) 0.08 x10 3/uL 0-0.03 LYMPHOCYTE # (test code=LY#) 0.90 K/mm3 1.0-5.0 MONOCYTE # (test code=MO#) 0.66 K/mm3 0-0.8 EOSINOPHIL # (test code=EO#) 0.00 K/mm3 0.0-0.5 BASOPHIL # (test code=BA#) 0.01 K/mm3 0.0-0.2 NUCLEATED RBC # (test code=NRBC#) 0.00 K/mm3 0.0-0.1 MANUAL DIFF REQUIRED (test code=MDIFF) NO BASIC METABOLIC [id number] 05:58:00* Test Item Value Reference Range Comments SODIUM (test code=NA) 133 mmol/L 136-145 POTASSIUM (test code=K) 4.4 mmol/L 3.5-5.1 CHLORIDE (test code=CL) 96.0 mmol/L 98-107 CARBON DIOXIDE (test code=CO2) 20.0 mmol/L 21-32 ANION GAP (test code=GAP) 21.4 10-20 GLUCOSE (test code=GLU) 349 mg/dL 74-106 BLOOD UREA NITROGEN (test code=BUN) 103 mg/dL 7-18 GLOMERULAR FILTRATION RATE (test code=GFR) 5 mL/min >=60 Estimated GFR by using Modified MDRD formula.Chronic kidney disease is defined as either kidney damageor GFR <60 mL/min/1.73 m2 for >3 months. CREATININE (test code=CREAT) 8.60 mg/dL 0.55-1.02 Note change in reference range due to change in reagent. BUN/CREATININE RATIO (test code=BUN/CREA) 12.0 10-20 CALCIUM (test code=CA) 7.6 mg/dL 8.5-10.1 [id number] 05:58:00* Test Item Value Reference Range Comments PHOSPHORUS (test code=PHOS) 7.5 mg/dL 2.5-4.9 [id number] 05:58:00* Test Item Value Reference Range Comments MAGNESIUM (test code=MAG) 1.9 mg/dL 1.8-2.4 BASIC METABOLIC [id number] 05:50:00* Test Item Value Reference Range Comments SODIUM (test code=NA) 133 mmol/L 136-145 POTASSIUM (test code=K) 4.4 mmol/L 3.5-5.1 CHLORIDE (test code=CL) 96.0 mmol/L 98-107 CARBON DIOXIDE (test code=CO2) mmol/L 21-32 ANION GAP (test code=GAP) 10-20 GLUCOSE (test code=GLU) mg/dL 74-106 BLOOD UREA NITROGEN (test code=BUN) mg/dL 7-18 GLOMERULAR FILTRATION RATE (test code=GFR) mL/min >=60 CREATININE (test code=CREAT) mg/dL 0.55-1.02 BUN/CREATININE RATIO (test code=BUN/CREA) 10-20 CALCIUM (test code=CA) mg/dL 8.5-10.1 [id number] 05:50:00* Test Item Value Reference Range Comments PHOSPHORUS (test code=PHOS) mg/dL 2.5-4.9 [id number] 05:50:00* Test Item Value Reference Range Comments MAGNESIUM (test code=MAG) mg/dL 1.8-2.4 [id number] 05:16:00* Test Item Value Reference Range Comments GLUBED (test code=GLUBED) 348 mg/dL 74-106 Performed by certified kst operator at [facility] [id number] 00:00:00* Test Item Value Reference Range Comments GLUBED (test code=GLUBED) 430 mg/dL 74-106 Performed by certified kst operator at [facility] [id number] 20:31:00* Test Item Value Reference Range Comments GLUBED (test code=GLUBED) 276 mg/dL 74-106 Performed by certified kst operator at [facility] [id number] 16:58:00* Test Item Value Reference Range Comments GLUBED (test code=GLUBED) 260 mg/dL 74-106 [facility]ified [facility]~ [id number] 12:16:00* Test Item Value Reference Range Comments GLUBED (test code=GLUBED) 240 mg/dL 74-106 Performed by certified kst operator at [facility] AB HEPATITIS B [id number] 12:13:00* Test Item Value Reference Range Comments AB HEPATITIS B SURFACE (test code=HBSAB) Reactive () Non Reactive: Inconsistent with immunity, less than 10 mIU/mL Reactive: Consistent with immunity, greater than 9.9 mIU/mLPerformed At: [facility] [id number] [place], [place] [id number] Gil Diaz MD Ph:[phone] BASIC METABOLIC [id number] 07:04:00* Test Item Value Reference Range Comments SODIUM (test code=NA) 135 mmol/L 136-145 POTASSIUM (test code=K) 4.7 mmol/L 3.5-5.1 CHLORIDE (test code=CL) 99.0 mmol/L 98-107 CARBON DIOXIDE (test code=CO2) 20.0 mmol/L 21-32 ANION GAP (test code=GAP) 20.7 10-20 GLUCOSE (test code=GLU) 275 mg/dL 74-106 BLOOD UREA NITROGEN (test code=BUN) 84 mg/dL 7-18 GLOMERULAR FILTRATION RATE (test code=GFR) 5 mL/min >=60 Estimated GFR by using Modified MDRD formula.Chronic kidney disease is defined as either kidney damageor GFR <60 mL/min/1.73 m2 for >3 months. CREATININE (test code=CREAT) 7.60 mg/dL 0.55-1.02 Note change in reference range due to change in reagent. BUN/CREATININE RATIO (test code=BUN/CREA) 11.1 10-20 CALCIUM (test code=CA) 7.8 mg/dL 8.5-10.1 [id number] 07:04:00* Test Item Value Reference Range Comments PHOSPHORUS (test code=PHOS) 7.4 mg/dL 2.5-4.9 [id number] 07:04:00* Test Item Value Reference Range Comments MAGNESIUM (test code=MAG) 2.0 mg/dL 1.8-2.4 BASIC METABOLIC [id number] 06:57:00* Test Item Value Reference Range Comments SODIUM (test code=NA) 135 mmol/L 136-145 POTASSIUM (test code=K) 4.7 mmol/L 3.5-5.1 CHLORIDE (test code=CL) 99.0 mmol/L 98-107 CARBON DIOXIDE (test code=CO2) mmol/L 21-32 ANION GAP (test code=GAP) 10-20 GLUCOSE (test code=GLU) mg/dL 74-106 BLOOD UREA NITROGEN (test code=BUN) mg/dL 7-18 GLOMERULAR FILTRATION RATE (test code=GFR) mL/min >=60 CREATININE (test code=CREAT) mg/dL 0.55-1.02 BUN/CREATININE RATIO (test code=BUN/CREA) 10-20 CALCIUM (test code=CA) mg/dL 8.5-10.1 [id number] 06:57:00* Test Item Value Reference Range Comments PHOSPHORUS (test code=PHOS) mg/dL 2.5-4.9 [id number] 06:57:00* Test Item Value Reference Range Comments MAGNESIUM (test code=MAG) mg/dL 1.8-2.4 CBC W/O [id number] 06:47:00* Test Item Value Reference Range Comments WHITE BLOOD CELL (test code=WBC) 7.4 K/mm3 4.5-12.5 RED BLOOD CELL (test code=RBC) 3.08 mill/mm3 3.7-5.2 HEMOGLOBIN (test code=HGB) 8.6 gram/dL 11.5-15.5 HEMATOCRIT (test code=HCT) 27.4 % 36.0-46.0 MEAN CELL VOLUME (test code=MCV) 89.0 fL 80-98 MEAN CELL HGB (test code=MCH) 27.9 picogram 27.0-33.0 MEAN CELL HGB CONCETRATION (test code=MCHC) 31.4 gram/dL 33.0-36.0 RED CELL DISTRIBUTION WIDTH (test code=RDW) 17.2 % 11.6-16.2 PLATELET COUNT (test code=PLT) 138 K/mm3 150-450 MEAN PLATELET VOLUME (test code=MPV) 11.7 fL 6.7-11.0 [id number] 06:02:00* Test Item Value Reference Range Comments GLUBED (test code=GLUBED) 268 mg/dL 74-106 Performed by certified kst operator at [facility] [id number] 01:09:00* Test Item Value Reference Range Comments GLUBED (test code=GLUBED) 209 mg/dL 74-106 Performed by certified kst operator at [facility] LACTIC [id number] 20:32:00* Test Item Value Reference Range Comments LACTIC ACID (test code=LACT) 1.2 mmol/L 0.4-1.9 CBC W/AUTO [id number] 19:45:00* Test Item Value Reference Range Comments WHITE BLOOD CELL (test code=WBC) 5.5 K/mm3 4.5-12.5 RED BLOOD CELL (test code=RBC) 3.03 mill/mm3 3.7-5.2 HEMOGLOBIN (test code=HGB) 8.5 gram/dL 11.5-15.5 HEMATOCRIT (test code=HCT) 27.3 % 36.0-46.0 MEAN CELL VOLUME (test code=MCV) 90.1 fL 80-98 MEAN CELL HGB (test code=MCH) 28.1 picogram 27.0-33.0 MEAN CELL HGB CONCETRATION (test code=MCHC) 31.1 gram/dL 33.0-36.0 RED CELL DISTRIBUTION WIDTH (test code=RDW) 17.1 % 11.6-16.2 RED CELL DISTRIBUTION WIDTH SD (test code=RDW-SD) 56.0 fL 37.0-51.0 PLATELET COUNT (test code=PLT) 123 K/mm3 150-450 MEAN PLATELET VOLUME (test code=MPV) 11.6 fL 6.7-11.0 IMMATURE GRANULOCYTE % (test code=IG%) 0.4 % 0.0-5.0 NUCLEATED RBC % (test code=NRBC%) 0.0 % 0-0 NEUTROPHIL # (test code=NT#) 4.98 K/mm3 1.8-7.7 IMMATURE GRANULOCYTE # (test code=IG#) 0.02 x10 3/uL 0-0.03 LYMPHOCYTE # (test code=LY#) 0.30 K/mm3 1.0-5.0 MONOCYTE # (test code=MO#) 0.21 K/mm3 0-0.8 EOSINOPHIL # (test code=EO#) 0.00 K/mm3 0.0-0.5 BASOPHIL # (test code=BA#) 0.01 K/mm3 0.0-0.2 NUCLEATED RBC # (test code=NRBC#) 0.00 K/mm3 0.0-0.1 MANUAL DIFF REQUIRED (test code=MDIFF) YES [id number] 18:04:00* Test Item Value Reference Range Comments GLUBED (test code=GLUBED) 197 mg/dL 74-106 Performed by certified kst operator at [facility] [id number] 17:03:00* Test Item Value Reference Range Comments TROPONIN-I (test code=TROPI) <0.015 ng/mL 0-0.045 LACTIC [id number] 16:24:00* Test Item Value Reference Range Comments LACTIC ACID (test code=LACT) 2.2 mmol/L 0.4-1.9 Results called to [id number] by V.[facility]. 07/27/18 1624Critical results verified and read back by Nurse? Y CBC W/MANUAL [id number] 16:23:00* Test Item Value Reference Range Comments WHITE BLOOD CELL (test code=WBC) 4.8 K/mm3 4.5-12.5 RED BLOOD CELL (test code=RBC) 2.67 mill/mm3 3.7-5.2 HEMOGLOBIN (test code=HGB) 7.3 gram/dL 11.5-15.5 HEMATOCRIT (test code=HCT) 23.5 % 36.0-46.0 MEAN CELL VOLUME (test code=MCV) 88.0 fL 80-98 MEAN CELL HGB (test code=MCH) 27.3 picogram 27.0-33.0 MEAN CELL HGB CONCETRATION (test code=MCHC) 31.1 gram/dL 33.0-36.0 RED CELL DISTRIBUTION WIDTH (test code=RDW) 17.6 % 11.6-16.2 RED CELL DISTRIBUTION WIDTH SD (test code=RDW-SD) 56.6 fL 37.0-51.0 PLATELET COUNT (test code=PLT) 112 K/mm3 150-450 MEAN PLATELET VOLUME (test code=MPV) 11.0 fL 6.7-11.0 IMMATURE GRANULOCYTE % (test code=IG%) 0.6 % 0.0-5.0 NUCLEATED RBC % (test code=NRBC%) 0.0 % 0-0 NEUTROPHIL # (test code=NT#) 4.33 K/mm3 1.8-7.7 IMMATURE GRANULOCYTE # (test code=IG#) 0.03 x10 3/uL 0-0.03 LYMPHOCYTE # (test code=LY#) 0.26 K/mm3 1.0-5.0 MONOCYTE # (test code=MO#) 0.14 K/mm3 0-0.8 EOSINOPHIL # (test code=EO#) 0.00 K/mm3 0.0-0.5 BASOPHIL # (test code=BA#) 0.00 K/mm3 0.0-0.2 NUCLEATED RBC # (test code=NRBC#) 0.00 K/mm3 0.0-0.1 MANUAL DIFF REQUIRED (test code=MDIFF) YES STAIN ACCEPTABILITY (test code=STN ACCEPTABLE) STAIN ACCEPTABLE TOTAL CELLS COUNTED (test code=TCC) 112 #CELLS SEGMENTED NEUTROPHILS (test code=SEG) 91.9 % 39-69 BAND NEUTROPHIL (test code=BAND) 0.9 % 0-10 LYMPHOCYTE (test code=LYMPH) 2.7 % 25-55 REACTIVE LYMPH (test code=RELYMPH) 0 % MONOCYTE (test code=MON) 4.5 % 0-10 EOSINOPHIL (test code=EOS) 0 % 0.0-5.0 BASOPHIL (test code=BASO) 0 % 0-1.0 METAMYELOCYTE (test code=META) 0 % 0-0 MYELOCYTE (test code=MYELO) 0 % 0.0-0.0 PROMYELOCYTE (test code=PROM) 0 % 0-0 POLYCHROMASIA (test code=POLC) 1+ HYPOCHROMIA (test code=HYPO) 1+ POIKILOCYTOSIS (test code=POIK) 2+ ANISOCYTOSIS (test code=ANISO) 1+ MICROCYTOSIS (test code=MICR) 1+ CRENATED CELLS (test code=CREN) 2+ PLATELET ESTIMATE (test code=PLTEST) DECREASED PLATELET MORPHOLOGY (test code=PLTMORPH) SIZE VARIABLE IMMATURE FORMS (test code=IMMAT) 0 % ARTERIAL BLOOD [id number] 16:16:00* Test Item Value Reference Range Comments ARTERIAL BLOOD GAS PH (test code=PHA) 7.48 7.35-7.45 ARTERIAL BLOOD GAS PCO2 (test code=PCO2A) 20.8 mm Hg 35-45 Results called to and read back by Emi 16:16 - 07/27/2018; by AIYANA OLIVARES MANAGER INTERMEDIATE-ACCS ARTERIAL BLOOD GAS PO2 (test code=PO2A) 161.6 mmHg 80-100 BICARBONATE TOTAL HCO3 (test code=HCO3) 15.2 mmol/L 23.0-27.0 BASE EXCESS (test code=RADHA) -7.1 mmol/L -3.0-5.0 Results called to and read back by Emi 16:16 - 07/27/2018; by AIYANA OLIVARES MANAGER INTERMEDIATE-ACCS ABG O2 SATURATION (test code=SATA) 98.5 % 90.0-98.0 ABG TYPE (test code=TYPEA) Arterial FIO2 (test code=FIO2A) 28.0 HEMATOCRIT (test code=HCT/ABG) 24 % 35-47 TOTAL HGB (test code=THB) 8.0 gram/dL 11.5-15.5 HGB O2 SAT (test code=HBOSAT) 97.7 % 94.00-98.00 CARBOXYHEMOGLOBIN (test code=HOHGBT) 0.8 %totalHg 0.5-1.5 METHEMOGLOBIN (test code=METHGB) 0.0 % 0.0-1.50 O2 CONTENT (test code=O2CT) 11.4 % vol 18.0-22.0 BASIC METABOLIC [id number] 16:09:00* Test Item Value Reference Range Comments SODIUM (test code=NA) 138 mmol/L 136-145 RESULT VERIFIED BY REPEAT ANALYSIS POTASSIUM (test code=K) 4.1 mmol/L 3.5-5.1 CHLORIDE (test code=CL) 101.0 mmol/L 98-107 CARBON DIOXIDE (test code=CO2) 22.0 mmol/L 21-32 ANION GAP (test code=GAP) 19.1 10-20 GLUCOSE (test code=GLU) 203 mg/dL 74-106 BLOOD UREA NITROGEN (test code=BUN) 68 mg/dL 7-18 GLOMERULAR FILTRATION RATE (test code=GFR) 6 mL/min >=60 Estimated GFR by using Modified MDRD formula.Chronic kidney disease is defined as either kidney damageor GFR <60 mL/min/1.73 m2 for >3 months. CREATININE (test code=CREAT) 6.70 mg/dL 0.55-1.02 Note change in reference range due to change in reagent. BUN/CREATININE RATIO (test code=BUN/CREA) 10.1 10-20 CALCIUM (test code=CA) 8.1 mg/dL 8.5-10.1 [id number] 16:09:00* Test Item Value Reference Range Comments PHOSPHORUS (test code=PHOS) 5.8 mg/dL 2.5-4.9 [id number] 16:09:00* Test Item Value Reference Range Comments MAGNESIUM (test code=MAG) 1.9 mg/dL 1.8-2.4 CALCIUM [id number] 16:09:00* Test Item Value Reference Range Comments CALCIUM IONIZED (test code=YODIT) 1.12 mmol/L 1.12-1.32 BASIC METABOLIC [id number] 15:52:00* Test Item Value Reference Range Comments SODIUM (test code=NA) mmol/L 136-145 POTASSIUM (test code=K) mmol/L 3.5-5.1 CHLORIDE (test code=CL) mmol/L 98-107 CARBON DIOXIDE (test code=CO2) mmol/L 21-32 ANION GAP (test code=GAP) 10-20 GLUCOSE (test code=GLU) mg/dL 74-106 BLOOD UREA NITROGEN (test code=BUN) mg/dL 7-18 GLOMERULAR FILTRATION RATE (test code=GFR) mL/min >=60 CREATININE (test code=CREAT) mg/dL 0.55-1.02 BUN/CREATININE RATIO (test code=BUN/CREA) 10-20 CALCIUM (test code=CA) mg/dL 8.5-10.1 [id number] 15:52:00* Test Item Value Reference Range Comments PHOSPHORUS (test code=PHOS) mg/dL 2.5-4.9 [id number] 15:52:00* Test Item Value Reference Range Comments MAGNESIUM (test code=MAG) mg/dL 1.8-2.4 CALCIUM [id number] 15:52:00* Test Item Value Reference Range Comments CALCIUM IONIZED (test code=YODIT) 1.12 mmol/L 1.12-1.32 CBC W/MANUAL [id number] 15:46:00* Test Item Value Reference Range Comments WHITE BLOOD CELL (test code=WBC) 4.8 K/mm3 4.5-12.5 RED BLOOD CELL (test code=RBC) 2.67 mill/mm3 3.7-5.2 HEMOGLOBIN (test code=HGB) 7.3 gram/dL 11.5-15.5 HEMATOCRIT (test code=HCT) 23.5 % 36.0-46.0 MEAN CELL VOLUME (test code=MCV) 88.0 fL 80-98 MEAN CELL HGB (test code=MCH) 27.3 picogram 27.0-33.0 MEAN CELL HGB CONCETRATION (test code=MCHC) 31.1 gram/dL 33.0-36.0 RED CELL DISTRIBUTION WIDTH (test code=RDW) 17.6 % 11.6-16.2 RED CELL DISTRIBUTION WIDTH SD (test code=RDW-SD) 56.6 fL 37.0-51.0 PLATELET COUNT (test code=PLT) 112 K/mm3 150-450 MEAN PLATELET VOLUME (test code=MPV) 11.0 fL 6.7-11.0 IMMATURE GRANULOCYTE % (test code=IG%) 0.6 % 0.0-5.0 NUCLEATED RBC % (test code=NRBC%) 0.0 % 0-0 NEUTROPHIL # (test code=NT#) 4.33 K/mm3 1.8-7.7 IMMATURE GRANULOCYTE # (test code=IG#) 0.03 x10 3/uL 0-0.03 LYMPHOCYTE # (test code=LY#) 0.26 K/mm3 1.0-5.0 MONOCYTE # (test code=MO#) 0.14 K/mm3 0-0.8 EOSINOPHIL # (test code=EO#) 0.00 K/mm3 0.0-0.5 BASOPHIL # (test code=BA#) 0.00 K/mm3 0.0-0.2 NUCLEATED RBC # (test code=NRBC#) 0.00 K/mm3 0.0-0.1 MANUAL DIFF REQUIRED (test code=MDIFF) YES STAIN ACCEPTABILITY (test code=STN ACCEPTABLE) TOTAL CELLS COUNTED (test code=TCC) #CELLS SEGMENTED NEUTROPHILS (test code=SEG) % 39-69 LYMPHOCYTE (test code=LYMPH) % 25-55 MONOCYTE (test code=MON) % 0-10 MORPHOLOGY COMMENT (test code=MOC) PLATELET ESTIMATE (test code=PLTEST) PLATELET MORPHOLOGY (test code=PLTMORPH) CBC W/MANUAL [id number] 15:42:00* Test Item Value Reference Range Comments WHITE BLOOD CELL (test code=WBC) 4.8 K/mm3 4.5-12.5 RED BLOOD CELL (test code=RBC) 2.67 mill/mm3 3.7-5.2 HEMOGLOBIN (test code=HGB) 7.3 gram/dL 11.5-15.5 HEMATOCRIT (test code=HCT) 23.5 % 36.0-46.0 MEAN CELL VOLUME (test code=MCV) 88.0 fL 80-98 MEAN CELL HGB (test code=MCH) 27.3 picogram 27.0-33.0 MEAN CELL HGB CONCETRATION (test code=MCHC) 31.1 gram/dL 33.0-36.0 RED CELL DISTRIBUTION WIDTH (test code=RDW) 17.6 % 11.6-16.2 RED CELL DISTRIBUTION WIDTH SD (test code=RDW-SD) 56.6 fL 37.0-51.0 PLATELET COUNT (test code=PLT) 112 K/mm3 150-450 MEAN PLATELET VOLUME (test code=MPV) 11.0 fL 6.7-11.0 IMMATURE GRANULOCYTE % (test code=IG%) 0.6 % 0.0-5.0 NUCLEATED RBC % (test code=NRBC%) 0.0 % 0-0 NEUTROPHIL # (test code=NT#) 4.33 K/mm3 1.8-7.7 IMMATURE GRANULOCYTE # (test code=IG#) 0.03 x10 3/uL 0-0.03 LYMPHOCYTE # (test code=LY#) 0.26 K/mm3 1.0-5.0 MONOCYTE # (test code=MO#) 0.14 K/mm3 0-0.8 EOSINOPHIL # (test code=EO#) 0.00 K/mm3 0.0-0.5 BASOPHIL # (test code=BA#) 0.00 K/mm3 0.0-0.2 NUCLEATED RBC # (test code=NRBC#) 0.00 K/mm3 0.0-0.1 MANUAL DIFF REQUIRED (test code=MDIFF) YES STAIN ACCEPTABILITY (test code=STN ACCEPTABLE) TOTAL CELLS COUNTED (test code=TCC) #CELLS SEGMENTED NEUTROPHILS (test code=SEG) % 39-69 LYMPHOCYTE (test code=LYMPH) % 25-55 MONOCYTE (test code=MON) % 0-10 EOSINOPHIL (test code=EOS) % 0.0-5.0 CABOT RINGS (test code=CAB) MORPHOLOGY COMMENT (test code=MOC) PLATELET ESTIMATE (test code=PLTEST) PLATELET MORPHOLOGY (test code=PLTMORPH) CBC W/MANUAL [id number] 15:42:00* Test Item Value Reference Range Comments WHITE BLOOD CELL (test code=WBC) 4.8 K/mm3 4.5-12.5 RED BLOOD CELL (test code=RBC) 2.67 mill/mm3 3.7-5.2 HEMOGLOBIN (test code=HGB) 7.3 gram/dL 11.5-15.5 HEMATOCRIT (test code=HCT) 23.5 % 36.0-46.0 MEAN CELL VOLUME (test code=MCV) 88.0 fL 80-98 MEAN CELL HGB (test code=MCH) 27.3 picogram 27.0-33.0 MEAN CELL HGB CONCETRATION (test code=MCHC) 31.1 gram/dL 33.0-36.0 RED CELL DISTRIBUTION WIDTH (test code=RDW) 17.6 % 11.6-16.2 RED CELL DISTRIBUTION WIDTH SD (test code=RDW-SD) 56.6 fL 37.0-51.0 PLATELET COUNT (test code=PLT) 112 K/mm3 150-450 MEAN PLATELET VOLUME (test code=MPV) 11.0 fL 6.7-11.0 IMMATURE GRANULOCYTE % (test code=IG%) 0.6 % 0.0-5.0 NUCLEATED RBC % (test code=NRBC%) 0.0 % 0-0 NEUTROPHIL # (test code=NT#) 4.33 K/mm3 1.8-7.7 IMMATURE GRANULOCYTE # (test code=IG#) 0.03 x10 3/uL 0-0.03 LYMPHOCYTE # (test code=LY#) 0.26 K/mm3 1.0-5.0 MONOCYTE # (test code=MO#) 0.14 K/mm3 0-0.8 EOSINOPHIL # (test code=EO#) 0.00 K/mm3 0.0-0.5 BASOPHIL # (test code=BA#) 0.00 K/mm3 0.0-0.2 NUCLEATED RBC # (test code=NRBC#) 0.00 K/mm3 0.0-0.1 MANUAL DIFF REQUIRED (test code=MDIFF) YES STAIN ACCEPTABILITY (test code=STN ACCEPTABLE) TOTAL CELLS COUNTED (test code=TCC) #CELLS SEGMENTED NEUTROPHILS (test code=SEG) % 39-69 LYMPHOCYTE (test code=LYMPH) % 25-55 MONOCYTE (test code=MON) % 0-10 EOSINOPHIL (test code=EOS) % 0.0-5.0 CABOT RINGS (test code=CAB) MORPHOLOGY COMMENT (test code=MOC) PLATELET ESTIMATE (test code=PLTEST) PLATELET MORPHOLOGY (test code=PLTMORPH) CBC W/MANUAL [id number] 15:42:00* Test Item Value Reference Range Comments WHITE BLOOD CELL (test code=WBC) 4.8 K/mm3 4.5-12.5 RED BLOOD CELL (test code=RBC) 2.67 mill/mm3 3.7-5.2 HEMOGLOBIN (test code=HGB) 7.3 gram/dL 11.5-15.5 HEMATOCRIT (test code=HCT) 23.5 % 36.0-46.0 MEAN CELL VOLUME (test code=MCV) 88.0 fL 80-98 MEAN CELL HGB (test code=MCH) 27.3 picogram 27.0-33.0 MEAN CELL HGB CONCETRATION (test code=MCHC) 31.1 gram/dL 33.0-36.0 RED CELL DISTRIBUTION WIDTH (test code=RDW) 17.6 % 11.6-16.2 RED CELL DISTRIBUTION WIDTH SD (test code=RDW-SD) 56.6 fL 37.0-51.0 PLATELET COUNT (test code=PLT) 112 K/mm3 150-450 MEAN PLATELET VOLUME (test code=MPV) 11.0 fL 6.7-11.0 IMMATURE GRANULOCYTE % (test code=IG%) 0.6 % 0.0-5.0 NUCLEATED RBC % (test code=NRBC%) 0.0 % 0-0 NEUTROPHIL # (test code=NT#) 4.33 K/mm3 1.8-7.7 IMMATURE GRANULOCYTE # (test code=IG#) 0.03 x10 3/uL 0-0.03 LYMPHOCYTE # (test code=LY#) 0.26 K/mm3 1.0-5.0 MONOCYTE # (test code=MO#) 0.14 K/mm3 0-0.8 EOSINOPHIL # (test code=EO#) 0.00 K/mm3 0.0-0.5 BASOPHIL # (test code=BA#) 0.00 K/mm3 0.0-0.2 NUCLEATED RBC # (test code=NRBC#) 0.00 K/mm3 0.0-0.1 MANUAL DIFF REQUIRED (test code=MDIFF) YES STAIN ACCEPTABILITY (test code=STN ACCEPTABLE) TOTAL CELLS COUNTED (test code=TCC) #CELLS SEGMENTED NEUTROPHILS (test code=SEG) % 39-69 LYMPHOCYTE (test code=LYMPH) % 25-55 MONOCYTE (test code=MON) % 0-10 EOSINOPHIL (test code=EOS) % 0.0-5.0 MORPHOLOGY COMMENT (test code=MOC) PLATELET ESTIMATE (test code=PLTEST) PLATELET MORPHOLOGY (test code=PLTMORPH) CBC W/MANUAL [id number] 15:42:00* Test Item Value Reference Range Comments WHITE BLOOD CELL (test code=WBC) 4.8 K/mm3 4.5-12.5 RED BLOOD CELL (test code=RBC) 2.67 mill/mm3 3.7-5.2 HEMOGLOBIN (test code=HGB) 7.3 gram/dL 11.5-15.5 HEMATOCRIT (test code=HCT) 23.5 % 36.0-46.0 MEAN CELL VOLUME (test code=MCV) 88.0 fL 80-98 MEAN CELL HGB (test code=MCH) 27.3 picogram 27.0-33.0 MEAN CELL HGB CONCETRATION (test code=MCHC) 31.1 gram/dL 33.0-36.0 RED CELL DISTRIBUTION WIDTH (test code=RDW) 17.6 % 11.6-16.2 RED CELL DISTRIBUTION WIDTH SD (test code=RDW-SD) 56.6 fL 37.0-51.0 PLATELET COUNT (test code=PLT) 112 K/mm3 150-450 MEAN PLATELET VOLUME (test code=MPV) 11.0 fL 6.7-11.0 IMMATURE GRANULOCYTE % (test code=IG%) 0.6 % 0.0-5.0 NUCLEATED RBC % (test code=NRBC%) 0.0 % 0-0 NEUTROPHIL # (test code=NT#) 4.33 K/mm3 1.8-7.7 IMMATURE GRANULOCYTE # (test code=IG#) 0.03 x10 3/uL 0-0.03 LYMPHOCYTE # (test code=LY#) 0.26 K/mm3 1.0-5.0 MONOCYTE # (test code=MO#) 0.14 K/mm3 0-0.8 EOSINOPHIL # (test code=EO#) 0.00 K/mm3 0.0-0.5 BASOPHIL # (test code=BA#) 0.00 K/mm3 0.0-0.2 NUCLEATED RBC # (test code=NRBC#) 0.00 K/mm3 0.0-0.1 MANUAL DIFF REQUIRED (test code=MDIFF) YES STAIN ACCEPTABILITY (test code=STN ACCEPTABLE) TOTAL CELLS COUNTED (test code=TCC) #CELLS SEGMENTED NEUTROPHILS (test code=SEG) % 39-69 LYMPHOCYTE (test code=LYMPH) % 25-55 MONOCYTE (test code=MON) % 0-10 EOSINOPHIL (test code=EOS) % 0.0-5.0 CABOT RINGS (test code=CAB) MORPHOLOGY COMMENT (test code=MOC) PLATELET ESTIMATE (test code=PLTEST) PLATELET MORPHOLOGY (test code=PLTMORPH) [id number] 10:18:00* Test Item Value Reference Range Comments GLUBED (test code=GLUBED) 164 mg/dL 74-106 Performed by certified kst operator at [facility] AG HEPAT B [id number] 08:52:00* Test Item Value Reference Range Comments AG HEPAT B SURF (test code=HBSAG) Nonreactive Index Nonreactive [id number] 07:56:00* Test Item Value Reference Range Comments GLUBED (test code=GLUBED) 85 mg/dL 74-106 Performed by certified kst operator at [facility] CBC W/MANUAL [id number] 07:54:00* Test Item Value Reference Range Comments WHITE BLOOD CELL (test code=WBC) 5.7 K/mm3 4.5-12.5 RED BLOOD CELL (test code=RBC) 2.54 mill/mm3 3.7-5.2 HEMOGLOBIN (test code=HGB) 7.0 gram/dL 11.5-15.5 HEMATOCRIT (test code=HCT) 22.6 % 36.0-46.0 MEAN CELL VOLUME (test code=MCV) 89.0 fL 80-98 MEAN CELL HGB (test code=MCH) 27.6 picogram 27.0-33.0 MEAN CELL HGB CONCETRATION (test code=MCHC) 31.0 gram/dL 33.0-36.0 RED CELL DISTRIBUTION WIDTH (test code=RDW) 17.4 % 11.6-16.2 RED CELL DISTRIBUTION WIDTH SD (test code=RDW-SD) 55.8 fL 37.0-51.0 PLATELET COUNT (test code=PLT) 108 K/mm3 150-450 MEAN PLATELET VOLUME (test code=MPV) 11.0 fL 6.7-11.0 IMMATURE GRANULOCYTE % (test code=IG%) 0.4 % 0.0-5.0 NUCLEATED RBC % (test code=NRBC%) 0.0 % 0-0 NEUTROPHIL # (test code=NT#) 4.54 K/mm3 1.8-7.7 IMMATURE GRANULOCYTE # (test code=IG#) 0.02 x10 3/uL 0-0.03 LYMPHOCYTE # (test code=LY#) 0.59 K/mm3 1.0-5.0 MONOCYTE # (test code=MO#) 0.44 K/mm3 0-0.8 EOSINOPHIL # (test code=EO#) 0.05 K/mm3 0.0-0.5 BASOPHIL # (test code=BA#) 0.03 K/mm3 0.0-0.2 NUCLEATED RBC # (test code=NRBC#) 0.00 K/mm3 0.0-0.1 MANUAL DIFF REQUIRED (test code=MDIFF) YES STAIN ACCEPTABILITY (test code=STN ACCEPTABLE) STAIN ACCEPTABLE TOTAL CELLS COUNTED (test code=TCC) 114 #CELLS SEGMENTED NEUTROPHILS (test code=SEG) 79.8 % 39-69 BAND NEUTROPHIL (test code=BAND) 0 % 0-10 LYMPHOCYTE (test code=LYMPH) 12.3 % 25-55 REACTIVE LYMPH (test code=RELYMPH) 0 % MONOCYTE (test code=MON) 4.4 % 0-10 EOSINOPHIL (test code=EOS) 1.7 % 0.0-5.0 BASOPHIL (test code=BASO) 0.9 % 0-1.0 METAMYELOCYTE (test code=META) 0.9 % 0-0 MYELOCYTE (test code=MYELO) 0 % 0.0-0.0 PROMYELOCYTE (test code=PROM) 0 % 0-0 POIKILOCYTOSIS (test code=POIK) 3+ ANISOCYTOSIS (test code=ANISO) 1+ MARLENE CELLS (test code=MARLENE) 1+ NONE PLATELET ESTIMATE (test code=PLTEST) DECREASED PLATELET MORPHOLOGY (test code=PLTMORPH) NORMAL IMMATURE FORMS (test code=IMMAT) 0 % [id number] 07:39:00* Test Item Value Reference Range Comments TROPONIN-I (test code=TROPI) <0.015 ng/mL 0-0.045 COMMENTS TO RESIDENTIAL PROGRAM WORKER: COLLECT 3 HOURS AFTER PREVIOUS SAMPLEBASIC METABOLIC [id number] 07:35:00* Test Item Value Reference Range Comments SODIUM (test code=NA) 132 mmol/L 136-145 POTASSIUM (test code=K) 5.5 mmol/L 3.5-5.1 Specimen 1+ Hemolysed.Some results MAY NOT be accurate due to hemolysis. CHLORIDE (test code=CL) 99.0 mmol/L 98-107 CARBON DIOXIDE (test code=CO2) 20.0 mmol/L 21-32 ANION GAP (test code=GAP) 18.5 10-20 GLUCOSE (test code=GLU) 162 mg/dL 74-106 BLOOD UREA NITROGEN (test code=BUN) 105 mg/dL 7-18 GLOMERULAR FILTRATION RATE (test code=GFR) 4 mL/min >=60 Estimated GFR by using Modified MDRD formula.Chronic kidney disease is defined as either kidney damageor GFR <60 mL/min/1.73 m2 for >3 months. CREATININE (test code=CREAT) 10.00 mg/dL 0.55-1.02 Note change in reference range due to change in reagent. BUN/CREATININE RATIO (test code=BUN/CREA) 10.5 10-20 CALCIUM (test code=CA) 7.3 mg/dL 8.5-10.1 [id number] 07:35:00* Test Item Value Reference Range Comments PHOSPHORUS (test code=PHOS) 6.8 mg/dL 2.5-4.9 [id number] 07:35:00* Test Item Value Reference Range Comments MAGNESIUM (test code=MAG) 1.8 mg/dL 1.8-2.4 CALCIUM [id number] 07:35:00* Test Item Value Reference Range Comments CALCIUM IONIZED (test code=YODIT) 1.02 mmol/L 1.12-1.32 RESULT VERIFIED BY REPEAT ANALYSIS BASIC METABOLIC [id number] 07:31:00* Test Item Value Reference Range Comments SODIUM (test code=NA) 132 mmol/L 136-145 POTASSIUM (test code=K) 5.5 mmol/L 3.5-5.1 Specimen 1+ Hemolysed.Some results MAY NOT be accurate due to hemolysis. CHLORIDE (test code=CL) 99.0 mmol/L 98-107 CARBON DIOXIDE (test code=CO2) mmol/L 21-32 ANION GAP (test code=GAP) 10-20 GLUCOSE (test code=GLU) mg/dL 74-106 BLOOD UREA NITROGEN (test code=BUN) mg/dL 7-18 GLOMERULAR FILTRATION RATE (test code=GFR) mL/min >=60 CREATININE (test code=CREAT) mg/dL 0.55-1.02 BUN/CREATININE RATIO (test code=BUN/CREA) 10-20 CALCIUM (test code=CA) mg/dL 8.5-10.1 [id number] 07:31:00* Test Item Value Reference Range Comments PHOSPHORUS (test code=PHOS) mg/dL 2.5-4.9 [id number] 07:31:00* Test Item Value Reference Range Comments MAGNESIUM (test code=MAG) mg/dL 1.8-2.4 CALCIUM [id number] 07:31:00* Test Item Value Reference Range Comments CALCIUM IONIZED (test code=YODIT) 1.02 mmol/L 1.12-1.32 RESULT VERIFIED BY REPEAT ANALYSIS BASIC METABOLIC [id number] 07:24:00* Test Item Value Reference Range Comments SODIUM (test code=NA) mmol/L 136-145 POTASSIUM (test code=K) mmol/L 3.5-5.1 CHLORIDE (test code=CL) mmol/L 98-107 CARBON DIOXIDE (test code=CO2) mmol/L 21-32 ANION GAP (test code=GAP) 10-20 GLUCOSE (test code=GLU) mg/dL 74-106 BLOOD UREA NITROGEN (test code=BUN) mg/dL 7-18 GLOMERULAR FILTRATION RATE (test code=GFR) mL/min >=60 CREATININE (test code=CREAT) mg/dL 0.55-1.02 BUN/CREATININE RATIO (test code=BUN/CREA) 10-20 CALCIUM (test code=CA) mg/dL 8.5-10.1 [id number] 07:24:00* Test Item Value Reference Range Comments PHOSPHORUS (test code=PHOS) mg/dL 2.5-4.9 [id number] 07:24:00* Test Item Value Reference Range Comments MAGNESIUM (test code=MAG) mg/dL 1.8-2.4 CALCIUM [id number] 07:24:00* Test Item Value Reference Range Comments CALCIUM IONIZED (test code=YODIT) 1.02 mmol/L 1.12-1.32 RESULT VERIFIED BY REPEAT ANALYSIS CBC W/MANUAL [id number] 07:23:00* Test Item Value Reference Range Comments WHITE BLOOD CELL (test code=WBC) 5.7 K/mm3 4.5-12.5 RED BLOOD CELL (test code=RBC) 2.54 mill/mm3 3.7-5.2 HEMOGLOBIN (test code=HGB) 7.0 gram/dL 11.5-15.5 HEMATOCRIT (test code=HCT) 22.6 % 36.0-46.0 MEAN CELL VOLUME (test code=MCV) 89.0 fL 80-98 MEAN CELL HGB (test code=MCH) 27.6 picogram 27.0-33.0 MEAN CELL HGB CONCETRATION (test code=MCHC) 31.0 gram/dL 33.0-36.0 RED CELL DISTRIBUTION WIDTH (test code=RDW) 17.4 % 11.6-16.2 RED CELL DISTRIBUTION WIDTH SD (test code=RDW-SD) 55.8 fL 37.0-51.0 PLATELET COUNT (test code=PLT) 108 K/mm3 150-450 MEAN PLATELET VOLUME (test code=MPV) 11.0 fL 6.7-11.0 IMMATURE GRANULOCYTE % (test code=IG%) 0.4 % 0.0-5.0 NUCLEATED RBC % (test code=NRBC%) 0.0 % 0-0 NEUTROPHIL # (test code=NT#) 4.54 K/mm3 1.8-7.7 IMMATURE GRANULOCYTE # (test code=IG#) 0.02 x10 3/uL 0-0.03 LYMPHOCYTE # (test code=LY#) 0.59 K/mm3 1.0-5.0 MONOCYTE # (test code=MO#) 0.44 K/mm3 0-0.8 EOSINOPHIL # (test code=EO#) 0.05 K/mm3 0.0-0.5 BASOPHIL # (test code=BA#) 0.03 K/mm3 0.0-0.2 NUCLEATED RBC # (test code=NRBC#) 0.00 K/mm3 0.0-0.1 MANUAL DIFF REQUIRED (test code=MDIFF) YES STAIN ACCEPTABILITY (test code=STN ACCEPTABLE) TOTAL CELLS COUNTED (test code=TCC) #CELLS SEGMENTED NEUTROPHILS (test code=SEG) % 39-69 LYMPHOCYTE (test code=LYMPH) % 25-55 MONOCYTE (test code=MON) % 0-10 MORPHOLOGY COMMENT (test code=MOC) PLATELET ESTIMATE (test code=PLTEST) PLATELET MORPHOLOGY (test code=PLTMORPH) CBC W/MANUAL [id number] 07:17:00* Test Item Value Reference Range Comments WHITE BLOOD CELL (test code=WBC) 5.7 K/mm3 4.5-12.5 RED BLOOD CELL (test code=RBC) 2.54 mill/mm3 3.7-5.2 HEMOGLOBIN (test code=HGB) 7.0 gram/dL 11.5-15.5 HEMATOCRIT (test code=HCT) 22.6 % 36.0-46.0 MEAN CELL VOLUME (test code=MCV) 89.0 fL 80-98 MEAN CELL HGB (test code=MCH) 27.6 picogram 27.0-33.0 MEAN CELL HGB CONCETRATION (test code=MCHC) 31.0 gram/dL 33.0-36.0 RED CELL DISTRIBUTION WIDTH (test code=RDW) 17.4 % 11.6-16.2 RED CELL DISTRIBUTION WIDTH SD (test code=RDW-SD) 55.8 fL 37.0-51.0 PLATELET COUNT (test code=PLT) 108 K/mm3 150-450 MEAN PLATELET VOLUME (test code=MPV) 11.0 fL 6.7-11.0 IMMATURE GRANULOCYTE % (test code=IG%) 0.4 % 0.0-5.0 NUCLEATED RBC % (test code=NRBC%) 0.0 % 0-0 NEUTROPHIL # (test code=NT#) 4.54 K/mm3 1.8-7.7 IMMATURE GRANULOCYTE # (test code=IG#) 0.02 x10 3/uL 0-0.03 LYMPHOCYTE # (test code=LY#) 0.59 K/mm3 1.0-5.0 MONOCYTE # (test code=MO#) 0.44 K/mm3 0-0.8 EOSINOPHIL # (test code=EO#) 0.05 K/mm3 0.0-0.5 BASOPHIL # (test code=BA#) 0.03 K/mm3 0.0-0.2 NUCLEATED RBC # (test code=NRBC#) 0.00 K/mm3 0.0-0.1 MANUAL DIFF REQUIRED (test code=MDIFF) YES STAIN ACCEPTABILITY (test code=STN ACCEPTABLE) TOTAL CELLS COUNTED (test code=TCC) #CELLS SEGMENTED NEUTROPHILS (test code=SEG) % 39-69 LYMPHOCYTE (test code=LYMPH) % 25-55 MONOCYTE (test code=MON) % 0-10 EOSINOPHIL (test code=EOS) % 0.0-5.0 CABOT RINGS (test code=CAB) MORPHOLOGY COMMENT (test code=MOC) PLATELET ESTIMATE (test code=PLTEST) PLATELET MORPHOLOGY (test code=PLTMORPH) CBC W/MANUAL [id number] 07:17:00* Test Item Value Reference Range Comments WHITE BLOOD CELL (test code=WBC) 5.7 K/mm3 4.5-12.5 RED BLOOD CELL (test code=RBC) 2.54 mill/mm3 3.7-5.2 HEMOGLOBIN (test code=HGB) 7.0 gram/dL 11.5-15.5 HEMATOCRIT (test code=HCT) 22.6 % 36.0-46.0 MEAN CELL VOLUME (test code=MCV) 89.0 fL 80-98 MEAN CELL HGB (test code=MCH) 27.6 picogram 27.0-33.0 MEAN CELL HGB CONCETRATION (test code=MCHC) 31.0 gram/dL 33.0-36.0 RED CELL DISTRIBUTION WIDTH (test code=RDW) 17.4 % 11.6-16.2 RED CELL DISTRIBUTION WIDTH SD (test code=RDW-SD) 55.8 fL 37.0-51.0 PLATELET COUNT (test code=PLT) 108 K/mm3 150-450 MEAN PLATELET VOLUME (test code=MPV) 11.0 fL 6.7-11.0 IMMATURE GRANULOCYTE % (test code=IG%) 0.4 % 0.0-5.0 NUCLEATED RBC % (test code=NRBC%) 0.0 % 0-0 NEUTROPHIL # (test code=NT#) 4.54 K/mm3 1.8-7.7 IMMATURE GRANULOCYTE # (test code=IG#) 0.02 x10 3/uL 0-0.03 LYMPHOCYTE # (test code=LY#) 0.59 K/mm3 1.0-5.0 MONOCYTE # (test code=MO#) 0.44 K/mm3 0-0.8 EOSINOPHIL # (test code=EO#) 0.05 K/mm3 0.0-0.5 BASOPHIL # (test code=BA#) 0.03 K/mm3 0.0-0.2 NUCLEATED RBC # (test code=NRBC#) 0.00 K/mm3 0.0-0.1 MANUAL DIFF REQUIRED (test code=MDIFF) YES STAIN ACCEPTABILITY (test code=STN ACCEPTABLE) TOTAL CELLS COUNTED (test code=TCC) #CELLS SEGMENTED NEUTROPHILS (test code=SEG) % 39-69 LYMPHOCYTE (test code=LYMPH) % 25-55 MONOCYTE (test code=MON) % 0-10 EOSINOPHIL (test code=EOS) % 0.0-5.0 MORPHOLOGY COMMENT (test code=MOC) PLATELET ESTIMATE (test code=PLTEST) PLATELET MORPHOLOGY (test code=PLTMORPH) CBC W/MANUAL [id number] 07:16:00* Test Item Value Reference Range Comments WHITE BLOOD CELL (test code=WBC) 5.7 K/mm3 4.5-12.5 RED BLOOD CELL (test code=RBC) 2.54 mill/mm3 3.7-5.2 HEMOGLOBIN (test code=HGB) 7.0 gram/dL 11.5-15.5 HEMATOCRIT (test code=HCT) 22.6 % 36.0-46.0 MEAN CELL VOLUME (test code=MCV) 89.0 fL 80-98 MEAN CELL HGB (test code=MCH) 27.6 picogram 27.0-33.0 MEAN CELL HGB CONCETRATION (test code=MCHC) 31.0 gram/dL 33.0-36.0 RED CELL DISTRIBUTION WIDTH (test code=RDW) 17.4 % 11.6-16.2 RED CELL DISTRIBUTION WIDTH SD (test code=RDW-SD) 55.8 fL 37.0-51.0 PLATELET COUNT (test code=PLT) 108 K/mm3 150-450 MEAN PLATELET VOLUME (test code=MPV) 11.0 fL 6.7-11.0 IMMATURE GRANULOCYTE % (test code=IG%) 0.4 % 0.0-5.0 NUCLEATED RBC % (test code=NRBC%) 0.0 % 0-0 NEUTROPHIL # (test code=NT#) 4.54 K/mm3 1.8-7.7 IMMATURE GRANULOCYTE # (test code=IG#) 0.02 x10 3/uL 0-0.03 LYMPHOCYTE # (test code=LY#) 0.59 K/mm3 1.0-5.0 MONOCYTE # (test code=MO#) 0.44 K/mm3 0-0.8 EOSINOPHIL # (test code=EO#) 0.05 K/mm3 0.0-0.5 BASOPHIL # (test code=BA#) 0.03 K/mm3 0.0-0.2 NUCLEATED RBC # (test code=NRBC#) 0.00 K/mm3 0.0-0.1 MANUAL DIFF REQUIRED (test code=MDIFF) YES STAIN ACCEPTABILITY (test code=STN ACCEPTABLE) TOTAL CELLS COUNTED (test code=TCC) #CELLS SEGMENTED NEUTROPHILS (test code=SEG) % 39-69 LYMPHOCYTE (test code=LYMPH) % 25-55 MONOCYTE (test code=MON) % 0-10 EOSINOPHIL (test code=EOS) % 0.0-5.0 CABOT RINGS (test code=CAB) MORPHOLOGY COMMENT (test code=MOC) PLATELET ESTIMATE (test code=PLTEST) PLATELET MORPHOLOGY (test code=PLTMORPH) CBC W/MANUAL [id number] 07:16:00* Test Item Value Reference Range Comments WHITE BLOOD CELL (test code=WBC) 5.7 K/mm3 4.5-12.5 RED BLOOD CELL (test code=RBC) 2.54 mill/mm3 3.7-5.2 HEMOGLOBIN (test code=HGB) 7.0 gram/dL 11.5-15.5 HEMATOCRIT (test code=HCT) 22.6 % 36.0-46.0 MEAN CELL VOLUME (test code=MCV) 89.0 fL 80-98 MEAN CELL HGB (test code=MCH) 27.6 picogram 27.0-33.0 MEAN CELL HGB CONCETRATION (test code=MCHC) 31.0 gram/dL 33.0-36.0 RED CELL DISTRIBUTION WIDTH (test code=RDW) 17.4 % 11.6-16.2 RED CELL DISTRIBUTION WIDTH SD (test code=RDW-SD) 55.8 fL 37.0-51.0 PLATELET COUNT (test code=PLT) 108 K/mm3 150-450 MEAN PLATELET VOLUME (test code=MPV) 11.0 fL 6.7-11.0 IMMATURE GRANULOCYTE % (test code=IG%) 0.4 % 0.0-5.0 NUCLEATED RBC % (test code=NRBC%) 0.0 % 0-0 NEUTROPHIL # (test code=NT#) 4.54 K/mm3 1.8-7.7 IMMATURE GRANULOCYTE # (test code=IG#) 0.02 x10 3/uL 0-0.03 LYMPHOCYTE # (test code=LY#) 0.59 K/mm3 1.0-5.0 MONOCYTE # (test code=MO#) 0.44 K/mm3 0-0.8 EOSINOPHIL # (test code=EO#) 0.05 K/mm3 0.0-0.5 BASOPHIL # (test code=BA#) 0.03 K/mm3 0.0-0.2 NUCLEATED RBC # (test code=NRBC#) 0.00 K/mm3 0.0-0.1 MANUAL DIFF REQUIRED (test code=MDIFF) YES STAIN ACCEPTABILITY (test code=STN ACCEPTABLE) TOTAL CELLS COUNTED (test code=TCC) #CELLS SEGMENTED NEUTROPHILS (test code=SEG) % 39-69 LYMPHOCYTE (test code=LYMPH) % 25-55 MONOCYTE (test code=MON) % 0-10 EOSINOPHIL (test code=EOS) % 0.0-5.0 CABOT RINGS (test code=CAB) MORPHOLOGY COMMENT (test code=MOC) PLATELET ESTIMATE (test code=PLTEST) PLATELET MORPHOLOGY (test code=PLTMORPH) [id number] 02:45:00* Test Item Value Reference Range Comments TROPONIN-I (test code=TROPI) <0.015 ng/mL 0-0.045 COMMENTS TO RESIDENTIAL PROGRAM WORKER: COLLECT 3 HOURS AFTER PREVIOUS SAMPLESED RATE [id number] 02:36:00* Test Item Value Reference Range Comments SED RATE CALLIEREN (test code=SEDW) 71 mm/hr 0-20 SED [id number] 02:36:00* Test Item Value Reference Range Comments SED RATE (test code=SEDW) 71 mm/hr 0-20 WINTROBE METHOD: NORMAL RANGE FOR MEN: 0-9 MM/HR WOMAN: 0-20 MM/HR LACTIC [id number] 23:03:00* Test Item Value Reference Range Comments LACTIC ACID (test code=LACT) 1.6 mmol/L 0.4-1.9 URINALYSIS [id number] 21:06:00* Test Item Value Reference Range Comments UA COLOR (test code=COLU) DARK YELLOW YELLOW UA APPEARANCE (test code=APPU) Cloudy CLEAR UA GLUCOSE DIPSTICK (test code=DGLUU) >=500 mg/dL NEGATIVE UA BILIRUBIN DIPSTICK (test code=BILU) NEGATIVE mg/dL NEGATIVE UA KETONE DIPSTICK (test code=KETU) Negative mg/dL NEGATIVE UA SPECIFIC GRAVITY (test code=SGU) 1.014 1.001-1.035 UA BLOOD DIPSTICK (test code=DAVI) 1+ (Small) NEGATIVE UA PH DIPSTICK (test code=JUMANA) 5.0 5.0-8.0 UA PROTEIN DIPSTICK (test code=PROU) >500 (3+) mg/dL NEGATIVE UA UROBILINIOGEN DIPSTICK (test code=URO) NEGATIVE mg/dL NEGATIVE UA NITRITE DIPSTICK (test code=CECI) NEGATIVE NEGATIVE UA LEUKOCYTE ESTERASE W REFLEX (test code=LEUUR) 1+ NEGATIVE UA WBC (test code=WBCU) >50 #/HPF 0-5 UA RBC (test code=RBCU) 6-10 #/HPF 0-5 UA WBC CLUMPS (test code=WBCUCL) 7-10 /HPF NONE UA EPITHELIAL CELLS (test code=EPIU) FEW per HPF FEW UA BACTERIA (test code=BACU) MANY #/HPF NONE UA TRANSITIONAL CELLS (test code=TRANU) 0-2 #/HPF 0-5 UA AMORPHOUS SEDIMENT (test code=AMORU) FEW #/LPF NONE Urine Source? Clean CatchURINALYSIS [id number] 20:44:00* Test Item Value Reference Range Comments UA COLOR (test code=COLU) DARK YELLOW YELLOW UA APPEARANCE (test code=APPU) Cloudy CLEAR UA GLUCOSE DIPSTICK (test code=DGLUU) >=500 mg/dL NEGATIVE UA BILIRUBIN DIPSTICK (test code=BILU) NEGATIVE mg/dL NEGATIVE UA KETONE DIPSTICK (test code=KETU) Negative mg/dL NEGATIVE UA SPECIFIC GRAVITY (test code=SGU) 1.014 1.001-1.035 UA BLOOD DIPSTICK (test code=DAVI) 1+ (Small) NEGATIVE UA PH DIPSTICK (test code=JUMANA) 5.0 5.0-8.0 UA PROTEIN DIPSTICK (test code=PROU) >500 (3+) mg/dL NEGATIVE UA UROBILINIOGEN DIPSTICK (test code=URO) NEGATIVE mg/dL NEGATIVE UA NITRITE DIPSTICK (test code=CECI) NEGATIVE NEGATIVE UA LEUKOCYTE ESTERASE W REFLEX (test code=LEUUR) 1+ NEGATIVE UA WBC (test code=WBCU) per HPF 0-5 Urine Source? Clean Catch- CT HEAD/BRAIN W/O [id number] 20:33:00 Name: PRISCA TURNER [facility] : 1955 Age/S: 63 / F [address] [facility] Unit #: [id number] Loc: [place] [address] Phys: Julia Asif MD Acct: [id number] Di s Date: Status: REG ER PHONE #: Exam Date: 07/26/20181947 FAX #: Reason: CODE SEPSIS EXAMS: CPT CODE: [id number] CT HEAD/BRAIN W/O CONT 77489 HISTORY: CODE SEPSIS TECHNIQUE: Noncontrast 2.[address] of the head. Examination acquired within 24 hours of arrival. Automated exposure control for dose reduction. COMPARISON: Noncontrast CT brain April 22, 2015 FINDINGS: No acute hemorrhage. No intracranial mass, mass effect, or midline shift. No CT evidence of acute infarct. Rebolledo-white ma tter differentiation is preserved. Cortical atrophy and ex vacuo dilatatio n of the ventricles is stable from the previous study.. No extra-axial fluid collection. Visualized paranasal sinuses are clear. Mast oid air cells and middle ear cavities are clear. Orbital contents are unre markable. Calvarium and skull base are intact. IMP RESSION: No acute intracranial process or appreciable change f rom the previous exam. at 2032 Reported and signed by: Jef lester MD CC: Mabel Asif MD Technologist:MEG CASTILLO, RT(R) CT CTDI: DLP: Trnscb Da te/Time: 07/26/2018 (2032) [email or web address] Orig Print D/T: S: 0 07/26/2018 (2035) CTDI: DLP: PAGE 1 Signed Report - XR FOREARM 2 VIEWS [id number] 20:09:00 FAX: Mabel Asif MD [place]: St: PRE Name: PRISCA CHANEY [facility] : [birth year] Age/S: 63/F [address] [facility] Unit #: [id number] Loc: [place] [address] Phys: Mabel Asif MD Acct: [id number] Dis Date: Status: PRE ER PHONE #: [phone] Exam Date: 07/26/20181938 FAX #: [phone] Reason: swollen painful EXAMS: CPT CODE: [id number] XR [place] [address] [place] [id number] CLINICAL HISTORY: swollen painful TECHNIQUE: AP and lateral views of the right humerus, right elbow, and right forearm. COMPARISON: CT of the right upper extremity October 08, 2017. Radiographs of the right forearm October 18, 2016 are also p resent for review. FINDINGS: Previously seen right f orearm fracture has healed with residual deformity involving the distal ra dius and ulna. There is positive ulnar variance. The bones a re demineralized. There is been a prior arthroplasty involving the left elbow. The elbow joint appears dislocated. The shoulder joint is appropriately aligned. No acute fracture is seen. The soft tiss ues surrounding the elbow are swollen. IMPRESSION: Prior right elbow arthroplasty. No evidence of hardware loosening. However the elbow joint is dislocated and there is associated soft tissue swelling. Healed fractures of the distal right radius with residual de formity and positive ulnar variance. Diffuse demineral ization of the bones. Electronically Signed by Jef Sanchez MD on at 2008 Reported and signed by: Jef Sanchez MD CC: Mabel Asif MD Technologist: BACILIO CARRION Trnscrd Date/Time/By: (2008) : By: [email or web address] Orig Print D/T: S: 07/26/2018 (2011) PAGE 1 Signed Report - XR ELBOW 2 VIEWS [id number] 20:09:00 FAX: Mabel Asif MD [place]: St: PRE Name: PRISCA CHANEY [facility] : [birth year] Age/S: 63/F [address] [facility] Unit #: [id number] Loc: [place] [address] Phys: Mabel Asif MD Acct: [id number] Dis Date: Status: PRE ER PHONE #: [phone] Exam Date: 07/26/20181938 FAX #: [phone] Reason: swollen painful EXAMS: CPT CODE: [id number] XR [place] [address] [place] [id number] CLINICAL HISTORY: swollen painful TECHNIQUE: AP and lateral views of the right humerus, right elbow, and right forearm. COMPARISON: CT of the right upper extremity October 08, 2017. Radiographs of the right forearm October 18, 2016 are also p resent for review. FINDINGS: Previously seen right f orearm fracture has healed with residual deformity involving the distal ra dius and ulna. There is positive ulnar variance. The bones a re demineralized. There is been a prior arthroplasty involving the left elbow. The elbow joint appears dislocated. The shoulder joint is appropriately aligned. No acute fracture is seen. The soft tiss ues surrounding the elbow are swollen. IMPRESSION: Prior right elbow arthroplasty. No evidence of hardware loosening. However the elbow joint is dislocated and there is associated soft tissue swelling. Healed fractures of the distal right radius with residual de formity and positive ulnar variance. Diffuse demineral ization of the bones. Electronically Signed by Jef Sanchez MD on at 2008 Reported and signed by: Jef Sanchez MD CC: Mabel Asif MD Technologist: BACILIO CARRION [facility] Date/Time/By: (2008) : By: [email or web address] Orig Print D/T: S: 07/26/2018 (2011) PAGE 1 Signed Report - XR HUMERUS 2 + V [id number] 20:09:00 FAX: Mabel Asif MD [place]: St: PRE Name: PRISCA CHANEY [facility] : [birth year] Age/S: 63/F [address] [facility] Unit #: [id number] Loc: [place] [address] Phys: Mabel Asif MD Acct: [id number] Dis Date: Status: PRE ER PHONE #: [phone] Exam Date: 07/26/20181938 FAX #: [phone] Reason: swollen painful EXAMS: CPT CODE: [id number] XR HUMERUS 2 + V RT [address] CLINICAL HISTORY: swollen painful TECHNIQUE: AP and lateral views of the right humerus, right elbow, and right forearm. COMPARISON: CT of the right upper extremity October 08, 2017. Radiographs of the right forearm October 18, 2016 are also p resent for review. FINDINGS: Previously seen right f orearm fracture has healed with residual deformity involving the distal ra dius and ulna. There is positive ulnar variance. The bones a re demineralized. There is been a prior arthroplasty involving the left elbow. The elbow joint appears dislocated. The shoulder joint is appropriately aligned. No acute fracture is seen. The soft tiss ues surrounding the elbow are swollen. IMPRESSION: Prior right elbow arthroplasty. No evidence of hardware loosening. However the elbow joint is dislocated and there is associated soft tissue swelling. Healed fractures of the distal right radius with residual de formity and positive ulnar variance. Diffuse demineral ization of the bones. Electronically Signed by Jef Sanchez MD on at 2008 Reported and signed by: Jef Sanchez MD CC: Mabel Asif MD Technologist: BACILIO CARRION Trnscrd Date/Time/By: (2008) : By: [email or web address] Orig Print D/T: S: 07/26/2018 (2011) PAGE 1 Signed Report C REACTIVE [id number] 20:00:00* Test Item Value Reference Range Comments C REACTIVE PROTEIN (test code=CRP) 28.20 mg/dL 0-0.3 PROCALCITONIN (PCT)2018-07-26 19:58:00* Test Item Value Reference Range Comments PROCALCITONIN (PCT) (test code=PROCAL) 88.86 ng/ml Results [facility] [id number] [facility] 07/26/181957Critical results verified and read back by Nurse? YConcentration Interpretation (ng/mL) <0.51 Sepsis is not likely. Local bacterial infection is possible. (LOW RISK for progression to Sepsis) 0.51 - 2.00 Sepsis is possible, but other conditions are known to elevate PCT as well. (MODERATE RISK for progression to Sepsis) > 2.00 Sepsis is likely, unless other causes are known. (HIGH RISK for progression to Severe Sepsis or Septic Shock) 10.00 High likelihood of Severe Sepsis or Septic or higher Shock. *Increased PCT levels may not always be related to systemic bacterial infection.*Low PCT levels do not automatically exclude the presence of bacterial infection.*All results should be interpreted taking into account the patients history. - XR CHEST 1 [id number] 19:54:00 FAX: Mabel Asif MD [place]: St: PRE Name: PRISCA CHANEY [facility] : [birth year] Age/S: 63/F [address] [facility] Unit #: [id number] Loc: [place] [address] Phys: Mabel Asif MD Acct: [id number] Dis Date: Status: PRE ER PHONE #: [phone] Exam Date: 07/26/20181940 FAX #: [phone] Reason: CODE SEPSIS EXAMS: CPT CODE: [id number] XR CHEST 1 V [id number] REASON FOR EXAM: CODE SEPSIS Exam Order Date: 07/26/2018 7:02 PM Ordering M.D.: Mabel Asif MD PROCEDURE: - XR CHEST 1 V COMPARI SON: AP chest x-ray 01/14/2017. FINDINGS: Right subclavian pacemaker is present with the leads terminating in the region of the right atrium and right ventricle. The lungs are clear and the costophre leonie sulci are sharp. The cardiac mediastinal silhouette isn't enla rged, similar to the previous exam. There is also prominence of the pulmon kellie vessels. Multiple left-sided rib deformities are present, new from prior exam. These may represent acute fractures versus sequela from p rior trauma. Visualized upper abdomen is within normal limits. IMPRESSION: No acute cardiopulmonary process. Per sistent cardiomegaly. Left sided rib deformities may represent acute fractures versus sequela from prior fractures. Please correlate w ith physical exam for tenderness. at 1953 Reported and signed by: Jef Sanchez MD CC: Mabel Asif MD Technologist: BACILIO CARRION Trnscrd Date/Time/By: 07/26/2018 (1953) : By: [email or web address] Orig Print D/T: S: 07/26/2018 (1956) PAGE 1 Signed R eport CBC W/MANUAL [id number] 19:51:00* Test Item Value Reference Range Comments WHITE BLOOD CELL (test code=WBC) 7.0 K/mm3 4.5-12.5 RED BLOOD CELL (test code=RBC) 2.76 mill/mm3 3.7-5.2 HEMOGLOBIN (test code=HGB) 7.6 gram/dL 11.5-15.5 HEMATOCRIT (test code=HCT) 24.3 % 36.0-46.0 MEAN CELL VOLUME (test code=MCV) 88.0 fL 80-98 MEAN CELL HGB (test code=MCH) 27.5 picogram 27.0-33.0 MEAN CELL HGB CONCETRATION (test code=MCHC) 31.3 gram/dL 33.0-36.0 RED CELL DISTRIBUTION WIDTH (test code=RDW) 17.2 % 11.6-16.2 RED CELL DISTRIBUTION WIDTH SD (test code=RDW-SD) 54.2 fL 37.0-51.0 PLATELET COUNT (test code=PLT) 141 K/mm3 150-450 MEAN PLATELET VOLUME (test code=MPV) 10.6 fL 6.7-11.0 IMMATURE GRANULOCYTE % (test code=IG%) 0.4 % 0.0-5.0 NUCLEATED RBC % (test code=NRBC%) 0.0 % 0-0 NEUTROPHIL # (test code=NT#) 6.09 K/mm3 1.8-7.7 IMMATURE GRANULOCYTE # (test code=IG#) 0.03 x10 3/uL 0-0.03 LYMPHOCYTE # (test code=LY#) 0.45 K/mm3 1.0-5.0 MONOCYTE # (test code=MO#) 0.42 K/mm3 0-0.8 EOSINOPHIL # (test code=EO#) 0.00 K/mm3 0.0-0.5 BASOPHIL # (test code=BA#) 0.01 K/mm3 0.0-0.2 NUCLEATED RBC # (test code=NRBC#) 0.00 K/mm3 0.0-0.1 MANUAL DIFF REQUIRED (test code=MDIFF) YES STAIN ACCEPTABILITY (test code=STN ACCEPTABLE) STAIN ACCEPTABLE TOTAL CELLS COUNTED (test code=TCC) 115 #CELLS SEGMENTED NEUTROPHILS (test code=SEG) 80.0 % 39-69 BAND NEUTROPHIL (test code=BAND) 10.4 % 0-10 LYMPHOCYTE (test code=LYMPH) 5.2 % 25-55 REACTIVE LYMPH (test code=RELYMPH) 0 % MONOCYTE (test code=MON) 2.6 % 0-10 EOSINOPHIL (test code=EOS) 0 % 0.0-5.0 BASOPHIL (test code=BASO) 1.8 % 0-1.0 METAMYELOCYTE (test code=META) 0 % 0-0 MYELOCYTE (test code=MYELO) 0 % 0.0-0.0 PROMYELOCYTE (test code=PROM) 0 % 0-0 POLYCHROMASIA (test code=POLC) 1+ HYPOCHROMIA (test code=HYPO) 1+ POIKILOCYTOSIS (test code=POIK) 2+ ANISOCYTOSIS (test code=ANISO) 1+ CRENATED CELLS (test code=CREN) 1+ OVALOCYTES (test code=OVAL) 1+ PLATELET ESTIMATE (test code=PLTEST) DECREASED PLATELET MORPHOLOGY (test code=PLTMORPH) NORMAL IMMATURE FORMS (test code=IMMAT) 0 % BASIC METABOLIC [id number] 19:38:00* Test Item Value Reference Range Comments SODIUM (test code=NA) 131 mmol/L 136-145 POTASSIUM (test code=K) 4.7 mmol/L 3.5-5.1 CHLORIDE (test code=CL) 93.0 mmol/L 98-107 CARBON DIOXIDE (test code=CO2) 21.0 mmol/L 21-32 ANION GAP (test code=GAP) 21.7 10-20 GLUCOSE (test code=GLU) 266 mg/dL 74-106 BLOOD UREA NITROGEN (test code=BUN) 98 mg/dL 7-18 GLOMERULAR FILTRATION RATE (test code=GFR) 4 mL/min >=60 Estimated GFR by using Modified MDRD formula.Chronic kidney disease is defined as either kidney damageor GFR <60 mL/min/1.73 m2 for >3 months. CREATININE (test code=CREAT) 10.10 mg/dL 0.55-1.02 Note change in reference range due to change in reagent. BUN/CREATININE RATIO (test code=BUN/CREA) 9.7 10-20 CALCIUM (test code=CA) 7.7 mg/dL 8.5-10.1 HEPATIC FUNCTION [id number] 19:38:00* Test Item Value Reference Range Comments TOTAL PROTEIN (test code=PROT) 6.9 gram/dL 6.4-8.2 ALBUMIN (test code=ALB) 2.6 g/dL 3.4-5.0 GLOBULIN (test code=GLOB) 4.3 gram/dL 2.7-4.2 ALBUMIN/GLOBULIN RATIO (test code=A/G) 0.6 0.75-1.50 BILIRUBIN TOTAL (test code=BILT) 1.10 mg/dL 0.0-1.0 BILIRUBIN DIRECT (test code=BILD) 0.70 mg/dL 0.0-0.20 SGOT/AST (test code=AST) 19 IUnit/L 15-37 SGPT/ALT (test code=ALT) 14 IUnit/L 12-78 ALKALINE PHOSPHATASE TOTAL (test code=ALKP) 131 IUnit/L 45-117 Note change in reference range due to change in reagent. [id number] 19:38:00* Test Item Value Reference Range Comments TROPONIN-I (test code=TROPI) <0.015 ng/mL 0-0.045 LACTIC [id number] 19:38:00* Test Item Value Reference Range Comments LACTIC ACID (test code=LACT) 1.8 mmol/L 0.4-1.9 BASIC METABOLIC [id number] 19:27:00* Test Item Value Reference Range Comments SODIUM (test code=NA) 131 mmol/L 136-145 POTASSIUM (test code=K) 4.7 mmol/L 3.5-5.1 CHLORIDE (test code=CL) 93.0 mmol/L 98-107 CARBON DIOXIDE (test code=CO2) mmol/L 21-32 ANION GAP (test code=GAP) 10-20 GLUCOSE (test code=GLU) mg/dL 74-106 BLOOD UREA NITROGEN (test code=BUN) mg/dL 7-18 GLOMERULAR FILTRATION RATE (test code=GFR) mL/min >=60 CREATININE (test code=CREAT) mg/dL 0.55-1.02 BUN/CREATININE RATIO (test code=BUN/CREA) 10-20 CALCIUM (test code=CA) mg/dL 8.5-10.1 HEPATIC FUNCTION [id number] 19:27:00* Test Item Value Reference Range Comments TOTAL PROTEIN (test code=PROT) gram/dL 6.4-8.2 ALBUMIN (test code=ALB) g/dL 3.4-5.0 GLOBULIN (test code=GLOB) gram/dL 2.7-4.2 ALBUMIN/GLOBULIN RATIO (test code=A/G) 0.75-1.50 BILIRUBIN TOTAL (test code=BILT) mg/dL 0.0-1.0 BILIRUBIN DIRECT (test code=BILD) mg/dL 0.0-0.20 SGOT/AST (test code=AST) IUnit/L 15-37 SGPT/ALT (test code=ALT) IUnit/L 12-78 ALKALINE PHOSPHATASE TOTAL (test code=ALKP) IUnit/L 45-117 [id number] 19:27:00* Test Item Value Reference Range Comments TROPONIN-I (test code=TROPI) ng/mL 0-0.045 CBC W/MANUAL [id number] 19:23:00* Test Item Value Reference Range Comments WHITE BLOOD CELL (test code=WBC) 7.0 K/mm3 4.5-12.5 RED BLOOD CELL (test code=RBC) 2.76 mill/mm3 3.7-5.2 HEMOGLOBIN (test code=HGB) 7.6 gram/dL 11.5-15.5 HEMATOCRIT (test code=HCT) 24.3 % 36.0-46.0 MEAN CELL VOLUME (test code=MCV) 88.0 fL 80-98 MEAN CELL HGB (test code=MCH) 27.5 picogram 27.0-33.0 MEAN CELL HGB CONCETRATION (test code=MCHC) 31.3 gram/dL 33.0-36.0 RED CELL DISTRIBUTION WIDTH (test code=RDW) 17.2 % 11.6-16.2 RED CELL DISTRIBUTION WIDTH SD (test code=RDW-SD) 54.2 fL 37.0-51.0 PLATELET COUNT (test code=PLT) 141 K/mm3 150-450 MEAN PLATELET VOLUME (test code=MPV) 10.6 fL 6.7-11.0 IMMATURE GRANULOCYTE % (test code=IG%) 0.4 % 0.0-5.0 NUCLEATED RBC % (test code=NRBC%) 0.0 % 0-0 NEUTROPHIL # (test code=NT#) 6.09 K/mm3 1.8-7.7 IMMATURE GRANULOCYTE # (test code=IG#) 0.03 x10 3/uL 0-0.03 LYMPHOCYTE # (test code=LY#) 0.45 K/mm3 1.0-5.0 MONOCYTE # (test code=MO#) 0.42 K/mm3 0-0.8 EOSINOPHIL # (test code=EO#) 0.00 K/mm3 0.0-0.5 BASOPHIL # (test code=BA#) 0.01 K/mm3 0.0-0.2 NUCLEATED RBC # (test code=NRBC#) 0.00 K/mm3 0.0-0.1 MANUAL DIFF REQUIRED (test code=MDIFF) YES STAIN ACCEPTABILITY (test code=STN ACCEPTABLE) TOTAL CELLS COUNTED (test code=TCC) #CELLS SEGMENTED NEUTROPHILS (test code=SEG) % 39-69 LYMPHOCYTE (test code=LYMPH) % 25-55 MONOCYTE (test code=MON) % 0-10 MORPHOLOGY COMMENT (test code=MOC) PLATELET ESTIMATE (test code=PLTEST) PLATELET MORPHOLOGY (test code=PLTMORPH) CBC W/MANUAL [id number] 19:19:00* Test Item Value Reference Range Comments WHITE BLOOD CELL (test code=WBC) 7.0 K/mm3 4.5-12.5 RED BLOOD CELL (test code=RBC) 2.76 mill/mm3 3.7-5.2 HEMOGLOBIN (test code=HGB) 7.6 gram/dL 11.5-15.5 HEMATOCRIT (test code=HCT) 24.3 % 36.0-46.0 MEAN CELL VOLUME (test code=MCV) 88.0 fL 80-98 MEAN CELL HGB (test code=MCH) 27.5 picogram 27.0-33.0 MEAN CELL HGB CONCETRATION (test code=MCHC) 31.3 gram/dL 33.0-36.0 RED CELL DISTRIBUTION WIDTH (test code=RDW) 17.2 % 11.6-16.2 RED CELL DISTRIBUTION WIDTH SD (test code=RDW-SD) 54.2 fL 37.0-51.0 PLATELET COUNT (test code=PLT) 141 K/mm3 150-450 MEAN PLATELET VOLUME (test code=MPV) 10.6 fL 6.7-11.0 IMMATURE GRANULOCYTE % (test code=IG%) 0.4 % 0.0-5.0 NUCLEATED RBC % (test code=NRBC%) 0.0 % 0-0 NEUTROPHIL # (test code=NT#) 6.09 K/mm3 1.8-7.7 IMMATURE GRANULOCYTE # (test code=IG#) 0.03 x10 3/uL 0-0.03 LYMPHOCYTE # (test code=LY#) 0.45 K/mm3 1.0-5.0 MONOCYTE # (test code=MO#) 0.42 K/mm3 0-0.8 EOSINOPHIL # (test code=EO#) 0.00 K/mm3 0.0-0.5 BASOPHIL # (test code=BA#) 0.01 K/mm3 0.0-0.2 NUCLEATED RBC # (test code=NRBC#) 0.00 K/mm3 0.0-0.1 MANUAL DIFF REQUIRED (test code=MDIFF) YES STAIN ACCEPTABILITY (test code=STN ACCEPTABLE) TOTAL CELLS COUNTED (test code=TCC) #CELLS SEGMENTED NEUTROPHILS (test code=SEG) % 39-69 LYMPHOCYTE (test code=LYMPH) % 25-55 MONOCYTE (test code=MON) % 0-10 EOSINOPHIL (test code=EOS) % 0.0-5.0 CABOT RINGS (test code=CAB) MORPHOLOGY COMMENT (test code=MOC) PLATELET ESTIMATE (test code=PLTEST) PLATELET MORPHOLOGY (test code=PLTMORPH) CBC W/MANUAL [id number] 19:19:00* Test Item Value Reference Range Comments WHITE BLOOD CELL (test code=WBC) 7.0 K/mm3 4.5-12.5 RED BLOOD CELL (test code=RBC) 2.76 mill/mm3 3.7-5.2 HEMOGLOBIN (test code=HGB) 7.6 gram/dL 11.5-15.5 HEMATOCRIT (test code=HCT) 24.3 % 36.0-46.0 MEAN CELL VOLUME (test code=MCV) 88.0 fL 80-98 MEAN CELL HGB (test code=MCH) 27.5 picogram 27.0-33.0 MEAN CELL HGB CONCETRATION (test code=MCHC) 31.3 gram/dL 33.0-36.0 RED CELL DISTRIBUTION WIDTH (test code=RDW) 17.2 % 11.6-16.2 RED CELL DISTRIBUTION WIDTH SD (test code=RDW-SD) 54.2 fL 37.0-51.0 PLATELET COUNT (test code=PLT) 141 K/mm3 150-450 MEAN PLATELET VOLUME (test code=MPV) 10.6 fL 6.7-11.0 IMMATURE GRANULOCYTE % (test code=IG%) 0.4 % 0.0-5.0 NUCLEATED RBC % (test code=NRBC%) 0.0 % 0-0 NEUTROPHIL # (test code=NT#) 6.09 K/mm3 1.8-7.7 IMMATURE GRANULOCYTE # (test code=IG#) 0.03 x10 3/uL 0-0.03 LYMPHOCYTE # (test code=LY#) 0.45 K/mm3 1.0-5.0 MONOCYTE # (test code=MO#) 0.42 K/mm3 0-0.8 EOSINOPHIL # (test code=EO#) 0.00 K/mm3 0.0-0.5 BASOPHIL # (test code=BA#) 0.01 K/mm3 0.0-0.2 NUCLEATED RBC # (test code=NRBC#) 0.00 K/mm3 0.0-0.1 MANUAL DIFF REQUIRED (test code=MDIFF) YES STAIN ACCEPTABILITY (test code=STN ACCEPTABLE) TOTAL CELLS COUNTED (test code=TCC) #CELLS SEGMENTED NEUTROPHILS (test code=SEG) % 39-69 LYMPHOCYTE (test code=LYMPH) % 25-55 MONOCYTE (test code=MON) % 0-10 EOSINOPHIL (test code=EOS) % 0.0-5.0 MORPHOLOGY COMMENT (test code=MOC) PLATELET ESTIMATE (test code=PLTEST) PLATELET MORPHOLOGY (test code=PLTMORPH) CBC W/MANUAL [id number] 19:18:00* Test Item Value Reference Range Comments WHITE BLOOD CELL (test code=WBC) 7.0 K/mm3 4.5-12.5 RED BLOOD CELL (test code=RBC) 2.76 mill/mm3 3.7-5.2 HEMOGLOBIN (test code=HGB) 7.6 gram/dL 11.5-15.5 HEMATOCRIT (test code=HCT) 24.3 % 36.0-46.0 MEAN CELL VOLUME (test code=MCV) 88.0 fL 80-98 MEAN CELL HGB (test code=MCH) 27.5 picogram 27.0-33.0 MEAN CELL HGB CONCETRATION (test code=MCHC) 31.3 gram/dL 33.0-36.0 RED CELL DISTRIBUTION WIDTH (test code=RDW) 17.2 % 11.6-16.2 RED CELL DISTRIBUTION WIDTH SD (test code=RDW-SD) 54.2 fL 37.0-51.0 PLATELET COUNT (test code=PLT) 141 K/mm3 150-450 MEAN PLATELET VOLUME (test code=MPV) 10.6 fL 6.7-11.0 IMMATURE GRANULOCYTE % (test code=IG%) 0.4 % 0.0-5.0 NUCLEATED RBC % (test code=NRBC%) 0.0 % 0-0 NEUTROPHIL # (test code=NT#) 6.09 K/mm3 1.8-7.7 IMMATURE GRANULOCYTE # (test code=IG#) 0.03 x10 3/uL 0-0.03 LYMPHOCYTE # (test code=LY#) 0.45 K/mm3 1.0-5.0 MONOCYTE # (test code=MO#) 0.42 K/mm3 0-0.8 EOSINOPHIL # (test code=EO#) 0.00 K/mm3 0.0-0.5 BASOPHIL # (test code=BA#) 0.01 K/mm3 0.0-0.2 NUCLEATED RBC # (test code=NRBC#) 0.00 K/mm3 0.0-0.1 MANUAL DIFF REQUIRED (test code=MDIFF) YES STAIN ACCEPTABILITY (test code=STN ACCEPTABLE) TOTAL CELLS COUNTED (test code=TCC) #CELLS SEGMENTED NEUTROPHILS (test code=SEG) % 39-69 LYMPHOCYTE (test code=LYMPH) % 25-55 MONOCYTE (test code=MON) % 0-10 EOSINOPHIL (test code=EOS) % 0.0-5.0 CABOT RINGS (test code=CAB) MORPHOLOGY COMMENT (test code=MOC) PLATELET ESTIMATE (test code=PLTEST) PLATELET MORPHOLOGY (test code=PLTMORPH) CBC W/MANUAL [id number] 19:18:00* Test Item Value Reference Range Comments WHITE BLOOD CELL (test code=WBC) 7.0 K/mm3 4.5-12.5 RED BLOOD CELL (test code=RBC) 2.76 mill/mm3 3.7-5.2 HEMOGLOBIN (test code=HGB) 7.6 gram/dL 11.5-15.5 HEMATOCRIT (test code=HCT) 24.3 % 36.0-46.0 MEAN CELL VOLUME (test code=MCV) 88.0 fL 80-98 MEAN CELL HGB (test code=MCH) 27.5 picogram 27.0-33.0 MEAN CELL HGB CONCETRATION (test code=MCHC) 31.3 gram/dL 33.0-36.0 RED CELL DISTRIBUTION WIDTH (test code=RDW) 17.2 % 11.6-16.2 RED CELL DISTRIBUTION WIDTH SD (test code=RDW-SD) 54.2 fL 37.0-51.0 PLATELET COUNT (test code=PLT) 141 K/mm3 150-450 MEAN PLATELET VOLUME (test code=MPV) 10.6 fL 6.7-11.0 IMMATURE GRANULOCYTE % (test code=IG%) 0.4 % 0.0-5.0 NUCLEATED RBC % (test code=NRBC%) 0.0 % 0-0 NEUTROPHIL # (test code=NT#) 6.09 K/mm3 1.8-7.7 IMMATURE GRANULOCYTE # (test code=IG#) 0.03 x10 3/uL 0-0.03 LYMPHOCYTE # (test code=LY#) 0.45 K/mm3 1.0-5.0 MONOCYTE # (test code=MO#) 0.42 K/mm3 0-0.8 EOSINOPHIL # (test code=EO#) 0.00 K/mm3 0.0-0.5 BASOPHIL # (test code=BA#) 0.01 K/mm3 0.0-0.2 NUCLEATED RBC # (test code=NRBC#) 0.00 K/mm3 0.0-0.1 MANUAL DIFF REQUIRED (test code=MDIFF) YES STAIN ACCEPTABILITY (test code=STN ACCEPTABLE) TOTAL CELLS COUNTED (test code=TCC) #CELLS SEGMENTED NEUTROPHILS (test code=SEG) % 39-69 LYMPHOCYTE (test code=LYMPH) % 25-55 MONOCYTE (test code=MON) % 0-10 EOSINOPHIL (test code=EOS) % 0.0-5.0 CABOT RINGS (test code=CAB) MORPHOLOGY COMMENT (test code=MOC) PLATELET ESTIMATE (test code=PLTEST) PLATELET MORPHOLOGY (test code=PLTMORPH) POC LACTIC [id number] 19:09:00* Test Item Value Reference Range Comments POC LACTIC ACID (test code=POCLAC) 1.74 MMOL/L 0.4-2.2 POC Glucose, [id number] 10:00:00* Test Item Value Reference Range Comments POC Glucose (test code=POCGLUC) 260 mg/dL 70-115 If you consider your patient critically ill, the Amy Accu-Chek InformII metershould not be used for Glucose determinations.Draw a venous Glucose and send to the Main Lab for Analysis. POC Glucose, [id number] 09:23:00* Test Item Value Reference Range Comments POC Glucose (test code=POCGLUC) 286 mg/dL 70-115 Notify RN or MDIf you consider your patient critically ill, the Amy Accu-Chek InformII metershould not be used for Glucose determinations.Draw a venous Glucose and send to the Main Lab for Analysis. Blood Gas+Lytes+Glu+Ca+Hgb+[id number] 07:03:00* Test Item Value Reference Range Comments pH, Blood Gas (test code=BGPH) 7.377 pH Units 7.350-7.450 pCO2 (test code=PCO2) 52.6 mm Hg 15-125 pO2 (test code=PO2) 45.3 mm Hg 30-420 PO2 is not a reliable measurement of the patient's oxygenation. Reference range not established for this test. Bicarbonate (test code=HCO3) 30.8 mmol/L 22.0-26.0 Base Excess (test code=BE) 4.7 mmol/L O2 Saturation (test code=O2SAT) 80.0 % 20.0-100.0 % O2SAT is not a reliable measurement of the patient's oxygenation.Reference range not established for this test. Sodium, Blood Gas (test code=BGNA) 142 mmol/L 135-145 Potassium, Blood Gas (test code=BGK) 4.8 mmol/L 3.5-4.5 Chloride, Blood Gas (test code=BGCL) 99 98-105 Calcium, Ionized, Blood Gas (test code=BGCAI) 1.18 mmol/L 1.00-1.50 Glucose, Blood Gas (test code=BGGLU) 237 mg/dL 75-115 tHB (test code=RTHB) 10.9 gm/dL 7.0-25.0 Hematocrit, Blood Gas (test code=BGHCT) 33.4 % 34.0-52.0 O2Hb (test code=RO2HB) 78 80-100 Carboxyhemoglobin (test code=CARHGB) 0.6 % 0.0-20.0 Methemoglobin (test code=METHGB) 2.0 % 0.0-20.0 FIO2 % (test code=FIO2) 21 % Patient Temperature (test code=PTTEMP) 37.0 Degrees Celcius Comment (test code=COMMENT) Reported to anesthesia Puncture Site (test code=PUNSITE) Other Drawing Tech ID (test code=DRAWTECH) Andra Lactic Acid, Blood Gas (test code=BGLA) 0.8 mmol/L Respiratory Rate (test code=RESP RATE) 0
--- OUTSIDE RECORDS SUMMARY | 2018-12-06 11:03 | XMS REPORT | Summary of Care ---
Author Author ALEJANDRA Hoover, CARLENE Organization Unknown Address Unknown Phone Unavailable Care Team Providers Care Calculus Teacher Name Role Phone CARLENE ROBERTS M.D. Unavailable Unavailable ALANA FIELD, LINDSEY Unavailable Unavailable CATHERINE FIELD, YOLA KWOK Unavailable Unavailable Unavailable Unavailable Functional Status Name Dates Details Functional status health issues are not documented Status: Name Dates Details Cognitive status health issues are not documented Status: Problems Name Dates Details Dysphagia (787.20, R13.10) Status: Active Esophageal reflux (530.81, K21.9) Status: Active Heartburn (787.1, R12) Status: Active Hiatal hernia (553.3, K44.9) Status: Active Gastric regurgitation (787.03, R11.10) Status: Active Medications Name Dates Details Omeprazole 20 MG Oral Capsule Delayed Release TAKE 2 CAPSULES DAILY. Quantity: 30 ALEJANDRA Hoover CARLENE * Start : 18-Mar-2012 Active Aspir-81 81 MG Oral Tablet Delayed Release * Refills: 0 Active Calcium-Vitamin D TABS * Refills: 0 Active NIFEdipine ER 60 MG Oral Tablet Extended Release 24 Hour * Refills: 0 Active ROPINIRole HCl - 0.5 MG Oral Tablet * Refills: 0 Active Coreg TABS * Refills: 0 Active Furosemide 20 MG Oral Tablet * Refills: 0 Active BuPROPion HCl - 100 MG Oral Tablet * Refills: 0 Active Gabapentin 100 MG TABS * Refills: 0 Active Lunesta 3 MG Oral Tablet * Refills: 0 Active Plavix 75 MG Oral Tablet * Refills: 0 Active Lipitor TABS * Refills: 0 Active Allergies and Adverse Reactions Name Dates Details Doxycycline Hyclate CAPS (Allergy) Status: Active Doxycycline Hyclate TABS (Allergy) Status: Active Phenergan (Allergy) Status: Active Past Medical History Name Dates Details History of abdominal pain (V13.89, Z87.898) Status: Resolved History of Belching (787.3, R14.2) Status: Resolved History of Diabetes mellitus (250.00, E11.9) Status: Resolved History of Dysphagia (787.20, R13.10) Status: Resolved History of Esophageal Reflux (412) Status: Resolved History of esophageal reflux (V12.79, Z87.19) Status: Resolved History of esophageal reflux (V12.79, Z87.19) Status: Resolved History of esophagitis (V12.79, Z87.19) Status: Resolved History of nausea (V12.79, Z87.898) Status: Resolved History of Pancreatic disease (577.9, K86.9) Status: Resolved Procedures Procedure Dates Details History of Shoulder Surgery Completed History of Knee Surgery Completed History of Hysterectomy Completed History of Esophagogastric Fundoplasty Dulce Maria Fundoplication Completed History of Pacemaker insertion Completed History of Coronary artery stent placement Completed Immunization Name Dates Details Immunizations not documented Family History Name Dates Details Family history of Family Health Status Comments: Family History Status: Active Social History Name Dates Details - Status: Name Dates Details Never smoker Vital Signs Date Test Result Details [id number] BP Systolic 157 mm[Hg] Status: Comments: Location: LLE; Position: Sitting BP Diastolic 86 mm[Hg] Status: Comments: Location: LLE; Position: Sitting Height 66 in Status: Weight 167.25 lb Status: Body Mass Index Calculated 27 kg/m2 Status: Body Surface Area Calculated 1.85 m2 Status: Temperature 97.6 f Status: Comments: Method: Oral Heart Rate 69 /min Status: Comments: Quality: Normal Respiration Rate 17 /min Status: Comments: Quality: Normal O2 SAT 95 % Status: Comments: Source: RA Results Date Description Value Details Results not documented Plan of Care Name Dates Details Planned Observations Planned Goals not documented Interventions Provided Plan* I will obtain the following: * 1. Video esophagram to assess the esophageal clearance and the anatomy of the gastroesophageal junction. * 2. Upper endoscopy to assess the anatomy of the gastroesophageal junction as the preoperative assessment. * 3. Gastric emptying study to assess if the symptoms are related to delayed gastric emptying, which will also inform us about the integrity of the vagal nerves. * 4. Cardiac clearance with Dr. Ely. * I will see her in my clinic to review the above studies and discuss her surgical plan at that time. Instructions Name Dates Details Instructions not documented Encounters Appointment; CARLENE ROBERTS M.D. Encounter Diagnosis: Problem not documented On: 19-May-2017 15:45 Appointment; CARLENE ROBERTS M.D. Encounter Diagnosis: Problem not documented On: 08-Jun-2018 14:00
--- NOTE | 2018-12-06 11:23 | NUR ---
PT GIVEN ORANGE JUICE PER BART, PARTNER MANAGER ORDERS TO GET PT B/S UP; PT B/S 63
--- NOTE | 2018-12-06 11:28 | NUR ---
LIMB ALERT PLACED ON PT LEFT WRIST DUE TO FISTULA IN LEFT UPPER ARM
--- NOTE | 2018-12-06 11:44 | NUR ---
STRAIGHT CATH INSERTED IN PT; PT HAS APPROX 600 CC URINE OUTPUT; UA COLLECTED AND SENT TO LAB
[2018-12-06 11:56] LABS: BASOPHILS # (AUTO) 0.1 (0.0-0.1); BASOPHILS % 0.5 % (0.0-1.0); EOSINOPHILS # (AUTO) 0.3 (0.0-0.4); EOSINOPHILS % 1.8 % (0.0-6.0); HEMOGLOBIN 8.8 g/dL (12.0-16.0); LYMPHOCYTES # (AUTO) 1.8 (1.0-3.2); LYMPHOCYTES % 12.3 % (18.0-39.1); MEAN CORPUSCULAR HGB CONC 31.4 g/dL (31-35); MEAN CORPUSCULAR VOLUME 92.4 fL (81-99); MONOCYTES # (AUTO) 0.8 (0.2-0.8); MONOCYTES % 5.2 % (4.4-11.3); NEUTROPHILS # (AUTO) 11.7 (2.1-6.9); NEUTROPHILS % 79.4 % (38.7-80.0); PLATELET COUNT 192 x10e3/uL (140-360); RED BLOOD COUNT 3.03 x10e6/uL (3.6-5.1); RED CELL DISTRIBUTION WIDTH 15.8 % (11.7-14.4)
[2018-12-06 11:58] LABS: BILIRUBIN,URINE NEGATIVE (NEGATIVE); CLARITY,URINE CLOUDY (CLEAR); COLOR,URINE BROWN (YELLOW); KETONES,URINE NEGATIVE (NEGATIVE); LEUKOCYTE ESTERASE ,URINE MODERATE (NEGATIVE); NITRITE,URINE NEGATIVE (NEGATIVE); PROTEIN,URINE DIPSTICK 2+ (NEGATIVE); URINE UROBILINOGEN 0.2 mg/dL (0.2 - 1)
[2018-12-06 12:20] LABS: INR 0.86; PARTIAL THROMBOPLASTIN TIME 31.6 seconds (23.8-35.5); PROTHROMBIN TIME 12.2 seconds (11.9-14.5)
[2018-12-06 12:29] LABS: BACTERIA,URINE MODERATE /HPF; EPITHELIAL CELLS,URINE MODERATE /LPF; RBC,URINE 21-50 /HPF (0-5); TRANSITIONAL EPI CELLS,URINE RARE; WBC,URINE (MAN) >50 /HPF (0-5)
[2018-12-06 12:30] LABS: ALBUMIN 1.9 g/dL (3.5-5.0); ALBUMIN/GLOBULIN RATIO 0.4 (0.8-2.0); ANION GAP 9.3 mmol/L (8-16); CALCIUM 8.3 mg/dL (8.4-10.2); CREATININE, SERUM 3.39 mg/dL (0.57-1.11); MAGNESIUM 1.4 MG/DL (1.3-2.1); POTASSIUM 3.3 mmol/L (3.5-5.1)
--- NOTE | 2018-12-06 13:26 | Diagnostic Imaging Report ---
EXAMINATION: Head and cervical spine CT without contrast. HISTORY: Status post fall, low blood sugar, rule out intracranial bleed and fracture. COMPARISON: None. TECHNIQUE: Multidetector axial images were obtained without contrast from the foramen magnum to the vertex and through the cervical spine. The images were reconstructed using brain and bone algorithms. Thin section brain images were reformatted into coronal and sagittal planes. Dose modulation, iterative reconstruction, and/or weight based adjustment of the mA/kV was utilized to reduce the radiation dose to as low as reasonably achievable. HEAD CT FINDINGS: Skull/difficult/: Few scattered periventricular white matter hypodensities, most likely nonspecific chronic microvascular ischemic changes. Parenchyma: Normal. No mass, hemorrhage or CT evidence of acute vascular insult. Brain volume: Mild generalized brain volume loss Ventricles: No hydrocephalus or displacement. Arteries: No density suggestive of thrombus. Dural sinuses: No abnormal density. Extra-axial spaces: No abnormal density. Foramen magnum: No mass, Chiari malformation, or basilar invagination. Sella: No obvious mass. Paranasal/mastoid sinuses: Imaged portions unremarkable. CERVICAL SPINE CT FINDINGS: Alignment:Normal alignment and lordosis. Subtle left-sided curvature. Soft tissues: Partially visualized hypodense injection within the left vocal cord. Partially visualized metallic wires in the anterior upper chest. Vertebrae: Normal height and density. No acute fracture, infection or neoplasm. Degenerative changes: C1-C2: Mild degenerative changes without stenosis. C2-C3: Prominent facet arthrosis mainly on the right side with subchondral cyst and erosion, likely with acute degenerative inflammation. Very minimal anterolisthesis. No canal stenosis. C3-C4: Facet arthrosis on the left without stenoses. C4-C5: Minimal disc bulge without stenosis C5-C6: Asymmetric to left disc osteophyte formation, prominent left-sided uncovertebral arthrosis. Moderate left foraminal stenoses. C6-C7: Multiple sacral segment in the left. No stenosis C7-T1: Normal IMPRESSION: Head CT: 1. No acute postraumatic intracranial hemorrhage. 2. Minimal chronic microvascular ischemic changes. Cervical spine CT: 1. No acute fractures or dislocations. 2. Mild chronic degenerative changes as described. Note: Acute post traumatic spinal cord, vascular or ligamentous injury cannot adequately be assessed with CT. Signed by: Dr. Alta Middleton M.D. on 12/06/2018 1:23 PM
[2018-12-06] MEDS ORDERED: CEFTRIAXONE SOD 1 GM/NS 50 ML 50 ML IV ONE (14:45)
[2018-12-06] MEDS ORDERED: NIFEDIPINE 10 MG CAP PO ONE (15:00)
[2018-12-06] MEDS ORDERED: CEFDINIR300 MG PO (16:20)
--- NOTE | 2018-12-06 17:11 | NUR ---
TRANSPORT TO [facility] [place] ARRANGED THRU [facility] WITH ETA < 30 MIN
[2018-12-06 17:13] VITALS: BP 111/46
--- NOTE | 2018-12-06 17:13 | NUR ---
REPORT GIVEN TO CHRIS AT [facility]
--- NOTE | 2018-12-06 18:18 | NUR ---
[facility] ARRIVED TO TRANSPORT PT
== END 2018-12-06 18:19 | disposition home or self-care (01) ==
LOC: ER 10:45
DX: E10.649 Type 1 diabetes mellitus with hypoglycemia without coma (principal); N30.91 Cystitis, unspecified with hematuria; I12.0 Hypertensive chronic kidney disease with stage 5 chronic kidney disease or end stage renal disease; E10.22 Type 1 diabetes mellitus with diabetic chronic kidney disease; N18.6 End stage renal disease; Z99.2 Dependence on renal dialysis; E78.5 Hyperlipidemia, unspecified; K21.9 Gastro-esophageal reflux disease without esophagitis; Z95.810 Presence of automatic (implantable) cardiac defibrillator
CPT/HCPCS: 36415; 70450; 72125; 80053; 81001; 82948; 83735; 85025; 85610; 85730; 93005; 99284; J0696